=== PATIENT | male | born 1930 | race Caucasian/White ===

== ENCOUNTER 2017-02-24 12:11 | Inpatient (IN) | payer MEDICARE, BC ==
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
--- NOTE | 2017-02-24 13:45 | XR ---
EXAMINATION TYPE: XR chest 2V DATE OF EXAM: 02/24/2017 COMPARISON: 03/30/2013 TECHNIQUE: PA and lateral views submitted. HISTORY: Cough FINDINGS: Subsegmental changes at the right lung base. Arthropathy of the shoulders. No overt failure. Atherosc lerotic change aorta. Degenerative and hypertrophic change of the spine. IMPRESSION: 1. Right basilar atelectasis or early infiltrate. Correlate clinically.
[2017-02-24 14:12] LABS: Basophils % (A) 0 %; CH 28.7; CHCM 31.5; Eosinophils # (A) 0.5 k/uL (0-0.7); Eosinophils % (A) 6 %; HCT 37.8 % (39.0-53.0); HDW 2.55; HGB 12.2 gm/dL (13.0-17.5); Hypochromasia Slight; Luc # (Auto) 0.07; Luc % (Auto) 1; Lymphocytes # (A) 0.9 k/uL (1.0-4.8); Lymphocytes % (A) 13 %; MCH 29.8 pg (25.0-35.0); MCHC 32.4 g/dL (31.0-37.0); MCV 91.8 fL (80.0-100.0); Mean Platelet Volume 7.4; Monocytes # (A) 0.4 k/uL (0-1.0); Monocytes % (A) 6 %; Neutrophils # (A) 5.5 k/uL (1.3-7.7); Neutrophils % (A) 74 %; RBC 4.12 m/uL (4.30-5.90); RDW 15.6 % (11.5-15.5); WBC 7.5 k/uL (3.8-10.6); WBC (Perox) 8.03
[2017-02-24 14:24] LABS: Calcium 9.8 mg/dL (8.4-10.2); Potassium 4.1 mmol/L (3.5-5.1); Total Protein 7.2 g/dL (6.3-8.2)
--- NOTE | 2017-02-24 14:46 | CT ---
EXAMINATION TYPE: CT brain wo con DATE OF EXAM: 02/24/2017 COMPARISON: NONE HISTORY: Syncopal episode CT DLP: 1008.3 mGycm Automated exposure control for dose reduction was used. Helical imaging through the brain FINDINGS: Inflammatory change present in the right maxillary sinus, ethmoid air cells . Cerebral vascular calcifications are present. There is cortical atrophy. No hemorrhage or hydroceph alus. Low dense right frontal area is noted. Periventricular white matter shows patchy low attenuatio n. Calvarium is intact. IMPRESSION: CHRONIC SMALL VESSEL ISCHEMIC CHANGES, AGE RELATED ATROPHY. SINUS DISEASE. PROBABLE REMOTE RIGHT FRON KELSEY CEREBRAL VASCULAR ACCIDENT.
[2017-02-24] MEDS ORDERED: ACETAMINOPHEN TAB 500 MG TAB PO PRN (15:00)
[2017-02-24 17:08] LABS: Glucose,Whole Blood 89 mg/dL (75-99)
[2017-02-24 17:48] LABS: Appearance,Urine Clear (Clear); Bilirubin,Urine Negative (Negative); Glucose,Urine (UA) Negative (Negative); Ketones,Urine Negative (Negative); Leukocyte Esterase,Urine Negative (Negative); Nitrite,Urine Negative (Negative); PH, Urine 6.5 (5.0-8.0); Protein,Urine Negative (Negative); Specific Gravity,Urine 1.014 (1.001-1.035); UA Billing (MACRO vs. MICRO) CHEM; Urobilinogen,Urine <2.0 mg/dL (<2.0)
[2017-02-24] MEDS: SODIUM CHLORIDE 0.9% 1,000 ML IV SCH (18:58)
[2017-02-24] MEDS: INSULIN LISPRO (humaLOG) 300 UNIT/3 ML VIAL SQ SCH ×2 (18:58→21:00)
--- NOTE | 2017-02-24 18:59 | EEG ---
ELECTROENCEPHALOGRAM REPORT DATE OF SERVICE: 02/24/2017. REASON FOR TESTING: Syncope. DESCRIPTION OF THE PROCEDURE: This EEG was performed using a 21-channel digital electroencephalograph, following international 10-20 system. DESCRIPTION OF THE RECORDING: From the beginning of the tracing and with patient's eyes closed, the background rhythm was mostly consisting of 8 Hz alpha frequency in the posterior occipital leads. No obvious asymmetry is seen. Photic stimulation was performed with a minimal driving response seen. No pathological waves were elicited. Frequent muscle artifacts and occasional movement artifacts are seen. Hyperventilation was not performed. The patient remains awake throughout the tracing. No epileptiform discharges were seen. Her EKG lead showed a tachycardic rate with a normal rhythm. INTERPRETATION: This awake EEG can be considered within normal limits. There was no asymmetry seen. No epileptiform discharges were noticed. The absence of epileptiform discharges does not rule out the diagnosis of epilepsy; therefore, clinical correlation is recommended. MMADALBERTOL / IJN: [id number] /
[2017-02-24] MEDS: HEPARIN SODIUM,PORCINE 5,000 UNIT/ML 1 ML VIAL SQ SCH (19:08)
[2017-02-24] MEDS: ASPIRIN 325 MG TAB PO SCH (19:08)
[2017-02-24] MEDS: LOSARTAN-HCTZ 50-12.5 MG 1 EACH TAB PO SCH (19:08)
[2017-02-24] MEDS: METOPROLOL SUCCINATE (ER) 25 MG TAB.ER.24H PO SCH (19:08)
[2017-02-24] MEDS ORDERED: LORazepam 2 MG/ML INJ IV STA (19:36)
--- NOTE | 2017-02-24 20:39 | US ---
EXAMINATION TYPE: US carotid duplex BILAT DATE OF EXAM: 02/24/2017 COMPARISON: NONE CLINICAL HISTORY: Syncope. EXAM MEASUREMENTS: RIGHT: Peak Systolic Velocity (PSV) cm/sec ----- Right CCA: 30.1 ----- Right ICA: 122.6 ----- Right ECA: 125.8 ICA/CCA ratio: 4.1 RIGHT: End Diastole cm/sec ----- Right CCA: 10.9 ----- Right ICA: 32.1 ----- Right ECA: 0 LEFT: Peak Systolic Velocity (PSV) cm/sec ----- Left CCA: 106.2 ----- Left ICA: 123.9 ----- Left ECA: 148.5 ICA/CCA ratio: 1.2 LEFT: End Diastole cm/sec ----- Left CCA: 17.5 ----- Left ICA: 41.2 ----- Left ECA: 11.4 VERTEBRALS (direction of flow): Right Vertebral: Antegrade Left Vertebral: Antegrade Rhythm: Normal Right ratio high due to low velocity in the CCA severe plaque noted bilaterally IMPRESSION: There is antegrade flow in the vertebral arteries. The images and measurements suggest 5 0% stenosis in the common and internal carotid arteries bilaterally. Diffuse plaque formation is pres ent. Criteria for Assigning % of Stenosis / Diameter reduction (Estimation based on the indirect measurements of the internal carotid artery velocities (ICA PSV). 1. Normal (no stenosis)=ICA PSV < 125 cm/s: ratio < 2.0: ICA EDV<40 cm/s. 2. Less than 50% stenosis=ICA PSV < 125 cm/s: ratio < 2.0: ICA EDV<40 cm/s. 3. 50 to 69% stenosis=ICA PSV of 125 to 230 cm/s: ration 2.0 ? 4.0: ICA EDV 40-100 cm/s. 4. Greater than 70% stenosis to near occlusion= ICA PSV > 230 cm/s: ratio > 4.0: ICA EDV > 100 cm/s. 5. Near occlusion= ICA PSV velocities may be low or undetectable: variable ratio and ICA EDV. 6. Total occlusion=unable to detect flow.
[2017-02-24 21:08] LABS: Glucose,Whole Blood 124 mg/dL (75-99)
[2017-02-24] MEDS: ALLOPURINOL 300 MG TAB PO SCH (21:09)
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
[2017-02-24] MEDS: CYCLOBENZAPRINE 10 MG TAB PO SCH (22:11)
[2017-02-25 05:42] LABS: Glucose,Whole Blood 117 mg/dL (75-99)
[2017-02-25] MEDS: INSULIN LISPRO (humaLOG) 300 UNIT/3 ML VIAL SQ SCH ×4 (05:48→20:13)
[2017-02-25 06:19] LABS: Basophils % (A) 1 %; CH 29.4; CHCM 31.6; Eosinophils # (A) 0.6 k/uL (0-0.7); Eosinophils % (A) 10 %; HCT 35.8 % (39.0-53.0); HDW 2.63; HGB 11.3 gm/dL (13.0-17.5); Hypochromasia Slight; Luc % (Auto) 2; Lymphocytes # (A) 1.2 k/uL (1.0-4.8); Lymphocytes % (A) 21 %; MCH 29.6 pg (25.0-35.0); MCHC 31.6 g/dL (31.0-37.0); MCV 93.6 fL (80.0-100.0); Mean Platelet Volume 6.9; Monocytes # (A) 0.4 k/uL (0-1.0); Monocytes % (A) 7 %; Neutrophils # (A) 3.4 k/uL (1.3-7.7); Neutrophils % (A) 59 %; RBC 3.82 m/uL (4.30-5.90); RDW 14.6 % (11.5-15.5); WBC 5.7 k/uL (3.8-10.6); WBC (Perox) 5.91
[2017-02-25 06:32] LABS: Calcium 9.5 mg/dL (8.4-10.2); Potassium 4.6 mmol/L (3.5-5.1); Total Bilirubin 1.1 mg/dL (0.2-1.3); Total Protein 6.6 g/dL (6.3-8.2)
[2017-02-25] MEDS: FAMOTIDINE 20 MG TAB PO SCH (07:35)
[2017-02-25] MEDS: METOPROLOL SUCCINATE (ER) 25 MG TAB.ER.24H PO SCH (07:37)
[2017-02-25] MEDS: ASPIRIN 325 MG TAB PO SCH (07:37)
[2017-02-25] MEDS: CHOLECALCIFEROL 1,000 UNIT TAB PO SCH (07:37)
[2017-02-25] MEDS: LOSARTAN-HCTZ 50-12.5 MG 1 EACH TAB PO SCH (07:37)
[2017-02-25] MEDS: HEPARIN SODIUM,PORCINE 5,000 UNIT/ML 1 ML VIAL SQ SCH ×2 (07:37→20:04)
[2017-02-25] MEDS ORDERED: ASPIRIN 81 MG PO SCH (09:00)
[2017-02-25] MEDS ORDERED: ALLOPURINOL 300 MG TAB PO SCH (09:00)
[2017-02-25 11:45] LABS: Glucose,Whole Blood 129 mg/dL (75-99)
--- NOTE | 2017-02-25 12:33 | ECHOF ---
Referral Reason:syncope MEASUREMENTS -------- HEIGHT: 162.6 cm WEIGHT: 75.7 kg BP: IVSd: 1.5 cm (0.6 - 1.1) LVIDd: 3.0 cm (3.9 - 5.3) LVPWd: 1.6 cm (0.6 - 1.1) IVSs: 1.9 cm LVIDs: 1.5 cm LVPWs: 2.3 cm LAESV Index (A-L): 34.12 ml/m Ao Diam: 3.4 cm (2.0 - 3.7) AV Cusp: 1.6 cm (1.5 - 2.6) LA Diam: 3.7 cm (2.7 - 3.8) EPSS: 0.9 cm MV E [place]: 1.22 m/s MV DecT: 202 ms MV A [place]: 1.94 m/s MV E/A Ratio: 0.63 RAP: 5.00 mmHg RVSP: 27.97 mmHg MV EF SLOPE: 54.71 mm/s (70 - 150) MV EXCURSION: 0.84 cm (> 18.000) FINDINGS -------- Sinus rhythm. Resting tachycardia (HR>100bpm). This was a technically good study. The left ventricular size is normal. There is moderate concentric left ventricular hypertrophy. O verall left ventricular systolic function is normal with, an EF between 55 - 60 %. The right ventricle is normal in size. LA is moderately dilated 34-39 ml/m2 The right atrium is normal in size. Aortic valve is trileaflet and is mildly thickened. Moderate mitral annular calcification present. Mild mitral regurgitation is present. Mild tricuspid regurgitation present. The right ventricular systolic pressure, as measured by Doppl er, is 27.97mmHg. There is no pulmonic regurgitation present. The aortic root size is normal. Normal inferior vena cava with normal inspiratory collapse consistent with estimated right atrial pre ssure of 5 mmHg. There is a trivial pericardial effusion present. CONCLUSIONS -------- 1. Sinus rhythm. 2. This was a technically good study. 3. There is moderate concentric left ventricular hypertrophy. 4. Overall left ventricular systolic function is normal with, an EF between 55 - 60 %. 5. LA is moderately dilated 34-39 ml/m2 6. Aortic valve is trileaflet and is mildly thickened. 7. Moderate mitral annular calcification present. 8. Mild mitral regurgitation is present. 9. Mild tricuspid regurgitation present. 10. The right ventricular systolic pressure, as measured by Doppler, is 27.97mmHg. 11. There is no pulmonic regurgitation present. 12. The aortic root size is normal. 13. Normal inferior vena cava with normal inspiratory collapse consistent with estimated right atrial pressure of 5 mmHg. 14. There is a trivial pericardial effusion present. TRADE ANALYST: Joanna Cui RDCS
[2017-02-25] MEDS: LOSARTAN 50 MG TAB PO SCH (12:35)
[2017-02-25] MEDS: SODIUM CHLORIDE 0.9% 1,000 ML IV SCH (12:40)
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
[2017-02-25] MEDS ORDERED: LORazepam 2 MG/ML INJ ONE (13:48)
--- NOTE | 2017-02-25 14:53 | MR ---
EXAMINATION TYPE: MR angio head wo con DATE OF EXAM: 02/25/2017 COMPARISON: CT brain from yesterday. HISTORY: Syncope, abnormal CT TECHNIQUE: Time of flight images focusing on the [place] were performed without contrast.. 2-D and 3-D postprocessing imaging is performed. FINDINGS: There is codominant vertebral basilar system. There is no significant focal stenosis or ane urysmal change in the posterior circulation. There are patent posterior communicating arteries identi fied bilaterally. Images of the anterior circulation show small caliber but patent anterior communicating artery. There is small caliber but patent right A1 segment with filling of A2 segment due to patent anterior commu nicating artery. No aneurysmal change is identified. IMPRESSION: No significant focal stenosis or aneurysmal change at level of [place].
--- NOTE | 2017-02-25 14:57 | MR ---
EXAMINATION TYPE: MR brain wo con DATE OF EXAM: 02/25/2017 COMPARISON: CT brain from yesterday. HISTORY: Syncope, abnormal CT TECHNIQUE: Multiplanar, multisequence imaging of the brain and brainstem is performed without IV cont rast. FINDINGS: Diffusion weighted images demonstrate no evidence of a recent infarct or other diffusion abnormality. There is no worrisome extra-axial fluid collection. There is diffuse ventricular and sulcal prominenc e consistent with diffuse cerebral atrophy. There are scattered foci of T2 hyperintensity seen throug hout the deep and periventricular white matter. There is area of old infarct right frontal lobe redem onstrated. Midline structures demonstrate normal morphology. The craniocervical junction appears within normal limits. Normal vascular flow voids are present. There is fluid and mucosal thickening within right ma xillary sinus and right ethmoid sinuses redemonstrated. Remainder paranasal sinuses are clear. Globes are intact bilaterally. No suspicious opacification of mastoid air cells is seen. IMPRESSION: 1. No evidence of a recent infarct. 2. Background moderate diffuse cerebral atrophy and chronic small vessel ischemic change with old rig ht frontal lobe infarct all redemonstrated.
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
--- NOTE | 2017-02-25 15:33 | US ---
EXAMINATION TYPE: US kidneys/renal and bladder DATE OF EXAM: 02/25/2017 COMPARISON: NONE CLINICAL HISTORY: renal failure. EXAM MEASUREMENTS: Right Kidney: 10.4 x 4.0 x4.4 cm Left Kidney: 11.6 x 4.4 x 4.4 cm Right Kidney: scattered echogenic foci noted, small stones vs calcified arteries Left Kidney: probable cyst noted measuring 1.1 x 1.1 x 1.2cm Bladder: wnl Bilateral Jets seen: Yes Tiny echogenic foci within the right kidney may represent vascular calcifications or tiny, nonobstruc ting calculi. 1.2 cm lesion in the left kidney does not meet the requirements of simple cyst. Further evaluation with CT or MR would be suggested. IMPRESSION: LESION IN THE LEFT KIDNEY DOES NOT MEET THE REQUIREMENTS OF SIMPLE CYST. FURTHER EVALUATION WITH CT O R MR WOULD BE SUGGESTED.
[2017-02-25 16:56] LABS: Glucose,Whole Blood 113 mg/dL (75-99)
[2017-02-25] MEDS: CYCLOBENZAPRINE 10 MG TAB PO SCH (20:13)
[2017-02-25] MEDS: ALLOPURINOL 300 MG TAB PO SCH (20:13)
[2017-02-25 20:41] LABS: Glucose,Whole Blood 179 mg/dL (75-99)
[2017-02-25] MEDS ORDERED: ATORVASTATIN 10 MG TAB PO SCH (21:00)
[2017-02-26 06:09] LABS: Glucose,Whole Blood 138 mg/dL (75-99)
[2017-02-26] MEDS: INSULIN LISPRO (humaLOG) 300 UNIT/3 ML VIAL SQ SCH ×2 (06:15→12:08)
[2017-02-26 06:42] LABS: Basophils % (A) 0 %; CH 29.2; CHCM 31.1; Eosinophils # (A) 0.6 k/uL (0-0.7); Eosinophils % (A) 9 %; HDW 2.49; HGB 11.7 gm/dL (13.0-17.5); Hypochromasia Slight; Luc % (Auto) 2; Lymphocytes # (A) 1.1 k/uL (1.0-4.8); Lymphocytes % (A) 17 %; MCH 29.1 pg (25.0-35.0); MCHC 30.7 g/dL (31.0-37.0); MCV 94.6 fL (80.0-100.0); Mean Platelet Volume 7.3; Monocytes # (A) 0.5 k/uL (0-1.0); Monocytes % (A) 7 %; Neutrophils # (A) 4.5 k/uL (1.3-7.7); Neutrophils % (A) 66 %; RBC 4.02 m/uL (4.30-5.90); RDW 15.8 % (11.5-15.5); WBC 6.9 k/uL (3.8-10.6)
[2017-02-26 06:53] LABS: ALT 47 U/L (21-72); AST 33 U/L (17-59); Alkaline Phosphatase 64 U/L (38-126); Anion Gap 9 mmol/L; Blood Urea Nitrogen 30 mg/dL (9-20); Calcium 9.7 mg/dL (8.4-10.2); Carbon Dioxide 29 mmol/L (22-30); Chloride 102 mmol/L (98-107); Glucose 145 mg/dL (74-99); Non-African American GFR(MDRD) 53 (>60 ml/min/1.73 sqM); Potassium 4.8 mmol/L (3.5-5.1); Sodium 140 mmol/L (137-145); Total Bilirubin 0.9 mg/dL (0.2-1.3)
[2017-02-26] MEDS: ASPIRIN 325 MG TAB PO SCH (08:54)
[2017-02-26] MEDS: METOPROLOL SUCCINATE (ER) 25 MG TAB.ER.24H PO SCH (08:54)
[2017-02-26] MEDS: LOSARTAN 50 MG TAB PO SCH (08:54)
[2017-02-26] MEDS: HEPARIN SODIUM,PORCINE 5,000 UNIT/ML 1 ML VIAL SQ SCH (08:55)
[2017-02-26] MEDS: FAMOTIDINE 20 MG TAB PO SCH (08:55)
[2017-02-26] MEDS: SODIUM CHLORIDE 0.9% 1,000 ML IV SCH (08:59)
[2017-02-26 09:12] VITALS: RESP 18
[2017-02-26 11:22] VITALS: BP 155/64; PULSE 95; TEMP 98.2
[2017-02-26 11:35] LABS: Glucose,Whole Blood 142 mg/dL (75-99)
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
[2017-02-26] MEDS: CHOLECALCIFEROL 1,000 UNIT TAB PO SCH (12:08)
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
== END 2017-02-26 13:50 | disposition home or self-care (01) | DRG 312 ==
LOC: 3OBS 12:11 → 6SEL 17:14 → OBSVTOIN 02-25 14:13
PROVIDERS: ADMIT Internal Medicine; ATTEND Internal Medicine
DX: R55 Syncope and collapse (principal); E11.22 Type 2 diabetes mellitus with diabetic chronic kidney disease; D64.9 Anemia, unspecified; J98.11 Atelectasis; I12.9 Hypertensive chronic kidney disease with stage 1 through stage 4 chronic kidney disease, or unspecified chronic kidney disease; E78.5 Hyperlipidemia, unspecified; R35.0 Frequency of micturition; N18.9 Chronic kidney disease, unspecified; M10.9 Gout, unspecified; I99.8 Other disorder of circulatory system; M19.90 Unspecified osteoarthritis, unspecified site; M54.5 Low back pain; M54.2 Cervicalgia; G89.29 Other chronic pain; Z79.84 Long term (current) use of oral hypoglycemic drugs; Z86.718 Personal history of other venous thrombosis and embolism; Z98.42 Cataract extraction status, left eye; Z98.41 Cataract extraction status, right eye; Z96.1 Presence of intraocular lens; Z87.891 Personal history of nicotine dependence; Z86.73 Personal history of transient ischemic attack (TIA), and cerebral infarction without residual deficits; Z80.52 Family history of malignant neoplasm of bladder; Z79.899 Other long term (current) drug therapy; Z79.82 Long term (current) use of aspirin
CPT/HCPCS: 70450; 70544; 70551; 71020; 76770; 80053; 80061; 81003; 83036; 83090; 84484; 84550; 85025; 87086; 93306; 93880; 95819

== ENCOUNTER 2017-03-10 06:19 | Day surgery (SDC) | payer MEDICARE, BC ==
[2017-03-08 15:04] VITALS: BMI 27.8
[~2017-03-10 06:19] MED LIST: ALPRAZolam 0.25 MG TAB PO PRN; ALPRAZolam 0.5 MG TAB PO PRN; ASPIRIN 325 MG TAB PO STA; ATORVASTATIN 80 MG TAB PO STA; NITROGLYCERIN SL TABS 0.4 MG TAB SUBLINGUAL PRN; SODIUM CHLORIDE 0.9% 1,000 ML in EMPTY BAG 1 BAG IV ONE
[2017-03-10 06:53] LABS: Glucose,Whole Blood 171 mg/dL (75-99)
[2017-03-10] MEDS ORDERED: LIDOCAINE 2% INJ 20 MG/ML (20 ML MDV) ONE (07:20)
[2017-03-10] MEDS ORDERED: VERAPAMIL 2.5 MG/ML 2 ML AMP ONE (07:20)
[2017-03-10] MEDS ORDERED: diphenhydrAMINE 50 MG/ML 1 ML VIAL ONE (07:28)
[2017-03-10] MEDS ORDERED: fentaNYL (PF) 50 MCG/ML 2 ML AMP ONE (07:28)
[2017-03-10] MEDS ORDERED: diphenhydrAMINE 50 MG/ML 1 ML VIAL IVP ONE (07:30)
[2017-03-10] MEDS ORDERED: fentaNYL (PF) 50 MCG/ML 2 ML AMP IV ONE (07:31)
[2017-03-10] MEDS: LIDOCAINE 2% INJ 20 MG/ML SQ ONE ×2 (07:35→07:48)
[2017-03-10] MEDS ORDERED: MIDAZOLAM 2 MG/2 ML VIAL IV ONE (07:36)
[2017-03-10] MEDS ORDERED: MIDAZOLAM 2 MG/2 ML VIAL ONE (07:36)
[2017-03-10] MEDS ORDERED: VERAPAMIL SYRINGE (5 MG/10 ML) INTRAARTER ONE (07:37)
[2017-03-10 07:43] LABS: Potassium 4.4 mmol/L (3.5-5.1)
[2017-03-10] MEDS ORDERED: CLOPIDOGREL 75 MG TAB ONE (07:58)
[2017-03-10] MEDS ORDERED: BIVALIRUDIN BOLUS 250 MG/50 ML IV ONE (08:00)
[2017-03-10] MEDS ORDERED: BIVALIRUDIN 250 MG in SODIUM CHLORIDE 0.9% 50 ML IV ONE (08:04)
[2017-03-10] MEDS ORDERED: CLOPIDOGREL 75 MG TAB PO ONE (08:04)
[2017-03-10] MEDS ORDERED: NITROGLYCERIN 1000MCG/10ML SYRINGE INTRACORON ONE (08:11)
[2017-03-10] MEDS ORDERED: IOHEXOL 350 MG/ML 125ML BOTTLE INJ ONE (08:20)
[2017-03-10] MEDS ORDERED: ATROPINE SULFATE 0.1 MG/ML 10ML SYRINGE IV PRN (08:37)
[2017-03-10] MEDS ORDERED: NITROGLYCERIN SL TABS 0.4 MG TAB SUBLINGUAL PRN (08:37)
[2017-03-10] MEDS ORDERED: MAG HYDROX/AL HYDROX/SIMETH 30 ML CUP PO PRN (08:37)
[2017-03-10] MEDS ORDERED: RX INFO: IV CONTRAST WAS GIVEN 1 EACH MISC MISCELLANE PRN (08:37)
[2017-03-10] MEDS ORDERED: ACETAMINOPHEN TAB 500 MG TAB PO PRN (08:39)
[2017-03-10] MEDS ORDERED: SODIUM CHLORIDE 0.9% 1,000 ML IV SCH (08:45)
[2017-03-10] MEDS ORDERED: HYDROmorphone 1 MG/ML 1 ML SYRINGE IVP STA ×2 (08:53→10:06)
--- NOTE | 2017-03-10 08:55 | CC ---
CARDIAC CATHETERIZATION REPORT Mr. Degroot is an 86-year-old male with known history of hypertension, hyperlipidemia, diabetes mellitus, who recently had a syncopal episode. At that time, there was no evidence of ischemic event. Subsequently he had an event monitor placed that revealed episode of nonsustained ventricular tachycardia with symptoms with possible dizziness. In view of that, recommendations were made regarding cardiac catheterization. The procedure as well as the risks and complications were discussed with the patient who is in full understanding and agreement. PROCEDURE: Patient was brought to the medical lab scientist in a fasting semi-sedated state after receiving fentanyl and Benadryl and achieving moderate conscious sedated state. Using Xylocaine anesthesia in the Seldinger technique, a 6-Scottish sheath was introduced in the right radial artery. The wire was advanced into the ascending aorta, but because of severe tortuosity there was inability to advance the catheter. At that time, the guidewire and the catheter were removed. Using Xylocaine anesthesia in the Seldinger technique, 6- Scottish sheath was introduced in the right femoral artery. Selective right and left angiography were performed using 6-Scottish 4 bend right and left Mike catheter. Multiple views of the coronary artery including hemiaxial views were obtained. Following that, a 6-Scottish tight pigtail catheter was introduced into the left ventricle and a pressure was calculated. Following that, catheter was removed. Images were reviewed. FINDINGS: FLUOROSCOPY: There was severe calcification involving the coronary arteries. LEFT MAIN: This is a large size vessel trifurcating in the left circumflex, left anterior descending artery and ramus intermedius. Left main coronary artery is without any significant obstructive disease. LEFT ANTERIOR DESCENDING ARTERY: This is a large-sized vessel reaching toward the apex, tapers down the distal third, giving rise to 3 diagonal branches. The first was largest in caliber. In the mid segment prior to the takeoff of the second diagonal branch, there is a 70% eccentric lesion. The rest of the vessel is calcified, but has no evidence of high-grade stenosis. RAMUS INTERMEDIUS: This is a moderately size vessel reaching toward the apical lateral wall that has no evidence of high-grade stenosis. LEFT CIRCUMFLEX: This is a nondominant vessel, large in caliber giving rise to 2 obtuse marginal branches. The left circumflex as well as branches have no evidence of obstructive coronary artery disease. RIGHT CORONARY ARTERY: This is a large dominant vessel bifurcating distally in PDA, posterolateral segment and branches. The right coronary artery proximally has a 20% to 30% plaque. The rest of the vessel has no high-grade stenosis. HEMODYNAMICS: There was no gradient across the aortic valve. The left ventricle end- diastolic pressure was 16-20 mmHg. LEFT VENTRICULOGRAM: Left ventriculogram is not performed. CONCLUSION: 1. 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 2. Mild disease in the right coronary artery. 3. Severely calcified coronary arteries. RECOMMENDATION: In view of finding anatomy, I recommend proceeding with angioplasty and stenting of the LAD. The procedure as well as risks and complications were discussed with the patient who is in full understanding and agreement. MMODL / IJN: [id number] /
[2017-03-10] MEDS: LOSARTAN-HCTZ 50-12.5 MG 1 EACH TAB PO SCH (10:28)
[2017-03-10] MEDS: METOPROLOL SUCCINATE (ER) 50 MG TAB.ER.24H PO SCH (10:28)
--- NOTE | 2017-03-10 10:31 | PTCA ---
PERCUTANEOUSTRANS CORORONARY ANGIOGRAPHY Mr. Degroot is an 86-year-old male with known history of hypertension, hyperlipidemia, diabetes mellitus, who recently had a syncopal episode. He had an event monitor that showed evidence of ventricular tachycardia. In view of that, he underwent cardiac catheterization that revealed significant stenosis involving the mid LAD. In view of that, recommendation was made regarding angioplasty and stenting. The procedure as well as the risks and complications were discussed with the patient who is in full understanding and agreement. PROCEDURE: A 6-Kiswahili FR4 guiding catheter was introduced in the system and after cannulating the left main, a 0.014 balanced medium weight J-wire was advanced across the lesion and positioned distally. Then a 3.0 x 18 mm Xience Alpine stent was deployed postdilated at 16 atmospheres. After the last inflation, after appropriate wait, the balloon and the guidewire were withdrawn back in the guiding catheter. Images were obtained and repeated. Those images reveal stable successful stenting. At that point, the guiding catheter, the balloon and the guide wire were removed. The sheath was removed. Hemostasis was obtained with deployment of an Angio-Seal in the right femoral artery and a TR band in the right radial artery. Of note, the patient had no chest discomfort or EKG changes with the inflation. He received Angiomax per protocol as well as oral loading dose of clopidogrel. RESULTS: Successful stenting of the mid LAD with reduction of stenosis from 70% to 0%. RECOMMENDATION: Patient will be continued on aspirin, Plavix, beta ivon, and statin. The importance of dual antiplatelet treatment was discussed with the patient and his family and are in full understanding and agreement. Duration of the procedure 42 minutes. MMRON / DAYTONN: [id number] /
--- NOTE | 2017-03-10 10:37 | LTR ---
March 10, 2017 Re: Dean Degroot Dear Dr. Salas: I had the opportunity to perform cardiac catheterization on Mr. Degroot at [facility] on the 10 of March and a full copy of the procedure note will be forwarded to you. In brief, he was found to have significant stenosis involving the mid LAD and underwent successful stenting of that vessel using a drug eluting stent. I am hopeful that this procedure will stabilize his status and I thank you again for allowing me the opportunity to participate in his care. Please feel free to call for any questions. Sincerely yours, MD JEANNE NelsonL / DAYTONN: [id number] /
[2017-03-10 12:10] LABS: Glucose,Whole Blood 151 mg/dL (75-99)
[2017-03-10] MEDS: CHOLECALCIFEROL 1,000 UNIT TAB PO SCH (12:25)
[2017-03-10] MEDS: INSULIN ASPART 100 UNIT/ML 1 ML 10 ML VIAL SQ SCH ×3 (12:25→21:13)
[2017-03-10 17:31] LABS: Glucose,Whole Blood 141 mg/dL (75-99)
[2017-03-10 20:57] LABS: Glucose,Whole Blood 191 mg/dL (75-99)
[2017-03-10] MEDS ORDERED: ALLOPURINOL 300 MG TAB PO SCH (21:00)
[2017-03-10] MEDS ORDERED: CYCLOBENZAPRINE 10 MG TAB PO SCH (21:00)
[2017-03-10] MEDS ORDERED: ZOLPIDEM 5 MG TAB PO PRN (21:00)
[2017-03-11 06:06] LABS: Glucose,Whole Blood 148 mg/dL (75-99)
[2017-03-11 06:16] VITALS: TEMP 97.1
[2017-03-11] MEDS: INSULIN ASPART 100 UNIT/ML 1 ML 10 ML VIAL SQ SCH ×2 (06:38→13:00)
--- NOTE | 2017-03-11 08:11 | PN ---
PROGRESS NOTE Mr. Degroot is an 86-year-old male who had a syncopal episode. Subsequently had an episode of ventricular tachycardia on his event monitor, underwent cardiac catheterization, was found to have significant stenosis involving the mid LAD and underwent stenting of that vessel. He is doing well this morning. He is denying any chest pain. His breathing has been stable. He denies any dizziness palpitation. He continued be on aspirin once a day, Plavix 75 mg daily, Lipitor 40 mg daily, Toprol-XL 50 mg daily, losartan HCT 50/12.5 mg daily. PHYSICAL EXAMINATION: Blood pressure 134/60 with the heart rate in 80s. LUNGS: Clear. Regular rate and rhythm. S1, S2. No S3. No rub with a systolic murmur at the base. ABDOMEN: Soft, nontender. RIGHT GROIN: No hematoma. EXTREMITIES: No edema. Right radial pulse intact. EKG revealed no acute changes. Renal function lab data still pending. IMPRESSION: 1. Status post stenting of the left anterior descending artery. 2. History of ventricular tachycardia. 3. Hypertension. 4. Hyperlipidemia. 5. Diabetes mellitus. 6. Chronic kidney disease. RECOMMENDATION: We will review the results of his renal function. If he is stable, he should be able to be discharged home today and followed as an outpatient. Depending on his arrhythmia, further recommendation will be made. MMODL / DAYTONN: [id number] /
[2017-03-11] MEDS ORDERED: CLOPIDOGREL 75 MG TAB PO SCH (09:00)
[2017-03-11] MEDS ORDERED: ATORVASTATIN 40 MG TAB PO SCH (09:00)
[2017-03-11] MEDS ORDERED: ASPIRIN 81 MG PO SCH (09:00)
[2017-03-11 09:17] VITALS: BP 150/72; PULSE 92; RESP 16
[2017-03-11 09:22] LABS: Calcium 9.7 mg/dL (8.4-10.2); Potassium 4.5 mmol/L (3.5-5.1)
[2017-03-11] MEDS: LOSARTAN-HCTZ 50-12.5 MG 1 EACH TAB PO SCH (10:40)
[2017-03-11] MEDS: CHOLECALCIFEROL 1,000 UNIT TAB PO SCH (10:41)
[2017-03-11] MEDS: METOPROLOL SUCCINATE (ER) 50 MG TAB.ER.24H PO SCH (10:41)
[2017-03-11 11:45] LABS: Glucose,Whole Blood 169 mg/dL (75-99)
== END 2017-03-11 14:03 | disposition home or self-care (01) ==
LOC: CATHCVL 06:19 → 6SEL 08:15 → CATHCVL 03-11 14:03
PROVIDERS: ATTEND Internal Medicine Interventional Cardiology
DX: I25.10 Atherosclerotic heart disease of native coronary artery without angina pectoris (principal); I25.84 Coronary atherosclerosis due to calcified coronary lesion; I47.2 Ventricular tachycardia; E78.2 Mixed hyperlipidemia; I65.23 Occlusion and stenosis of bilateral carotid arteries; I12.9 Hypertensive chronic kidney disease with stage 1 through stage 4 chronic kidney disease, or unspecified chronic kidney disease; N18.9 Chronic kidney disease, unspecified; E11.22 Type 2 diabetes mellitus with diabetic chronic kidney disease; Z79.84 Long term (current) use of oral hypoglycemic drugs; M19.90 Unspecified osteoarthritis, unspecified site; Z79.82 Long term (current) use of aspirin; Z79.899 Other long term (current) drug therapy
CPT/HCPCS: 94760; 93458; 85347; 80048 ×2; 83036; C9600; C1769 ×4; C1760; C1887; C1894 ×2; C1874; J2001; J2250; J1200; J3010; J1170; J0583; Q9967

== ENCOUNTER → 2017-07-13 | Outpatient (CLI) | payer MEDICARE, BC ==
[2017-07-13 11:50] LABS: Albumin 4.4 g/dL (3.5-5.0); Calcium 9.9 mg/dL (8.4-10.2); Potassium 4.4 mmol/L (3.5-5.1); Total Bilirubin 1.2 mg/dL (0.2-1.3); Total Protein 7.1 g/dL (6.3-8.2)
== END | disposition home or self-care (01) ==
LOC: LABWHC1 10:46
PROVIDERS: ATTEND Internal Medicine Interventional Cardiology
DX: E78.2 Mixed hyperlipidemia (principal)
CPT/HCPCS: 36415; 80053; 80061

== ENCOUNTER → 2018-01-25 | Outpatient (CLI) | payer MEDICARE, BC ==
[2018-01-25 10:59] LABS: Albumin 4.3 g/dL (3.5-5.0); Calcium 9.8 mg/dL (8.4-10.2); Potassium 4.5 mmol/L (3.5-5.1); Total Bilirubin 1.2 mg/dL (0.2-1.3); Total Protein 7.3 g/dL (6.3-8.2)
== END ==
LOC: LABWHC1 09:02
PROVIDERS: ATTEND Internal Medicine Interventional Cardiology
DX: E78.2 Mixed hyperlipidemia (principal)
CPT/HCPCS: 36415; 80053; 80061

== ENCOUNTER 2018-02-05 10:35 | Inpatient (IN) | payer MEDICARE, BC ==
[~2018-02-05 10:35] MED LIST changes: -ALPRAZolam 0.25 MG TAB PO PRN; -ALPRAZolam 0.5 MG TAB PO PRN; -ASPIRIN 325 MG TAB PO STA; -ATORVASTATIN 80 MG TAB PO STA; +HEPARIN SOD,PORK IN 0.45% NACL PMX 25,000 UNIT/500 ML BAG IV ONE; -NITROGLYCERIN SL TABS 0.4 MG TAB SUBLINGUAL PRN; -SODIUM CHLORIDE 0.9% 1,000 ML in EMPTY BAG 1 BAG IV ONE
[2018-02-05] MEDS ORDERED: SODIUM CHLORIDE 0.9% 500 ML 500 ML IV STA (10:51)
[2018-02-05 11:14] LABS: Basophils % (A) 0 %; Eosinophils # (A) 0.6 k/uL (0-0.7); Eosinophils % (A) 8 %; HCT 32.4 % (39.0-53.0); HGB 10.6 gm/dL (13.0-17.5); Lymphocytes # (A) 0.9 k/uL (1.0-4.8); Lymphocytes % (A) 13 %; MCH 29.3 pg (25.0-35.0); MCHC 32.6 g/dL (31.0-37.0); MCV 89.8 fL (80.0-100.0); Mean Platelet Volume 6.9; Monocytes # (A) 0.5 k/uL (0-1.0); Monocytes % (A) 6 %; Neutrophils # (A) 5.2 k/uL (1.3-7.7); Neutrophils % (A) 71 %; Platelet Count 209 k/uL (150-450); RBC 3.61 m/uL (4.30-5.90); WBC 7.3 k/uL (3.8-10.6)
[2018-02-05 11:24] LABS: Partial Thromboplastin Time 22.8 sec (22.0-30.0); Prothrombin Time 10.3 sec (9.0-12.0)
--- NOTE | 2018-02-05 11:25 | ED ---
General Adult HPI - General Chief complaint: Neuro Symptoms/Deficit Stated complaint: rt eye vision loss Time Seen by Provider: 02/05/18 11:00 Source: patient, family, RN notes reviewed Mode of arrival: wheelchair Limitations: no limitations - History of Present Illness Initial comments: This is an 87-year-old male who presents emergency Department complaining of visual problems with his right eye. Patient states yesterday around noon he started having blurred vision or persisted throughout the afternoon. Patient states when he woke up today HE is shadows out of his right eye. Patient denies any headache but he states is a little pressure in his eye. Patient denies any other neurologic deficits. Patient denies any numbness weakness. Patient denies any slurred speech. Patient denies any recent fever chills. Patient states he is a diabetic. Patient denies any recent injury. Patient has had a history of a previous stroke. Patient denies any chest pain today or palpitations. Patient denies any difficulty breathing or shortness of breath. - Related Data Home Medications Medication Instructions Recorded Confirmed Acetaminophen Tab [Tylenol] 500 mg PO Q6H PRN 02/24/17 02/05/18 Allopurinol [Zyloprim] 300 mg PO HS 02/24/17 02/05/18 Aspirin 81 mg PO QAM 02/24/17 02/05/18 Cholecalciferol [Vitamin D3] 1,000 unit PO BID 02/24/17 02/05/18 Cyclobenzaprine [Flexeril] 10 mg PO HS 02/24/17 02/05/18 Losartan/Hydrochlorothiazide 1 tab PO QAM 02/24/17 02/05/18 [Losartan-Hctz 100-25 mg Tab] metFORMIN HCL [Glucophage] 500 mg PO BID 02/24/17 02/05/18 Atorvastatin [Lipitor] 20 mg PO HS 02/05/18 02/05/18 Previous Rx's Medication Instructions Recorded Clopidogrel [Plavix] 75 mg PO DAILY #90 tab 03/11/17 Metoprolol Succinate (ER) [Toprol 50 mg PO QAM #50 tab.er.24h 03/11/17 XL] Nitroglycerin Sl Tabs [Nitrostat] 0.4 mg SUBLINGUAL Q5M PRN #25 tab 03/11/17 Allergies Allergy/AdvReac Type Severity Reaction Status Date / Time No Known Allergies Allergy Verified 02/05/18 12:36 Review of Systems ROS Statement: Those systems with pertinent positive or pertinent negative responses have been documented in the HPI. ROS Other: All systems not noted in ROS Statement are negative. Past Medical History Past Medical History: Coronary Artery Disease (CAD), Diabetes Mellitus, Deep Vein Thrombosis (DVT), Hyperlipidemia, Hypertension, Osteoarthritis (OA) Additional Past Medical History / Comment(s): hx of gout, DVT of the leg several years ago. Completed Coumadin treatment at that time. chronic back and neck pain History of Any Multi-Drug Resistant Organisms: None Reported Past Surgical History: Heart Catheterization With Stent Additional Past Surgical History / Comment(s): Lipoma removed from back twice, bilateral cataract removal with lens implants. Past Anesthesia/Blood Transfusion Reactions: No Reported Reaction Past Psychological History: No Psychological Hx Reported Smoking Status: Former smoker Past Alcohol Use History: None Reported Past Drug Use History: None Reported - Past Family History Father Additional Family Medical History / Comment(s): Father had heart problems and at the age of 72. Mother Family Medical History: Cancer Additional Family Medical History / Comment(s): Mother of bladder cancer at the age of 64 yrs. General Exam - General Exam Comments Initial Comments: GENERAL: Patient is well-developed and well-nourished. Patient is nontoxic and well- hydrated and is in no acute distress. ENT: Neck is soft and supple. No significant lymphadenopathy is noted. Oropharynx is clear. Moist mucous membranes. Neck has full range of motion without eliciting any pain. There is no thyroid enlargement and no masses were felt. EYES: The sclera were anicteric and conjunctiva were pink and moist. Extraocular movements were intact and pupils were equal round. Patient's right eye does not reactive to light but he has had previous surgery. I looked at and retina within ophthalmoscope and the retina was clearly visualized as well as the optic nerve. I also used the Jm-Pen to measure pressures in his eye in the right eye measured an average of 16 with 6 measurements PULMONARY: Unlabored respirations. Good breath sounds bilaterally. No audible rales rhonchi or wheezing was noted. CARDIOVASCULAR: There is a regular rate and rhythm without any murmurs gallops or rubs. ABDOMEN: Soft and nontender with normal bowel sounds. SKIN: Skin is clear with no lesions or rashes and otherwise unremarkable. NEUROLOGIC: Patient is alert and oriented x3. Cranial nerves II through XII are grossly intact. Motor and sensory are also intact. Normal speech, volume and content. Symmetrical smile. MUSCULOSKELETAL: Normal extremities with adequate strength and full range of motion. LYMPHATICS: No significant lymphadenopathy is noted PSYCHIATRIC: Normal psychiatric evaluation. Limitations: no limitations Course Vital Signs 02/05/18 02/05/18 02/05/18 10:50 10:54 11:00 Temperature 98.7 F Pulse Rate 107 H 100 94 Respiratory 18 14 21 Rate Blood Pressure 143/74 O2 Sat by Pulse 94 L 93 L 93 L Oximetry 02/05/18 02/05/18 02/05/18 11:10 11:13 11:14 Temperature Pulse Rate 93 93 Respiratory 11 L 7 L 24 Rate Blood Pressure 144/68 144/68 O2 Sat by Pulse 96 95 97 Oximetry 02/05/18 02/05/18 02/05/18 11:15 11:16 11:17 Temperature Pulse Rate 94 92 91 Respiratory 16 23 25 H Rate Blood Pressure O2 Sat by Pulse 96 96 97 Oximetry 02/05/18 02/05/18 02/05/18 11:18 11:19 11:50 Temperature Pulse Rate 92 94 90 Respiratory 25 H 13 23 Rate Blood Pressure O2 Sat by Pulse 97 95 Oximetry 02/05/18 02/05/18 02/05/18 11:51 11:52 11:53 Temperature Pulse Rate 93 92 94 Respiratory 11 L 23 10 L Rate Blood Pressure 143/72 143/72 143/72 O2 Sat by Pulse 97 97 97 Oximetry Medical Decision Making - Medical Decision Making EKG shows a normal sinus rhythm at 95 bpm NV interval is on a 46 QRS is 70 QT interval 348 QTC is 437. Patient's EKG shows no ST segment elevation or depression or T wave abnormalities are noted. I spoke with Dr. Daniels he wanted me to start the patient on heparin and aspirin so I started the patient on a car. He gave the patient one aspirin. I spoke with cardiology Dr. Fields about the patient and made him aware of the patient's situation and the fact he is on heparin and his elevated troponin. We paged and called his cellphone of Dr. Smith multiple times and we did not get a response I spoke with Dr. Vang he agreed to admit the patient wrote admitting orders I consult to Dr. Luis Daniels and Dr. Fields. - Lab Data Result diagrams: 02/05/18 11:02 02/05/18 11:02 Lab Results 02/05/18 02/05/18 02/05/18 Range/Units 11:02 11:02 11:02 WBC 7.3 (3.8-10.6) k/uL RBC 3.61 L (4.30-5.90) m/uL Hgb 10.6 L (13.0-17.5) gm/dL Hct 32.4 L (39.0-53.0) % MCV 89.8 (80.0-100.0) fL MCH 29.3 (25.0-35.0) pg MCHC 32.6 (31.0-37.0) g/dL RDW 15.0 (11.5-15.5) % Plt Count 209 (150-450) k/uL Neutrophils % 71 % Lymphocytes % 13 % Monocytes % 6 % Eosinophils % 8 % Basophils % 0 % Neutrophils # 5.2 (1.3-7.7) k/uL Lymphocytes # 0.9 L (1.0-4.8) k/uL Monocytes # 0.5 (0-1.0) k/uL Eosinophils # 0.6 (0-0.7) k/uL Basophils # 0.0 (0-0.2) k/uL PT (9.0-12.0) sec INR (<1.2) APTT (22.0-30.0) sec Sodium 141 (137-145) mmol/L Potassium 4.5 (3.5-5.1) mmol/L Chloride 101 (98-107) mmol/L Carbon Dioxide 27 (22-30) mmol/L Anion Gap 13 mmol/L BUN 33 H (9-20) mg/dL Creatinine 1.40 H (0.66-1.25) mg/dL Est GFR (CKD-EPI)AfAm 53 (>60 ml/min/1.73 sqM) Est GFR (CKD-EPI)NonAf 46 (>60 ml/min/1.73 sqM) Glucose 188 H (74-99) mg/dL Calcium 9.5 (8.4-10.2) mg/dL Total Bilirubin 1.2 (0.2-1.3) mg/dL AST 21 (17-59) U/L ALT 25 (21-72) U/L Alkaline Phosphatase 65 (38-126) U/L Total Creatine Kinase 165 (55-170) U/L CK-MB (CK-2) 4.1 H (0.0-2.4) ng/mL CK-MB (CK-2) Rel Index 2.5 Troponin I 0.153 H* (0.000-0.034) ng/mL Total Protein 6.8 (6.3-8.2) g/dL Albumin 3.9 (3.5-5.0) g/dL 02/05/18 Range/Units 11:02 WBC (3.8-10.6) k/uL RBC (4.30-5.90) m/uL Hgb (13.0-17.5) gm/dL Hct (39.0-53.0) % MCV (80.0-100.0) fL MCH (25.0-35.0) pg MCHC (31.0-37.0) g/dL RDW (11.5-15.5) % Plt Count (150-450) k/uL Neutrophils % % Lymphocytes % % Monocytes % % Eosinophils % % Basophils % % Neutrophils # (1.3-7.7) k/uL Lymphocytes # (1.0-4.8) k/uL Monocytes # (0-1.0) k/uL Eosinophils # (0-0.7) k/uL Basophils # (0-0.2) k/uL PT 10.3 (9.0-12.0) sec INR 1.0 (<1.2) APTT 22.8 (22.0-30.0) sec Sodium (137-145) mmol/L Potassium (3.5-5.1) mmol/L Chloride (98-107) mmol/L Carbon Dioxide (22-30) mmol/L Anion Gap mmol/L BUN (9-20) mg/dL Creatinine (0.66-1.25) mg/dL Est GFR (CKD-EPI)AfAm (>60 ml/min/1.73 sqM) Est GFR (CKD-EPI)NonAf (>60 ml/min/1.73 sqM) Glucose (74-99) mg/dL Calcium (8.4-10.2) mg/dL Total Bilirubin (0.2-1.3) mg/dL AST (17-59) U/L ALT (21-72) U/L Alkaline Phosphatase (38-126) U/L Total Creatine Kinase (55-170) U/L CK-MB (CK-2) (0.0-2.4) ng/mL CK-MB (CK-2) Rel Index Troponin I (0.000-0.034) ng/mL Total Protein (6.3-8.2) g/dL Albumin (3.5-5.0) g/dL Critical Care Time Critical Care Time: Yes Total Critical Care Time: 35 Disposition Clinical Impression: Blindness of right eye, Non-STEMI (non-ST elevated myocardial infarction) Disposition: ADMITTED IP TO THIS HOSP Referrals: Virgil Salas MD [Primary Care Provider] - 1-2 days Time of Disposition: 12:45
[2018-02-05 11:26] LABS: Albumin 3.9 g/dL (3.5-5.0); Calcium 9.5 mg/dL (8.4-10.2); Potassium 4.5 mmol/L (3.5-5.1); Total Bilirubin 1.2 mg/dL (0.2-1.3); Total Protein 6.8 g/dL (6.3-8.2)
--- NOTE | 2018-02-05 11:37 | CT ---
EXAMINATION TYPE: CT brain wo con DATE OF EXAM: 02/05/2018 COMPARISON: Previous study dated 02/24/2017 HISTORY: vision loss Rt eye CT DLP: 1206.4 mGycm Automated exposure control for dose reduction was used. FINDINGS: There has been a previous right frontal infarct. There are generalized changes of sulcal prominence and ventriculomegaly, compatible with atrophic thea nge. There is diffuse periventricular white matter lucency, compatible small vessel ischemic change. There is physiologic calcification of the basal ganglia. No acute focal lesion, mass effect or midlin e shift is seen. I do not see evidence of intracranial blood. The orbits have a normal appearance. There is chronic right maxillary sinus mucosal disease. This was present previously. The remainder th e paranasal sinuses and mastoids are clear. The bony calvarium is intact. IMPRESSION: 1. NO ACUTE INTRACRANIAL ABNORMALITY. 2. OLD RIGHT FRONTAL INFARCT. 3. DEGENERATIVE CHANGE.
--- NOTE | 2018-02-05 11:38 | XR ---
EXAMINATION TYPE: XR chest 2V DATE OF EXAM: 02/05/2018 HISTORY: altered mental status. REFERENCE: Previous study dated 02/24/2017. FINDINGS: There is chronic apparent elevation of the right hemidiaphragm. There is some chronic atele ctatic change at the right lung base. Lungs otherwise clear. Pleural space are clear. The heart is no t enlarged. IMPRESSION: CHRONIC CHANGES WITHOUT ACUTE ABNORMALITY.
[2018-02-05 11:50] LABS: Creatine Kinase MB 4.1 ng/mL (0.0-2.4)
[2018-02-05 12:00] LABS: Troponin I 0.153 ng/mL (0.000-0.034)
[2018-02-05] MEDS ORDERED: ASPIRIN 81 MG PO STA (12:34)
[2018-02-05] MEDS ORDERED: HEPARIN SODIUM,PORCINE 5,000 UNIT/ML 1 ML VIAL IV ONE (12:35)
[2018-02-05] MEDS ORDERED: HEPARIN SOD,PORK IN 0.45% NACL 25,000 UNIT in 0.45% NACL 1 500ML.BAG IV SCH (12:45)
--- NOTE | 2018-02-05 17:16 | US ---
EXAMINATION TYPE: US carotid duplex BILAT DATE OF EXAM: 02/05/2018 COMPARISON: 03/11 US CLINICAL HISTORY: Stenosis. syncope EXAM MEASUREMENTS: RIGHT: Peak Systolic Velocity (PSV) cm/sec ----- Right CCA: 31.0 ----- Right ICA: 342.9 ----- Right ECA: 39.4 ICA/CCA ratio: 11.0 RIGHT: End Diastole cm/sec ----- Right CCA: 9.7 ----- Right ICA: 107.0 ----- Right ECA: 0.0 LEFT: Peak Systolic Velocity (PSV) cm/sec ----- Left CCA: 137.1 ----- Left ICA: 128.6 ----- Left ECA: 187.3 ICA/CCA ratio: 0.9 LEFT: End Diastole cm/sec ----- Left CCA: 24.8 ----- Left ICA: 31.7 ----- Left ECA: 20.0 VERTEBRALS (direction of flow): Right Vertebral: Antegrade Left Vertebral: Antegrade 1. Severe bilateral plaque along all carotid vessels. 2. Bilateral vessel tortuosity. 3. Elevated velocities with the prox TONIO with waveform disturbance seen dst to the stenosis. Blunt ing of the RCCA waveform. IMPRESSION: There is significant irregular plaque formation at the right carotid artery bifurcation. 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 Stenosis is probabl y more than 90%. There is plaque formation on the left side that suggests 50-70% stenosis in the left internal carotid artery. Antegrade flow in the vertebral arteries. Criteria for Assigning % of Stenosis / Diameter reduction (Estimation based on the indirect measurements of the internal carotid artery velocities (ICA PSV). 1. Normal (no stenosis)=ICA PSV < 125 cm/s: ratio < 2.0: ICA EDV<40 cm/s. 2. Less than 50% stenosis=ICA PSV < 125 cm/s: ratio < 2.0: ICA EDV<40 cm/s. 3. 50 to 69% stenosis=ICA PSV of 125 to 230 cm/s: ration 2.0 ? 4.0: ICA EDV 40-100 cm/s. 4. Greater than 70% stenosis to near occlusion= ICA PSV > 230 cm/s: ratio > 4.0: ICA EDV > 100 cm/s. 5. Near occlusion= ICA PSV velocities may be low or undetectable: variable ratio and ICA EDV. 6. Total occlusion=unable to detect flow.
[2018-02-05 17:17] LABS: Glucose,Whole Blood 98 mg/dL (75-99)
[2018-02-05] MEDS ORDERED: NITROGLYCERIN SL TABS 0.4 MG TAB SUBLINGUAL PRN (18:21)
[2018-02-05] MEDS ORDERED: ACETAMINOPHEN TAB 500 MG TAB PO PRN (18:21)
--- NOTE | 2018-02-05 18:35 | P.HPIM ---
History of Present Illness H&P Date: 02/05/18 Chief Complaint: Loss of vision in the right eye Dean Degroot is an 87-year-old male who presented to [facility] emergency room due to loss of vision in the right eye he states that on the day prior to presentation he noticed that he was unable to see well in the right eye he went to sleep and woke up this morning and noticed again that he had no vision in the right eye at that point he decided to come to emergency room he was evaluated by Dr. Silva in the emergency room, ophthalmology on-call was contacted but unfortunately did not return the phone call. Neurology regional vice president life sales Dr. Mcconnell was contacted and he advised to have a computed tomography scan of the brain and in the absence of any evidence of bleeding to proceed with IV heparin. This was started in the emergency room. Also during emergency room evaluation patient had evidence of elevated troponin level at 0.153 patient denies any chest pain or shortness of breath, he was started on IV heparin and admitted to ICU cardiology neurology and ophthalmology consultations were requested. Patient states that he follows regularly with Dr. Castellon he was evaluated in the last month or so and was doing well, he also had an eye exam with Dr. Saleh including retinal exam which was within normal limits. Past Medical History Past Medical History: Coronary Artery Disease (CAD), Diabetes Mellitus, Deep Vein Thrombosis (DVT), Hyperlipidemia, Hypertension, Osteoarthritis (OA) Additional Past Medical History / Comment(s): hx of gout, DVT of the leg several years ago. Completed Coumadin treatment at that time. chronic back and neck pain History of Any Multi-Drug Resistant Organisms: None Reported Past Surgical History: Heart Catheterization With Stent Additional Past Surgical History / Comment(s): Lipoma removed from back twice, bilateral cataract removal with lens implants. Past Anesthesia/Blood Transfusion Reactions: No Reported Reaction Date of Last Stent Placement:: 03/10/2017 Past Psychological History: No Psychological Hx Reported Additional Psychological History / Comment(s): Pt resides with his spouse. 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 Smoking Status: Former smoker Past Alcohol Use History: None Reported Additional Past Alcohol Use History / Comment(s): Pt smoked pipe or cigars on occasion. He has not smoked in greater than 30 yrs. Past Drug Use History: None Reported - Past Family History Father Additional Family Medical History / Comment(s): Father had heart problems and at the age of 72. Mother Family Medical History: Cancer Additional Family Medical History / Comment(s): Mother of bladder cancer at the age of 64 yrs. Medications and Allergies Home Medications Medication Instructions Recorded Confirmed Type Acetaminophen Tab [Tylenol] 500 mg PO Q6H PRN 02/24/17 02/05/18 History Allopurinol [Zyloprim] 300 mg PO HS 02/24/17 02/05/18 History Aspirin 81 mg PO QAM 02/24/17 02/05/18 History Cholecalciferol [Vitamin D3] 1,000 unit PO BID 02/24/17 02/05/18 History Cyclobenzaprine [Flexeril] 10 mg PO HS 02/24/17 02/05/18 History Losartan/Hydrochlorothiazide 1 tab PO QAM 02/24/17 02/05/18 History [Losartan-Hctz 100-25 mg Tab] metFORMIN HCL [Glucophage] 500 mg PO BID 02/24/17 02/05/18 History Clopidogrel [Plavix] 75 mg PO DAILY #90 tab 03/11/17 02/05/18 Rx Metoprolol Succinate (ER) [Toprol 50 mg PO QAM #50 tab.er.24h 03/11/17 02/05/18 Rx XL] Nitroglycerin Sl Tabs [Nitrostat] 0.4 mg SUBLINGUAL Q5M PRN #25 tab 03/11/17 Rx Atorvastatin [Lipitor] 20 mg PO HS 02/05/18 02/05/18 History Allergies Allergy/AdvReac Type Severity Reaction Status Date / Time No Known Allergies Allergy Verified 02/05/18 12:36 Physical Exam Vitals: Vital Signs Temp Pulse Resp BP Pulse Ox 02/05/18 18:00 87 150/68 02/05/18 17:30 82 22 150/68 94 L 02/05/18 17:00 84 15 141/57 96 02/05/18 16:30 98.0 F 98 14 168/71 97 02/05/18 16:00 82 27 H 168/71 95 02/05/18 15:30 84 26 H 168/71 96 02/05/18 15:00 88 12 168/71 92 L 02/05/18 14:45 98.6 F 02/05/18 14:30 90 15 170/77 97 02/05/18 14:00 98.6 F 11 L 159/59 95 02/05/18 13:30 90 26 H 164/78 95 02/05/18 13:00 89 16 154/69 98 02/05/18 12:30 90 9 L 124/87 98 02/05/18 11:53 94 10 L 143/72 97 02/05/18 11:52 92 23 143/72 97 02/05/18 11:51 93 11 L 143/72 97 02/05/18 11:50 90 23 95 02/05/18 11:19 94 13 02/05/18 11:18 92 25 H 97 02/05/18 11:17 91 25 H 97 02/05/18 11:16 92 23 96 02/05/18 11:15 94 16 96 02/05/18 11:14 93 24 97 02/05/18 11:13 7 L 144/68 95 02/05/18 11:10 93 11 L 144/68 96 02/05/18 11:00 94 21 93 L 02/05/18 10:54 100 14 93 L 02/05/18 10:50 98.7 F 107 H 18 143/74 94 L Intake and Output 02/05/18 02/05/18 02/05/18 06:59 14:59 22:59 Intake Total 240 80 Balance 240 80 Intake: IV 80 normal 80 Oral 240 Other: # Voids 1 Weight 68.039 kg 68.039 kg In general patient is alert and oriented 3 in no apparent distress HEENT head normocephalic and atraumatic Neck is supple no JVD no goiter no lymphadenopathy Chest exam reveals a few scattered rhonchi no wheezing Cardiac exam reveals regular heart sounds no gallops no murmurs Abdomen is soft nontender no organomegaly with normal bowel sounds Extremity exam reveals no edema no cyanosis or clubbing Results CBC & Chem 7: 02/05/18 11:02 02/05/18 11:02 Labs: Abnormal Lab Results - Last 24 Hours (Table) 02/05/18 02/05/18 02/05/18 Range/Units 11:02 11:02 11:02 RBC 3.61 L (4.30-5.90) m/uL Hgb 10.6 L (13.0-17.5) gm/dL Hct 32.4 L (39.0-53.0) % Lymphocytes # 0.9 L (1.0-4.8) k/uL BUN 33 H (9-20) mg/dL Creatinine 1.40 H (0.66-1.25) mg/dL Glucose 188 H (74-99) mg/dL CK-MB (CK-2) 4.1 H (0.0-2.4) ng/mL Troponin I 0.153 H* (0.000-0.034) ng/mL 02/05/18 Range/Units 17:00 RBC (4.30-5.90) m/uL Hgb (13.0-17.5) gm/dL Hct (39.0-53.0) % Lymphocytes # (1.0-4.8) k/uL BUN (9-20) mg/dL Creatinine (0.66-1.25) mg/dL Glucose (74-99) mg/dL CK-MB (CK-2) (0.0-2.4) ng/mL Troponin I 0.163 H* (0.000-0.034) ng/mL Thrombosis Risk Factor Assmnt - Choose All That Apply Any of the Below Risk Factors Present?: No Other Risk Factors: Yes Each Risk Factor Represents 3 Points: Age 75 years or older, History of DVT/PE Other congenital or acquired thrombophilia - If yes, enter type in comment: No Thrombosis Risk Factor Assessment Total Risk Factor Score: 6 Thrombosis Risk Factor Assessment Level: High Risk Assessment and Plan Plan: #1 loss of vision in the right, started about 15 hours prior to presentation #2 elevated troponin level without chest pain #3 underlying history of [id number] diabetes mellitus #4 underlying history of hypertension #5 underlying history of hyperlipidemia #6 underlying history of coronary artery disease stable followed by Dr. Castellon, patient has known history of angioplasty with stent placement he is maintained on Plavix #7 previous history of DVT in the lower extremity several years ago completed treatment with Coumadin at that time #8 previous history of bilateral cataract surgery with lens implants At this time continue ICU admission continue IV heparin Consultation for ophthalmology neurology and cardiology were initiated Nurse in ICU instructed to continue calling sketch liner to assess patient as soon as possible
[2018-02-05] MEDS: LOSARTAN-HCTZ 50-12.5 MG 1 EACH TAB PO SCH (18:54)
[2018-02-05] MEDS: metFORMIN 500 MG TAB PO SCH (18:57)
[2018-02-05] MEDS: TROPICAMIDE 1% OPHTH DROPS 2 ML BTL RIGHT EYE SCH ×2 (19:17→19:28)
[2018-02-05] MEDS ORDERED: ALLOPURINOL 300 MG TAB PO SCH (21:00)
[2018-02-05] MEDS ORDERED: CYCLOBENZAPRINE 10 MG TAB PO SCH (21:00)
[2018-02-05] MEDS: CHOLECALCIFEROL 1,000 UNIT TAB PO SCH (23:12)
[2018-02-05] MEDS: ATORVASTATIN 20 MG TAB PO SCH (23:13)
--- NOTE | 2018-02-05 23:59 | P.CNNES ---
History of Present Illness Consult date: 02/05/18 Reason for Consult: Patient admitted with acute loss of vision in the right eye. History of Present Illness: This patient is a 87-year-old right-handed white male was in his usual state of health until yesterday. 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 By the end of the day he was noticing more blurriness and difficulty seeing out of his right eye. He apparently went to bed and when he woke up this morning he noticed he was unable to see out of his right eye totally. Patient was very concerned as this is never occurred to him in the past. He decided to come immediately to the emergency room at [facility] for further evaluation. He was seen in the emergency room by Dr. Silva who noted that he had complete vision loss in his right eye. Laboratory testing also revealed him to have elevated troponin levels. He was sent for a computed tomography scan of the brain to further evaluate for possible stroke. The results of the CAT scan revealed no acute intracranial abnormality. 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 Some degenerative changes were also noted. We did review the results of the CAT scan today with the patient. Patient states he has no previous history of stroke that he is aware of. He was started on IV heparin protocol due to his elevated troponin levels in the emergency room. Cardiology has been consulted. The patient was apparently seen by ophthalmology earlier today. We're waiting they're further recommendations. The patient was sent for carotid Doppler ultrasound for further evaluation of stroke. His Doppler study reveals him to have significant right internal carotid artery occlusion. There is more than 70% stenosis of the right ICA. Final stenotic lesion on the right is estimated to be more likely 90%. We have recommended that patient should be seen by vascular surgery tomorrow morning further further opinion. We have recommended a complete stroke evaluation for this patient. Given his sudden onset of symptoms and is suggestive of possibility of right central retinal artery occlusion. We will need to await further evaluation from Dr. Smith from ophthalmology to see what his recommendations may be. The patient states he does follow closely with his license inspector Dr. Castellon. In fact he was seen there last week and had no major changes in his cardiac status. We will need to await further recommendations from cardiology regarding his elevated troponins. Patient states he underwent a stent placement to the coronary arteries last year and following this he was placed on Plavix. Plans were to slowly get him off of Plavix within the next month or so by his license inspector. We will await further evaluation from ophthalmology in regards to his vision loss at this time. We would recommend the patient undergo an MRI of the brain as well as MRAs [place] or angiogram of the head and neck area. The patient is to continue on IV heparin protocol at this time. We will await further recommendations from cardiology tomorrow. We've discussed these findings in detail today with the patient. All of his questions were answered. We will continue close neurological follow- up with the patient during this admission. Review of Systems Constitutional: Denies chills, Denies fever Eyes: right loss of vision, denies blurred vision, denies pain Ears, nose, mouth and throat: Denies headache, Denies sore throat Cardiovascular: Denies chest pain, Denies shortness of breath Respiratory: Denies cough Gastrointestinal: Denies abdominal pain, Denies diarrhea, Denies nausea, Denies vomiting Musculoskeletal: Denies myalgias Integumentary: Denies pruritus, Denies rash Neurological: Reports loss of vision, Reports paresthesias, Denies numbness, Denies weakness Psychiatric: Denies anxiety, Denies depression Endocrine: Denies fatigue, Denies weight change Past Medical History Past Medical History: Coronary Artery Disease (CAD), Diabetes Mellitus, Deep Vein Thrombosis (DVT), Hyperlipidemia, Hypertension, Osteoarthritis (OA) Additional Past Medical History / Comment(s): hx of gout, DVT of the leg several years ago. Completed Coumadin treatment at that time. chronic back and neck pain History of Any Multi-Drug Resistant Organisms: None Reported Past Surgical History: Heart Catheterization With Stent Additional Past Surgical History / Comment(s): Lipoma removed from back twice, bilateral cataract removal with lens implants. Past Anesthesia/Blood Transfusion Reactions: No Reported Reaction Date of Last Stent Placement:: 03/10/2017 Past Psychological History: No Psychological Hx Reported Additional Psychological History / Comment(s): Pt resides with his spouse. 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 Smoking Status: Former smoker Past Alcohol Use History: None Reported Additional Past Alcohol Use History / Comment(s): Pt smoked pipe or cigars on occasion. He has not smoked in greater than 30 yrs. Past Drug Use History: None Reported - Past Family History Father Additional Family Medical History / Comment(s): Father had heart problems and at the age of 72. Mother Family Medical History: Cancer Additional Family Medical History / Comment(s): Mother of bladder cancer at the age of 64 yrs. Medications and Allergies Home Medications Medication Instructions Recorded Confirmed Type Acetaminophen Tab [Tylenol] 500 mg PO Q6H PRN 02/24/17 02/05/18 History Allopurinol [Zyloprim] 300 mg PO HS 02/24/17 02/05/18 History Aspirin 81 mg PO QAM 02/24/17 02/05/18 History Cholecalciferol [Vitamin D3] 1,000 unit PO BID 02/24/17 02/05/18 History Cyclobenzaprine [Flexeril] 10 mg PO HS 02/24/17 02/05/18 History Losartan/Hydrochlorothiazide 1 tab PO QAM 02/24/17 02/05/18 History [Losartan-Hctz 100-25 mg Tab] metFORMIN HCL [Glucophage] 500 mg PO BID 02/24/17 02/05/18 History Clopidogrel [Plavix] 75 mg PO DAILY #90 tab 03/11/17 02/05/18 Rx Metoprolol Succinate (ER) [Toprol 50 mg PO QAM #50 tab.er.24h 03/11/17 02/05/18 Rx XL] Nitroglycerin Sl Tabs [Nitrostat] 0.4 mg SUBLINGUAL Q5M PRN #25 tab 03/11/17 Rx Atorvastatin [Lipitor] 20 mg PO HS 02/05/18 02/05/18 History Allergies Allergy/AdvReac Type Severity Reaction Status Date / Time No Known Allergies Allergy Verified 02/05/18 12:36 Physical Examination - Vital Signs Vital Signs: Vital Signs Temp Pulse Resp BP Pulse Ox 02/05/18 20:00 98.1 F 89 11 L 150/68 02/05/18 19:00 87 150/68 02/05/18 18:30 92 10 L 150/68 02/05/18 18:00 87 150/68 02/05/18 17:30 82 22 150/68 94 L 02/05/18 17:00 84 15 141/57 96 02/05/18 16:30 98.0 F 98 14 168/71 97 02/05/18 16:00 82 27 H 168/71 95 02/05/18 15:30 84 26 H 168/71 96 02/05/18 15:00 88 12 168/71 92 L 02/05/18 14:45 98.6 F 02/05/18 14:30 90 15 170/77 97 02/05/18 14:00 98.6 F 11 L 159/59 95 02/05/18 13:30 90 26 H 164/78 95 02/05/18 13:00 89 16 154/69 98 02/05/18 12:30 90 9 L 124/87 98 02/05/18 11:53 94 10 L 143/72 97 02/05/18 11:52 92 23 143/72 97 02/05/18 11:51 93 11 L 143/72 97 02/05/18 11:50 90 23 95 02/05/18 11:19 94 13 02/05/18 11:18 92 25 H 97 02/05/18 11:17 91 25 H 97 02/05/18 11:16 92 23 96 02/05/18 11:15 94 16 96 02/05/18 11:14 93 24 97 02/05/18 11:13 7 L 144/68 95 02/05/18 11:10 93 11 L 144/68 96 02/05/18 11:00 94 21 93 L 02/05/18 10:54 100 14 93 L 02/05/18 10:50 98.7 F 107 H 18 143/74 94 L Intake and Output 02/05/18 02/05/18 02/05/18 06:59 14:59 22:59 Intake Total 240 600 Balance 240 600 Intake: IV 120 normal 120 Oral 240 480 Other: # Voids 1 Weight 68.039 kg 68.039 kg - Constitutional General appearance: average body habitus, cooperative - EENT EENT: PERRL, mucous membranes moist - Respiratory Respiratory: lungs clear, normal breath sounds - Cardiovascular Cardiovascular: regular rate, normal S1, normal S2 Extremities: no peripheral edema bilaterally - Gastrointestinal Gastrointestinal: normoactive bowel sounds - Integumentary Integumentary: normal - Neurologic Cranial nerve examination: PERRL, EOMI, V1/V2/V3 grossly intact, face symmetric , tongue midline, intact gag reflex, intact corneal reflex, normal palatal elevation Speech examination: intact Sensorimotor examination: intact Detailed motor examination: grossly full strength in all extremities Motor examination - right side: 4/5: biceps, triceps, wrist flexion, wrist extension, well shooter, hip flexors, knee extensors, dorsiflexion, toe extension (EHL) , plantarflexion Motor examination - left side: 4/5: biceps, triceps, wrist flexion, wrist extension, well shooter, hip flexors, knee extensors, dorsiflexion, toe extension (EHL) , plantarflexion Detailed sensory examination: intact Reflex and gait examination: intact Reflexes: 1+: ankle, bicep, knee, tricep - Musculoskeletal Musculoskeletal: no pain - Psychiatric Psychiatric: mood/affect appropriate, cooperative Results - Laboratory Findings CBC and BMP: 02/05/18 11:02 02/05/18 11:02 Abnormal Lab Findings: Abnormal Labs 02/05/18 02/05/18 02/05/18 11:02 11:02 11:02 RBC 3.61 L Hgb 10.6 L Hct 32.4 L Lymphocytes # 0.9 L BUN 33 H Creatinine 1.40 H Glucose 188 H CK-MB (CK-2) 4.1 H Troponin I 0.153 H* 02/05/18 17:00 RBC Hgb Hct Lymphocytes # BUN Creatinine Glucose CK-MB (CK-2) Troponin I 0.163 H* Assessment and Plan (1) Blindness of right eye Current Visit: Yes Status: Acute Code(s): H54.40 - BLINDNESS, ONE EYE, UNSPECIFIED EYE SNOMED Code(s): 940998373 (2) Non-STEMI (non-ST elevated myocardial infarction) Current Visit: Yes Status: Acute Code(s): I21.4 - NON-ST ELEVATION (NSTEMI) MYOCARDIAL INFARCTION SNOMED Code(s): 313468571 (3) Hyperlipidemia Current Visit: Yes Status: Acute Code(s): E78.5 - HYPERLIPIDEMIA, UNSPECIFIED SNOMED Code(s): 14660627 (4) Diabetes mellitus type 2 in nonobese Current Visit: Yes Status: Acute Code(s): E11.9 - TYPE 2 DIABETES MELLITUS WITHOUT COMPLICATIONS SNOMED Code(s): 187349307 Plan: This patient is a 87-year-old male who was admitted to hospital today for further evaluation of sudden loss of vision involving his right eye. Patient has no previous history of vision loss in the past. He was brought into the emergency room at [facility]. He was seen in the ER by Dr. Silva. His ER laboratory testing revealed him to have elevated troponin levels. For this reason he was started on IV heparin protocol. Cardiology has been consulted for further evaluation. Apparently the patient has been seen by Dr. Castellon in the recent past. The patient was seen by ophthalmology today and we are waiting the final recommendations. We have ordered the MRI and MRA of the brain to be done tomorrow. We will give further recommendations pending the test results. Overall the patient seems to be holding his own fairly well. He comes today for neurology follow-up visit and further recommendations. 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 At this point we will await further test results and we'll discuss this with the patient and his next follow-up. This patient's overall prognosis at this time remains guarded. Time with Patient: Greater than 30
--- NOTE | 2018-02-06 01:20 | CONS ---
CONSULTATION DATE OF ADMISSION: 02/05/2018. DATE OF CONSULT: 02/05/2018 at 8:05 pm. HISTORY: This is an 87-year-old white male who experienced decreased vision in his right eye yesterday afternoon. The patient states that this occurred suddenly and without pain and without any other neurological symptoms such as lightheadedness or loss of consciousness. He presented to the emergency room today after noticing no improvement in the vision of his right eye after sleeping, going to bed and waking up this morning. At the time of his presentation to the emergency room, he stated that no significant improvement or worsening of his vision had occurred. PREVIOUS MEDICAL HISTORY: Was significant for coronary artery disease, diabetes, hypertension and a history of DVT. The patient had previously been a smoker. Previous ocular history was significant for bilateral cataract surgery performed by Dr. Green several years ago. EXAM: Physical exam: Visual acuity measured "light perception" in the right eye and 20/40 in the left eye. The pupils were equal and reactive to light. There was a 2+ afferent pupillary defect present in the left eye. Extraocular movements were full in all gaze positions. On penlight exam, the anterior segments were quiet, clear and quiet bilaterally. Of note, there were bilateral lens implants noted. Dilated fundus exam was performed in the right eye only as the patient was currently on neurological checks. There was pallor of the retina with a bell macula on the right side. In addition, the nerve fiber layer appeared swollen in the posterior pole of the right eye. IMPRESSION: Central retinal artery occlusion, right eye. There is no proven effective treatment for central artery occlusion after 6 hours have occurred. I would not recommend intervention in an attempt to save vision as it would not prove beneficial in this case. The workup, however, should include evaluations for possible etiology, especially evaluation of the carotid arteries with attention to the right side and/or other sources of embolism, which of course would include a cardiac workup. I would be happy to see this patient upon discharge from the hospital and looking forward as necessary to ensure that neovascularization of the retina does not occur and cause further damaged to the tissue. I explained to the patient that his prognosis is guarded for this eye and significant improvement to the previous level is very unlikely. MMODL / IJN: [id number] /
[2018-02-06 02:35] LABS: Cholesterol 102 mg/dL (<200); HDL Cholesterol 38 mg/dL (40-60); LDL Cholesterol,Calculated 40 mg/dL (0-99); Triglycerides 118 mg/dL (<150)
[2018-02-06] MEDS ORDERED: METOPROLOL SUCCINATE (ER) 50 MG TAB.ER.24H PO SCH (09:00)
[2018-02-06] MEDS: metFORMIN 500 MG TAB PO SCH ×2 (10:28→18:12)
[2018-02-06] MEDS: LOSARTAN-HCTZ 50-12.5 MG 1 EACH TAB PO SCH (10:28)
[2018-02-06] MEDS: CLOPIDOGREL 75 MG TAB PO SCH (10:28)
[2018-02-06] MEDS: CHOLECALCIFEROL 1,000 UNIT TAB PO SCH ×2 (10:28→21:21)
[2018-02-06 11:06] LABS: Basophils % (A) 0 %; Eosinophils # (A) 0.5 k/uL (0-0.7); Eosinophils % (A) 7 %; HCT 33.6 % (39.0-53.0); HGB 10.8 gm/dL (13.0-17.5); Hypochromasia Slight; Lymphocytes # (A) 0.8 k/uL (1.0-4.8); Lymphocytes % (A) 12 %; MCH 30.2 pg (25.0-35.0); MCHC 32.1 g/dL (31.0-37.0); MCV 94.1 fL (80.0-100.0); Mean Platelet Volume 6.9; Monocytes # (A) 0.4 k/uL (0-1.0); Monocytes % (A) 7 %; Neutrophils # (A) 4.8 k/uL (1.3-7.7); Neutrophils % (A) 73 %; Platelet Count 232 k/uL (150-450); RBC 3.58 m/uL (4.30-5.90); RDW 14.7 % (11.5-15.5); WBC 6.6 k/uL (3.8-10.6)
--- NOTE | 2018-02-06 11:31 | P.PN ---
Subjective Progress Note Date: 02/06/18 Dean Degroot is an 87-year-old male who presented to [facility] emergency room due to loss of vision in the right eye he states that on the day prior to presentation he noticed that he was unable to see well in the right eye he went to sleep and woke up this morning and noticed again that he had no vision in the right eye at that point he decided to come to emergency room he was evaluated by Dr. Silva in the emergency room, ophthalmology on-call was contacted but unfortunately did not return the phone call. Neurology electronics assembler Dr. Mcconnell was contacted and he advised to have a computed tomography scan of the brain and in the absence of any evidence of bleeding to proceed with IV heparin. This was started in the emergency room. Also during emergency room evaluation patient had evidence of elevated troponin level at 0.153 patient denies any chest pain or shortness of breath, he was started on IV heparin and admitted to ICU cardiology neurology and ophthalmology consultations were requested. Patient states that he follows regularly with Dr. Castellon he was evaluated in the last month or so and was doing well, he also had an eye exam with Dr. Saleh including retinal exam which was within normal limits. On 02/06/2018 patient is currently resting comfortably in chair. Patient is alert and oriented 3. Patient reports that he still is unable to see out of right eye. He is now able to see shadows. At this time patient denies chest pain or shortness breath. Patient denies nausea vomiting or diarrhea. Patient denies any urinary burning or frequency. MRI and MRA has been ordered for today per neurology. Objective - Vital Signs Vital signs: Vital Signs Temp 98.3 F 02/06/18 09:00 Pulse 89 02/06/18 09:00 Resp 18 02/06/18 09:00 BP 148/78 02/06/18 09:00 Pulse Ox 98 02/06/18 09:00 Intake & Output 02/05/18 02/06/18 02/06/18 18:59 06:59 18:59 Intake Total 320 740 20 Balance 320 740 20 Weight 68.039 kg 66.9 kg 66.9 kg Intake: IV 80 260 20 normal 80 260 20 Oral 240 480 Other: # Voids 1 1 1 - Exam In general patient is alert and oriented 3 in no apparent distress HEENT head normocephalic and atraumatic Neck is supple no JVD no goiter no lymphadenopathy Chest exam reveals a few scattered rhonchi no wheezing Cardiac exam reveals regular heart sounds no gallops no murmurs Abdomen is soft nontender no organomegaly with normal bowel sounds Extremity exam reveals no edema no cyanosis or clubbing - Labs CBC & Chem 7: 02/06/18 10:37 02/05/18 11:02 Labs: Abnormal Lab Results - Last 24 Hours (Table) 02/05/18 02/05/18 02/05/18 Range/Units 11:02 11:02 11:02 RBC (4.30-5.90) m/uL Hgb (13.0-17.5) gm/dL Hct (39.0-53.0) % Lymphocytes # (1.0-4.8) k/uL APTT (22.0-30.0) sec BUN 33 H (9-20) mg/dL Creatinine 1.40 H (0.66-1.25) mg/dL Glucose 188 H (74-99) mg/dL CK-MB (CK-2) 4.1 H (0.0-2.4) ng/mL Troponin I 0.153 H* (0.000-0.034) ng/mL HDL Cholesterol 38 L (40-60) mg/dL 02/05/18 02/05/18 02/05/18 Range/Units 17:00 22:52 22:52 RBC (4.30-5.90) m/uL Hgb (13.0-17.5) gm/dL Hct (39.0-53.0) % Lymphocytes # (1.0-4.8) k/uL APTT 34.5 H (22.0-30.0) sec BUN (9-20) mg/dL Creatinine (0.66-1.25) mg/dL Glucose (74-99) mg/dL CK-MB (CK-2) (0.0-2.4) ng/mL Troponin I 0.163 H* 0.152 H* (0.000-0.034) ng/mL HDL Cholesterol (40-60) mg/dL 02/06/18 Range/Units 10:37 RBC 3.58 L (4.30-5.90) m/uL Hgb 10.8 L (13.0-17.5) gm/dL Hct 33.6 L (39.0-53.0) % Lymphocytes # 0.8 L (1.0-4.8) k/uL APTT (22.0-30.0) sec BUN (9-20) mg/dL Creatinine (0.66-1.25) mg/dL Glucose (74-99) mg/dL CK-MB (CK-2) (0.0-2.4) ng/mL Troponin I (0.000-0.034) ng/mL HDL Cholesterol (40-60) mg/dL Assessment and Plan Assessment: #1 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 Dr. Smith consulted for ophthalmology. Per Ophthalmology there is no proven effective treatment for central artery occlusion after 6 hours of ocurrence. MRI and MRA of the brain has been ordered for today per neurology #2 elevated troponin level without chest pain #3 underlying history of [id number] diabetes mellitus #4 underlying history of hypertension #5 underlying history of hyperlipidemia #6 underlying history of coronary artery disease stable followed by Dr. Castellon, patient has known history of angioplasty with stent placement he is maintained on Plavix. 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 Carotid Doppler completed showing significant irregular plaque formation right coronary artery bifurcation. There was excellent diagnosis right internal carotid artery velocity. Stenosis at 1199. There is a left-sided chest 50-70% stenosis in the left internal carotid artery. Dr. Ch consulted for vascular surgery DVT prophylaxis heparin. GI prophylaxis Protonix I performed an examination of the patient and discussed their management with the Nurse Practitioner. I have reviewed the Nurse Practitioner's notes and agree with the documented findings and plan of care
[2018-02-06 11:36] LABS: Albumin 3.9 g/dL (3.5-5.0); Calcium 9.4 mg/dL (8.4-10.2); Potassium 4.7 mmol/L (3.5-5.1); Total Bilirubin 1.4 mg/dL (0.2-1.3); Total Protein 6.9 g/dL (6.3-8.2)
--- NOTE | 2018-02-06 12:30 | P.CRDCN ---
History of Present Illness Consult date: 02/06/18 Chief complaint: Right eye blindness History of present illness: This is a pleasant 87-year-old gentleman who sees Dr. Castellon in the office as an outpatient with a past medical history significant for coronary artery disease and prior stenting of the LAD in 2017, diabetes, hypertension, dyslipidemia, was brought into the emergency room by his family after he lost the vision in the right eye. The patient was in his usual state of health until yesterday when he did some work at home and after that suddenly he lost the vision in the right eye. When he arrived to the emergency room it was noticed that the patient was unable to see well in the right eye. No other neurologic symptoms of weakness or numbness, dizziness or lightheadedness, or syncope. The patient was seen and evaluated by the neurology service and he underwent a computed tomography scan of the brain which did not show any acute abnormalities. Subsequently he underwent a carotid duplex study which showed severe disease involving the right internal carotid artery. Subsequently Dr. Cavazos, the vascular surgeon was consulted to see the patient. We get involved in the care of the patient because his troponin was checked and came in to be slightly abnormal. The patient does not recall having any chest pain or discomfort, difficulty breathing, feeling of heart racing or fluttering , dizziness or lightheadedness or syncope. The EKG did not show any significant ST or T-wave abnormalities concerning for ischemia. Beside that the patient is on dual antiplatelet therapy with aspirin and Plavix as well as he is on statin. In view of the absence of any chest pain or discomfort, I do recommend a conservative medical approach at this point. I would continue dual antiplatelet therapy along with a statin. Obtain an echocardiogram was Doppler. And follow-up with the patient. Past Medical History Past Medical History: Coronary Artery Disease (CAD), Diabetes Mellitus, Deep Vein Thrombosis (DVT), Hyperlipidemia, Hypertension, Osteoarthritis (OA) Additional Past Medical History / Comment(s): hx of gout, DVT of the leg several years ago. Completed Coumadin treatment at that time. chronic back and neck pain History of Any Multi-Drug Resistant Organisms: None Reported Past Surgical History: Heart Catheterization With Stent Additional Past Surgical History / Comment(s): Lipoma removed from back twice, bilateral cataract removal with lens implants. Past Anesthesia/Blood Transfusion Reactions: No Reported Reaction Date of Last Stent Placement:: 03/10/2017 Past Psychological History: No Psychological Hx Reported Additional Psychological History / Comment(s): Pt resides with his spouse. 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 Smoking Status: Former smoker Past Alcohol Use History: None Reported Additional Past Alcohol Use History / Comment(s): Pt smoked pipe or cigars on occasion. He has not smoked in greater than 30 yrs. Past Drug Use History: None Reported - Past Family History Father Additional Family Medical History / Comment(s): Father had heart problems and at the age of 72. Mother Family Medical History: Cancer Additional Family Medical History / Comment(s): Mother of bladder cancer at the age of 64 yrs. Medications and Allergies Home Medications Medication Instructions Recorded Confirmed Type Acetaminophen Tab [Tylenol] 500 mg PO Q6H PRN 02/24/17 02/05/18 History Allopurinol [Zyloprim] 300 mg PO HS 02/24/17 02/05/18 History Aspirin 81 mg PO QAM 02/24/17 02/05/18 History Cholecalciferol [Vitamin D3] 1,000 unit PO BID 02/24/17 02/05/18 History Cyclobenzaprine [Flexeril] 10 mg PO HS 02/24/17 02/05/18 History Losartan/Hydrochlorothiazide 1 tab PO QAM 02/24/17 02/05/18 History [Losartan-Hctz 100-25 mg Tab] metFORMIN HCL [Glucophage] 500 mg PO BID 02/24/17 02/05/18 History Clopidogrel [Plavix] 75 mg PO DAILY #90 tab 03/11/17 02/05/18 Rx Metoprolol Succinate (ER) [Toprol 50 mg PO QAM #50 tab.er.24h 03/11/17 02/05/18 Rx XL] Nitroglycerin Sl Tabs [Nitrostat] 0.4 mg SUBLINGUAL Q5M PRN #25 tab 03/11/17 Rx Atorvastatin [Lipitor] 20 mg PO HS 02/05/18 02/05/18 History Allergies Allergy/AdvReac Type Severity Reaction Status Date / Time No Known Allergies Allergy Verified 02/05/18 12:36 Physical Exam Vitals: Vital Signs Temp Pulse Resp BP Pulse Ox 02/06/18 09:00 98.3 F 89 18 148/78 98 02/06/18 08:00 87 22 143/70 99 02/06/18 06:00 93 31 H 143/70 96 02/06/18 05:00 76 28 H 143/70 94 L 02/06/18 04:00 81 22 110/42 94 L 02/06/18 02:00 78 19 144/87 94 L 02/06/18 00:02 80 18 144/87 90 L 02/06/18 00:00 98.8 F 80 15 141/72 91 L 02/05/18 22:00 92 18 141/72 94 L 02/05/18 20:00 98.1 F 89 11 L 150/68 02/05/18 19:00 87 150/68 02/05/18 18:30 92 10 L 150/68 02/05/18 18:00 87 150/68 02/05/18 17:30 82 22 150/68 94 L 02/05/18 17:00 84 15 141/57 96 02/05/18 16:30 98.0 F 98 14 168/71 97 02/05/18 16:00 82 27 H 168/71 95 02/05/18 15:30 84 26 H 168/71 96 02/05/18 15:00 88 12 168/71 92 L 02/05/18 14:45 98.6 F 02/05/18 14:30 90 15 170/77 97 02/05/18 14:00 98.6 F 11 L 159/59 95 02/05/18 13:30 90 26 H 164/78 95 02/05/18 13:00 89 16 154/69 98 02/05/18 12:30 90 9 L 124/87 98 Intake and Output 02/05/18 02/06/18 02/06/18 22:59 06:59 14:59 Intake Total 640 180 20 Balance 640 180 20 Intake: IV 160 180 20 normal 160 180 20 Oral 480 Other: # Voids 1 1 1 Weight 68.039 kg 66.9 kg 66.9 kg - Constitutional General appearance: no acute distress - Respiratory Respiratory: bilateral: CTA - Cardiovascular Rhythm: regular Heart sounds: normal: S1, S2 Results 02/06/18 10:37 02/06/18 10:37 Cardiac Enzymes 02/05/18 02/05/18 02/06/18 Range/Units 17:00 22:52 10:37 AST 21 (17-59) U/L Troponin I 0.163 H* 0.152 H* (0.000-0.034) ng/mL Coagulation 02/05/18 Range/Units 22:52 APTT 34.5 H (22.0-30.0) sec Lipids 02/05/18 Range/Units 11:02 Triglycerides 118 (<150) mg/dL Cholesterol 102 (<200) mg/dL HDL Cholesterol 38 L (40-60) mg/dL CBC 02/06/18 Range/Units 10:37 WBC 6.6 (3.8-10.6) k/uL RBC 3.58 L (4.30-5.90) m/uL Hgb 10.8 L (13.0-17.5) gm/dL Hct 33.6 L (39.0-53.0) % Plt Count 232 (150-450) k/uL Comprehensive Metabolic Panel 02/06/18 Range/Units 10:37 Sodium 139 (137-145) mmol/L Potassium 4.7 (3.5-5.1) mmol/L Chloride 100 (98-107) mmol/L Carbon Dioxide 27 (22-30) mmol/L BUN 28 H (9-20) mg/dL Creatinine 1.19 (0.66-1.25) mg/dL Glucose 160 H (74-99) mg/dL Calcium 9.4 (8.4-10.2) mg/dL AST 21 (17-59) U/L ALT 17 L (21-72) U/L Alkaline Phosphatase 69 (38-126) U/L Total Protein 6.9 (6.3-8.2) g/dL Albumin 3.9 (3.5-5.0) g/dL Current Medications Generic Name Dose Route Start Last Admin Trade Name Freq PRN Reason Stop Dose Admin Acetaminophen 500 mg 02/05/18 18:21 Tylenol Tab PO Q6H PRN Mild Pain or Fever > 100.5 Allopurinol 300 mg 02/05/18 21:00 02/05/18 23:13 Zyloprim PO 300 mg HS ANTONIETA Administration Aspirin 325 mg 02/06/18 12:00 Aspirin PO DAILY [facility] Atorvastatin Calcium 20 mg 02/05/18 21:00 10/14/18 23:13 Lipitor PO 20 mg HS ANTONIETA Administration Cholecalciferol 1,000 unit 02/05/18 21:00 02/06/18 10:28 Vitamin D3 PO 1,000 unit BID ANTONIETA Administration Clopidogrel Bisulfate 75 mg 02/06/18 09:00 02/06/18 10:28 Plavix PO 75 mg DAILY ANTONIETA Administration Cyclobenzaprine HCl 10 mg 02/05/18 21:00 02/05/18 23:13 Flexeril PO 10 mg HS ANTONIETA Administration HCTZ/Losartan Potassium 2 each 02/05/18 18:30 02/06/18 10:28 Hyzaar 50-12.5 PO 2 each QAM ANTONIETA Administration Heparin Sodium (Porcine) 5,000 unit 02/06/18 21:00 Heparin SQ Q12HR ANTONIETA Metformin HCl 500 mg 02/05/18 19:00 02/06/18 10:28 Glucophage PO 500 mg BID-W/MEALS ANTONIETA Administration Metoprolol Succinate 50 mg 02/06/18 09:00 02/06/18 10:28 Toprol Xl PO 50 mg QAM ANTONIETA Administration Nitroglycerin 0.4 mg 02/05/18 18:21 Nitrostat SUBLINGUAL Q5M PRN Chest Pain Pantoprazole Sodium 40 mg 02/07/18 07:30 Protonix PO AC-BRKFST ANTONIETA Intake and Output 02/05/18 02/06/18 02/06/18 22:59 06:59 14:59 Intake Total 640 180 20 Balance 640 180 20 Intake: IV 160 180 20 normal 160 180 20 Oral 480 Other: # Voids 1 1 1 Weight 68.039 kg 66.9 kg 66.9 kg Patient Weight 02/07/18 06:59 Weight 66.9 kg 02/06/18 10:37 02/06/18 10:37 Assessment and Plan Assessment: Assessment #1 vision loss in the right eye of sudden onset #2 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 Thank you for allowing us participate in his care and we'll continue following up with the patient
--- NOTE | 2018-02-06 12:38 | ECHOF ---
Referral Reason:NSTEMI MEASUREMENTS -------- HEIGHT: 162.6 cm WEIGHT: 68.0 kg BP: 110/42 RVIDd: 2.9 cm (< 3.3) IVSd: 1.2 cm (0.6 - 1.1) LVIDd: 4.4 cm (3.9 - 5.3) LVPWd: 1.3 cm (0.6 - 1.1) IVSs: 1.5 cm LVIDs: 3.4 cm LVPWs: 1.2 cm LA Diam: 4.0 cm (2.7 - 3.8) LAESV Index (A-L): 38.20 ml/m Ao Diam: 3.1 cm (2.0 - 3.7) AV Cusp: 1.3 cm (1.5 - 2.6) LA Diam: 4.4 cm (2.7 - 3.8) MV EXCURSION: 12.495 mm (> 18.000) MV EF SLOPE: 40 mm/s (70 - 150) EPSS: 1.1 cm MV E [place]: 1.30 m/s MV DecT: 206 ms MV A [place]: 1.87 m/s MV E/A Ratio: 0.69 RAP: 5.00 mmHg RVSP: 15.17 mmHg FINDINGS -------- Sinus rhythm. This was a technically adequate study. The left ventricular size is normal. There is mild concentric left ventricular hypertrophy. Overa ll left ventricular systolic function is low-normal with, an EF between 50 - 55 %. The right ventricle is normal in size. The left atrium is mildly dilated. The right atrial size is normal. There is mild aortic valve sclerosis. There is no evidence of aortic regurgitation. Mild mitral annular calcification present. Mild mitral regurgitation is present. The peak and me an MV gradients are 18.80mmHg 7.91mmHg as measured by doppler. [id number]-ofyqwwyg mitral stenosis. Mild tricuspid regurgitation present. There is no evidence of pulmonary hypertension. The right v entricular systolic pressure, as measured by Doppler, is 15.17mmHg. Trace/mild (physiologic) pulmonic regurgitation. The aortic root size is normal. There is no pericardial effusion. CONCLUSIONS -------- 1. The left ventricular size is normal. 2. There is mild concentric left ventricular hypertrophy. 3. Overall left ventricular systolic function is low-normal with, an EF between 50 - 55 %. 4. The right ventricle is normal in size. 5. The left atrium is mildly dilated. 6. The right atrial size is normal. 7. There is mild aortic valve sclerosis. 8. Mild mitral annular calcification present. 9. Mild mitral regurgitation is present. 10. The peak and mean MV gradients are 18.80mmHg 7.91mmHg as measured by doppler. 11. Jnsr-fl-nournzea mitral stenosis. 12. Mild tricuspid regurgitation present. 13. There is no evidence of pulmonary hypertension. 14. The right ventricular systolic pressure, as measured by Doppler, is 15.17mmHg. 15. Trace/mild (physiologic) pulmonic regurgitation. 16. The aortic root size is normal. 17. There is no pericardial effusion. CHEMISTRY QUALITY CONTROL ANALYST: Estefania Olson RDCS
[2018-02-06] MEDS: ASPIRIN 325 MG TAB PO SCH (15:12)
[2018-02-06 17:53] LABS: Glucose,Whole Blood 171 mg/dL (75-99)
[2018-02-06] MEDS: INSULIN ASPART 100 UNIT/ML 1 ML 10 ML VIAL SQ SCH ×2 (18:11→22:31)
[2018-02-06] MEDS ORDERED: DIAZEPAM 5 MG TAB PO PRN (18:16)
--- NOTE | 2018-02-06 18:18 | CONS ---
CONSULTATION This is an 87-year-old gentleman who has been admitted to the intensive care unit. The patient came with loss of vision in the right eye. The patient was seen by Ophthalmology. Diagnosis was right central artery occlusion. Patient also came with chest pain and shortness of breath and had elevated troponin. Patient was seen by Cardiology. The patient had a stroke study done. CT of the brain shows no evidence of acute infarct. There is some old infarct noted in the frontal region. Carotid ultrasound shows left-sided 50% to 79%, right-sided 70% to 90%. PAST MEDICAL HISTORY: 1. History of diabetes. 2. DVT. 3. Hypertension. 4. The patient had a coronary artery stent placed last February. He was recently seen by Dr. Castellon in the office, and according to the patient everything was within normal limits. PHYSICAL EXAMINATION: Patient was seen in his room, lying comfortably in bed. Neck was supple. Patient has loss of vision in the right eye. Left eye is normal. Patient has very strong motor function, upper and lower extremities. Femoral pulses are present. Abdomen is soft. IMPRESSION: 1. Loss of vision, right eye. 2. Elevated troponin with chest pain. 3. History of diabetes mellitus. 4. History of hypertension. The patient is scheduled to have MRA and MR. We will review the report and follow with you. We will discuss with Cardiology and Internal Medicine regarding surgical intervention. MMODL / IJN: [id number] /
[2018-02-06] MEDS: HEPARIN SODIUM,PORCINE 5,000 UNIT/ML 1 ML VIAL SQ SCH (21:21)
[2018-02-06] MEDS: ATORVASTATIN 20 MG TAB PO SCH (21:21)
[2018-02-06 21:53] LABS: Glucose,Whole Blood 142 mg/dL (75-99)
[2018-02-06] MEDS: CYCLOBENZAPRINE 10 MG TAB PO SCH (22:30)
[2018-02-06] MEDS: ALLOPURINOL 300 MG TAB PO SCH (22:31)
--- NOTE | 2018-02-06 23:22 | P.PN ---
Subjective Progress Note Date: 02/06/18 This patient is a 87-year-old right-handed white male who was admitted to [facility] for evaluation of visual loss involving his right eye. Patient notices symptoms initially at home and when they seem to worsen he decided to come into the emergency room for further evaluation. He underwent a computed tomography scan of the brain which failed to reveal any acute changes. His clinical history suggested acute right central retinal artery occlusion given the sudden onset of the symptoms. He was seen in ophthalmology consultation yesterday by Dr. Smith. 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 There was no proven effective treatment for this central artery occlusion after 6 hours of having occurred. Dr. Smith does not recommend any intervention at this time given these findings. Patient is being evaluated for carotid artery disease especially involving the right internal carotid artery. He was seen in vascular surgery consultation today by Dr. Ch. Patient is being scheduled for MRI/MRA of the brain results of which are still pending. Evaluation and recommendations from Dr. burgess are appreciated. The patient should follow- up with Dr. Smith soon after discharge from the hospital. Patient is aware that he may not require verbal very much vision or sight in his right eye given this current findings. We're waiting MRI MRA testing to be done for this patient hopefully tomorrow. We will also await further recommendations from vascular surgery in regards to his carotid artery disease. We will continue close neurological follow-up for the patient during this admission. We will continue to monitor his progress very closely in the intensive care unit. This patient's overall prognosis at this time remains very guarded. Objective - Vital Signs Vital signs: Vital Signs Temp 9838 F H 02/06/18 20:00 Pulse 80 02/06/18 22:00 Resp 23 02/06/18 22:00 BP 114/48 02/06/18 22:00 Pulse Ox 91 L 02/06/18 22:00 Intake & Output 02/06/18 02/06/18 02/07/18 06:59 18:59 06:59 Intake Total 740 180 500 Output Total 100 Balance 740 80 500 Weight 66.9 kg 66.9 kg Intake: IV 260 180 normal 260 180 Oral 480 500 Output: Urine 100 Other: # Voids 1 1 - Exam Physical examination: PHYSICAL EXAMINATION: Patient is resting comfortably in bed. VITAL SIGNS: Blood pressure is [114/48]. Heart rate is [80]. Respiration is [23] . Temperature is [98.3]. HEENT: Head is atraumatic, neck is supple, there were no carotid bruits. CHEST: Lungs are clear to auscultation and percussion. CARDIAC: S1, S2 normal rate and rhythm. There is no murmur. ABDOMEN: Soft and nontender. Bowel sounds are present. EXTREMITIES: There is no pedal edema. Peripheral pulses are present. Neurological examination: Patient's neurological examination is unchanged from yesterday. He continues to demonstrate complete vision loss in his right eye on examination today. - Labs CBC & Chem 7: 02/06/18 10:37 02/06/18 10:37 Labs: Abnormal Lab Results - Last 24 Hours (Table) 02/05/18 02/05/18 02/05/18 Range/Units 11:02 22:52 22:52 RBC (4.30-5.90) m/uL Hgb (13.0-17.5) gm/dL Hct (39.0-53.0) % Lymphocytes # (1.0-4.8) k/uL APTT 34.5 H (22.0-30.0) sec BUN (9-20) mg/dL Glucose (74-99) mg/dL POC Glucose (mg/dL) (75-99) mg/dL Total Bilirubin (0.2-1.3) mg/dL ALT (21-72) U/L Troponin I 0.152 H* (0.000-0.034) ng/mL HDL Cholesterol 38 L (40-60) mg/dL 02/06/18 02/06/18 02/06/18 Range/Units 10:37 10:37 17:41 RBC 3.58 L (4.30-5.90) m/uL Hgb 10.8 L (13.0-17.5) gm/dL Hct 33.6 L (39.0-53.0) % Lymphocytes # 0.8 L (1.0-4.8) k/uL APTT (22.0-30.0) sec BUN 28 H (9-20) mg/dL Glucose 160 H (74-99) mg/dL POC Glucose (mg/dL) 171 H (75-99) mg/dL Total Bilirubin 1.4 H (0.2-1.3) mg/dL ALT 17 L (21-72) U/L Troponin I (0.000-0.034) ng/mL HDL Cholesterol (40-60) mg/dL 02/06/ Range/Units 21:42 RBC (4.30-5.90) m/uL Hgb (13.0-17.5) gm/dL Hct (39.0-53.0) % Lymphocytes # (1.0-4.8) k/uL APTT (22.0-30.0) sec BUN (9-20) mg/dL Glucose (74-99) mg/dL POC Glucose (mg/dL) 142 H (75-99) mg/dL Total Bilirubin (0.2-1.3) mg/dL ALT (21-72) U/L Troponin I (0.000-0.034) ng/mL HDL Cholesterol (40-60) mg/dL Assessment and Plan (1) Blindness of right eye Current Visit: Yes Status: Acute Code(s): H54.40 - BLINDNESS, ONE EYE, UNSPECIFIED EYE SNOMED Code(s): 753569691 (2) Non-STEMI (non-ST elevated myocardial infarction) Current Visit: Yes Status: Acute Code(s): I21.4 - NON-ST ELEVATION (NSTEMI) MYOCARDIAL INFARCTION SNOMED Code(s): 119329510 (3) Hyperlipidemia Current Visit: Yes Status: Acute Code(s): E78.5 - HYPERLIPIDEMIA, UNSPECIFIED SNOMED Code(s): 38148740 (4) Diabetes mellitus type 2 in nonobese Current Visit: Yes Status: Acute Code(s): E11.9 - TYPE 2 DIABETES MELLITUS WITHOUT COMPLICATIONS SNOMED Code(s): 737227109 Plan: This patient is a 87-year-old male who was admitted to hospital today for further evaluation of sudden loss of vision involving his right eye. Patient has no previous history of vision loss in the past. He was brought into the emergency room at [facility]. He was seen in the ER by Dr. Silva. His ER laboratory testing revealed him to have elevated troponin levels. For this reason he was started on IV heparin protocol. Cardiology has been consulted for further evaluation. Apparently the patient has been seen by Dr. Castellon in the recent past. The patient was seen by ophthalmology today and we are waiting the final recommendations. We have ordered the MRI and MRA of the brain to be done tomorrow. We will give further recommendations pending the test results. Overall the patient seems to be holding his own fairly well. He comes today for neurology follow-up visit and further recommendations. The patient was seen in ophthalmology consultation yesterday by Dr. Smith. Dr. Smith's findings and recommendations are appreciated. 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 As noted his carotid Doppler study did reveal severe and significant right internal carotid artery stenosis. This is a likely source of his current stroke findings. We've explained all of the results thus far to the patient in detail. He is aware of his current condition. 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 At this point we will await further test results and we'll discuss this with the patient and his next follow-up. This patient's overall prognosis at this time remains guarded.
[2018-02-07 06:34] LABS: Basophils % (A) 0 %; Eosinophils # (A) 0.6 k/uL (0-0.7); Eosinophils % (A) 8 %; HCT 32.8 % (39.0-53.0); HGB 10.5 gm/dL (13.0-17.5); Lymphocytes % (A) 14 %; MCH 29.2 pg (25.0-35.0); MCHC 31.8 g/dL (31.0-37.0); MCV 91.7 fL (80.0-100.0); Mean Platelet Volume 7.2; Monocytes # (A) 0.6 k/uL (0-1.0); Monocytes % (A) 8 %; Neutrophils # (A) 4.7 k/uL (1.3-7.7); Neutrophils % (A) 68 %; Platelet Count 219 k/uL (150-450); RBC 3.58 m/uL (4.30-5.90); RDW 14.8 % (11.5-15.5); WBC 6.9 k/uL (3.8-10.6)
[2018-02-07 06:45] LABS: Potassium 4.6 mmol/L (3.5-5.1)
[2018-02-07 06:46] LABS: Albumin 3.6 g/dL (3.5-5.0); Calcium 9.2 mg/dL (8.4-10.2); Total Bilirubin 0.9 mg/dL (0.2-1.3); Total Protein 6.4 g/dL (6.3-8.2)
--- NOTE | 2018-02-07 07:29 | P.PN ---
Subjective Progress Note Date: 02/07/18 Principal diagnosis: CVA This is a pleasant 87-year-old gentleman who sees Dr. Castellon in the office as an outpatient with a past medical history significant for coronary artery disease and prior stenting of the LAD in 2017, diabetes, hypertension, dyslipidemia, was brought into the emergency room by his family after he lost the vision in the right eye. The patient was in his usual state of health until yesterday when he did some work at home and after that suddenly he lost the vision in the right eye. When he arrived to the emergency room it was noticed that the patient was unable to see well in the right eye. No other neurologic symptoms of weakness or numbness, dizziness or lightheadedness, or syncope. The patient was seen and evaluated by the neurology service and he underwent a computed tomography scan of the brain which did not show any acute abnormalities. Subsequently he underwent a carotid duplex study which showed severe disease involving the right internal carotid artery. Subsequently Dr. Cavazos, the vascular surgeon was consulted to see the patient. We get involved in the care of the patient because his troponin was checked and came in to be slightly abnormal. The patient does not recall having any chest pain or discomfort, difficulty breathing, feeling of heart racing or fluttering , dizziness or lightheadedness or syncope. The EKG did not show any significant ST or T-wave abnormalities concerning for ischemia. Beside that the patient is on dual antiplatelet therapy with aspirin and Plavix as well as he is on statin. On follow-up with the patient today, 02/07/2018, he denies having any chest pain or discomfort and there is a slight improvement in the vision in the right eye. He was seen by vascular surgeon and the plan is to wait until the MRI/MRA done which is going to happen this morning. Meanwhile I will continue the patient on the current medical regimen including dual antiplatelet therapy. The echocardiogram revealed normal LV function with mild valvular abnormalities. Objective - Vital Signs Vital signs: Vital Signs Temp 98.4 F 02/07/18 04:00 Pulse 77 02/07/18 04:00 Resp 32 H 02/07/18 04:00 BP 123/58 02/07/18 04:00 Pulse Ox 96 02/07/18 04:00 Intake & Output 02/06/18 02/07/18 02/07/18 18:59 06:59 18:59 Intake Total 180 520 Output Total 100 1050 Balance 80 -530 Weight 66.9 kg 64.3 kg Intake: IV 180 20 normal 180 20 Oral 500 Output: Urine 100 1050 Other: # Voids 1 2 - Constitutional General appearance: Present: no acute distress - Respiratory Respiratory: bilateral: CTA - Cardiovascular Rhythm: regular Heart sounds: normal: S1, S2 - Labs CBC & Chem 7: 02/07/18 06:13 02/07/18 06:13 Labs: Abnormal Lab Results - Last 24 Hours (Table) 02/06/18 02/06/18 02/06/18 Range/Units 10:37 10:37 17:41 RBC 3.58 L (4.30-5.90) m/uL Hgb 10.8 L (13.0-17.5) gm/dL Hct 33.6 L (39.0-53.0) % Lymphocytes # 0.8 L (1.0-4.8) k/uL BUN 28 H (9-20) mg/dL Creatinine (0.66-1.25) mg/dL Glucose 160 H (74-99) mg/dL POC Glucose (mg/dL) 171 H (75-99) mg/dL Total Bilirubin 1.4 H (0.2-1.3) mg/dL ALT 17 L (21-72) U/L 02/06/18 02/07/18 02/07/18 Range/Units 21:42 06:13 06:13 RBC 3.58 L (4.30-5.90) m/uL Hgb 10.5 L (13.0-17.5) gm/dL Hct 32.8 L (39.0-53.0) % Lymphocytes # (1.0-4.8) k/uL BUN 34 H (9-20) mg/dL Creatinine 1.40 H (0.66-1.25) mg/dL Glucose 121 H (74-99) mg/dL POC Glucose (mg/dL) 142 H (75-99) mg/dL Total Bilirubin (0.2-1.3) mg/dL ALT (21-72) U/L Assessment and Plan Assessment: Assessment #1 vision loss in the right eye of sudden onset #2 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
[2018-02-07 07:30] LABS: Glucose,Whole Blood 124 mg/dL (75-99)
[2018-02-07] MEDS: INSULIN ASPART 100 UNIT/ML 1 ML 10 ML VIAL SQ SCH ×4 (07:51→20:31)
[2018-02-07] MEDS: metFORMIN 500 MG TAB PO SCH ×2 (07:54→19:50)
[2018-02-07] MEDS: PANTOPRAZOLE 40 MG TABLET PO SCH (07:54)
[2018-02-07] MEDS ORDERED: DIAZEPAM 5 MG TAB PO PRN ×2 (08:09→08:11)
[2018-02-07] MEDS ORDERED: LOSARTAN-HCTZ 50-12.5 MG 1 EACH TAB PO SCH ×2 (09:00)
--- NOTE | 2018-02-07 09:32 | MR ---
MR brain without contrast HISTORY: Acute right eye vision loss Multiplanar multisequence imaging obtained through the brain and correlated to prior exam 02/25/2017 There is restricted diffusion within the left cerebellar hemisphere compatible with subacute infarct, small focal area questions laterally, central left cerebellar focus measures only 8 mm. Small focus of restricted diffusion also present within the thalamus on the right, question juxtacortical focus i n the right occipital lobe on axial image 21. Cortical atrophy is present which is likely age-related . There is no hemorrhage or hydrocephalus. Corpus callosum, pituitary, cervical medullary junction ar e within normal limits. Scattered hyperintensities are present in the subcortical, periventricular, p ericallosal white matter on inversion recovery T2-weighted sequences, corresponding signal abnormalit ies identified at the sites of the restricted diffusion. Encephalomalacia present within the right fr ontal lobe with hyperintensity on inversion recovery T2-weighted sequences in the surrounding brain c ompatible with local gliosis. Similar were noted on prior exam. Inflammatory change present in the ri ght maxillary sinus greater than left. The orbits show symmetric appearance. There are normal vascula r flow voids. IMPRESSION: Subacute infarcts or small in different vascular distribution. Correlate for possible emb olic phenomenon. Age-related atrophy, evidence of chronic small vessel ischemia. Sinus disease.
--- NOTE | 2018-02-07 10:07 | MR ---
EXAMINATION TYPE: MR angio head/neck wo con DATE OF EXAM: 02/07/2018 COMPARISON: Prior MR angiogram of the head 02/25/2017 and carotid Doppler 02/05/2018 HISTORY: Patient with acute right eye vision loss TECHNIQUE: Time of flight images focusing on the [place] and neck were performed without con trast. 2-D and 3-D postprocessing imaging is performed. FINDINGS: [place] MRA: No interval change. Vertebrobasilar system is patent, there is no evident embol us or dissection. No vascular malformation or aneurysm formation. There is some motion on the exam. S uspect some atheromatous change along the internal carotid artery right greater than left along the c avernous portion. IMPRESSION: Stable [place] MRA MRA NECK: External carotid arteries are patent. Atheromatous changes are noted within the common carotid, inter nal and external carotid arteries. Common carotid arteries are patent. 2 super aortic branch vessels are present. The innominate, proximal left and right subclavian arteries are patent. Vertebral stenos is is present on the right proximal to the carotid bifurcation. Some atheromatous plaque is present w ithin the proximal internal carotid artery on the left and at the carotid bulb. There is high-grade s tenosis suspected at the carotid bulb on the right extending into the proximal internal carotid arter y and external carotid artery. IMPRESSION: Findings correlate with carotid Doppler findings. High-grade stenosis involving the commo n carotid, right internal carotid artery. Stenosis not felt likely to be significant within the proxi mal internal carotid artery on the left. Atheromatous changes involving the vertebral artery on the r ight also noted.
[2018-02-07] MEDS: METOPROLOL SUCCINATE (ER) 50 MG TAB.ER.24H PO SCH (10:13)
[2018-02-07] MEDS: ASPIRIN 325 MG TAB PO SCH (10:13)
[2018-02-07] MEDS: CHOLECALCIFEROL 1,000 UNIT TAB PO SCH ×2 (10:13→20:31)
[2018-02-07] MEDS: CLOPIDOGREL 75 MG TAB PO SCH (10:14)
[2018-02-07] MEDS: HEPARIN SODIUM,PORCINE 5,000 UNIT/ML 1 ML VIAL SQ SCH ×2 (10:17→20:31)
--- NOTE | 2018-02-07 11:18 | P.PN ---
Subjective Progress Note Date: 02/07/18 Dean Degroot is an 87-year-old male who presented to [facility] emergency room due to loss of vision in the right eye he states that on the day prior to presentation he noticed that he was unable to see well in the right eye he went to sleep and woke up this morning and noticed again that he had no vision in the right eye at that point he decided to come to emergency room he was evaluated by Dr. Silva in the emergency room, ophthalmology on-call was contacted but unfortunately did not return the phone call. Neurology application development team lead Dr. Mcconnell was contacted and he advised to have a computed tomography scan of the brain and in the absence of any evidence of bleeding to proceed with IV heparin. This was started in the emergency room. Also during emergency room evaluation patient had evidence of elevated troponin level at 0.153 patient denies any chest pain or shortness of breath, he was started on IV heparin and admitted to ICU cardiology neurology and ophthalmology consultations were requested. Patient states that he follows regularly with Dr. Castellon he was evaluated in the last month or so and was doing well, he also had an eye exam with Dr. Saleh including retinal exam which was within normal limits. On 02/06/2018 patient is currently resting comfortably in chair. Patient is alert and oriented 3. Patient reports that he still is unable to see out of right eye. He is now able to see shadows. At this time patient denies chest pain or shortness breath. Patient denies nausea vomiting or diarrhea. Patient denies any urinary burning or frequency. MRI and MRA has been ordered for today per neurology. On 02/07/2018 patient is currently resting comfortably in chair. Patient is alert and oriented 3. Patient had MRA and MRI completed. Patient reports that late is slightly improving with right eye. At this time patient denies chest pain or shortness breath. Patient denies nausea vomiting or diarrhea. Denies any urinary burning or frequency Objective - Vital Signs Vital signs: Vital Signs Temp 98.4 F 02/07/18 04:00 Pulse 77 02/07/18 04:00 Resp 32 H 02/07/18 04:00 BP 123/58 02/07/18 04:00 Pulse Ox 96 02/07/18 04:00 Intake & Output 02/06/18 02/07/18 02/07/18 18:59 06:59 18:59 Intake Total 180 520 Output Total 100 1050 600 Balance 80 -530 -600 Weight 66.9 kg 64.3 kg Intake: IV 180 20 normal 180 20 Oral 500 Output: Urine 100 1050 600 Other: # Voids 1 2 2 - Exam In general patient is alert and oriented 3 in no apparent distress HEENT head normocephalic and atraumatic Neck is supple no JVD no goiter no lymphadenopathy Chest exam reveals a few scattered rhonchi no wheezing Cardiac exam reveals regular heart sounds no gallops no murmurs Abdomen is soft nontender no organomegaly with normal bowel sounds Extremity exam reveals no edema no cyanosis or clubbing - Labs CBC & Chem 7: 02/07/18 06:13 02/07/18 06:13 Labs: Abnormal Lab Results - Last 24 Hours (Table) 02/06/18 02/06/18 02/06/18 Range/Units 10:37 10:37 17:41 RBC 3.58 L (4.30-5.90) m/uL Hgb 10.8 L (13.0-17.5) gm/dL Hct 33.6 L (39.0-53.0) % Lymphocytes # 0.8 L (1.0-4.8) k/uL BUN 28 H (9-20) mg/dL Creatinine (0.66-1.25) mg/dL Glucose 160 H (74-99) mg/dL POC Glucose (mg/dL) 171 H (75-99) mg/dL Total Bilirubin 1.4 H (0.2-1.3) mg/dL ALT 17 L (21-72) U/L 02/06/18 02/07/18 02/07/18 Range/Units 21:42 06:13 06:13 RBC 3.58 L (4.30-5.90) m/uL Hgb 10.5 L (13.0-17.5) gm/dL Hct 32.8 L (39.0-53.0) % Lymphocytes # (1.0-4.8) k/uL BUN 34 H (9-20) mg/dL Creatinine 1.40 H (0.66-1.25) mg/dL Glucose 121 H (74-99) mg/dL POC Glucose (mg/dL) 142 H (75-99) mg/dL Total Bilirubin (0.2-1.3) mg/dL ALT (21-72) U/L 02/07/18 Range/Units 07:18 RBC (4.30-5.90) m/uL Hgb (13.0-17.5) gm/dL Hct (39.0-53.0) % Lymphocytes # (1.0-4.8) k/uL BUN (9-20) mg/dL Creatinine (0.66-1.25) mg/dL Glucose (74-99) mg/dL POC Glucose (mg/dL) 124 H (75-99) mg/dL Total Bilirubin (0.2-1.3) mg/dL ALT (21-72) U/L Assessment and Plan Assessment: #1 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 Dr. Smith consulted for ophthalmology. Per Ophthalmology there is no proven effective treatment for central artery occlusion after 6 hours of ocurrence. MRI completed showing subacute infarcts or small in different vascular distribution. Correlate for possible emboli phenomenon. Age-related atrophy, evidence of chronic small vessel ischemia. MRA completed showing high- grade stenosis involving the common carotid, right internal carotid artery stenosis not felt likely to be significant with the proximal internal carotid artery on the left. Atheromatous changes involving the vertebral artery on the right also noted. Per nursing staff neurology updated. Dr. Ch for vascular surgery and cardiology will be updated on MRI and MRA results. Possible plan for RADHA and/or Arch study. Awaiting vascular surgery and cardiology recommendation. #2 elevated troponin level without chest pain #3 underlying history of [id number] diabetes mellitus #4 underlying history of hypertension #5 underlying history of hyperlipidemia #6 underlying history of coronary artery disease stable followed by Dr. Castellon, patient has known history of angioplasty with stent placement he is maintained on Plavix. 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 Carotid Doppler completed showing significant irregular plaque formation right coronary artery bifurcation. There was excellent diagnosis right internal carotid artery velocity. Stenosis at 1199. There is a left-sided chest 50-70% stenosis in the left internal carotid artery. Dr. Ch consulted for vascular surgery DVT prophylaxis heparin. GI prophylaxis Protonix I performed an examination of the patient and discussed their management with the Nurse Practitioner. I have reviewed the Nurse Practitioner's notes and agree with the documented findings and plan of care
[2018-02-07 12:08] LABS: Glucose,Whole Blood 119 mg/dL (75-99)
[2018-02-07 13:11] LABS: Hemoglobin A1C 7.4 % (4.0-6.0)
--- NOTE | 2018-02-07 13:16 | PN ---
PROGRESS NOTE This is an 87-year-old gentleman who came with amaurosis fugax affecting the right eye and he has right sent central retinal artery occlusion. Patient had a MRI which showed a subacute infarct. The patient has a right carotid moderate stenosis on the right side and some stenosis on the left side noted. His motor functions of upper extremities are normal. Patient was seen by Neurology and recommended RADHA because of multiple emboli to the brain. I have discussed with Dr. Garcia about his cardiac issues and he is planning to do the RADHA tomorrow then we will address about his carotid stenosis. In the meantime, the patient will continue on antiplatelet therapy. MMODL / IJN: [id number] /
[2018-02-07] MEDS ORDERED: ACETAMINOPHEN TAB 325 MG TAB PO PRN (13:23)
[2018-02-07 17:49] LABS: Glucose,Whole Blood 192 mg/dL (75-99)
--- NOTE | 2018-02-07 18:37 | XR ---
EXAMINATION TYPE: XR chest 2V DATE OF EXAM: 02/07/2018 COMPARISON: 02/05/2018 HISTORY: Weakness TECHNIQUE: Frontal and lateral views of the chest are obtained. FINDINGS: There is no heart failure nor confluent pneumonic infiltrate. Thoracic aorta is atheromato us. Costophrenic angles are clear. There are chest leads. IMPRESSION: No active cardiopulmonary disease. Atheromatous aorta. There is clearing of the mild ate lectasis at the right lung base compared to old exam.
[2018-02-07 20:04] LABS: Appearance,Urine Clear (Clear); Bilirubin,Urine Negative (Negative); Blood,Urine Negative (Negative); Color,Urine Yellow; Glucose,Urine (UA) Negative (Negative); Ketones,Urine Negative (Negative); Leukocyte Esterase,Urine Negative (Negative); Nitrite,Urine Negative (Negative); PH, Urine 5.5 (5.0-8.0); Protein,Urine Negative (Negative); Specific Gravity,Urine 1.016 (1.001-1.035); Urobilinogen,Urine <2.0 mg/dL (<2.0)
[2018-02-07 20:31] LABS: Glucose,Whole Blood 157 mg/dL (75-99)
[2018-02-07] MEDS: ALLOPURINOL 300 MG TAB PO SCH (20:31)
[2018-02-07] MEDS: CYCLOBENZAPRINE 10 MG TAB PO SCH (20:31)
[2018-02-07] MEDS: ATORVASTATIN 20 MG TAB PO SCH (20:31)
--- NOTE | 2018-02-08 06:09 | P.PN ---
Subjective Progress Note Date: 02/08/18 Principal diagnosis: CVA This is a pleasant 87-year-old gentleman who sees Dr. Castellon in the office as an outpatient with a past medical history significant for coronary artery disease and prior stenting of the LAD in 2017, diabetes, hypertension, dyslipidemia, was brought into the emergency room by his family after he lost the vision in the right eye. The patient was in his usual state of health until yesterday when he did some work at home and after that suddenly he lost the vision in the right eye. When he arrived to the emergency room it was noticed that the patient was unable to see well in the right eye. No other neurologic symptoms of weakness or numbness, dizziness or lightheadedness, or syncope. The patient was seen and evaluated by the neurology service and he underwent a computed tomography scan of the brain which did not show any acute abnormalities. Subsequently he underwent a carotid duplex study which showed severe disease involving the right internal carotid artery. Subsequently the patient underwent an MRI and MRA. The MRI showed subacute infarct with possible embolic phenomena. The MRA revealed severe disease involving the right common and right internal carotid artery. Subsequently Dr. Cavazos, the vascular surgeon was consulted to see the patient. We get involved in the care of the patient because his troponin was checked and came in to be slightly abnormal. The patient does not recall having any chest pain or discomfort, difficulty breathing, feeling of heart racing or fluttering , dizziness or lightheadedness or syncope. The EKG did not show any significant ST or T-wave abnormalities concerning for ischemia. Beside that the patient is on dual antiplatelet therapy with aspirin and Plavix as well as he is on statin. On follow-up with the patient today, 02/08/2018, he denies having any chest pain or discomfort and there is a slight improvement in the vision in the right eye. The plan is to proceed with a transesophageal echocardiogram today to assess for cardiac source of embolization, which is unlikely. The patient continues to follow-up with Dr. Cavazos and the decision would be made today regarding proceeding with carotid endarterectomy versus carotid stenting. Meanwhile I will keep the patient on the current medical regimen including dual antiplatelet therapy as well as a statin. Objective - Vital Signs Vital signs: Vital Signs Temp 96.7 F L 02/08/18 04:00 Pulse 70 02/08/18 04:00 Resp 21 02/08/18 04:00 BP 128/57 02/08/18 04:00 Pulse Ox 95 02/08/18 04:00 Intake & Output 02/07/18 02/07/18 02/08/18 06:59 18:59 06:59 Intake Total 520 960 Output Total 1050 1125 550 Balance -530 165 -550 Weight 64.3 kg 64.1 kg Intake: IV 20 normal 20 Oral 500 960 Output: Urine 1050 1125 550 Other: Voiding Method Toilet Urinal Incontinent # Voids 2 2 1 # Bowel Movements 1 1 - Constitutional General appearance: Present: no acute distress - Respiratory Respiratory: bilateral: CTA - Cardiovascular Rhythm: regular Heart sounds: normal: S1, S2 - Labs CBC & Chem 7: 02/07/18 06:13 02/07/18 06:13 Labs: Abnormal Lab Results - Last 24 Hours (Table) 02/06/18 02/07/18 02/07/18 Range/Units 10:37 06:13 06:13 RBC 3.58 L (4.30-5.90) m/uL Hgb 10.5 L (13.0-17.5) gm/dL Hct 32.8 L (39.0-53.0) % BUN 34 H (9-20) mg/dL Creatinine 1.40 H (0.66-1.25) mg/dL Glucose 121 H (74-99) mg/dL POC Glucose (mg/dL) (75-99) mg/dL Hemoglobin A1c 7.4 H (4.0-6.0) % 02/07/18 02/07/18 02/07/18 Range/Units 07:18 11:56 17:38 RBC (4.30-5.90) m/uL Hgb (13.0-17.5) gm/dL Hct (39.0-53.0) % BUN (9-20) mg/dL Creatinine (0.66-1.25) mg/dL Glucose (74-99) mg/dL POC Glucose (mg/dL) 124 H 119 H 192 H (75-99) mg/dL Hemoglobin A1c (4.0-6.0) % 02/07/18 Range/Units 20:19 RBC (4.30-5.90) m/uL Hgb (13.0-17.5) gm/dL Hct (39.0-53.0) % BUN (9-20) mg/dL Creatinine (0.66-1.25) mg/dL Glucose (74-99) mg/dL POC Glucose (mg/dL) 157 H (75-99) mg/dL Hemoglobin A1c (4.0-6.0) % Microbiology - Last 24 Hours (Table) 02/07/18 18:52 Urine Culture - Preliminary Urine,Voided Assessment and Plan Assessment: Assessment #1 vision loss in the right eye of sudden onset #2 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
[2018-02-08 06:41] LABS: Basophils % (A) 0 %; Eosinophils # (A) 0.5 k/uL (0-0.7); Eosinophils % (A) 8 %; HCT 31.2 % (39.0-53.0); HGB 10.1 gm/dL (13.0-17.5); Lymphocytes # (A) 0.9 k/uL (1.0-4.8); Lymphocytes % (A) 13 %; MCH 30.3 pg (25.0-35.0); MCHC 32.5 g/dL (31.0-37.0); MCV 93.3 fL (80.0-100.0); Monocytes # (A) 0.5 k/uL (0-1.0); Monocytes % (A) 7 %; Neutrophils # (A) 5.1 k/uL (1.3-7.7); Neutrophils % (A) 71 %; Platelet Count 225 k/uL (150-450); RBC 3.35 m/uL (4.30-5.90); RDW 14.5 % (11.5-15.5); WBC 7.2 k/uL (3.8-10.6)
[2018-02-08 06:45] LABS: Albumin 3.5 g/dL (3.5-5.0); Calcium 9.4 mg/dL (8.4-10.2); Potassium 4.3 mmol/L (3.5-5.1); Total Bilirubin 0.7 mg/dL (0.2-1.3); Total Protein 6.4 g/dL (6.3-8.2)
[2018-02-08 07:20] LABS: Glucose,Whole Blood 133 mg/dL (75-99)
[2018-02-08] MEDS: INSULIN ASPART 100 UNIT/ML 1 ML 10 ML VIAL SQ SCH ×4 (07:56→21:04)
[2018-02-08] MEDS: metFORMIN 500 MG TAB PO SCH ×2 (09:59→17:55)
[2018-02-08] MEDS: HEPARIN SODIUM,PORCINE 5,000 UNIT/ML 1 ML VIAL SQ SCH ×2 (10:04→21:43)
[2018-02-08] MEDS: ASPIRIN 325 MG TAB PO SCH (10:04)
[2018-02-08] MEDS: METOPROLOL SUCCINATE (ER) 50 MG TAB.ER.24H PO SCH (10:04)
[2018-02-08] MEDS: PANTOPRAZOLE 40 MG TABLET PO SCH (10:04)
[2018-02-08] MEDS: CHOLECALCIFEROL 1,000 UNIT TAB PO SCH ×2 (10:04→21:43)
[2018-02-08] MEDS: CLOPIDOGREL 75 MG TAB PO SCH (10:05)
[2018-02-08 11:34] LABS: Iron Saturation 10.15 (15.00-50.00)
[2018-02-08 11:58] LABS: Glucose,Whole Blood 117 mg/dL (75-99)
[2018-02-08] MEDS ORDERED: fentaNYL (PF) 50 MCG/ML 2 ML AMP ONE (12:41)
[2018-02-08] MEDS ORDERED: MIDAZOLAM 2 MG/2 ML VIAL ONE (12:41)
[2018-02-08] MEDS ORDERED: SODIUM CHLORIDE 0.9% 500 ML 500 ML IV ONE (12:50)
[2018-02-08] MEDS ORDERED: BENZOCAINE SPRAY 1 CAN MUCOUS MEM ONE (12:53)
[2018-02-08] MEDS ORDERED: fentaNYL (PF) 50 MCG/ML 2 ML AMP IV ONE (12:55)
[2018-02-08] MEDS ORDERED: MIDAZOLAM 2 MG/2 ML VIAL IV ONE (12:56)
[2018-02-08] MEDS ORDERED: SODIUM CHLORIDE 0.9% 1,000 ML IV SCH (13:15)
--- NOTE | 2018-02-08 13:38 | ECHOT ---
TRANSESOPHAGEAL ECHOCARDIOGRAM INDICATION: Evaluation left atrial appendage. PROCEDURE: After explaining the procedure to the patient, its risks and complications, blood pressure, heart rate, O2 saturation was monitored. The throat was sprayed with Cetacaine. He received 2 mg intravenous Versed, 25 mcg intravenous fentanyl. The probe was introduced into the esophagus without difficulty. Images were obtained. Following that, the probe was removed. There was no immediate complication. FINDINGS: Left atrial size is dilated. Left atrial appendage is normal. Left ventricular size and systolic function normal. The aortic valve is a tricuspid valve with fibrocalcific changes with preserved opening. Moderate mitral anulus calcification was noted. The tricuspid valve appears to be normal. Descending thoracic aorta revealed moderate atherosclerotic changes. No pericardial effusion was noted. Contrast bubble study revealed no evidence of shunting across the interatrial septum. Doppler pulse wave and color Doppler obtained and revealed a moderate mitral with mild to moderate tricuspid regurgitation with mild aortic and pulmonic regurgitation. There was no shunting across the interatrial septum. CONCLUSION: 1. Dilated left atrium with normal appearance of left atrial appendage. 2. Normal left ventricular size and systolic function. 3. Mitral anulus calcification with moderate mitral regurgitation. 4. Mild to moderate tricuspid regurgitation with mild pulmonary hypertension. 5. Aortic sclerosis with no evident stenosis and mild aortic regurgitation. 6. Mild pulmonic regurgitation. 7. No shunting by color Doppler study. MMODL / IJN: [id number] /
--- NOTE | 2018-02-08 14:02 | P.PN ---
Subjective Progress Note Date: 02/08/18 Dean Degroot is an 87-year-old male who presented to [facility] emergency room due to loss of vision in the right eye he states that on the day prior to presentation he noticed that he was unable to see well in the right eye he went to sleep and woke up this morning and noticed again that he had no vision in the right eye at that point he decided to come to emergency room he was evaluated by Dr. Silva in the emergency room, ophthalmology on-call was contacted but unfortunately did not return the phone call. Neurology interior design professional Dr. Mcconnell was contacted and he advised to have a computed tomography scan of the brain and in the absence of any evidence of bleeding to proceed with IV heparin. This was started in the emergency room. Also during emergency room evaluation patient had evidence of elevated troponin level at 0.153 patient denies any chest pain or shortness of breath, he was started on IV heparin and admitted to ICU cardiology neurology and ophthalmology consultations were requested. Patient states that he follows regularly with Dr. Castellon he was evaluated in the last month or so and was doing well, he also had an eye exam with Dr. Saleh including retinal exam which was within normal limits. On 02/06/2018 patient is currently resting comfortably in chair. Patient is alert and oriented 3. Patient reports that he still is unable to see out of right eye. He is now able to see shadows. At this time patient denies chest pain or shortness breath. Patient denies nausea vomiting or diarrhea. Patient denies any urinary burning or frequency. MRI and MRA has been ordered for today per neurology. On 02/07/2018 patient is currently resting comfortably in chair. Patient is alert and oriented 3. Patient had MRA and MRI completed. Patient reports that late is slightly improving with right eye. At this time patient denies chest pain or shortness breath. Patient denies nausea vomiting or diarrhea. Denies any urinary burning or frequency On 02/08/2018 patient is alert and oriented 3. Planning to go to [facility] today. Patient states some improvement to right eye patient. Patient denies chest pain or shortness of breath. Patient denies nausea vomiting or diarrhea. Patient denies any urinary burning or frequency. Objective - Vital Signs Vital signs: Vital Signs Temp 97.9 F 02/08/18 08:00 Pulse 77 02/08/18 13:10 Resp 14 02/08/18 12:45 BP 153/73 02/08/18 13:10 Pulse Ox 96 02/08/18 13:10 Intake & Output 02/07/18 02/08/18 02/08/18 18:59 06:59 18:59 Intake Total 960 100 Output Total 1125 550 250 Balance -165 -550 -150 Weight 64.1 kg Intake: IV 100 normal 0 Oral 960 Output: Urine 1125 550 250 Other: Voiding Method Toilet Urinal Incontinent # Voids 2 1 # Bowel Movements 1 1 - Exam In general patient is alert and oriented 3 in no apparent distress HEENT head normocephalic and atraumatic Neck is supple no JVD no goiter no lymphadenopathy Chest exam reveals a few scattered rhonchi no wheezing Cardiac exam reveals regular heart sounds no gallops no murmurs Abdomen is soft nontender no organomegaly with normal bowel sounds Extremity exam reveals no edema no cyanosis or clubbing - Labs CBC & Chem 7: 02/08/18 05:25 02/08/18 05:25 Labs: Abnormal Lab Results - Last 24 Hours (Table) 02/07/18 02/07/18 02/07/18 Range/Units 06:13 17:38 20:19 RBC (4.30-5.90) m/uL Hgb (13.0-17.5) gm/dL Hct (39.0-53.0) % Lymphocytes # (1.0-4.8) k/uL BUN (9-20) mg/dL Creatinine (0.66-1.25) mg/dL Glucose (74-99) mg/dL POC Glucose (mg/dL) 192 H 157 H (75-99) mg/dL Iron 27 L (65-175) ug/dL Iron Saturation 10.15 L (15.00-50.00) 02/08/18 02/08/18 02/08/18 Range/Units 05:25 05:25 07:08 RBC 3.35 L (4.30-5.90) m/uL Hgb 10.1 L (13.0-17.5) gm/dL Hct 31.2 L (39.0-53.0) % Lymphocytes # 0.9 L (1.0-4.8) k/uL BUN 38 H (9-20) mg/dL Creatinine 1.54 H (0.66-1.25) mg/dL Glucose 117 H (74-99) mg/dL POC Glucose (mg/dL) 133 H (75-99) mg/dL Iron (65-175) ug/dL Iron Saturation (15.00-50.00) 02/08/18 Range/Units 11:47 RBC (4.30-5.90) m/uL Hgb (13.0-17.5) gm/dL Hct (39.0-53.0) % Lymphocytes # (1.0-4.8) k/uL BUN (9-20) mg/dL Creatinine (0.66-1.25) mg/dL Glucose (74-99) mg/dL POC Glucose (mg/dL) 117 H (75-99) mg/dL Iron (65-175) ug/dL Iron Saturation (15.00-50.00) Microbiology - Last 24 Hours (Table) 02/07/18 18:52 Urine Culture - Preliminary Urine,Voided Assessment and Plan Assessment: #1 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 Dr. Smith consulted for ophthalmology. Per Ophthalmology there is no proven effective treatment for central artery occlusion after 6 hours of ocurrence. MRI completed showing subacute infarcts or small in different vascular distribution. Correlate for possible emboli phenomenon. Age-related atrophy, evidence of chronic small vessel ischemia. MRA completed showing high- grade stenosis involving the common carotid, right internal carotid artery stenosis not felt likely to be significant with the proximal internal carotid artery on the left. Atheromatous changes involving the vertebral artery on the right also noted. Per nursing staff neurology updated. Dr. Ch for vascular surgery and cardiology will be updated on MRI and MRA results. Possible plan for [facility] and/or Arch study. [facility] completed, per cardiology [facility] did not display any cardiac cause of emboli phenomenon. Stress case with Dr. Hameed per cardiology planning to do outpatient carotid stenting next week. #2 elevated troponin level without chest pain #3 underlying history of [id number] diabetes mellitus #4 underlying history of hypertension #5 underlying history of hyperlipidemia #6 underlying history of coronary artery disease stable followed by Dr. Castellon, patient has known history of angioplasty with stent placement he is maintained on Plavix. 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 Carotid Doppler completed showing significant irregular plaque formation right coronary artery bifurcation. There was excellent diagnosis right internal carotid artery velocity. Stenosis at 1199. There is a left-sided chest 50-70% stenosis in the left internal carotid artery. Dr. Ch consulted for vascular surgery #10 patient having increased episodes of shakiness. Urine and blood and sputum cultures ordered. Urinalysis negative. Chest x-ray completed showing no active cardiopulmonary disease. Nam 5 minutes a ordered. There is clearing of mild atelectasis at the right lung base compared to old exam. #11 anemia. HemGlobin 10.1. Iron studies have been ordered #12 acute kidney injury. Had increasing to 1.54 and bun 38. Patient's Hyzaar discontinued at this time. Will continue to monitor closely DVT prophylaxis heparin. GI prophylaxis Protonix I performed an examination of the patient and discussed their management with the Nurse Practitioner. I have reviewed the Nurse Practitioner's notes and agree with the documented findings and plan of care
[2018-02-08 17:19] LABS: Glucose,Whole Blood 260 mg/dL (75-99)
[2018-02-08 21:02] LABS: Glucose,Whole Blood 91 mg/dL (75-99)
[2018-02-08] MEDS: ALLOPURINOL 300 MG TAB PO SCH (21:43)
[2018-02-08] MEDS: ATORVASTATIN 20 MG TAB PO SCH (21:43)
[2018-02-08] MEDS: CYCLOBENZAPRINE 10 MG TAB PO SCH (21:43)
[2018-02-08] MEDS: FERROUS SULFATE 325 MG TAB PO SCH (21:43)
[2018-02-09 05:51] LABS: Basophils % (A) 1 %; Eosinophils # (A) 0.6 k/uL (0-0.7); Eosinophils % (A) 9 %; HCT 30.5 % (39.0-53.0); HGB 9.8 gm/dL (13.0-17.5); Lymphocytes # (A) 0.9 k/uL (1.0-4.8); Lymphocytes % (A) 13 %; MCH 29.9 pg (25.0-35.0); MCHC 32.1 g/dL (31.0-37.0); MCV 93.2 fL (80.0-100.0); Mean Platelet Volume 6.8; Monocytes # (A) 0.5 k/uL (0-1.0); Monocytes % (A) 7 %; Neutrophils # (A) 4.5 k/uL (1.3-7.7); Neutrophils % (A) 68 %; Platelet Count 229 k/uL (150-450); RBC 3.27 m/uL (4.30-5.90); RDW 14.6 % (11.5-15.5); WBC 6.5 k/uL (3.8-10.6)
[2018-02-09 06:13] LABS: Albumin 3.5 g/dL (3.5-5.0); Calcium 9.2 mg/dL (8.4-10.2); Potassium 4.4 mmol/L (3.5-5.1); Total Bilirubin 0.7 mg/dL (0.2-1.3); Total Protein 6.3 g/dL (6.3-8.2)
--- NOTE | 2018-02-09 06:45 | P.PN ---
Subjective Progress Note Date: 02/09/18 Principal diagnosis: CVA This is a pleasant 87-year-old gentleman who sees Dr. Castellon in the office as an outpatient with a past medical history significant for coronary artery disease and prior stenting of the LAD in 2017, diabetes, hypertension, dyslipidemia, was brought into the emergency room by his family after he lost the vision in the right eye. The patient was in his usual state of health until yesterday when he did some work at home and after that suddenly he lost the vision in the right eye. When he arrived to the emergency room it was noticed that the patient was unable to see well in the right eye. No other neurologic symptoms of weakness or numbness, dizziness or lightheadedness, or syncope. The patient was seen and evaluated by the neurology service and he underwent a computed tomography scan of the brain which did not show any acute abnormalities. Subsequently he underwent a carotid duplex study which showed severe disease involving the right internal carotid artery. Subsequently the patient underwent an MRI and MRA. The MRI showed subacute infarct with possible embolic phenomena. The MRA revealed severe disease involving the right common and right internal carotid artery. Subsequently Dr. Cavazos, the vascular surgeon was consulted to see the patient. We get involved in the care of the patient because his troponin was checked and came in to be slightly abnormal. The patient does not recall having any chest pain or discomfort, difficulty breathing, feeling of heart racing or fluttering , dizziness or lightheadedness or syncope. The EKG did not show any significant ST or T-wave abnormalities concerning for ischemia. Beside that the patient is on dual antiplatelet therapy with aspirin and Plavix as well as he is on statin. On follow-up with the patient today, 02/09/2018, he denies having any chest pain or discomfort and there is a slight improvement in the vision in the right eye. He underwent transesophageal echocardiogram yesterday and that revealed no evidence of cardiac source of embolization. From a perivascular standpoint overview, the patient can be discharged home. He is on dual antiplatelet therapy along with a statin and we will continue that. Objective - Vital Signs Vital signs: Vital Signs Temp 97.6 F 02/09/18 04:00 Pulse 85 02/09/18 04:00 Resp 12 02/09/18 04:00 BP 136/68 02/09/18 04:00 Pulse Ox 95 02/09/18 04:00 Intake & Output 02/08/18 02/08/18 02/09/18 06:59 18:59 06:59 Intake Total 450 Output Total 550 250 200 Balance -550 200 -200 Weight 64.1 kg 65.4 kg Intake: IV 100 normal 0 Oral 350 Output: Urine 550 250 200 Other: Voiding Method Toilet Toilet Toilet Urinal Urinal Urinal Incontinent Incontinent Incontinent # Voids 1 1 # Bowel Movements 1 1 - Constitutional General appearance: Present: no acute distress - Respiratory Respiratory: bilateral: CTA - Cardiovascular Rhythm: regular Heart sounds: normal: S1, S2 - Labs CBC & Chem 7: 02/09/18 05:18 02/09/18 05:18 Labs: Abnormal Lab Results - Last 24 Hours (Table) 02/07/18 02/08/18 02/08/18 Range/Units 06:13 05:25 05:25 RBC 3.35 L (4.30-5.90) m/uL Hgb 10.1 L (13.0-17.5) gm/dL Hct 31.2 L (39.0-53.0) % Lymphocytes # 0.9 L (1.0-4.8) k/uL BUN 38 H (9-20) mg/dL Creatinine 1.54 H (0.66-1.25) mg/dL Glucose 117 H (74-99) mg/dL POC Glucose (mg/dL) (75-99) mg/dL Iron 27 L (65-175) ug/dL Iron Saturation 10.15 L (15.00-50.00) 02/08/18 02/08/18 02/08/18 Range/Units 07:08 11:47 17:07 RBC (4.30-5.90) m/uL Hgb (13.0-17.5) gm/dL Hct (39.0-53.0) % Lymphocytes # (1.0-4.8) k/uL BUN (9-20) mg/dL Creatinine (0.66-1.25) mg/dL Glucose (74-99) mg/dL POC Glucose (mg/dL) 133 H 117 H 260 H (75-99) mg/dL Iron (65-175) ug/dL Iron Saturation (15.00-50.00) 02/09/18 02/09/18 Range/Units 05:18 05:18 RBC 3.27 L (4.30-5.90) m/uL Hgb 9.8 L (13.0-17.5) gm/dL Hct 30.5 L (39.0-53.0) % Lymphocytes # 0.9 L (1.0-4.8) k/uL BUN 40 H (9-20) mg/dL Creatinine 1.29 H (0.66-1.25) mg/dL Glucose 146 H (74-99) mg/dL POC Glucose (mg/dL) (75-99) mg/dL Iron (65-175) ug/dL Iron Saturation (15.00-50.00) Microbiology - Last 24 Hours (Table) 02/07/18 18:52 Urine Culture - Final Urine,Voided 02/07/18 14:04 Blood Culture - Preliminary Blood No Growth after 24 hours Assessment and Plan Assessment: Assessment #1 vision loss in the right eye of sudden onset #2 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
[2018-02-09 07:34] LABS: Glucose,Whole Blood 131 mg/dL (75-99)
[2018-02-09] MEDS: INSULIN ASPART 100 UNIT/ML 1 ML 10 ML VIAL SQ SCH ×2 (08:14→12:17)
[2018-02-09] MEDS: HEPARIN SODIUM,PORCINE 5,000 UNIT/ML 1 ML VIAL SQ SCH (08:16)
[2018-02-09] MEDS: FERROUS SULFATE 325 MG TAB PO SCH (08:16)
[2018-02-09] MEDS: CLOPIDOGREL 75 MG TAB PO SCH (08:16)
[2018-02-09] MEDS: ASPIRIN 325 MG TAB PO SCH (08:16)
[2018-02-09] MEDS: CHOLECALCIFEROL 1,000 UNIT TAB PO SCH (08:16)
[2018-02-09] MEDS: PANTOPRAZOLE 40 MG TABLET PO SCH (08:17)
[2018-02-09] MEDS: metFORMIN 500 MG TAB PO SCH (08:40)
[2018-02-09] MEDS: METOPROLOL SUCCINATE (ER) 50 MG TAB.ER.24H PO SCH (08:47)
[2018-02-09] MEDS ORDERED: SODIUM FERRIC GLUCONAT-SUCROSE 125 MG in SODIUM CHLORIDE 0.9% 100 ML IVPB ONE (10:39)
[2018-02-09 10:47] VITALS: BMI 24.7
--- NOTE | 2018-02-09 11:59 | P.DS ---
Providers Date of admission: 02/05/18 12:45 Expected date of discharge: 02/09/18 Attending physician: Yoshi Vang Consults: 02/05/18 12:46 Consult Physician Routine Consulting Provider: Juan Miguel Smith Consult Reason/Comments: Right eye blindness Do you want consulting provider notified?: Yes 02/05/18 12:47 Consult Physician Routine Consulting Provider: [facility] Consult Reason/Comments: Non-STEMI Do you want consulting provider notified?: Yes 02/05/18 18:24 Consult Physician Routine Consulting Provider: Vandana Castellon Consult Reason/Comments: elevated troponin Do you want consulting provider notified?: Yes 02/05/18 18:36 Consult Physician Routine Consulting Provider: Shani Mcconnell Consult Reason/Comments: loss of vision right eye Do you want consulting provider notified?: Yes 02/06/18 07:00 Consult Physician Urgent Consulting Provider: Ray [facility] Consult Reason/Comments: Right ICA stenosis with right eye vision loss. 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 Dr. Smith consulted for ophthalmology. Per Ophthalmology there is no proven effective treatment for central artery occlusion after 6 hours of ocurrence. MRI completed showing subacute infarcts or small in different vascular distribution. Correlate for possible emboli phenomenon. Age-related atrophy, evidence of chronic small vessel ischemia. MRA completed showing high- grade stenosis involving the common carotid, right internal carotid artery stenosis not felt likely to be significant with the proximal internal carotid artery on the left. Atheromatous changes involving the vertebral artery on the right also noted. Per nursing staff neurology updated. Dr. Ch for vascular surgery and cardiology will be updated on MRI and MRA results. Possible plan for [facility] and/or Arch study. RADHA completed, per cardiology [facility] did not display any cardiac cause of emboli . Dscussed case with Dr. Hameed per cardiology planning to do outpatient carotid stenting next week. Per cardiology patient can be discharged home. Patient will be discharged home on aspirin 325 and Plavix 75 per cardiology standpoint patient to follow-up outpatient with Dr. Hameed for stenting of carotid artery #2 elevated troponin level without chest pain #3 underlying history of [id number] diabetes mellitus #4 underlying history of hypertension #5 underlying history of hyperlipidemia #6 underlying history of coronary artery disease stable followed by Dr. Castellon, patient has known history of angioplasty with stent placement he is maintained on Plavix. 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 Carotid Doppler completed showing significant irregular plaque formation right coronary artery bifurcation. There was excellent diagnosis right internal carotid artery velocity. Stenosis at 1199. There is a left-sided chest 50-70% stenosis in the left internal carotid artery. Dr. Ch consulted for vascular surgery #10 patient having increased episodes of shakiness. Urine and blood and sputum cultures ordered. Urinalysis negative. Chest x-ray completed showing no active cardiopulmonary disease. . There is clearing of mild atelectasis at the right lung base compared to old exam. Blood and urine cultures negative. White blood cell within normal. Patient has been afebrile #11 anemia. HemGlobin 10.1. And saturation low at 10.15 and iron low at 27. Patient started on by mouth ferrous sulfate. Patient received 1 dose of IV iron prior to discharge. CBC has been ordered for 2 days #12 acute kidney injury. Creatinine increasing to 1.54 and bun 38. Patient's Hyzaar discontinued at this time. Will continue to monitor closely. Creatinine improving to 1.29. Losartan hydrochlorothiazide will be discontinued upon discharge. Repeat CMP ordered for 2 days. Patient to follow- up closely with PCP Hospital course Dean Degroot is an 87-year-old male who presented to [facility] emergency room due to loss of vision in the right eye he states that on the day prior to presentation he noticed that he was unable to see well in the right eye he went to sleep and woke up this morning and noticed again that he had no vision in the right eye at that point he decided to come to emergency room he was evaluated by Dr. Silva in the emergency room, ophthalmology on-call was contacted but unfortunately did not return the phone call. Neurology leather production machine operator Dr. Mcconnell was contacted and he advised to have a computed tomography scan of the brain and in the absence of any evidence of bleeding to proceed with IV heparin. This was started in the emergency room. Also during emergency room evaluation patient had evidence of elevated troponin level at 0.153 patient denies any chest pain or shortness of breath, he was started on IV heparin and admitted to ICU cardiology neurology and ophthalmology consultations were requested. Patient states that he follows regularly with Dr. Csatellon he was evaluated in the last month or so and was doing well, he also had an eye exam with Dr. Saleh including retinal exam which was within normal limits. On 02/06/2018 patient is currently resting comfortably in chair. Patient is alert and oriented 3. Patient reports that he still is unable to see out of right eye. He is now able to see shadows. At this time patient denies chest pain or shortness breath. Patient denies nausea vomiting or diarrhea. Patient denies any urinary burning or frequency. MRI and MRA has been ordered for today per neurology. On 02/07/2018 patient is currently resting comfortably in chair. Patient is alert and oriented 3. Patient had MRA and MRI completed. Patient reports that late is slightly improving with right eye. At this time patient denies chest pain or shortness breath. Patient denies nausea vomiting or diarrhea. Denies any urinary burning or frequency On 02/08/2018 patient is alert and oriented 3. Planning to go to [facility] today. Patient states some improvement to right eye patient. Patient denies chest pain or shortness of breath. Patient denies nausea vomiting or diarrhea. Patient denies any urinary burning or frequency. On 02/09/2018 patient is alert and oriented 3. Patient expresses that he is eager to go home. Discussed case with cardiology services. Patient has been cleared for discharge from cardiology standpoint. Patient to follow-up outpatient with cardiology services for stenting of carotid artery. Patient will be discharged home on full aspirin and Plavix per cardiology. Patient states vision is slightly improving to right eye. At this time patient denies chest pain or shortness breath. Patient denies nausea vomiting or diarrhea. Patient denies any urinary burning or frequency. Patient to follow-up closely with PCP and cardiology services CBC and CMP has been ordered for 2 days I performed an examination of the patient and discussed their management with the Nurse Practitioner. I have reviewed the Nurse Practitioner's notes and agree with the documented findings and plan of care Patient Condition at Discharge: Stable Plan - Discharge Summary New Discharge Prescriptions: New Aspirin 325 mg PO DAILY #30 tab Ferrous Sulfate [Iron (65 MG Elemental)] 325 mg PO BID #60 tab Continue Cholecalciferol [Vitamin D3] 1,000 unit PO BID metFORMIN HCL [Glucophage] 500 mg PO BID Cyclobenzaprine [Flexeril] 10 mg PO HS Acetaminophen Tab [Tylenol] 500 mg PO Q6H PRN PRN Reason: Pain Or Fever > 100.5 Allopurinol [Zyloprim] 300 mg PO HS Clopidogrel [Plavix] 75 mg PO DAILY #90 tab Metoprolol Succinate (ER) [Toprol XL] 50 mg PO QAM #50 tab.er.24h Nitroglycerin Sl Tabs [Nitrostat] 0.4 mg SUBLINGUAL Q5M PRN #25 tab PRN Reason: Chest Pain Atorvastatin [Lipitor] 20 mg PO HS Discontinued Aspirin 81 mg PO QAM Losartan/Hydrochlorothiazide [Losartan-Hctz 100-25 mg Tab] 1 tab PO QAM Discharge Medication List Acetaminophen Tab [Tylenol] 500 mg PO Q6H PRN 02/24/17 [History] Allopurinol [Zyloprim] 300 mg PO HS 02/24/17 [History] Cholecalciferol [Vitamin D3] 1,000 unit PO BID 02/24/17 [History] Cyclobenzaprine [Flexeril] 10 mg PO HS 02/24/17 [History] metFORMIN HCL [Glucophage] 500 mg PO BID 02/24/17 [History] Clopidogrel [Plavix] 75 mg PO DAILY #90 tab 03/11/17 [Rx] Metoprolol Succinate (ER) [Toprol XL] 50 mg PO QAM #50 tab.er.24h 03/11/17 [Rx] Nitroglycerin Sl Tabs [Nitrostat] 0.4 mg SUBLINGUAL Q5M PRN #25 tab 03/11/17 [Rx ] Atorvastatin [Lipitor] 20 mg PO HS 02/05/18 [History] Aspirin 325 mg PO DAILY #30 tab 02/09/18 [Rx] Ferrous Sulfate [Iron (65 MG Elemental)] 325 mg PO BID #60 tab 02/09/18 [Rx] Follow up Appointment(s)/Referral(s): Virgil Salas MD [Primary Care Provider] - 1-2 days Curt Garcia MD [STAFF PHYSICIAN] - 1 Week Ambulatory/Diagnostic Orders: Complete Blood Count w/diff [LAB.AMB] Time Frame: 2 Days, Location: None Selected Comprehensive Metabolic Panel [LAB.AMB] Time Frame: 2 Days, Location: None Selected Activity/Diet/Wound Care/Special Instructions: Diet consistent carb Activity as tolerated Discharge Disposition: HOME SELF-CARE
[2018-02-09 12:03] LABS: Glucose,Whole Blood 144 mg/dL (75-99)
[2018-02-09 14:33] VITALS: BP 133/70; RESP 15; TEMP 98.2
[2018-02-09 14:37] VITALS: PULSE 77
== END 2018-02-09 14:54 | disposition home or self-care (01) | DRG 123 ==
LOC: EC 10:35 → 3SCARD 12:45 → UNDOADMIN 12:45 → 3SCARD 13:46 → 2SICU 13:46
PROVIDERS: ADMIT Internal Medicine; ATTEND Internal Medicine
PROC: B24BZZ4 Ultrasonography of Heart with Aorta, Transesophageal (ICD-10-PCS; principal; 2018-02-08 12:45)
DX: H34.11 Central retinal artery occlusion, right eye (principal); N17.9 Acute kidney failure, unspecified; R77.8 Other specified abnormalities of plasma proteins; E11.9 Type 2 diabetes mellitus without complications; I10 Essential (primary) hypertension; Z96.1 Presence of intraocular lens; I25.10 Atherosclerotic heart disease of native coronary artery without angina pectoris; D64.9 Anemia, unspecified; E78.5 Hyperlipidemia, unspecified; G45.3 Amaurosis fugax; I65.23 Occlusion and stenosis of bilateral carotid arteries; I70.0 Atherosclerosis of aorta; I08.3 Combined rheumatic disorders of mitral, aortic and tricuspid valves; M10.9 Gout, unspecified; M54.9 Dorsalgia, unspecified; M54.2 Cervicalgia; G89.29 Other chronic pain; Z79.02 Long term (current) use of antithrombotics/antiplatelets; Z80.52 Family history of malignant neoplasm of bladder; Z86.73 Personal history of transient ischemic attack (TIA), and cerebral infarction without residual deficits; Z86.718 Personal history of other venous thrombosis and embolism; Z98.42 Cataract extraction status, left eye; Z98.41 Cataract extraction status, right eye; Z95.5 Presence of coronary angioplasty implant and graft; Z87.891 Personal history of nicotine dependence; Z79.82 Long term (current) use of aspirin; Z79.84 Long term (current) use of oral hypoglycemic drugs
CPT/HCPCS: 36415; 70450; 70544; 70547; 70551; 71046; 80053; 80061; 81003; 82550; 82553; 82728; 83036; 83540; 83550; 84484; 85025; 85610; 85730; 87040; 87086; 93005; 93306; 93312; 93320; 93325; 93880; 96361; 96374; 99291

== ENCOUNTER → 2018-02-22 | Day surgery (SDC) | payer MEDICARE, BC ==
[2018-02-17 14:10] VITALS: BMI 26.2
[~2018-02-22] MED LIST changes: +DOCUSATE 100 MG CAP PO PRN; -HEPARIN SOD,PORK IN 0.45% NACL PMX 25,000 UNIT/500 ML BAG IV ONE; +IOPAMIDOL-370 125ML BTL INJ ONE; +LIDOCAINE 1% INJ 10MG/ML (20 ML MDV) SQ ONE; +MAG HYDROX/AL HYDROX/SIMETH 30 ML CUP PO PRN; +MIDAZOLAM 2 MG/2 ML VIAL IV ONE; +SODIUM CHLORIDE 0.9% 1,000 ML IV SCH; +TEMAZEPAM 15 MG CAP PO PRN
[2018-02-22 06:33] VITALS: RESP 18; TEMP 97.4
[2018-02-22 06:56] LABS: Glucose,Whole Blood 160 mg/dL (75-99)
[2018-02-22] MEDS: fentaNYL (PF) 50 MCG/ML 2 ML AMP IVP ONE ×2 (09:11→09:22)
[2018-02-22 15:13] VITALS: BP 167/72; PULSE 60
--- NOTE | 2018-02-22 16:02 | AN ---
ANGIOGRAPHY REPORT DATE OF SERVICE: 02/22/2018 PERFORMING PHYSICIAN: Curt Garcia MD, biometrics consultant. PROCEDURES PERFORMED: 1. Aortic arch angiogram. 2. Selective bilateral carotid angiogram. INDICATION: This is a pleasant 87-year-old gentleman who sees Dr. Vang as an outpatient as well as Dr. Castellon as an outpatient who was admitted to the hospital recently with vision loss involving the right eye. He was diagnosed with a stroke. He underwent a carotid duplex study which revealed severe disease involving the right common and right internal carotid arteries. Subsequently he was seen by Dr. Ch and a decision was made to proceed with an aortic arch and bilateral carotid angiogram. APPROACH: Right common femoral artery. COMPLICATIONS: None. LEVEL OF SEDATION: Moderate, with sedation length of 47 minutes. PROCEDURE DESCRIPTION: After obtaining informed consent, the patient was brought to the cardiac record label internship. The right common femoral artery was cannulated using micropuncture technique. The micropuncture wire passed easily, then I placed a 5-Khmer sheath in the right common carotid artery. Subsequently I did an aortic arch and angiogram using a pigtail catheter. I did also selective bilateral carotid angiogram. Right carotid angiogram was performed using a JOSEFA 2 catheter and the left carotid angiogram was performed using a Ismael right catheter. The procedure was completed without any complication. SELECTIVE PERIPHERAL ANGIOGRAM: 1. The aortic arch is a type 1 arch and it is a true bovine arch. The left carotid takeoff from the innominate artery. 2. The right carotid system: The right common carotid artery appeared to be severely diseased just by the bifurcation into internal and external carotid artery. The lesion appeared to be in the range of 90% to 95% and it is involving the external as well as internal carotid artery. The ostium of the right external carotid artery appeared to be critically diseased and the ostium of the right internal carotid artery appeared to be critically diseased as well. 3. The left carotid system: The left common carotid artery appeared to have mild disease only. The left external carotid artery appeared to be angiographically normal and the left internal carotid artery appeared to have a lesion in the range of 50% and seems to be eccentric and calcified. CONCLUSION: 1. True bovine arch. 2. Critical disease involving the distal right common carotid artery and the lesion is involving the ostium of the right internal and right external carotid artery. 3. Intermediate disease involving the left internal carotid artery. POST-PROCEDURE MANAGEMENT: 1. Maximize medical treatment at this point. 2. The case will be discussed with Dr. Ch and the patient will likely benefit from right carotid endarterectomy. MARICRUZ / DAYTONN: [id number] /
--- NOTE | 2018-02-23 10:28 | IR ---
EXAMINATION TYPE: IR angio aortic arch DATE OF EXAM: 02/22/2018 COMPARISON: NONE HISTORY: Peripheral vascular occlusive disease. Fluoroscopy was provided to the referring clinician. See dictated report from cardiology.
== END | disposition home or self-care (01) ==
LOC: CATHCVL 05:54
PROVIDERS: ATTEND Internal Medicine Interventional Cardiology
DX: I65.23 Occlusion and stenosis of bilateral carotid arteries (principal); I10 Essential (primary) hypertension; I25.10 Atherosclerotic heart disease of native coronary artery without angina pectoris; E78.2 Mixed hyperlipidemia; E11.9 Type 2 diabetes mellitus without complications; Z98.61 Coronary angioplasty status; Z79.82 Long term (current) use of aspirin; Z79.84 Long term (current) use of oral hypoglycemic drugs; Z79.899 Other long term (current) drug therapy
CPT/HCPCS: 36223; C1769 ×4; C1894; J2250; J2001; J3010; Q9967; 36221

== ENCOUNTER → 2018-03-02 | Outpatient (CLI) | payer MEDICARE, BC ==
--- NOTE | 2018-03-02 20:05 | MR ---
EXAMINATION TYPE: MR brain wo con DATE OF EXAM: 03/02/2018 COMPARISON: 02/07/2018 HISTORY: Rt eye loss of vision, mental status change since previous MRI 02/07/2018 Standard multiplanar, multisequence MRI departmental protocol Multiplanar, multisequence images of the brain were acquired. Diffusion weighted imaging was performe d. FINDINGS: There is diffuse cerebral cortical atrophy. There is no mass effect nor midline shift. Ther e is 3.5 cm area of increased signal in the right posterior frontal lobe consistent with old cortical infarct. On the diffusion images there is a 3 x 1.5 cm area of increased signal in the anterior left internal capsule and caudate nucleus consistent with acute infarct. I see no sign of intracranial he morrhage. There is thinning of the corpus callosum. There are small patchy areas of increased signal in the subcortical white matter of both cerebral hemispheres. The brainstem is intact. Cerebellum is intact. There are small white matter foci in subcortical left cerebral hemisphere. There is mucosal thickening in the right maxillary sinus. 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 There is evidence of an acute left internal capsul e and caudate nucleus infarct compared to last exam. Diffuse atrophy. Chronic small vessel ischemia unchanged. Right maxillary sinusitis unchanged.
== END ==
LOC: RADMRIMAIN 19:10
PROVIDERS: ATTEND Psychiatry & Neurology Neurology
DX: I67.82 Cerebral ischemia (principal); G31.9 Degenerative disease of nervous system, unspecified; I63.89 Other cerebral infarction; Z86.73 Personal history of transient ischemic attack (TIA), and cerebral infarction without residual deficits
CPT/HCPCS: 70551

== ENCOUNTER → 2018-04-03 | Outpatient (CLI) | payer MEDICARE, BC | LOC: LABWHC1 10:14 | PROVIDERS: ATTEND Radiology Vascular & Interventional Radiology | DX: E11.9 Type 2 diabetes mellitus without complications (principal) | CPT/HCPCS: 36415; 82565; 84520 ==

== ENCOUNTER 2018-07-27 18:57 | Emergency (ER) | payer MEDICARE, BC ==
[2018-07-27 19:01] VITALS: TEMP 98.1
[2018-07-27] MEDS ORDERED: SODIUM CHLORIDE 0.9% 500 ML 500 ML IV STA ×2 (19:34→20:37)
--- NOTE | 2018-07-27 19:34 | ED ---
Recheck HPI - General Chief Complaint: Recheck/Abnormal Lab/Rx Stated Complaint: High BP Time Seen by Provider: 07/27/18 19:14 Source: patient, family, RN notes reviewed Mode of arrival: ambulatory Limitations: no limitations - History of Present Illness Initial Comments: Elevated blood pressure: Patient presents today with complaints of elevated blood pressure and is beyond what it usually resides at. Today he had pressures of 199/70 09/25/2003 systolic and 209 systolic. Patient has no headache fevers chills nausea vomiting sweats no symptoms of weakness was upper or lower extremities no change in his diet or medication recently. He does admit that he was eating more food than usual tonight and today. 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 He does complain of some right eye visual problems also some wobbly activity when he tries to walk which is normal for him for the last many months. He denies any other complaints this time no other modifying factors he states his urine is the usual color. No i ncrease his salt intake and he has not missed any of his medications - Related Data Home Medications Medication Instructions Recorded Confirmed Acetaminophen Tab [Tylenol] 500 mg PO Q6H PRN 02/24/17 07/27/18 Allopurinol [Zyloprim] 300 mg PO HS 02/24/17 07/27/18 Cholecalciferol [Vitamin D3] 1,000 unit PO BID 02/24/17 07/27/18 Cyclobenzaprine [Flexeril] 10 mg PO HS 02/24/17 07/27/18 Atorvastatin [Lipitor] 20 mg PO HS 02/05/18 07/27/18 Aspirin EC [Ecotrin Low Dose] 81 mg PO DAILY 07/27/18 07/27/18 Metoprolol Succinate (ER) [Toprol 50 mg PO DAILY 07/27/18 07/27/18 XL] metFORMIN HCL [Glucophage] 500 mg PO BID 07/27/18 07/27/18 Previous Rx's Medication Instructions Recorded Clopidogrel [Plavix] 75 mg PO DAILY #90 tab 03/11/17 Nitroglycerin Sl Tabs [Nitrostat] 0.4 mg SUBLINGUAL Q5M PRN #25 tab 03/11/17 Allergies Allergy/AdvReac Type Severity Reaction Status Date / Time No Known Allergies Allergy Verified 04/04/19 19:21 Review of Systems ROS Statement: Those systems with pertinent positive or pertinent negative responses have been documented in the HPI. ROS Other: All systems not noted in ROS Statement are negative. Past Medical History Past Medical History: Coronary Artery Disease (CAD), CVA/TIA, Diabetes Mellitus, Deep Vein Thrombosis (DVT), Hyperlipidemia, Hypertension, Osteoarthritis (OA) Additional Past Medical History / Comment(s): hx of gout, DVT of the leg several years ago. 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 RADHA Past Anesthesia/Blood Transfusion Reactions: No Reported Reaction Date of Last Stent Placement:: 03/10/2017 Past Psychological History: No Psychological Hx Reported Smoking Status: Former smoker Past Alcohol Use History: None Reported Past Drug Use History: None Reported - Past Family History Father Additional Family Medical History / Comment(s): Father had heart problems and at the age of 72. Mother Family Medical History: Cancer Additional Family Medical History / Comment(s): Mother of bladder cancer at the age of 64 yrs. General Exam - General Exam Comments Initial Comments: This is a well-developed well-nourished awake alert oriented times 3 male Limitations: no limitations General appearance: alert, in no apparent distress Head exam: Present: atraumatic, normocephalic, normal inspection Eye exam: Present: normal appearance, PERRL, EOMI. Absent: scleral icterus, conjunctival injection, periorbital swelling ENT exam: Present: normal exam, mucous membranes moist Neck exam: Present: normal inspection. Absent: tenderness, meningismus, lymphadenopathy Respiratory exam: Present: normal lung sounds bilaterally. Absent: respiratory distress, wheezes, rales, rhonchi, stridor Cardiovascular Exam: Present: regular rate, normal rhythm, normal heart sounds. Absent: systolic murmur, diastolic murmur, rubs, gallop, clicks GI/Abdominal exam: Present: soft, normal bowel sounds. Absent: distended, tenderness, guarding, rebound, rigid Extremities exam: Present: normal inspection, full ROM, normal capillary refill. Absent: tenderness, pedal edema, joint swelling, calf tenderness Back exam: Present: normal inspection Neurological exam: Present: alert, oriented X3, CN II-XII intact Psychiatric exam: Present: normal affect, normal mood Skin exam: Present: warm, dry, intact, normal color. Absent: rash Course Vital Signs 07/27/18 07/27/18 07/27/18 18:59 19:57 20:48 Temperature 98.1 F Pulse Rate 68 Respiratory 18 Rate Blood Pressure 204/77 204/94 201/101 O2 Sat by Pulse 98 Oximetry Medical Decision Making - Medical Decision Making The patient blood pressure is improved after IV fluids and medication. Patient will be discharged she is continues be asymptomatic is a follow-up with his doctor increase his oral fluid intake and return when necessary - Lab Data Result diagrams: 07/27/18 19:45 07/27/18 19:45 Lab Results 07/27/18 07/27/18 07/27/18 Range/Units 19:45 19:45 19:45 WBC 6.6 (3.8-10.6) k/uL RBC 4.14 L (4.30-5.90) m/uL Hgb 12.2 L (13.0-17.5) gm/dL Hct 36.0 L (39.0-53.0) % MCV 86.8 (80.0-100.0) fL MCH 29.4 (25.0-35.0) pg MCHC 33.9 (31.0-37.0) g/dL RDW 16.0 H (11.5-15.5) % Plt Count 233 (150-450) k/uL Neutrophils % 54 % Lymphocytes % 21 % Monocytes % 8 % Eosinophils % 14 % Basophils % 1 % Neutrophils # 3.6 (1.3-7.7) k/uL Lymphocytes # 1.4 (1.0-4.8) k/uL Monocytes # 0.5 (0-1.0) k/uL Eosinophils # 1.0 H (0-0.7) k/uL Basophils # 0.1 (0-0.2) k/uL Anisocytosis Slight Sodium 139 (137-145) mmol/L Potassium 4.4 (3.5-5.1) mmol/L Chloride 102 (98-107) mmol/L Carbon Dioxide 27 (22-30) mmol/L Anion Gap 10 mmol/L BUN 24 H (9-20) mg/dL Creatinine 1.12 (0.66-1.25) mg/dL Est GFR (CKD-EPI)AfAm 69 (>60 ml/min/1.73 sqM) Est GFR (CKD-EPI)NonAf 59 (>60 ml/min/1.73 sqM) Glucose 117 H (74-99) mg/dL Calcium 9.8 (8.4-10.2) mg/dL Magnesium 1.7 (1.6-2.3) mg/dL Total Bilirubin 1.1 (0.2-1.3) mg/dL AST 16 L (17-59) U/L ALT 19 L (21-72) U/L Alkaline Phosphatase 81 (38-126) U/L Total Creatine Kinase 82 (55-170) U/L CK-MB (CK-2) 2.7 H (0.0-2.4) ng/mL CK-MB (CK-2) Rel Index 3.3 Troponin I <0.012 (0.000-0.034) ng/mL Total Protein 7.0 (6.3-8.2) g/dL Albumin 4.2 (3.5-5.0) g/dL Urine Color Urine Appearance (Clear) Urine pH (5.0-8.0) Ur Specific Horatio (1.001-1.035) Urine Protein (Negative) Urine Glucose (UA) (Negative) Urine Ketones (Negative) Urine Blood (Negative) Urine Nitrite (Negative) Urine Bilirubin (Negative) Urine Urobilinogen (<2.0) mg/dL Ur Leukocyte Esterase (Negative) Ur Squamous Epith Cells (0-4) /hpf Urine Mucus (None) /hpf 07/27/18 Range/Units 20:35 WBC (3.8-10.6) k/uL RBC (4.30-5.90) m/uL Hgb (13.0-17.5) gm/dL Hct (39.0-53.0) % MCV (80.0-100.0) fL MCH (25.0-35.0) pg MCHC (31.0-37.0) g/dL RDW (11.5-15.5) % Plt Count (150-450) k/uL Neutrophils % % Lymphocytes % % Monocytes % % Eosinophils % % Basophils % % Neutrophils # (1.3-7.7) k/uL Lymphocytes # (1.0-4.8) k/uL Monocytes # (0-1.0) k/uL Eosinophils # (0-0.7) k/uL Basophils # (0-0.2) k/uL Anisocytosis Sodium (137-145) mmol/L Potassium (3.5-5.1) mmol/L Chloride (98-107) mmol/L Carbon Dioxide (22-30) mmol/L Anion Gap mmol/L BUN (9-20) mg/dL Creatinine (0.66-1.25) mg/dL Est GFR (CKD-EPI)AfAm (>60 ml/min/1.73 sqM) Est GFR (CKD-EPI)NonAf (>60 ml/min/1.73 sqM) Glucose (74-99) mg/dL Calcium (8.4-10.2) mg/dL Magnesium (1.6-2.3) mg/dL Total Bilirubin (0.2-1.3) mg/dL AST (17-59) U/L ALT (21-72) U/L Alkaline Phosphatase (38-126) U/L Total Creatine Kinase (55-170) U/L CK-MB (CK-2) (0.0-2.4) ng/mL CK-MB (CK-2) Rel Index Troponin I (0.000-0.034) ng/mL Total Protein (6.3-8.2) g/dL Albumin (3.5-5.0) g/dL Urine Color Yellow Urine Appearance Clear (Clear) Urine pH 5.5 (5.0-8.0) Ur Specific Horatio 1.014 (1.001-1.035) Urine Protein 1+ H (Negative) Urine Glucose (UA) Trace H (Negative) Urine Ketones Negative (Negative) Urine Blood Negative (Negative) Urine Nitrite Negative (Negative) Urine Bilirubin Negative (Negative) Urine Urobilinogen <2.0 (<2.0) mg/dL Ur Leukocyte Esterase Negative (Negative) Ur Squamous Epith Cells 1 (0-4) /hpf Urine Mucus Rare H (None) /hpf - EKG Data -: EKG Interpreted by Nd EKG shows normal: sinus rhythm (EKG shows normal sinus rhythm of 70. Interval 156 QRS duration 78 QT since QTC 460/449 poor R-wave progression no acute ST-T wave changes are seen.) - Radiology Data Radiology results: report reviewed (Review the imaging shows no definite acute findings.), image reviewed Disposition Clinical Impression: Accelerated hypertension, Dehydration Disposition: HOME SELF-CARE Condition: Good Instructions (If sedation given, give patient instructions): Hypertension (ED), Dehydration (ED) Is patient prescribed a controlled substance at d/c from ED?: No Referrals: Virgil Salas MD [Primary Care Provider] - 1-2 days
[2018-07-27 20:02] LABS: Anisocytosis Slight; Basophils # (A) 0.1 k/uL (0-0.2); Basophils % (A) 1 %; Eosinophils % (A) 14 %; HGB 12.2 gm/dL (13.0-17.5); Lymphocytes # (A) 1.4 k/uL (1.0-4.8); Lymphocytes % (A) 21 %; MCH 29.4 pg (25.0-35.0); MCHC 33.9 g/dL (31.0-37.0); MCV 86.8 fL (80.0-100.0); Mean Platelet Volume 7.5; Monocytes # (A) 0.5 k/uL (0-1.0); Monocytes % (A) 8 %; Neutrophils # (A) 3.6 k/uL (1.3-7.7); Neutrophils % (A) 54 %; Platelet Count 233 k/uL (150-450); RBC 4.14 m/uL (4.30-5.90); WBC 6.6 k/uL (3.8-10.6)
[2018-07-27 20:15] LABS: Albumin 4.2 g/dL (3.5-5.0); Calcium 9.8 mg/dL (8.4-10.2); Creatine Kinase 82 U/L (55-170); Magnesium 1.7 mg/dL (1.6-2.3); Potassium 4.4 mmol/L (3.5-5.1); Total Bilirubin 1.1 mg/dL (0.2-1.3)
[2018-07-27 20:27] LABS: Creatine Kinase MB 2.7 ng/mL (0.0-2.4); Troponin I <0.012 ng/mL (0.000-0.034)
--- NOTE | 2018-07-27 20:36 | XR ---
EXAMINATION: XR chest 2V DATE AND TIME: 07/27/2018 8:01 PM CLINICAL INDICATION: PHH; cough TECHNIQUE: Departmental protocol COMPARISON: 02/07/2018 FINDINGS: The hemidiaphragms are elevated, not allowing complete visualization of the lung bases, particularly on the right. The inflated lungs that are visualized are bilaterally clear. The pleural spaces are negative. The cardiac silhouette is moderately enlarged, unchanged. The prominently tortuous thoracic aorta is redemonstrated. The skeletal structures and soft tissues are negative for acute findings. IMPRESSION: NO ACUTE PROCESS.
[2018-07-27] MEDS ORDERED: hydrALAZINE HCL 20 MG/ML 1 ML VIAL IVP STA (20:37)
[2018-07-27 20:59] LABS: Appearance,Urine Clear (Clear); Bilirubin,Urine Negative (Negative); Blood,Urine Negative (Negative); Color,Urine Yellow; Glucose,Urine (UA) Trace (Negative); Ketones,Urine Negative (Negative); Leukocyte Esterase,Urine Negative (Negative); Mucus,Urine Rare /hpf; Nitrite,Urine Negative (Negative); PH, Urine 5.5 (5.0-8.0); Protein,Urine 1+ (Negative); Specific Gravity,Urine 1.014 (1.001-1.035); Squamous Epithelial Cell,Urine 1 /hpf (0-4); Urobilinogen,Urine <2.0 mg/dL (<2.0)
[2018-07-27 21:55] VITALS: BP 145/90; PULSE 78; RESP 16
== END 2018-07-27 21:54 | disposition home or self-care (01) ==
LOC: EC 18:57
DX: I10 Essential (primary) hypertension (principal); E86.0 Dehydration; I25.10 Atherosclerotic heart disease of native coronary artery without angina pectoris; E11.9 Type 2 diabetes mellitus without complications; E78.5 Hyperlipidemia, unspecified; I69.351 Hemiplegia and hemiparesis following cerebral infarction affecting right dominant side; Z79.82 Long term (current) use of aspirin; Z79.84 Long term (current) use of oral hypoglycemic drugs; Z79.899 Other long term (current) drug therapy; Z87.891 Personal history of nicotine dependence; Z95.5 Presence of coronary angioplasty implant and graft; Z86.718 Personal history of other venous thrombosis and embolism
CPT/HCPCS: 36415; 93005; 80053; 82550; 82553; 83735; 84484; 85025; 81001; 71046; 99283; 96374; 96361 ×2; J0360

== ENCOUNTER 2018-07-28 20:39 | Observation (INO) | payer MEDICARE, BC ==
--- NOTE | 2018-07-28 21:17 | ED ---
Recheck HPI - General Chief Complaint: Recheck/Abnormal Lab/Rx Stated Complaint: Hypertension Time Seen by Provider: 07/28/18 21:14 Source: patient, RN notes reviewed, old records reviewed Mode of arrival: ambulatory Limitations: no limitations - History of Present Illness Initial Comments: This is an 88 showed male the ER for evaluation of elevated blood pressure. Family is at bedside. Patient has no history of atherosclerosis and blood pressure disease in ER yesterday for same. Patient does have right carotid artery stenosis at 95% with no intervention available. Patient denies neurological complaint no headache chest pain or shortness of breath. MD Complaint: other (abnormal BP) -: days(s) Returns Today for: Called Because of Abnormal Lab/Test (patient checks BP at home) Symptoms Since Prior Visit: no new symptoms Associated Symptoms: none - Related Data Home Medications Medication Instructions Recorded Confirmed Acetaminophen Tab [Tylenol] 500 mg PO Q6H PRN 02/24/17 07/28/18 Allopurinol [Zyloprim] 300 mg PO HS 02/24/17 07/28/18 Cholecalciferol [Vitamin D3] 1,000 unit PO BID 02/24/17 07/28/18 Cyclobenzaprine [Flexeril] 10 mg PO HS 02/24/17 07/28/18 Atorvastatin [Lipitor] 20 mg PO HS 02/05/18 07/28/18 Aspirin EC [Ecotrin Low Dose] 81 mg PO DAILY 07/27/18 07/28/18 Metoprolol Succinate (ER) [Toprol 50 mg PO DAILY 07/27/18 07/28/18 XL] metFORMIN HCL [Glucophage] 500 mg PO BID 07/27/18 07/28/18 Previous Rx's Medication Instructions Recorded Clopidogrel [Plavix] 75 mg PO DAILY #90 tab 03/11/17 Nitroglycerin Sl Tabs [Nitrostat] 0.4 mg SUBLINGUAL Q5M PRN #25 tab 03/11/17 Allergies Allergy/AdvReac Type Severity Reaction Status Date / Time No Known Allergies Allergy Verified 07/28/18 21:32 Review of Systems ROS Statement: Those systems with pertinent positive or pertinent negative responses have been documented in the HPI. ROS Other: All systems not noted in ROS Statement are negative. Past Medical History Past Medical History: Coronary Artery Disease (CAD), CVA/TIA, Diabetes Mellitus, Deep Vein Thrombosis (DVT), Hyperlipidemia, Hypertension, Osteoarthritis (OA) Additional Past Medical History / Comment(s): hx of gout, DVT of the leg several years ago. 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 RADHA Past Anesthesia/Blood Transfusion Reactions: No Reported Reaction Date of Last Stent Placement:: 03/10/2017 Past Psychological History: No Psychological Hx Reported Smoking Status: Former smoker Past Alcohol Use History: None Reported Past Drug Use History: None Reported - Past Family History Father Additional Family Medical History / Comment(s): Father had heart problems and at the age of 72. Mother Family Medical History: Cancer Additional Family Medical History / Comment(s): Mother of bladder cancer at the age of 64 yrs. General Exam Limitations: no limitations General appearance: alert, in no apparent distress Head exam: Present: atraumatic, normocephalic, normal inspection Eye exam: Present: normal appearance, PERRL, EOMI. Absent: scleral icterus, conjunctival injection, periorbital swelling ENT exam: Present: normal exam, mucous membranes moist Neck exam: Present: normal inspection. Absent: tenderness, meningismus, lymphadenopathy Respiratory exam: Present: normal lung sounds bilaterally. Absent: respiratory distress, wheezes, rales, rhonchi, stridor Cardiovascular Exam: Present: regular rate, normal rhythm, normal heart sounds. Absent: systolic murmur, diastolic murmur, rubs, gallop, clicks GI/Abdominal exam: Present: soft, normal bowel sounds. Absent: distended, tenderness, guarding, rebound, rigid Extremities exam: Present: normal inspection, full ROM, normal capillary refill. Absent: tenderness, pedal edema, joint swelling, calf tenderness Back exam: Present: normal inspection Neurological exam: Present: alert, oriented X3, CN II-XII intact Psychiatric exam: Present: normal affect, normal mood Skin exam: Present: warm, dry, intact, normal color. Absent: rash Course Vital Signs 07/28/18 07/28/18 07/28/18 21:05 21:34 21:59 Temperature 98.0 F Pulse Rate 86 77 78 Respiratory 20 18 18 Rate Blood Pressure 201/82 196/44 196/89 O2 Sat by Pulse 97 95 94 L Oximetry 07/28/18 22:30 Temperature Pulse Rate 80 Respiratory 20 Rate Blood Pressure 198/86 O2 Sat by Pulse 94 L Oximetry - Reevaluation(s) Reevaluation #1: 07/28/18 21:37 medical and ED record is reviewed from yesterday Reevaluation #2: 07/28/18 23:22 BP improved Medical Decision Making - Medical Decision Making 88 male to the ED co elevated BP, no other complains, patient is mildly atlered from baseline per family - Lab Data Result diagrams: 07/28/18 22:10 07/28/18 22:10 Lab Results 07/28/18 07/28/18 07/28/18 Range/Units 22:10 22:10 22:10 WBC 6.2 (3.8-10.6) k/uL RBC 4.04 L (4.30-5.90) m/uL Hgb 11.6 L (13.0-17.5) gm/dL Hct 34.6 L (39.0-53.0) % MCV 85.7 (80.0-100.0) fL MCH 28.6 (25.0-35.0) pg MCHC 33.4 (31.0-37.0) g/dL RDW 16.6 H (11.5-15.5) % Plt Count 193 (150-450) k/uL Neutrophils % 58 % Lymphocytes % 21 % Monocytes % 7 % Eosinophils % 12 % Basophils % 1 % Neutrophils # 3.6 (1.3-7.7) k/uL Lymphocytes # 1.3 (1.0-4.8) k/uL Monocytes # 0.4 (0-1.0) k/uL Eosinophils # 0.8 H (0-0.7) k/uL Basophils # 0.0 (0-0.2) k/uL Anisocytosis Slight PT (9.0-12.0) sec INR (<1.2) APTT (22.0-30.0) sec Sodium 139 (137-145) mmol/L Potassium 4.2 (3.5-5.1) mmol/L Chloride 101 (98-107) mmol/L Carbon Dioxide 28 (22-30) mmol/L Anion Gap 10 mmol/L BUN 25 H (9-20) mg/dL Creatinine 1.26 H (0.66-1.25) mg/dL Est GFR (CKD-EPI)AfAm 59 (>60 ml/min/1.73 sqM) Est GFR (CKD-EPI)NonAf 51 (>60 ml/min/1.73 sqM) Glucose 162 H (74-99) mg/dL Plasma Lactic Acid Nasim 1.5 (0.7-2.0) mmol/L Calcium 9.9 (8.4-10.2) mg/dL Phosphorus 3.0 (2.5-4.5) mg/dL Magnesium 1.7 (1.6-2.3) mg/dL Total Bilirubin 1.0 (0.2-1.3) mg/dL AST 15 L (17-59) U/L ALT 23 (21-72) U/L Alkaline Phosphatase 76 (38-126) U/L Total Protein 6.8 (6.3-8.2) g/dL Albumin 4.1 (3.5-5.0) g/dL 07/28/18 Range/Units 22:10 WBC (3.8-10.6) k/uL RBC (4.30-5.90) m/uL Hgb (13.0-17.5) gm/dL Hct (39.0-53.0) % MCV (80.0-100.0) fL MCH (25.0-35.0) pg MCHC (31.0-37.0) g/dL RDW (11.5-15.5) % Plt Count (150-450) k/uL Neutrophils % % Lymphocytes % % Monocytes % % Eosinophils % % Basophils % % Neutrophils # (1.3-7.7) k/uL Lymphocytes # (1.0-4.8) k/uL Monocytes # (0-1.0) k/uL Eosinophils # (0-0.7) k/uL Basophils # (0-0.2) k/uL Anisocytosis PT 10.4 (9.0-12.0) sec INR 1.0 (<1.2) APTT 23.7 (22.0-30.0) sec Sodium (137-145) mmol/L Potassium (3.5-5.1) mmol/L Chloride (98-107) mmol/L Carbon Dioxide (22-30) mmol/L Anion Gap mmol/L BUN (9-20) mg/dL Creatinine (0.66-1.25) mg/dL Est GFR (CKD-EPI)AfAm (>60 ml/min/1.73 sqM) Est GFR (CKD-EPI)NonAf (>60 ml/min/1.73 sqM) Glucose (74-99) mg/dL Plasma Lactic Acid Nasim (0.7-2.0) mmol/L Calcium (8.4-10.2) mg/dL Phosphorus (2.5-4.5) mg/dL Magnesium (1.6-2.3) mg/dL Total Bilirubin (0.2-1.3) mg/dL AST (17-59) U/L ALT (21-72) U/L Alkaline Phosphatase (38-126) U/L Total Protein (6.3-8.2) g/dL Albumin (3.5-5.0) g/dL - EKG Data -: EKG Interpreted by Me (EKG shows NSR rate of 78 UT 156 QRS 76 QTc 453) - Radiology Data Radiology results: report reviewed (CT brain pending), image reviewed Disposition Clinical Impression: Accelerated hypertension, Hypertensive urgency Disposition: ADMITTED IP TO THIS HOSP Condition: Good Is patient prescribed a controlled substance at d/c from ED?: No Referrals: Virgil Salas MD [Primary Care Provider] - 1-2 days
[2018-07-28] MEDS ORDERED: SODIUM CHLORIDE 0.9% 1,000 ML IV STA (22:13)
[2018-07-28 23:00] LABS: Anisocytosis Slight; Basophils % (A) 1 %; Eosinophils # (A) 0.8 k/uL (0-0.7); Eosinophils % (A) 12 %; HCT 34.6 % (39.0-53.0); HGB 11.6 gm/dL (13.0-17.5); Lymphocytes # (A) 1.3 k/uL (1.0-4.8); Lymphocytes % (A) 21 %; MCH 28.6 pg (25.0-35.0); MCHC 33.4 g/dL (31.0-37.0); MCV 85.7 fL (80.0-100.0); Mean Platelet Volume 9.3; Monocytes # (A) 0.4 k/uL (0-1.0); Monocytes % (A) 7 %; Neutrophils # (A) 3.6 k/uL (1.3-7.7); Neutrophils % (A) 58 %; Platelet Count 193 k/uL (150-450); RBC 4.04 m/uL (4.30-5.90); RDW 16.6 % (11.5-15.5); WBC 6.2 k/uL (3.8-10.6)
[2018-07-28 23:04] LABS: Partial Thromboplastin Time 23.7 sec (22.0-30.0); Prothrombin Time 10.4 sec (9.0-12.0)
[2018-07-28 23:18] LABS: Albumin 4.1 g/dL (3.5-5.0); Calcium 9.9 mg/dL (8.4-10.2); Magnesium 1.7 mg/dL (1.6-2.3); Potassium 4.2 mmol/L (3.5-5.1); Total Protein 6.8 g/dL (6.3-8.2)
[2018-07-28] MEDS ORDERED: LABETALOL SYRINGE 5 MG/ML IVP STA (23:19)
[2018-07-28] MEDS ORDERED: SODIUM CHLORIDE 0.9% 1,000 ML IV ONE (23:20)
[2018-07-28 23:42] LABS: Appearance,Urine Clear (Clear); Bilirubin,Urine Negative (Negative); Blood,Urine Negative (Negative); Color,Urine Light Yellow; Glucose,Urine (UA) Negative (Negative); Ketones,Urine Negative (Negative); Leukocyte Esterase,Urine Negative (Negative); Nitrite,Urine Negative (Negative); PH, Urine 5.5 (5.0-8.0); Protein,Urine Negative (Negative); Specific Gravity,Urine 1.008 (1.001-1.035); Urobilinogen,Urine <2.0 mg/dL (<2.0)
--- NOTE | 2018-07-29 00:26 | CT ---
EXAM: CT Head Without Intravenous Contrast CLINICAL HISTORY: pain TECHNIQUE: Axial computed tomography images of the head/brain without intravenous contrast. DLP is 1162.4 mGy-cm. This CT exam was performed using one or more of the following dose reduction techniques: automated exposure control, adjustment of the mA and/or kV according to patient size, and/or use of iterative reconstruction technique. COMPARISON: 02/05/18 FINDINGS: No intracranial hemorrhage, abnormal intra- or extra-axial collections or parenchymal lesions are seen. There are involutional changes with prominence of the sulci, basal cisterns and ventricles. Scattered white matter hypoattenuations are present, likely from small vessel disease. The stern-white differentiation is preserved. No evidence of mass effect, midline shift, or edema. The osseous structures are unremarkable. The visualized portions of the paranasal sinuses are clear. IMPRESSION: 1. No acute intracranial process. 2. Involutional changes with small vessel disease. No change from prior study
[2018-07-29 06:52] LABS: Glucose,Whole Blood 131 mg/dL (75-99)
[2018-07-29] MEDS: METOPROLOL TARTRATE 50 MG TAB PO SCH ×2 (07:46→20:04)
[2018-07-29] MEDS ORDERED: ACETAMINOPHEN TAB 500 MG TAB PO PRN (09:01)
[2018-07-29] MEDS ORDERED: LOSARTAN 50 MG TAB PO SCH (09:15)
[2018-07-29] MEDS: CLOPIDOGREL 75 MG TAB PO SCH (09:28)
[2018-07-29] MEDS: metFORMIN 500 MG TAB PO SCH (11:16)
[2018-07-29] MEDS: amLODIPine 10 MG TAB PO SCH (11:33)
--- NOTE | 2018-07-29 11:36 | P.CRDCN ---
History of Present Illness History of present illness: Patient admitted with uncontrolled hypertension. He seems to be answering all my questions. Does not appear to have any gross neurologic motor or cranial nerve deficits. He is hard of hearing However his son feels that he's had some mental status changes I would recommend stopping losartan given his renal function and starting amlodipine 10 mg by mouth daily. Metoprolol can be continued Gradual blood pressure control I will past on the message to Dr. MERCER regarding his son's opinion Past Medical History Past Medical History: Coronary Artery Disease (CAD), CVA/TIA, Diabetes Mellitus, Deep Vein Thrombosis (DVT), Hyperlipidemia, Hypertension, Osteoarthritis (OA) Additional Past Medical History / Comment(s): hx of gout, DVT of the leg several years ago. 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 RADHA Past Anesthesia/Blood Transfusion Reactions: No Reported Reaction Date of Last Stent Placement:: 03/10/2017 Past Psychological History: No Psychological Hx Reported Smoking Status: Former smoker Past Alcohol Use History: None Reported Past Drug Use History: None Reported - Past Family History Father Family Medical History: Coronary Artery Disease (CAD) Additional Family Medical History / Comment(s): Father had heart problems and at the age of 72. Mother Family Medical History: Cancer Additional Family Medical History / Comment(s): Mother of bladder cancer at the age of 64 yrs. Medications and Allergies Home Medications Medication Instructions Recorded Confirmed Type Acetaminophen Tab [Tylenol] 500 mg PO Q6H PRN 02/24/17 07/28/18 History Allopurinol [Zyloprim] 300 mg PO HS 02/24/17 07/28/18 History Cholecalciferol [Vitamin D3] 1,000 unit PO BID 02/24/17 07/28/18 History Cyclobenzaprine [Flexeril] 10 mg PO HS 02/24/17 07/28/18 History Clopidogrel [Plavix] 75 mg PO DAILY #90 tab 03/11/17 07/28/18 Rx Nitroglycerin Sl Tabs [Nitrostat] 0.4 mg SUBLINGUAL Q5M PRN #25 tab 03/11/17 07/28/18 Rx Atorvastatin [Lipitor] 20 mg PO HS 02/05/18 07/28/18 History Aspirin EC [Ecotrin Low Dose] 81 mg PO DAILY 07/27/18 07/28/18 History Metoprolol Succinate (ER) [Toprol 50 mg PO DAILY 07/27/18 07/28/18 History XL] metFORMIN HCL [Glucophage] 500 mg PO BID 07/27/18 07/28/18 History Allergies Allergy/AdvReac Type Severity Reaction Status Date / Time No Known Allergies Allergy Verified 07/28/18 21:32 Physical Exam Vitals: Vital Signs Temp Pulse Pulse Resp BP BP Pulse Ox 07/29/18 08:00 97.5 F L 74 18 178/83 92 L 07/29/18 03:54 98.4 F 80 16 171/75 94 L 07/29/18 03:45 74 17 07/29/18 01:46 97.8 F 75 16 182/81 96 07/29/18 01:09 80 18 168/87 93 L 07/29/18 00:50 79 18 178/82 93 L 07/29/18 00:26 80 18 172/84 94 L 07/29/18 00:09 78 18 196/98 94 L 07/29/18 00:00 76 17 07/28/18 23:57 97.6 F 88 18 209/100 95 07/28/18 23:36 17 07/28/18 23:23 77 18 179/82 94 L 07/28/18 22:30 80 20 198/86 94 L 07/28/18 21:59 78 18 196/89 94 L 07/28/18 21:34 77 18 196/44 95 07/28/18 21:05 98.0 F 86 20 201/82 97 Intake and Output 07/28/18 07/29/18 07/29/18 22:59 06:59 14:59 Other: Voiding Method Urinal Urinal Incontinent # Voids 1 Weight 70.307 kg Results 07/28/18 22:10 07/28/18 22:10 Cardiac Enzymes 07/28/18 07/28/18 07/29/18 Range/Units 22:10 22:10 07:46 AST 15 L (17-59) U/L Troponin I 0.016 0.028 (0.000-0.034) ng/mL Coagulation 04/05/19 Range/Units 22:10 PT 10.4 (9.0-12.0) sec APTT 23.7 (22.0-30.0) sec CBC 07/28/18 Range/Units 22:10 WBC 6.2 (3.8-10.6) k/uL RBC 4.04 L (4.30-5.90) m/uL Hgb 11.6 L (13.0-17.5) gm/dL Hct 34.6 L (39.0-53.0) % Plt Count 193 (150-450) k/uL Comprehensive Metabolic Panel 07/28/18 Range/Units 22:10 Sodium 139 (137-145) mmol/L Potassium 4.2 (3.5-5.1) mmol/L Chloride 101 (98-107) mmol/L Carbon Dioxide 28 (22-30) mmol/L BUN 25 H (9-20) mg/dL Creatinine 1.26 H (0.66-1.25) mg/dL Glucose 162 H (74-99) mg/dL Calcium 9.9 (8.4-10.2) mg/dL AST 15 L (17-59) U/L ALT 23 (21-72) U/L Alkaline Phosphatase 76 (38-126) U/L Total Protein 6.8 (6.3-8.2) g/dL Albumin 4.1 (3.5-5.0) g/dL Current Medications Generic Name Dose Route Start Last Admin Trade Name Freq PRN Reason Stop Dose Admin Acetaminophen 500 mg 07/29/18 09:01 Tylenol Tab PO Q6H PRN Pain or Fever > 100.5 Allopurinol 300 mg 07/29/18 21:00 Zyloprim PO HS [facility] Amlodipine Besylate 10 mg 07/29/18 11:30 07/29/18 11:33 Norvasc PO 10 mg DAILY [facility] Administration Aspirin 81 mg 07/30/18 09:00 Aspirin PO DAILY [facility] Atorvastatin Calcium 20 mg 07/29/18 21:00 Lipitor PO HS [facility] Cholecalciferol 1,000 unit 07/29/18 21:00 Vitamin D3 PO BID [facility] Clopidogrel Bisulfate 75 mg 07/29/18 09:15 07/29/18 09:28 Plavix PO 75 mg DAILY [facility] Administration Cyclobenzaprine HCl 10 mg 07/29/18 21:00 Flexeril PO HS [facility] Metformin HCl 500 mg 07/29/18 17:30 07/29/18 11:16 Glucophage PO Not Given BID-W/MEALS [facility] Metoprolol Tartrate 50 mg 07/29/18 09:00 07/29/18 07:46 Lopressor PO 50 mg BID [facility] Administration Intake and Output 07/28/18 07/29/18 07/29/18 22:59 06:59 14:59 Other: Voiding Method Urinal Urinal Incontinent # Voids 1 Weight 70.307 kg 07/28/18 22:10 07/28/18 22:10
[2018-07-29 11:39] LABS: Glucose,Whole Blood 205 mg/dL (75-99)
--- NOTE | 2018-07-29 11:47 | P.CRDCN ---
History of Present Illness Consult date: 07/29/18 Consult reason: hypertension History of present illness: Patient is a 88-year-old male with past medical history of CAD status post stent, hypertension, CVA/TIA, bilateral carotid artery disease, mitral regurgitation, dyslipidemia, and DVT, who presented to the hospital for hypertension urgency. Patient's states she monitors his blood pressure regularly at home and he had systolics in the 200s. Due to his history of TIA, she brought him to the hospital. EKG shows sinus rhythm. Initial troponin normal with subsequent 0.016, and 0.028. Patient is currently lying comfortably in bed with and family at bedside. Initially he did report a headache, however it has since resolved. He denies any chest discomfort, dyspnea, palpitations, dizziness, or vertigo. Per family, he does have some cognitive decline from his previous CVA. The son of pressure behind in the hallway and feels as though his mental status is worse than previously. No unilateral weakness, no aphasia or difficulty with speech. 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 No cough or expectoration. No diaphoresis. Patient denies dizziness, blurred vision, double vision. Patient denies any stomach discomfort. No nausea, vomiting. No hematochezia. No hematemesis. Denies any black stools or blood in his stools. Denies dysuria or hematuria. No muscle weakness or numbness. PHYSICAL EXAMINATION: This is a 88-year-old male in no apparent distress at the time of my examination. HEENT: Head is atraumatic, normocephalic. Pupils are equal, round. Sclerae anicteric. Conjunctivae are clear. Mucous membranes of the mouth are moist. Neck is supple. There is no jugular venous distention. No carotid bruit is heard. CHEST EXAMINATION: Lungs are clear to auscultation. No chest wall tenderness is noted on palpation or with deep breathing. HEART EXAMINATION: Heart regular rate and rhythm. S1, S2 heard. Slight, soft murmur at the apex.No gallops or rub. ABDOMEN: Soft, nontender. Bowel sounds are heard. No organomegaly noted. EXTREMITIES: 2+ peripheral pulses with no evidence of peripheral edema and no calf tenderness noted. NEUROLOGIC EXAMINATION: Patient is awake, alert and oriented x3. LABORATORY DATA: WBC 6.2, hemoglobin 11.6, sodium 139, potassium 4.2, BUN 125, creatinine 1.26, troponin 0.012 0.016 & 0.028, CKMB 3.3 VITAL SIGNS: Systolics in the 170-180's. Heart rate 70 to 80s and pulse ox greater than 93% on room air Past Medical History Past Medical History: Coronary Artery Disease (CAD), CVA/TIA, Diabetes Mellitus, Deep Vein Thrombosis (DVT), Hyperlipidemia, Hypertension, Osteoarthritis (OA) Additional Past Medical History / Comment(s): hx of gout, DVT of the leg several years ago. 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 RADHA Past Anesthesia/Blood Transfusion Reactions: No Reported Reaction Date of Last Stent Placement:: 03/10/2017 Past Psychological History: No Psychological Hx Reported Smoking Status: Former smoker Past Alcohol Use History: None Reported Past Drug Use History: None Reported - Past Family History Father Family Medical History: Coronary Artery Disease (CAD) Additional Family Medical History / Comment(s): Father had heart problems and at the age of 72. Mother Family Medical History: Cancer Additional Family Medical History / Comment(s): Mother of bladder cancer at the age of 64 yrs. Medications and Allergies Home Medications Medication Instructions Recorded Confirmed Type Acetaminophen Tab [Tylenol] 500 mg PO Q6H PRN 02/24/17 07/28/18 History Allopurinol [Zyloprim] 300 mg PO HS 02/24/17 07/28/18 History Cholecalciferol [Vitamin D3] 1,000 unit PO BID 02/24/17 07/28/18 History Cyclobenzaprine [Flexeril] 10 mg PO HS 02/24/17 07/28/18 History Clopidogrel [Plavix] 75 mg PO DAILY #90 tab 03/11/17 07/28/18 Rx Nitroglycerin Sl Tabs [Nitrostat] 0.4 mg SUBLINGUAL Q5M PRN #25 tab 03/11/17 07/28/18 Rx Atorvastatin [Lipitor] 20 mg PO HS 02/05/18 07/28/18 History Aspirin EC [Ecotrin Low Dose] 81 mg PO DAILY 07/27/18 07/28/18 History Metoprolol Succinate (ER) [Toprol 50 mg PO DAILY 07/27/18 07/28/18 History XL] metFORMIN HCL [Glucophage] 500 mg PO BID 07/27/18 07/28/18 History Allergies Allergy/AdvReac Type Severity Reaction Status Date / Time No Known Allergies Allergy Verified 07/28/18 21:32 Physical Exam Vitals: Vital Signs Temp Pulse Pulse Resp BP BP Pulse Ox 07/29/18 08:00 97.5 F L 74 18 178/83 92 L 07/29/18 03:54 98.4 F 80 16 171/75 94 L 07/29/18 03:45 74 17 07/29/18 01:46 97.8 F 75 16 182/81 96 07/29/18 01:09 80 18 168/87 93 L 07/29/18 00:50 79 18 178/82 93 L 07/29/18 00:26 80 18 172/84 94 L 07/29/18 00:09 78 18 196/98 94 L 07/29/18 00:00 76 17 07/28/18 23:57 97.6 F 88 18 209/100 95 07/28/18 23:36 17 07/28/18 23:23 77 18 179/82 94 L 07/28/18 22:30 80 20 198/86 94 L 07/28/18 21:59 78 18 196/89 94 L 07/28/18 21:34 77 18 196/44 95 07/28/18 21:05 98.0 F 86 20 201/82 97 Intake and Output 07/28/18 07/29/18 07/29/18 22:59 06:59 14:59 Other: Voiding Method Urinal Urinal Incontinent # Voids 1 Weight 70.307 kg Results 07/28/18 22:10 07/28/18 22:10 Cardiac Enzymes 07/28/18 07/28/18 07/29/18 Range/Units 22:10 22:10 07:46 AST 15 L (17-59) U/L Troponin I 0.016 0.028 (0.000-0.034) ng/mL Coagulation 07/28/18 Range/Units 22:10 PT 10.4 (9.0-12.0) sec APTT 23.7 (22.0-30.0) sec CBC 07/28/18 Range/Units 22:10 WBC 6.2 (3.8-10.6) k/uL RBC 4.04 L (4.30-5.90) m/uL Hgb 11.6 L (13.0-17.5) gm/dL Hct 34.6 L (39.0-53.0) % Plt Count 193 (150-450) k/uL Comprehensive Metabolic Panel 07/28/18 Range/Units 22:10 Sodium 139 (137-145) mmol/L Potassium 4.2 (3.5-5.1) mmol/L Chloride 101 (98-107) mmol/L Carbon Dioxide 28 (22-30) mmol/L BUN 25 H (9-20) mg/dL Creatinine 1.26 H (0.66-1.25) mg/dL Glucose 162 H (74-99) mg/dL Calcium 9.9 (8.4-10.2) mg/dL AST 15 L (17-59) U/L ALT 23 (21-72) U/L Alkaline Phosphatase 76 (38-126) U/L Total Protein 6.8 (6.3-8.2) g/dL Albumin 4.1 (3.5-5.0) g/dL Current Medications Generic Name Dose Route Start Last Admin Trade Name Freq PRN Reason Stop Dose Admin Acetaminophen 500 mg 07/29/18 09:01 Tylenol Tab PO Q6H PRN Pain or Fever > 100.5 Allopurinol 300 mg 07/29/18 21:00 Zyloprim PO HS [facility] Amlodipine Besylate 10 mg 07/29/18 11:30 Norvasc PO DAILY [facility] Aspirin 81 mg 07/30/18 09:00 Aspirin PO DAILY [facility] Atorvastatin Calcium 20 mg 07/29/18 21:00 Lipitor PO HS [facility] Cholecalciferol 1,000 unit 07/29/18 21:00 Vitamin D3 PO BID [facility] Clopidogrel Bisulfate 75 mg 07/29/18 09:15 07/29/18 09:28 Plavix PO 75 mg DAILY [facility] Administration Cyclobenzaprine HCl 10 mg 07/29/18 21:00 Flexeril PO HS [facility] Metformin HCl 500 mg 07/29/18 17:30 07/29/18 11:16 Glucophage PO Not Given BID-W/MEALS [facility] Metoprolol Tartrate 50 mg 07/29/18 09:00 07/29/18 07:46 Lopressor PO 50 mg BID [facility] Administration Intake and Output 07/28/18 07/29/18 07/29/18 22:59 06:59 14:59 Other: Voiding Method Urinal Urinal Incontinent # Voids 1 Weight 70.307 kg 07/28/18 22:10 07/28/18 22:10 EKG Interpretations (text) Normal sinus rhythm without ST or T-wave changes Assessment and Plan Plan: FINAL ASSESSMENT AND PLAN: 1. Uncontrolled hypertension. 2. Acute renal failure, possibly chronic with creatinine 1.72 3. History of CVA/TIA, son is currently concerned about possible worsening mental status 4. Bilateral carotid artery disease, inoperable, medical management. 5. Dyslipidemia. PLAN: We will discontinue the losartan and start the patient on amlodipine. Consider switching the patient to carvedilol and discontinuing metoprolol succinate. We will increase atorvastatin to 40 mg. Will add lipid profile to AM lab draw. Echocardiogram to assess heart structure and function.
[2018-07-29] MEDS: INSULIN ASPART (NovoLOG) 100 UNIT/ML VIAL SQ SCH ×3 (12:27→21:52)
--- NOTE | 2018-07-29 13:33 | P.HPIM ---
History of Present Illness H&P Date: 07/29/18 Chief Complaint: Elevated blood pressure and headache Dean Degroot is an 88-year-old male patient of Dr. Salas who presented to [facility] emergency room with a chief complaint of headache and elevated blood pressure he was evaluated in the emergency room blood pressure was elevated at 200/109 patient was started on losartan 50 mg daily he was continued on metoprolol 50 mg by mouth twice a day, however blood tests revealed slightly elevated BUN and creatinine at 25 and 1.26 losartan was discontinued and amlodipine 10 mg by mouth daily was added by cardiology. Patient was evaluated in emergency room in regard to headache, computed tomography scan of the brain was done and did not reveal any acute abnormality there was no evidence of any intracranial bleeding. He was admitted to observation unit for further evaluation. Past Medical History Past Medical History: Coronary Artery Disease (CAD), CVA/TIA, Diabetes Mellitus, Deep Vein Thrombosis (DVT), Hyperlipidemia, Hypertension, Osteoarthritis (OA) Additional Past Medical History / Comment(s): hx of gout, DVT of the leg several years ago. 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 RADHA Past Anesthesia/Blood Transfusion Reactions: No Reported Reaction Date of Last Stent Placement:: 03/10/2017 Past Psychological History: No Psychological Hx Reported Smoking Status: Former smoker Past Alcohol Use History: None Reported Past Drug Use History: None Reported - Past Family History Father Family Medical History: Coronary Artery Disease (CAD) Additional Family Medical History / Comment(s): Father had heart problems and at the age of 72. Mother Family Medical History: Cancer Additional Family Medical History / Comment(s): Mother of bladder cancer at the age of 64 yrs. Medications and Allergies Home Medications Medication Instructions Recorded Confirmed Type Acetaminophen Tab [Tylenol] 500 mg PO Q6H PRN 02/24/17 07/28/18 History Allopurinol [Zyloprim] 300 mg PO HS 02/24/17 07/28/18 History Cholecalciferol [Vitamin D3] 1,000 unit PO BID 02/24/17 07/28/18 History Cyclobenzaprine [Flexeril] 10 mg PO HS 02/24/17 07/28/18 History Clopidogrel [Plavix] 75 mg PO DAILY #90 tab 03/11/17 07/28/18 Rx Nitroglycerin Sl Tabs [Nitrostat] 0.4 mg SUBLINGUAL Q5M PRN #25 tab 03/11/17 07/28/18 Rx Atorvastatin [Lipitor] 20 mg PO HS 02/05/18 07/28/18 History Aspirin EC [Ecotrin Low Dose] 81 mg PO DAILY 07/27/18 07/28/18 History Metoprolol Succinate (ER) [Toprol 50 mg PO DAILY 07/27/18 07/28/18 History XL] metFORMIN HCL [Glucophage] 500 mg PO BID 07/27/18 07/28/18 History Allergies Allergy/AdvReac Type Severity Reaction Status Date / Time No Known Allergies Allergy Verified 07/28/18 21:32 Physical Exam Vitals: Vital Signs Temp Pulse Pulse Resp BP BP Pulse Ox 07/29/18 12:00 97.8 F 71 18 183/77 94 L 07/29/18 08:00 97.5 F L 74 18 178/83 92 L 07/29/18 03:54 98.4 F 80 16 171/75 94 L 07/29/18 03:45 74 17 07/29/18 01:46 97.8 F 75 16 182/81 96 07/29/18 01:09 80 18 168/87 93 L 07/29/18 00:50 79 18 178/82 93 L 07/29/18 00:26 80 18 172/84 94 L 07/29/18 00:09 78 18 196/98 94 L 07/29/18 00:00 76 17 07/28/18 23:57 97.6 F 88 18 209/100 95 07/28/18 23:36 17 07/28/18 23:23 77 18 179/82 94 L 07/28/18 22:30 80 20 198/86 94 L 07/28/18 21:59 78 18 196/89 94 L 07/28/18 21:34 77 18 196/44 95 07/28/18 21:05 98.0 F 86 20 201/82 97 Intake and Output 07/28/18 07/29/18 07/29/18 22:59 06:59 14:59 Other: Voiding Method Urinal Urinal Incontinent # Voids 1 Weight 70.307 kg HEENT head normocephalic and atraumatic Neck is supple no JVD no goiter no lymphadenopathy Chest exam reveals a few scattered crackles no wheezing Cardiac exam reveals regular heart sounds S1 and a stool no gallops no murmurs Abdomen is soft nontender no organomegaly with normal bowel sounds Extremity exam reveals no edema no cyanosis or clubbing Neurological examination reveals no gross focal deficit Results CBC & Chem 7: 07/28/18 22:10 07/28/18 22:10 Labs: Abnormal Lab Results - Last 24 Hours (Table) 07/28/18 07/28/18 07/29/18 Range/Units 22:10 22:10 06:51 RBC 4.04 L (4.30-5.90) m/uL Hgb 11.6 L (13.0-17.5) gm/dL Hct 34.6 L (39.0-53.0) % RDW 16.6 H (11.5-15.5) % Eosinophils # 0.8 H (0-0.7) k/uL BUN 25 H (9-20) mg/dL Creatinine 1.26 H (0.66-1.25) mg/dL Glucose 162 H (74-99) mg/dL POC Glucose (mg/dL) 131 H (75-99) mg/dL AST 15 L (17-59) U/L 07/29/18 Range/Units 11:37 RBC (4.30-5.90) m/uL Hgb (13.0-17.5) gm/dL Hct (39.0-53.0) % RDW (11.5-15.5) % Eosinophils # (0-0.7) k/uL BUN (9-20) mg/dL Creatinine (0.66-1.25) mg/dL Glucose (74-99) mg/dL POC Glucose (mg/dL) 205 H (75-99) mg/dL AST (17-59) U/L Microbiology - Last 24 Hours (Table) 07/28/18 23:10 Urine Culture - Preliminary Urine,Clean Catch Thrombosis Risk Factor Assmnt - Choose All That Apply Each Factor Represents 1 point: Obesity (BMI >25) Each Risk Factor Represents 3 Points: Age 75 years or older, History of DVT/PE Thrombosis Risk Factor Assessment Total Risk Factor Score: 7 Thrombosis Risk Factor Assessment Level: High Risk Assessment and Plan Plan: #1 hypertensive emergency #2 acute onset headache #3 underlying history of hypertension #4 underlying history of [id number] diabetes mellitus #5 dehydration was slight elevation of BUN and creatinine #6 underlying history of hyperlipidemia maintained on Lipitor #7 underlying history of gout maintained on Zyloprim At this time patient is admitted to observation unit she is continued on metoprolol 50 mg twice a day amlodipine 10 mg by mouth daily was added to regimen Will continue to monitor blood pressure and adjust medications accordingly. Cardiology consult requested echocardiogram ordered awaiting results Will follow in a.m.
--- NOTE | 2018-07-29 14:36 | ECHOF ---
Referral Reason:hypertension MEASUREMENTS -------- HEIGHT: 165.1 cm WEIGHT: 70.3 kg BP: 178/83 RVIDd: 3.1 cm (< 3.3) IVSd: 1.2 cm (0.6 - 1.1) LVIDd: 3.9 cm (3.9 - 5.3) LVPWd: 1.4 cm (0.6 - 1.1) IVSs: 1.5 cm LVIDs: 2.8 cm LVPWs: 1.8 cm LA Diam: 3.8 cm (2.7 - 3.8) LAESV Index (A-L): 31.68 ml/m Ao Diam: 3.4 cm (2.0 - 3.7) AV Cusp: 1.5 cm (1.5 - 2.6) MV EXCURSION: 11.714 mm (> 18.000) MV EF SLOPE: 39 mm/s (70 - 150) EPSS: 0.5 cm MV E [place]: 1.98 m/s MV DecT: 326 ms MV A [place]: 1.82 m/s MV E/A Ratio: 1.09 AR PHT: 533 ms RAP: 5.00 mmHg RVSP: 56.23 mmHg FINDINGS -------- Sinus rhythm. This was a technically good study. The left ventricular size is normal. There is moderate concentric left ventricular hypertrophy. O verall left ventricular systolic function is normal with, an EF between 60 - 65 %. The right ventricle is normal in size. LA is midly dilated 29-33ml/m2. The right atrium is normal in size. There is mild aortic valve sclerosis. There is mild aortic regurgitation. The mitral valve leaflets are moderately thickened. Severe mitral annular calcification present. Moderate mitral regurgitation is present. [id number] tricuspid regurgitation present. There is severe pulmonary hypertension. The rig ht ventricular systolic pressure, as measured by Doppler, is 56.23mmHg. Trace/mild (physiologic) pulmonic regurgitation. The aortic root size is normal. Normal inferior vena cava with normal inspiratory collapse consistent with estimated right atrial pre ssure of 5 mmHg. There is no pericardial effusion. CONCLUSIONS -------- 1. Sinus rhythm. 2. This was a technically good study. 3. The left ventricular size is normal. 4. There is moderate concentric left ventricular hypertrophy. 5. Overall left ventricular systolic function is normal with, an EF between 60 - 65 %. 6. The right ventricle is normal in size. 7. LA is midly dilated 29-33ml/m2. 8. The right atrium is normal in size. 9. There is mild aortic valve sclerosis. 10. There is mild aortic regurgitation. 11. The mitral valve leaflets are moderately thickened. 12. Severe mitral annular calcification present. 13. Moderate mitral regurgitation is present. 14. [id number] tricuspid regurgitation present. 15. There is severe pulmonary hypertension. 16. The right ventricular systolic pressure, as measured by Doppler, is 56.23mmHg. 17. Trace/mild (physiologic) pulmonic regurgitation. 18. The aortic root size is normal. 19. Normal inferior vena cava with normal inspiratory collapse consistent with estimated right atrial pressure of 5 mmHg. 20. There is no pericardial effusion. ESCROW CLERK: Lata Subramanian RDCS
[2018-07-29 14:38] LABS: Cholesterol 86 mg/dL (<200); HDL Cholesterol 36 mg/dL (40-60); LDL Cholesterol,Calculated 23 mg/dL (0-99); Triglycerides 136 mg/dL (<150)
[2018-07-29 16:25] LABS: Glucose,Whole Blood 162 mg/dL (75-99)
[2018-07-29] MEDS: ALLOPURINOL 300 MG TAB PO SCH (20:04)
[2018-07-29] MEDS: ATORVASTATIN 40 MG TAB PO SCH (20:04)
[2018-07-29] MEDS: CHOLECALCIFEROL 1,000 UNIT TAB PO SCH (20:04)
[2018-07-29] MEDS: CYCLOBENZAPRINE 10 MG TAB PO SCH (20:05)
[2018-07-29 20:53] LABS: Glucose,Whole Blood 159 mg/dL (75-99)
[2018-07-29] MEDS ORDERED: ATORVASTATIN 20 MG TAB PO SCH (21:00)
[2018-07-30 06:52] LABS: Glucose,Whole Blood 156 mg/dL (75-99)
[2018-07-30 08:26] LABS: Anisocytosis Slight; Basophils % (A) 1 %; Eosinophils # (A) 0.6 k/uL (0-0.7); Eosinophils % (A) 8 %; HCT 32.8 % (39.0-53.0); HGB 10.9 gm/dL (13.0-17.5); Lymphocytes # (A) 1.3 k/uL (1.0-4.8); Lymphocytes % (A) 18 %; MCH 28.3 pg (25.0-35.0); MCHC 33.2 g/dL (31.0-37.0); MCV 85.2 fL (80.0-100.0); Mean Platelet Volume 9.6; Monocytes # (A) 0.5 k/uL (0-1.0); Monocytes % (A) 6 %; Neutrophils # (A) 4.9 k/uL (1.3-7.7); Neutrophils % (A) 66 %; Platelet Count 210 k/uL (150-450); RBC 3.85 m/uL (4.30-5.90); RDW 17.3 % (11.5-15.5); WBC 7.4 k/uL (3.8-10.6)
[2018-07-30 08:46] LABS: Albumin 3.7 g/dL (3.5-5.0); Calcium 9.8 mg/dL (8.4-10.2); Potassium 4.4 mmol/L (3.5-5.1); Total Bilirubin 1.2 mg/dL (0.2-1.3); Total Protein 6.3 g/dL (6.3-8.2)
[2018-07-30] MEDS ORDERED: METOPROLOL SUCCINATE (ER) 50 MG TAB.ER.24H PO SCH (09:00)
--- NOTE | 2018-07-30 09:06 | P.CRDCN ---
History of Present Illness History of present illness: Patient is an 88-year-old male who is currently admitted for uncontrolled hypertension. Overnight he continued to have systolics in the 160s to 180s, despite starting amlodipine 10 mg daily. Echocardiogram shows a function 60-65% with moderate LVH, mild AI, moderate MR, moderate TR, and severe pulmonary hypertension. Rhythm strip this morning shows sinus mechanism in the 90s. On exam he is currently lying comfortably in bed. He does report a headache at this time. He is alert and oriented to self and is unsure of where he is at, without family at the bedside currently. He denies any chest discomfort, palpitations, dyspnea, dizziness, or vertigo. REVIEW OF SYSTEMS: No fever or chills. No cough or expectoration. No diaphoresis. Patient denies dizziness, blurred vision, double vision. Patient denies any stomach discomfort. No nausea, vomiting. No hematochezia. No hematemesis. Denies any black stools or blood in his stools. Denies dysuria or hematuria. No muscle weakness or numbness. PHYSICAL EXAMINATION: This is a 88-year-old male in no apparent distress at the time of my examination. HEENT: Head is atraumatic, normocephalic. Pupils are equal, round. Sclerae anicteric. Conjunctivae are clear. Mucous membranes of the mouth are moist. Neck is supple. There is no jugular venous distention. No carotid bruit is heard. CHEST EXAMINATION: Lungs are clear to auscultation. No chest wall tenderness is noted on palpation or with deep breathing. HEART EXAMINATION: Heart regular rate and rhythm. S1, S2 heard. Soft systolic murmur. No gallops or rub. ABDOMEN: Soft, nontender. Bowel sounds are heard. No organomegaly noted. EXTREMITIES: 2+ peripheral pulses with no evidence of peripheral edema and no calf tenderness noted. NEUROLOGIC EXAMINATION: Patient is awake, alert and oriented to self. LABORATORY DATA: WBC 7.4, hemoglobin 10.9, sodium 138, potassium 4.4, BUN 21, creatinine 1.12. FINAL ASSESSMENT AND PLAN: Hypertension, uncontrolled CVA/TIA, no acute changes via head CT Bilateral carotid artery disease, inoperable, medical management Acute renal failure, normalized Valvular heart disease. Moderate MR, moderate TR, mild AI PLAN: We will discontinue metoprolol and start Coreg 6.25 mg twice a day. Continue amlodipine 10mg. Further recommendations to follow Past Medical History Past Medical History: Coronary Artery Disease (CAD), CVA/TIA, Diabetes Mellitus, Deep Vein Thrombosis (DVT), Hyperlipidemia, Hypertension, Osteoarthritis (OA) Additional Past Medical History / Comment(s): hx of gout, DVT of the leg several years ago. 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 RADHA Past Anesthesia/Blood Transfusion Reactions: No Reported Reaction Date of Last Stent Placement:: 03/10/2017 Past Psychological History: No Psychological Hx Reported Smoking Status: Former smoker Past Alcohol Use History: None Reported Past Drug Use History: None Reported - Past Family History Father Family Medical History: Coronary Artery Disease (CAD) Additional Family Medical History / Comment(s): Father had heart problems and at the age of 72. Mother Family Medical History: Cancer Additional Family Medical History / Comment(s): Mother of bladder cancer at the age of 64 yrs. Medications and Allergies Home Medications Medication Instructions Recorded Confirmed Type Acetaminophen Tab [Tylenol] 500 mg PO Q6H PRN 02/24/17 07/28/18 History Allopurinol [Zyloprim] 300 mg PO HS 02/24/17 07/28/18 History Cholecalciferol [Vitamin D3] 1,000 unit PO BID 02/24/17 07/28/18 History Cyclobenzaprine [Flexeril] 10 mg PO HS 02/24/17 07/28/18 History Clopidogrel [Plavix] 75 mg PO DAILY #90 tab 03/11/17 07/28/18 Rx Nitroglycerin Sl Tabs [Nitrostat] 0.4 mg SUBLINGUAL Q5M PRN #25 tab 03/11/17 07/28/18 Rx Atorvastatin [Lipitor] 20 mg PO HS 02/05/18 07/28/18 History Aspirin EC [Ecotrin Low Dose] 81 mg PO DAILY 07/27/18 07/28/18 History Metoprolol Succinate (ER) [Toprol 50 mg PO DAILY 07/27/18 07/28/18 History XL] metFORMIN HCL [Glucophage] 500 mg PO BID 07/27/18 07/28/18 History Allergies Allergy/AdvReac Type Severity Reaction Status Date / Time No Known Allergies Allergy Verified 07/28/18 21:32 Physical Exam Vitals: Vital Signs Temp Pulse Resp BP BP Pulse Ox 07/30/18 08:40 182/92 179/89 07/30/18 07:05 97.9 F 100 18 174/86 94 L 07/30/18 04:35 97.7 F 104 H 18 174/84 93 L 07/30/18 03:14 80 17 07/30/18 01:23 97.5 F L 89 18 185/81 92 L 07/29/18 23:48 71 17 07/29/18 20:00 80 17 07/29/18 19:14 97.7 F 104 H 18 184/72 96 07/29/18 16:00 97.7 F 75 16 171/79 91 L 07/29/18 14:43 77 166/74 93 L 07/29/18 12:00 97.8 F 71 18 183/77 94 L Intake and Output 07/29/18 07/30/18 07/30/18 22:59 06:59 14:59 Other: Voiding Method Urinal Urinal # Voids 1 1 1 Results 07/30/18 07:16 07/30/18 07:16 Cardiac Enzymes 07/29/18 07/30/18 Range/Units 14:14 07:16 AST 14 L (17-59) U/L Troponin I <0.012 (0.000-0.034) ng/mL Lipids 07/29/18 Range/Units 14:14 Triglycerides 136 (<150) mg/dL Cholesterol 86 (<200) mg/dL HDL Cholesterol 36 L (40-60) mg/dL CBC 07/30/18 Range/Units 07:16 WBC 7.4 (3.8-10.6) k/uL RBC 3.85 L (4.30-5.90) m/uL Hgb 10.9 L (13.0-17.5) gm/dL Hct 32.8 L (39.0-53.0) % Plt Count 210 (150-450) k/uL Comprehensive Metabolic Panel 07/30/18 Range/Units 07:16 Sodium 138 (137-145) mmol/L Potassium 4.4 (3.5-5.1) mmol/L Chloride 102 (98-107) mmol/L Carbon Dioxide 27 (22-30) mmol/L BUN 21 H (9-20) mg/dL Creatinine 1.12 (0.66-1.25) mg/dL Glucose 147 H (74-99) mg/dL Calcium 9.8 (8.4-10.2) mg/dL AST 14 L (17-59) U/L ALT 22 (21-72) U/L Alkaline Phosphatase 75 (38-126) U/L Total Protein 6.3 (6.3-8.2) g/dL Albumin 3.7 (3.5-5.0) g/dL Current Medications Generic Name Dose Route Start Last Admin Trade Name Freq PRN Reason Stop Dose Admin Acetaminophen 500 mg 07/29/18 09:01 Tylenol Tab PO Q6H PRN Pain or Fever > 100.5 Allopurinol 300 mg 07/29/18 21:00 07/29/18 20:04 Zyloprim PO 300 mg HS ANTONIETA Administration Amlodipine Besylate 10 mg 07/29/18 11:30 07/29/18 11:33 Norvasc PO 10 mg DAILY ANTONIETA Administration Aspirin 81 mg 07/30/18 09:00 Aspirin PO DAILY ANTONIETA Atorvastatin Calcium 40 mg 07/29/18 21:00 07/29/18 20:04 Lipitor PO 40 mg HS ANTONIETA Administration Carvedilol 6.25 mg 07/30/18 17:30 Coreg PO BID-W/MEALS ANTONIETA Cholecalciferol 1,000 unit 07/29/18 21:00 07/29/18 20:04 Vitamin D3 PO 1,000 unit BID ANTONIETA Administration Clopidogrel Bisulfate 75 mg 07/29/18 09:15 07/29/18 09:28 Plavix PO 75 mg DAILY ANTONIETA Administration Cyclobenzaprine HCl 10 mg 07/29/18 21:00 07/29/18 20:05 Flexeril PO 10 mg HS ANTONIETA Administration Insulin Aspart 0 unit 07/29/18 12:30 07/29/18 21:52 Novolog SQ 1 unit ACHS ANTONIETA Administration Protocol Metformin HCl 500 mg 07/29/18 17:30 07/29/18 11:16 Glucophage PO Not Given BID-W/MEALS ANTONIETA Intake and Output 07/29/18 07/30/18 07/30/18 22:59 06:59 14:59 Other: Voiding Method Urinal Urinal # Voids 1 1 1 07/30/18 07:16 07/30/18 07:16
[2018-07-30] MEDS: INSULIN ASPART (NovoLOG) 100 UNIT/ML VIAL SQ SCH ×4 (09:23→20:28)
[2018-07-30] MEDS: metFORMIN 500 MG TAB PO SCH ×2 (09:28→17:16)
[2018-07-30] MEDS: amLODIPine 10 MG TAB PO SCH (09:28)
[2018-07-30] MEDS: CLOPIDOGREL 75 MG TAB PO SCH (09:28)
[2018-07-30] MEDS: ASPIRIN 81 MG PO SCH (09:28)
[2018-07-30] MEDS: CHOLECALCIFEROL 1,000 UNIT TAB PO SCH ×2 (09:28→20:24)
[2018-07-30] MEDS ORDERED: CARVEDILOL 6.25 MG TAB PO STA (09:31)
[2018-07-30 11:41] LABS: Glucose,Whole Blood 172 mg/dL (75-99)
[2018-07-30 16:48] LABS: Glucose,Whole Blood 134 mg/dL (75-99)
[2018-07-30] MEDS: CARVEDILOL 6.25 MG TAB PO SCH (17:15)
--- NOTE | 2018-07-30 17:28 | P.PN ---
Subjective Progress Note Date: 07/30/18 Dean Degroot is an 88-year-old male patient of Dr. Salas who presented to [facility] emergency room with a chief complaint of headache and elevated blood pressure he was evaluated in the emergency room blood pressure was elevated at 200/109 patient was started on losartan 50 mg daily he was continued on metoprolol 50 mg by mouth twice a day, however blood tests revealed slightly elevated BUN and creatinine at 25 and 1.26 losartan was discontinued and amlodipine 10 mg by mouth daily was added by cardiology. Patient was evaluated in emergency room in regard to headache, computed tomography scan of the brain was done and did not reveal any acute abnormality there was no evidence of any intracranial bleeding. He was admitted to observation unit for further evaluation. On 07/30/2018 patient was seen and examined on the observation unit he is alert and oriented 3 he had an episode of headache this morning otherwise he denies any complaints blood pressure is still elevated at 174/89 medication are still been adjusted by cardiology and they have discontinued metoprolol and start Coreg will continue to monitor blood pressure closely otherwise patient denies any other complaints there is no fever or chills no headache or dizziness no chest pain no shortness of breath no cough no nausea or vomiting no abdominal pain no diarrhea and no urinary symptoms Objective - Vital Signs Vital signs: Vital Signs Temp 98.2 F 07/30/18 15:59 Pulse 94 07/30/18 15:59 Resp 16 07/30/18 15:59 BP 158/73 07/30/18 15:59 Pulse Ox 93 L 07/30/18 15:59 Intake & Output 07/29/18 07/30/18 07/30/18 18:59 06:59 18:59 Other: Voiding Method Urinal Urinal Urinal Incontinent # Voids 1 1 - Exam HEENT head normocephalic and atraumatic Neck is supple no JVD no goiter no lymphadenopathy Chest exam reveals a few scattered crackles no wheezing Cardiac exam reveals regular heart sounds S1 and a stool no gallops no murmurs Abdomen is soft nontender no organomegaly with normal bowel sounds Extremity exam reveals no edema no cyanosis or clubbing Neurological examination reveals no gross focal deficit - Labs CBC & Chem 7: 07/30/18 07:16 07/30/18 07:16 Labs: Abnormal Lab Results - Last 24 Hours (Table) 07/29/18 07/30/18 07/30/18 Range/Units 20:52 06:50 07:16 RBC 3.85 L (4.30-5.90) m/uL Hgb 10.9 L (13.0-17.5) gm/dL Hct 32.8 L (39.0-53.0) % RDW 17.3 H (11.5-15.5) % BUN (9-20) mg/dL Glucose (74-99) mg/dL POC Glucose (mg/dL) 159 H 156 H (75-99) mg/dL AST (17-59) U/L 07/30/18 07/30/18 07/30/18 Range/Units 07:16 11:38 16:46 RBC (4.30-5.90) m/uL Hgb (13.0-17.5) gm/dL Hct (39.0-53.0) % RDW (11.5-15.5) % BUN 21 H (9-20) mg/dL Glucose 147 H (74-99) mg/dL POC Glucose (mg/dL) 172 H 134 H (75-99) mg/dL AST 14 L (17-59) U/L Microbiology - Last 24 Hours (Table) 07/28/18 23:10 Urine Culture - Preliminary Urine,Clean Catch Gram Neg Bacilli Assessment and Plan Plan: #1 hypertensive emergency #2 acute onset headache #3 underlying history of hypertension #4 underlying history of [id number] diabetes mellitus #5 dehydration was slight elevation of BUN and creatinine #6 underlying history of hyperlipidemia maintained on Lipitor #7 underlying history of gout maintained on Zyloprim At this time patient is admitted to observation unit she is continued on metoprolol 50 mg twice a day amlodipine 10 mg by mouth daily was added to regimen Will continue to monitor blood pressure and adjust medications accordingly. Cardiology consult requested echocardiogram ordered awaiting results Continue to adjust blood pressure medications Will follow in a.m.
[2018-07-30] MEDS: TIMOLOL 0.5% OPHTH DROPS 5 ML BTL RIGHT EYE SCH (20:23)
[2018-07-30] MEDS: CYCLOBENZAPRINE 10 MG TAB PO SCH (20:24)
[2018-07-30] MEDS: ALLOPURINOL 300 MG TAB PO SCH (20:24)
[2018-07-30] MEDS: BRIMONIDINE TARTRATE 0.2% DROPS 5 ML BTL RIGHT EYE SCH (20:24)
[2018-07-30] MEDS: ATORVASTATIN 40 MG TAB PO SCH (20:24)
[2018-07-30 20:30] LABS: Glucose,Whole Blood 154 mg/dL (75-99)
[2018-07-30] MEDS ORDERED: LATANOPROST 0.005% OPHTH DROPS 2.5 ML BTL RIGHT EYE SCH (21:00)
[2018-07-31 06:41] LABS: Glucose,Whole Blood 133 mg/dL (75-99)
[2018-07-31 07:39] VITALS: RESP 18
[2018-07-31] MEDS: INSULIN ASPART (NovoLOG) 100 UNIT/ML VIAL SQ SCH ×2 (07:58→12:08)
[2018-07-31] MEDS: amLODIPine 10 MG TAB PO SCH (08:05)
[2018-07-31] MEDS: ASPIRIN 81 MG PO SCH (08:05)
[2018-07-31] MEDS: CHOLECALCIFEROL 1,000 UNIT TAB PO SCH (08:05)
[2018-07-31] MEDS: CLOPIDOGREL 75 MG TAB PO SCH (08:05)
[2018-07-31] MEDS: metFORMIN 500 MG TAB PO SCH (08:05)
[2018-07-31] MEDS: BRIMONIDINE TARTRATE 0.2% DROPS 5 ML BTL RIGHT EYE SCH (08:06)
[2018-07-31] MEDS: TIMOLOL 0.5% OPHTH DROPS 5 ML BTL RIGHT EYE SCH (08:06)
[2018-07-31] MEDS: CARVEDILOL 6.25 MG TAB PO SCH (09:11)
--- NOTE | 2018-07-31 10:09 | P.PN ---
Subjective This is a pleasant 88-year-old male past medical history significant for hypertension, CVA x2, gout, diabetes mellitus, coronary artery disease s/p stent placement, carotid artery disease, valvular heat disease and dyslipidemia. He follows in the office with Dr. Garcia. He is being seen and evaluated for uncontrolled hypertension. Yesterday he was changed from toprol to coreg. Blood pressures this morning are 125/64 and 113/62. He is seen and examined laying flat resting comfortably in bed. He denies chest pain, shortness of breath, d izziness or palpitations. His is at the bedside. He states he has been up and walking around without difficulty. GENERAL: Well-appearing, well-nourished and in no acute distress. NECK: Supple without JVD or thyromegaly. LUNGS: Breath sounds clear to auscultation bilaterally. Respiration equal and unlabored. No wheezes, rales or rhonchi. HEART: Regular rate and rhythm with systolic ejection murmur at the left sternal border, no rubs or gallops. S1 and S2 heard. EXTREMITIES: Normal range of motion, no edema. No clubbing or cyanosis. Peripheral pulses intact. ASSESSMENT Hypertension, uncontrolled CVA in the past Carotid artery disease, medical management Acute renal failure, improved Valvular heart disease Dyslipidemia Diabetes mellitus History of coronary artery disease s/p stent placement PLAN Continue current medical regimen. Increase activity and ambulation. Close monitoring of blood pressure, if remains stable he can be discharged home early this afternoon. Follow up with Dr. Garcia upon discharge. Recommend monitoring of blood pressure at home and keep a log to bring to follow up appointment with Dr. Garcia. Nurse Practitioner note has been reviewed, I agree with a documented findings and plan of care. Patient was seen and examined. Objective - Vital Signs Vital signs: Vital Signs Temp 97.4 F L 07/31/18 07:00 Pulse 93 07/31/18 07:00 Resp 18 07/31/18 07:00 BP 113/62 07/31/18 07:00 Pulse Ox 94 L 07/31/18 07:00 Intake & Output 07/30/18 07/31/18 07/31/18 18:59 06:59 18:59 Intake Total 440 Balance 440 Intake: Oral 240 Other 200 Other: Voiding Method Urinal Urinal Urinal # Voids 1 1 - Labs CBC & Chem 7: 07/30/18 07:16 07/30/18 07:16 Labs: Abnormal Lab Results - Last 24 Hours (Table) 07/30/18 07/30/18 07/30/18 Range/Units 11:38 16:46 20:25 POC Glucose (mg/dL) 172 H 134 H 154 H (75-99) mg/dL 07/31/18 Range/Units 06:39 POC Glucose (mg/dL) 133 H (75-99) mg/dL
[2018-07-31 10:44] LABS: Basophils % (A) 0 %; Eosinophils # (A) 0.6 k/uL (0-0.7); Eosinophils % (A) 11 %; HGB 11.6 gm/dL (13.0-17.5); Lymphocytes # (A) 1.2 k/uL (1.0-4.8); Lymphocytes % (A) 20 %; MCH 28.6 pg (25.0-35.0); MCHC 32.2 g/dL (31.0-37.0); MCV 88.6 fL (80.0-100.0); Mean Platelet Volume 7.7; Monocytes # (A) 0.5 k/uL (0-1.0); Monocytes % (A) 9 %; Neutrophils # (A) 3.4 k/uL (1.3-7.7); Neutrophils % (A) 58 %; Platelet Count 190 k/uL (150-450); RBC 4.06 m/uL (4.30-5.90); RDW 15.7 % (11.5-15.5); WBC 5.8 k/uL (3.8-10.6)
[2018-07-31 10:56] LABS: Calcium 9.5 mg/dL (8.4-10.2); Potassium 4.4 mmol/L (3.5-5.1)
[2018-07-31 11:34] LABS: Glucose,Whole Blood 103 mg/dL (75-99)
[2018-07-31 12:21] VITALS: BP 132/79; PULSE 96; TEMP 97.6
--- NOTE | 2018-07-31 14:33 | P.DS ---
Providers Date of admission: 07/28/18 23:20 Expected date of discharge: 07/31/18 Attending physician: Yoshi Vang Consults: 07/29/18 09:04 Consult Physician Routine Consulting Provider: Fredi Benavides Consult Reason/Comments: hypertensive crisis Do you want consulting provider notified?: Yes Primary care physician: Virgil Salas [facility] Course: Discharge diagnosis #1 hypertensive emergency #2 acute onset headache secondary to elevated blood pressure #3 underlying history of hypertension #4 underlying history of [id number] diabetes mellitus #5 acute on chronic renal failure, stage III. Cozaar discontinued #6 underlying history of hyperlipidemia maintained on Lipitor #7 underlying history of gout maintained on Zyloprim Hospital course Dean Degroot is an 88-year-old male patient of Dr. Salas who presented to [facility] emergency room with a chief complaint of headache and elevated blood pressure he was evaluated in the emergency room blood pressure was elevated at 200/109 patient was started on losartan 50 mg daily he was continued on metoprolol 50 mg by mouth twice a day, however blood tests revealed slightly elevated BUN and creatinine at 25 and 1.26 losartan was discontinued and amlodipine 10 mg by mouth daily was added by cardiology. Patient was evaluated in emergency room in regard to headache, computed tomography scan of the brain was done and did not reveal any acute abnormality there was no evidence of any intracranial bleeding. He was admitted to observation unit for further evaluation. On 07/30/2018 patient was seen and examined on the observation unit he is alert and oriented 3 he had an episode of headache this morning otherwise he denies any complaints blood pressure is still elevated at 174/89 medication are still been adjusted by cardiology and they have discontinued metoprolol and start Coreg will continue to monitor blood pressure closely otherwise patient denies any other complaints there is no fever or chills no headache or dizziness no chest pain no shortness of breath no cough no nausea or vomiting no abdominal pain no diarrhea and no urinary symptoms July 31, 2018 patient is medically stable for discharge. Patient is been cleared by cardiology for discharge. Blood pressures have shown improvement with adjustment of medications. Less blood pressure is 132/79. Cardiology is placed patient on Coreg 6.25 twice a day and Norvasc 10 daily. Patient's metoprolol was discontinued by cardiology. Losartan was discontinued patient had a slight rise in his kidney function. His creatinine at discharge is 1.36 which is close to his baseline. We'll have him have repeat blood work in 1 week in the office to follow-up on kidney functions. His echo had shown an EF of 60- 65% moderate left ventricle hypertrophy moderate mitral regurgitation and severe pulmonary hypertension. Patient follow-up with cardiology in 1 week. Also note computed tomography scan of the brain was negative. Patient was having headaches due to his elevated blood pressures and this has now improved with improvement in his blood pressure. Encouraged patient to drink water and follow a low-salt diet I performed an examination of the patient and discussed their management with the physician Clerical Manager. I have reviewed the Physician Clerical Manager's notes and agree with the documented findings and plan of care Patient Condition at Discharge: Stable Plan - Discharge Summary Discharge Rx Participant: Yes New Discharge Prescriptions: New Carvedilol [Coreg] 6.25 mg PO BID-W/MEALS #60 tab Atorvastatin [Lipitor] 40 mg PO HS #30 tab amLODIPine [Norvasc] 10 mg PO DAILY #30 tab Continue Cholecalciferol [Vitamin D3] 1,000 unit PO BID Cyclobenzaprine [Flexeril] 10 mg PO HS Acetaminophen Tab [Tylenol] 500 mg PO Q6H PRN PRN Reason: Pain Or Fever > 100.5 Allopurinol [Zyloprim] 300 mg PO HS Clopidogrel [Plavix] 75 mg PO DAILY #90 tab Nitroglycerin Sl Tabs [Nitrostat] 0.4 mg SUBLINGUAL Q5M PRN #25 tab PRN Reason: Chest Pain Aspirin EC [Ecotrin Low Dose] 81 mg PO DAILY metFORMIN HCL [Glucophage] 500 mg PO BID Latanoprost [Xalatan 0.005%] 1 drop RIGHT EYE HS Brimonidine Tartrate/Timolol [Combigan 0.2%-0.5% Eye Drops] 1 drop RIGHT EYE BID Discontinued Atorvastatin [Lipitor] 20 mg PO HS Metoprolol Succinate (ER) [Toprol XL] 50 mg PO DAILY Discharge Medication List Acetaminophen Tab [Tylenol] 500 mg PO Q6H PRN 02/24/17 [History] Allopurinol [Zyloprim] 300 mg PO HS 02/24/17 [History] Cholecalciferol [Vitamin D3] 1,000 unit PO BID 02/24/17 [History] Cyclobenzaprine [Flexeril] 10 mg PO HS 02/24/17 [History] Clopidogrel [Plavix] 75 mg PO DAILY #90 tab 03/11/17 [Rx] Nitroglycerin Sl Tabs [Nitrostat] 0.4 mg SUBLINGUAL Q5M PRN #25 tab 03/11/17 [Rx] Aspirin EC [Ecotrin Low Dose] 81 mg PO DAILY 07/27/18 [History] metFORMIN HCL [Glucophage] 500 mg PO BID 07/27/18 [History] Brimonidine Tartrate/Timolol [Combigan 0.2%-0.5% Eye Drops] 1 drop RIGHT EYE BID 07/30/18 [History] Latanoprost [Xalatan 0.005%] 1 drop RIGHT EYE HS 07/30/18 [History] Atorvastatin [Lipitor] 40 mg PO HS #30 tab 07/31/18 [Rx] Carvedilol [Coreg] 6.25 mg PO BID-W/MEALS #60 tab 07/31/18 [Rx] amLODIPine [Norvasc] 10 mg PO DAILY #30 tab 07/31/18 [Rx] Follow up Appointment(s)/Referral(s): Curt Garcia MD [STAFF PHYSICIAN] - 08/11/18 2:45 pm Virgil Salas MD [Primary Care Provider] - 1 Week Ambulatory/Diagnostic Orders: Basic Metabolic Panel [LAB.AMB] Time Frame: 1 Week, Location: None Selected Activity/Diet/Wound Care/Special Instructions: Diet: cardiac, diabetic Activity: as tolerated Discharge Disposition: HOME SELF-CARE
== END 2018-07-31 15:20 | disposition home or self-care (01) ==
LOC: EC 20:39 → 1SOBS 23:20
PROVIDERS: ADMIT Internal Medicine; ATTEND Internal Medicine
DX: I16.1 Hypertensive emergency (principal); I12.9 Hypertensive chronic kidney disease with stage 1 through stage 4 chronic kidney disease, or unspecified chronic kidney disease; E11.22 Type 2 diabetes mellitus with diabetic chronic kidney disease; N18.3 Chronic kidney disease, stage 3 (moderate); N17.9 Acute kidney failure, unspecified; E78.5 Hyperlipidemia, unspecified; M10.9 Gout, unspecified; I34.0 Nonrheumatic mitral (valve) insufficiency; I27.20 Pulmonary hypertension, unspecified; E86.0 Dehydration; I25.10 Atherosclerotic heart disease of native coronary artery without angina pectoris; I65.21 Occlusion and stenosis of right carotid artery; G89.29 Other chronic pain; M54.2 Cervicalgia; M54.9 Dorsalgia, unspecified; M19.90 Unspecified osteoarthritis, unspecified site; H54.61 Unqualified visual loss, right eye, normal vision left eye; E66.9 Obesity, unspecified; Z68.25 Body mass index [BMI] 25.0-25.9, adult; H91.90 Unspecified hearing loss, unspecified ear; I38 Endocarditis, valve unspecified; Z86.73 Personal history of transient ischemic attack (TIA), and cerebral infarction without residual deficits; Z86.718 Personal history of other venous thrombosis and embolism; Z95.5 Presence of coronary angioplasty implant and graft; Z79.899 Other long term (current) drug therapy; Z79.82 Long term (current) use of aspirin; Z79.84 Long term (current) use of oral hypoglycemic drugs; Z79.02 Long term (current) use of antithrombotics/antiplatelets; Z87.891 Personal history of nicotine dependence; Z80.52 Family history of malignant neoplasm of bladder; Z98.42 Cataract extraction status, left eye; Z98.41 Cataract extraction status, right eye; Z96.1 Presence of intraocular lens
CPT/HCPCS: 96361 ×3; 96374; 99285; 36415; 93005; 93306; 80061; 80053 ×2; 80048; 83605; 83735; 84100; 84484 ×2; 85025 ×3; 85610; 85730; 81003; 87086; 87077; 87186; 70450; G0378 ×4

== ENCOUNTER 2020-03-28 13:08 | Inpatient (IN) | payer MEDICARE, BC ==
--- NOTE | 2020-03-28 13:54 | ED ---
General Adult HPI - General Chief complaint: Abdominal Pain Stated complaint: upper abd pain Time Seen by Provider: 03/28/20 13:34 Source: patient Mode of arrival: ambulatory Limitations: no limitations - History of Present Illness Initial comments: Dictation was produced using [employer] dictation software. please excuse any grammatical, word or spelling errors. This patient was cared for during a federal and state declared state of emergency secondary to Covid 19 Chief Complaint: 89-year-old male presents with dyspnea. History of Present Illness: Patient is an 89-year-old male presents today with dyspnea. Patient is accompanied by [id number]. Suspicion of breath for the last 24 hours. Patient has multiple comorbidities. Denies any pain complaints. No abdominal pain. Under also reports that he seemed a little confused over the last couple days. Patient has any fever, chills or night sweats. Denies any cough. He doesn't really know if his symptoms are worse lying flat versus sitting up. She denies any lower extremity swelling. Patient has multiple comorbidities including coronary artery disease, diabetes, DVT dyslipidemia. Does not take any anticoagulation medications. The ROS documented in this emergency department record has been reviewed and confirmed by me. Those systems with pertinent positive or negative responses have been documented in the HPI. All other systems are other negative and/or noncontributory. PHYSICAL EXAM: General Impression: Alert and oriented x3, mildly dyspneic HEENT: Normocephalic atraumatic, extra-ocular movements intact, pupils equal and reactive to light bilaterally, mucous membranes moist. Cardiovascular: Heart regular rate and rhythm Chest: There word senses, no retractions, tachypneic, crackles to the lung bases bilaterally Abdomen: abdomen soft, non-tender, non-distended, no organomegaly Musculoskeletal: Pulses present and equal in all extremities, no peripheral edema Motor: no focal deficits noted Neurological: CN II-XII grossly intact, no focal motor or sensory deficits noted, not aphasic Skin: Intact with no visualized rashes Psych: Normal affect and mood ED course: 89-year-old male presents with chief complaint of dyspnea. There is also concern that he's been altered however he is showing no signs of altered mental status on physical examination. Vital signs upon arrival shows 93% on room air, rest vital signs within acceptable limits. Patient does appear to be having some increased work of breathing. Patient placed on BiPAP. Laboratory evaluation obtained. CBC is unremarkable. Cardiac panel is negative. His blood gas shows a bicarb of 30 with a normal pH and normal pCO2. Metabolic panel shows no obvious processes. Lactic acidosis however is elevated 4.3. There is no anion gap acidosis. Coronavirus rapid test is negative. Chest x-ray shows right-sided pleural effusion. Given that diagnosis is in question CT was ordered for advanced imaging. CT redemonstrates pleural effusion. There does appear to be some smaller infiltrate and atelectasis is to the left posterior lung base. At this point patient's symptoms not obvious for pneumonia or heart failure. There is some concern of infectious processes. Patient given azithromycin and ceftriaxone. Patient be admitted with consultation pulmonology. Patient will be admitted to Dr. Vang. EKG interpretation: Ventricular rate 87, sinus rhythm, IA interval 152, QRS 78, QTC 481. No IA prolongation, no QTC prolongation, no ST or T-wave changes noted. EKG compared to 2019 showing no changes. Overall, this EKG is unremarkable - Related Data Home Medications Medication Instructions Recorded Confirmed Acetaminophen Tab [Tylenol] 500 mg PO Q6H PRN 02/24/17 03/28/20 Cholecalciferol [Vitamin D3 (25 1,000 unit PO BID 02/24/17 03/28/20 Mcg = 1000 Iu)] Cyclobenzaprine [Flexeril] 10 mg PO HS 02/24/17 03/28/20 allopurinoL [Zyloprim] 300 mg PO HS 02/24/17 03/28/20 metFORMIN HCL [Glucophage] 500 mg PO BID 07/27/18 03/28/20 Brimonidine Tartrate/Timolol 1 drop RIGHT EYE BID 07/30/18 03/28/20 [Combigan 0.2%-0.5% Eye Drops] Latanoprost [Xalatan 0.005%] 1 drop RIGHT EYE HS 07/30/18 03/28/20 Aspirin EC [Ecotrin] 325 mg PO DAILY 03/28/20 03/28/20 Glucos Sul 2Kcl/MSM/Chond/C/Mn 1 tab PO HS 03/28/20 03/28/20 [Glucosamine Chondroitin Cap] Hydrochlorothiazide 12.5 mg PO DAILY 03/28/20 03/28/20 [hydroCHLOROthiazide] Previous Rx's Medication Instructions Recorded Clopidogrel [Plavix] 75 mg PO DAILY #90 tab 03/11/17 Nitroglycerin Sl Tabs [Nitrostat] 0.4 mg SUBLINGUAL Q5M PRN #25 tab 03/11/17 Atorvastatin [Lipitor] 40 mg PO HS #30 tab 07/31/18 amLODIPine [Norvasc] 10 mg PO DAILY #30 tab 07/31/18 carvediloL [Coreg] 6.25 mg PO BID-W/MEALS #60 tab 07/31/18 Allergies Allergy/AdvReac Type Severity Reaction Status Date / Time No Known Allergies Allergy Verified 03/28/20 15:05 Review of Systems ROS Statement: Those systems with pertinent positive or pertinent negative responses have been documented in the HPI. ROS Other: All systems not noted in ROS Statement are negative. Past Medical History Past Medical History: Coronary Artery Disease (CAD), CVA/TIA, Diabetes Mellitus, Deep Vein Thrombosis (DVT), Hyperlipidemia, Hypertension, Osteoarthritis (OA) Additional Past Medical History / Comment(s): hx of gout, DVT of the leg several years ago. 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 RADHA Past Anesthesia/Blood Transfusion Reactions: No Reported Reaction Date of Last Stent Placement:: 03/10/2017 Past Psychological History: No Psychological Hx Reported Past Alcohol Use History: None Reported Past Drug Use History: None Reported - Past Family History Father Family Medical History: Coronary Artery Disease (CAD) Additional Family Medical History / Comment(s): Father had heart problems and at the age of 72. Mother Family Medical History: Cancer Additional Family Medical History / Comment(s): Mother of bladder cancer at the age of 64 yrs. General Exam Limitations: no limitations Course Vital Signs 03/28/20 03/28/20 03/28/20 13:15 14:27 15:00 Temperature 97.5 F L Pulse Rate 93 70 82 Respiratory 18 23 21 Rate Blood Pressure 123/66 138/66 143/63 O2 Sat by Pulse 93 L 99 97 Oximetry Medical Decision Making - Lab Data Result diagrams: 03/28/20 14:14 03/28/20 14:14 Lab Results 03/28/20 03/28/20 03/28/20 Range/Units 14:14 14:14 14:14 WBC 8.2 (3.8-10.6) k/uL RBC 3.82 L (4.30-5.90) m/uL Hgb 11.0 L (13.0-17.5) gm/dL Hct 33.9 L (39.0-53.0) % MCV 88.7 (80.0-100.0) fL MCH 28.8 (25.0-35.0) pg MCHC 32.5 (31.0-37.0) g/dL RDW 15.8 H (11.5-15.5) % Plt Count 277 (150-450) k/uL MPV 6.9 Neutrophils % 69 % Lymphocytes % 15 % Monocytes % 7 % Eosinophils % 6 % Basophils % 1 % Neutrophils # 5.7 (1.3-7.7) k/uL Lymphocytes # 1.2 (1.0-4.8) k/uL Monocytes # 0.6 (0-1.0) k/uL Eosinophils # 0.5 (0-0.7) k/uL Basophils # 0.1 (0-0.2) k/uL PT 10.6 (9.0-12.0) sec INR 1.0 (<1.2) APTT 23.6 (22.0-30.0) sec VBG pH (7.31-7.41) VBG pCO2 (37-51) mmHg VBG HCO3 (24-28) mmol/L Sodium 140 (137-145) mmol/L Potassium 3.5 (3.5-5.1) mmol/L Chloride 99 (98-107) mmol/L Carbon Dioxide 31 H (22-30) mmol/L Anion Gap 10 mmol/L BUN 27 H (9-20) mg/dL Creatinine 1.15 (0.66-1.25) mg/dL Est GFR (CKD-EPI)AfAm 66 (>60 ml/min/1.73 sqM) Est GFR (CKD-EPI)NonAf 57 (>60 ml/min/1.73 sqM) Glucose 192 H (74-99) mg/dL Plasma Lactic Acid Nasim (0.7-2.0) mmol/L Calcium 9.6 (8.4-10.2) mg/dL Magnesium 1.8 (1.6-2.3) mg/dL Total Bilirubin 0.9 (0.2-1.3) mg/dL AST 19 (17-59) U/L ALT 15 (4-49) U/L Alkaline Phosphatase 92 (38-126) U/L Troponin I (0.000-0.034) ng/mL NT-Pro-B Natriuret Pep pg/mL Total Protein 7.2 (6.3-8.2) g/dL Albumin 4.1 (3.5-5.0) g/dL Coronavirus (PCR) (Not Detectd) 03/28/20 03/28/20 03/28/20 Range/Units 14:14 14:14 14:14 WBC (3.8-10.6) k/uL RBC (4.30-5.90) m/uL Hgb (13.0-17.5) gm/dL Hct (39.0-53.0) % MCV (80.0-100.0) fL MCH (25.0-35.0) pg MCHC (31.0-37.0) g/dL RDW (11.5-15.5) % Plt Count (150-450) k/uL MPV Neutrophils % % Lymphocytes % % Monocytes % % Eosinophils % % Basophils % % Neutrophils # (1.3-7.7) k/uL Lymphocytes # (1.0-4.8) k/uL Monocytes # (0-1.0) k/uL Eosinophils # (0-0.7) k/uL Basophils # (0-0.2) k/uL PT (9.0-12.0) sec INR (<1.2) APTT (22.0-30.0) sec VBG pH (7.31-7.41) VBG pCO2 (37-51) mmHg VBG HCO3 (24-28) mmol/L Sodium (137-145) mmol/L Potassium (3.5-5.1) mmol/L Chloride (98-107) mmol/L Carbon Dioxide (22-30) mmol/L Anion Gap mmol/L BUN (9-20) mg/dL Creatinine (0.66-1.25) mg/dL Est GFR (CKD-EPI)AfAm (>60 ml/min/1.73 sqM) Est GFR (CKD-EPI)NonAf (>60 ml/min/1.73 sqM) Glucose (74-99) mg/dL Plasma Lactic Acid Nsaim 4.3 H* (0.7-2.0) mmol/L Calcium (8.4-10.2) mg/dL Magnesium (1.6-2.3) mg/dL Total Bilirubin (0.2-1.3) mg/dL AST (17-59) U/L ALT (4-49) U/L Alkaline Phosphatase (38-126) U/L Troponin I 0.014 (0.000-0.034) ng/mL NT-Pro-B Natriuret Pep 583 pg/mL Total Protein (6.3-8.2) g/dL Albumin (3.5-5.0) g/dL Coronavirus (PCR) (Not Detectd) 03/28/20 03/28/20 Range/Units 14:14 14:14 WBC (3.8-10.6) k/uL RBC (4.30-5.90) m/uL Hgb (13.0-17.5) gm/dL Hct (39.0-53.0) % MCV (80.0-100.0) fL MCH (25.0-35.0) pg MCHC (31.0-37.0) g/dL RDW (11.5-15.5) % Plt Count (150-450) k/uL MPV Neutrophils % % Lymphocytes % % Monocytes % % Eosinophils % % Basophils % % Neutrophils # (1.3-7.7) k/uL Lymphocytes # (1.0-4.8) k/uL Monocytes # (0-1.0) k/uL Eosinophils # (0-0.7) k/uL Basophils # (0-0.2) k/uL PT (9.0-12.0) sec INR (<1.2) APTT (22.0-30.0) sec VBG pH 7.41 (7.31-7.41) VBG pCO2 49 (37-51) mmHg VBG HCO3 30 H (24-28) mmol/L Sodium (137-145) mmol/L Potassium (3.5-5.1) mmol/L Chloride (98-107) mmol/L Carbon Dioxide (22-30) mmol/L Anion Gap mmol/L BUN (9-20) mg/dL Creatinine (0.66-1.25) mg/dL Est GFR (CKD-EPI)AfAm (>60 ml/min/1.73 sqM) Est GFR (CKD-EPI)NonAf (>60 ml/min/1.73 sqM) Glucose (74-99) mg/dL Plasma Lactic Acid Nasim (0.7-2.0) mmol/L Calcium (8.4-10.2) mg/dL Magnesium (1.6-2.3) mg/dL Total Bilirubin (0.2-1.3) mg/dL AST (17-59) U/L ALT (4-49) U/L Alkaline Phosphatase (38-126) U/L Troponin I (0.000-0.034) ng/mL NT-Pro-B Natriuret Pep pg/mL Total Protein (6.3-8.2) g/dL Albumin (3.5-5.0) g/dL Coronavirus (PCR) Not Detected (Not Detectd) Disposition Clinical Impression: Pleural effusion Disposition: ADMITTED IP TO THIS HOSP Condition: Fair Referrals: Yoshi Vang MD [Primary Care Provider] - 1-2 days Decision Time: 16:51
[2020-03-28 14:30] LABS: Basophils # (A) 0.1 k/uL (0-0.2); Basophils % (A) 1 %; Eosinophils # (A) 0.5 k/uL (0-0.7); Eosinophils % (A) 6 %; HCT 33.9 % (39.0-53.0); Lymphocytes # (A) 1.2 k/uL (1.0-4.8); Lymphocytes % (A) 15 %; MCH 28.8 pg (25.0-35.0); MCHC 32.5 g/dL (31.0-37.0); MCV 88.7 fL (80.0-100.0); Mean Platelet Volume 6.9; Monocytes # (A) 0.6 k/uL (0-1.0); Monocytes % (A) 7 %; Neutrophils # (A) 5.7 k/uL (1.3-7.7); Neutrophils % (A) 69 %; Platelet Count 277 k/uL (150-450); RBC 3.82 m/uL (4.30-5.90); RDW 15.8 % (11.5-15.5); WBC 8.2 k/uL (3.8-10.6)
[2020-03-28 14:31] LABS: VBG PH 7.41 (7.31-7.41)
--- NOTE | 2020-03-28 14:38 | XR ---
EXAMINATION TYPE: XR chest 1V portable DATE OF EXAM: 03/28/2020 COMPARISON: Prior chest x-ray 07/27/2018 HISTORY: Dyspnea TECHNIQUE: Single frontal view of the chest is obtained. FINDINGS: There is been interval development of increased density at the right lung base, right dianne diaphragm is obscured, patchy bibasilar density is noted. No evident pneumothorax. Heart is likely st able but partially obscured, aorta is dense there are overlying artifacts. IMPRESSION: Pleural effusion, correlate for bilateral pneumonia versus edema, follow-up recommended.
[2020-03-28 14:46] LABS: Albumin 4.1 g/dL (3.5-5.0); Calcium 9.6 mg/dL (8.4-10.2); Magnesium 1.8 mg/dL (1.6-2.3); Total Bilirubin 0.9 mg/dL (0.2-1.3); Total Protein 7.2 g/dL (6.3-8.2)
[2020-03-28 14:49] LABS: Partial Thromboplastin Time 23.6 sec (22.0-30.0); Prothrombin Time 10.6 sec (9.0-12.0)
[2020-03-28 15:01] LABS: Potassium 3.5 mmol/L (3.5-5.1)
[2020-03-28] MEDS ORDERED: SODIUM CHLORIDE 0.9% 1,000 ML IV STA (15:05)
[2020-03-28] MEDS ORDERED: RX INFO: IV CONTRAST WAS GIVEN 1 EACH MISC MISCELLANE PRN (15:06)
[2020-03-28] MEDS ORDERED: cefTRIAXone IN SWFI 1,000 MG/10 ML SYRINGE IVP STA (15:07)
[2020-03-28] MEDS ORDERED: AZITHROMYCIN 500 MG in SODIUM CHLORIDE 0.9% 250 ML IVPB STA (15:07)
--- NOTE | 2020-03-28 16:44 | CT ---
EXAMINATION TYPE: CT chest w con DATE OF EXAM: 03/28/2020 COMPARISON: None HISTORY: Shortness of breath and Abnormal CXR. CT DLP: 408.2 mGycm Automated exposure control for dose reduction was used. CONTRAST: Performed with IV Contrast, patient injected with 100 mL of Isovue 300. Images were obtained from the thoracic inlet to the diaphragm with IV contrast. There is a very large right pleural effusion. There is consolidation and atelectasis in the right upp er lobe and right lower lobe. There is a smaller left pleural effusion. There is no pericardial effus ion. Heart is borderline enlarged. Thoracic aorta is atheromatous. There is no mediastinal adenopathy . There is spurring in the thoracic spine. I see no compression fracture. Sternum is intact. Upper abdo vinny soft tissues are intact. I see no filling defect in the pulmonary arteries. The ascending aorta measures 3.5 cm. There is no aneurysm or dissection. IMPRESSION: Pleural effusions much larger on the right side. Right pulmonary consolidation and atelectasis. There is also some smaller infiltrate and atelectasis left posterior lung base.
[2020-03-28] MEDS ORDERED: NALOXONE 0.4 MG/ML 1 ML VIAL IV PRN (16:48)
[2020-03-28] MEDS: SODIUM CHLORIDE 0.9% 1,000 ML IV SCH (17:27)
--- NOTE | 2020-03-29 08:37 | US ---
EXAMINATION TYPE: US chest DATE OF EXAM: 03/29/2020 COMPARISON: CT 03/28/2020 CLINICAL HISTORY: 89-year-old male Right pleural effusion. TECHNIQUE: Targeted ultrasound of the posterior lower right hemithorax FINDINGS: EXAM MEASUREMENTS: Right Pleural Effusion pocket size: 11.8 cm Right skin surface to fluid distance: 2.3 cm Lung seen at 3.2 cm from top of fluid pocket. Right side marked for possible thoracentesis outside the dept. Pulmonologists are able to review the images in the patient?s EMR. IMPRESSIONS: Moderate to large right pleural effusion. Note some atelectatic, interposed along within the fluid.
[2020-03-29] MEDS ORDERED: ACETAMINOPHEN TAB 500 MG TAB PO PRN (09:25)
--- NOTE | 2020-03-29 10:24 | P.HPIM ---
History of Present Illness H&P Date: 03/29/20 Chief Complaint: Shortness of breath This is an 89-year-old male patient. Patient presented to the ER with complaints of shortness of breath for 24 hours. Patient's [id number] currently at bedside. Patient does have known dementia with short-term memory loss and is a poor historian. Per family at bedside shortness of breath started approximately 24 hours ago in which she became very short of breath with standing and activity. Family also noted wheezing. Patient did report have some cough. Denies any fevers. Patient does have a past medical history of coronary artery disease, CVA, diabetes mellitus, DVT, hyperlipidemia, hypertension, osteoarthritis, back pain, heart cath with stents and dementia. Patient currently resides with . Coronavirus was negative. Patient's lactic acid on admission 4.3. Repeat lactic acid 1.9. Chest CT was completed showing pleural effusions much larger on the right side by pulmonary consolidation and atelectasis there is some small infiltrate and atelectasis left posterior lung base. Patient was given IV antibiotics in ER. Pulmonary services have been consulted. Ultrasound of chest has been ordered for possible paracentesis. Patient is currently on BiPAP and requiring high flow oxygen while off BiPAP. Patient is currently resting comfortably in bed. Lung sounds are greatly diminished on the right compared to left. Patient denies any chest pain. Patient does reports shortness of breath. Patient denies nausea vomiting or diarrhea. Patient denies any urinary burning or frequency. Review of Systems Please refer to HPI otherwise unremarkable Past Medical History Past Medical History: Coronary Artery Disease (CAD), CVA/TIA, Diabetes Mellitus, Deep Vein Thrombosis (DVT), Hyperlipidemia, Hypertension, Osteoarthritis (OA) Additional Past Medical History / Comment(s): hx of gout, DVT of the leg several years ago. 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 RADHA Past Anesthesia/Blood Transfusion Reactions: No Reported Reaction Date of Last Stent Placement:: 03/10/2017 Past Psychological History: No Psychological Hx Reported Additional Psychological History / Comment(s): Pt resides with his spouse. Use wakler with wheels to ambulate. Smoking Status: Former smoker Past Alcohol Use History: None Reported Additional Past Alcohol Use History / Comment(s): Pt smoked pipe or cigars on occasion. STARTED SMOKING PIPE AND CIGAR AT AGE 22 He QUIT SMOKING AT AGE 57 Past Drug Use History: None Reported - Past Family History Father Family Medical History: Coronary Artery Disease (CAD) Additional Family Medical History / Comment(s): Father had heart problems and at the age of 72. Mother Family Medical History: Cancer Additional Family Medical History / Comment(s): Mother of bladder cancer at the age of 64 yrs. Medications and Allergies Home Medications Medication Instructions Recorded Confirmed Type Acetaminophen Tab [Tylenol] 500 mg PO Q6H PRN 02/24/17 03/28/20 History Cholecalciferol [Vitamin D3 (25 1,000 unit PO BID 02/24/17 03/28/20 History Mcg = 1000 Iu)] Cyclobenzaprine [Flexeril] 10 mg PO HS 02/24/17 03/28/20 History allopurinoL [Zyloprim] 300 mg PO HS 02/24/17 03/28/20 History Clopidogrel [Plavix] 75 mg PO DAILY #90 tab 03/11/17 03/28/20 Rx Nitroglycerin Sl Tabs [Nitrostat] 0.4 mg SUBLINGUAL Q5M PRN #25 tab 03/11/17 03/28/20 Rx metFORMIN HCL [Glucophage] 500 mg PO BID 07/27/18 03/28/20 History Brimonidine Tartrate/Timolol 1 drop RIGHT EYE BID 07/30/18 03/28/20 History [Combigan 0.2%-0.5% Eye Drops] Latanoprost [Xalatan 0.005%] 1 drop RIGHT EYE HS 07/30/18 03/28/20 History Atorvastatin [Lipitor] 40 mg PO HS #30 tab 07/31/18 03/28/20 Rx amLODIPine [Norvasc] 10 mg PO DAILY #30 tab 07/31/18 03/28/20 Rx carvediloL [Coreg] 6.25 mg PO BID-W/MEALS #60 tab 07/31/18 03/28/20 Rx Aspirin EC [Ecotrin] 325 mg PO DAILY 03/28/20 03/28/20 History Glucos Sul 2Kcl/MSM/Chond/C/Mn 1 tab PO HS 03/28/20 03/28/20 History [Glucosamine Chondroitin Cap] Hydrochlorothiazide 12.5 mg PO DAILY 03/28/20 03/28/20 History [hydroCHLOROthiazide] Allergies Allergy/AdvReac Type Severity Reaction Status Date / Time No Known Allergies Allergy Verified 03/28/20 15:05 Physical Exam Vitals: Vital Signs Temp Pulse Pulse Resp BP BP Pulse Ox 03/29/20 08:20 86 19 03/29/20 08:00 98.3 F 86 19 147/66 93 L 03/29/20 00:04 98.7 F 88 134/65 94 L 03/28/20 21:30 98.9 F 89 21 155/73 94 L 03/28/20 20:00 99.9 F H 89 88 19 153/78 95 03/28/20 19:00 93 26 H 159/82 91 L 03/28/20 18:00 94 23 147/77 90 L 03/28/20 17:00 93 28 H 136/75 91 L 03/28/20 15:00 82 21 143/63 97 03/28/20 14:27 70 23 138/66 99 03/28/20 13:15 97.5 F L 93 18 123/66 93 L Intake and Output 03/28/20 03/29/20 03/29/20 22:59 06:59 14:59 Other: Voiding Method Urinal Urinal # Voids 2 Weight 65.771 kg Head normocephalic Neck supple Lungs diminished bilaterally greater on right than left Heart regular rate and rhythm S1-S2, no rub or gallop Abdomen is soft nontender nondistended positive bowel sounds no he patosplenomegaly Extremities no edema Neuro alert and orientated to 3. Intermittent episodes of confusion. Dementia. Results CBC & Chem 7: 03/28/20 14:14 03/28/20 14:14 Labs: Abnormal Lab Results - Last 24 Hours (Table) 03/28/20 03/28/20 03/28/20 Range/Units 14:14 14:14 14:14 RBC 3.82 L (4.30-5.90) m/uL Hgb 11.0 L (13.0-17.5) gm/dL Hct 33.9 L (39.0-53.0) % RDW 15.8 H (11.5-15.5) % VBG HCO3 (24-28) mmol/L Carbon Dioxide 31 H (22-30) mmol/L BUN 27 H (9-20) mg/dL Glucose 192 H (74-99) mg/dL Plasma Lactic Acid Nasim 4.3 H* (0.7-2.0) mmol/L 03/28/20 Range/Units 14:14 RBC (4.30-5.90) m/uL Hgb (13.0-17.5) gm/dL Hct (39.0-53.0) % RDW (11.5-15.5) % VBG HCO3 30 H (24-28) mmol/L Carbon Dioxide (22-30) mmol/L BUN (9-20) mg/dL Glucose (74-99) mg/dL Plasma Lactic Acid Nasim (0.7-2.0) mmol/L Thrombosis Risk Factor Assmnt - Choose All That Apply Any of the Below Risk Factors Present?: Yes Each Factor Represents 1 point: Serious lung disease incl. pneumonia (< 1month) Each Risk Factor Represents 3 Points: History of DVT/PE Thrombosis Risk Factor Assessment Total Risk Factor Score: 4 Thrombosis Risk Factor Assessment Level: Moderate Risk Assessment and Plan Assessment: 1. Dyspnea secondary to pleural effusion and possible pneumonia. 2. Pleural effusion. CT of abdomen completed showing pleural effusions much larger on the right side by pulmonary consolidation and atelectasis there is a lso some smaller infiltrate and atelectasis left posterior lung base. Pulmonary services have been consulted. Patient currently maintained on BiPAP. Ultrasound of chest has been ordered 3. Possible pneumonia. Chest x-ray was complaining showing pleural effusion correlate for bilateral pneumonia versus edema, follow-up recommended. Pulmonary services have been consulted patient was given Rocephin and azithromycin. lactic acid elevated on admit 4. 3 repeat 1.9 4. History of coronary artery disease 5. 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 Chronic back pain 7. History of gout 8. Hyperlipidemia. Maintained on statin 9. History of essential hypertension 10. Diabetes mellitus type 2. Metformin currently on hold during hospitalization. Sliding scale insulin ordered DVT prophylaxis Lovenox. GI prophylaxis Pepcid Pulmonary services have been consulted Ultrasound of chest ordered for possible thoracentesis Time with Patient: Greater than 30 (Greater than 60% of the total time spent in counseling and coordination of care)
[2020-03-29 11:20] LABS: Basophils % (A) 0 %; Eosinophils # (A) 0.3 k/uL (0-0.7); Eosinophils % (A) 5 %; HCT 31.2 % (39.0-53.0); HGB 10.3 gm/dL (13.0-17.5); Lymphocytes # (A) 0.8 k/uL (1.0-4.8); Lymphocytes % (A) 13 %; MCH 29.7 pg (25.0-35.0); MCHC 33.2 g/dL (31.0-37.0); MCV 89.4 fL (80.0-100.0); Mean Platelet Volume 7.4; Monocytes # (A) 0.4 k/uL (0-1.0); Monocytes % (A) 7 %; Neutrophils # (A) 4.6 k/uL (1.3-7.7); Neutrophils % (A) 73 %; Platelet Count 245 k/uL (150-450); RBC 3.49 m/uL (4.30-5.90); RDW 15.7 % (11.5-15.5); WBC 6.3 k/uL (3.8-10.6)
[2020-03-29 12:28] LABS: Glucose,Whole Blood 237 mg/dL (75-99)
--- NOTE | 2020-03-29 12:30 | XR ---
EXAMINATION TYPE: XR chest 1V portable DATE OF EXAM: 03/29/2020 Comparison: 03/28/2020 Clinical History: 89-year-old male status post Right thoracentesis Findings: Somewhat low lung volumes. Right margin remains incompletely visualized. There is a residual small ri ght pleural effusion, decreased in size from 03/28/2020. No appreciable pneumothorax. Mild patchy opac ity, probably atelectasis at the left base. Impression: Interval decrease in size after thoracentesis, now small right pleural effusion with adjacent atelect asis and/or consolidation. No appreciable pneumothorax.
[2020-03-29] MEDS: INSULIN ASPART (NovoLOG) 100 UNIT/ML VIAL SQ SCH ×3 (12:56→20:59)
--- NOTE | 2020-03-29 12:56 | OP ---
OPERATIVE REPORT PROCEDURE: Right-sided thoracentesis. PREOP DIAGNOSIS: Right pleural effusion. POSTOP DIAGNOSIS: Right Pleural effusion. AUDIT SPEC: Dr. Gomez and Dr. Ramirez. A time-out was completed verifying correct patient, procedure, site, positioning , and implant (s) or special equipment if applicable. Ultrasound guidance was used and appropriate fluid pocket was identified and marked. Patient was positioned, prepped and draped in usual sterile fashion. Lidocaine was used to anesthetize the area. A Thoracentesis catheter was introduced into the pleural space and fluid was removed. Blood loss was none. We removed 1.8 liters of yellow fluid from the right pleural space. The patient did very well, he tolerated this procedure well. A chest x-ray was ordered to evaluate for pneumothorax. The fluid will be sent for analysis including cytology, chemistry, and microbiology. There were no immediate complications. Again the patient tolerated the procedure very well. MMODL / IJN: [id number] /
--- NOTE | 2020-03-29 15:28 | P.CNPUL ---
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 He presented to the emergency room yesterday with complaints of increasing shortness of breath over the past several days worse than the last 24 hours. He had developed a bit of confusion as well. Asked x-ray revealed bilateral patchy densities with significant right-sided pleural effusion. Computed tomography scan of the chest confirmed pleural effusions right greater than left. Right pulmonary consolidation and atelectasis. Small infiltrate of the left posterior base. We're consulted for the same. He is seen today in consultation on the regular medical floor. Currently on BiPAP 12/5 and 50% FiO2. White count 6.3. Hemoglobin 10.3. Sodium 140. Potassium 3.5. Creatinine 1.15. Hollins virus not detected. ProBNP 583. Troponin 0.014. Review of Systems REVIEW OF SYSTEMS: CONSTITUTIONAL: Denies any recent significant weight loss or weight gain. EYES: Denies change in vision. EARS, NOSE, MOUTH, THROAT: Denies headaches, denies sore throat. CARDIOVASCULAR: Denies chest pain, palpitations or syncopal episodes. RESPIRATORY: Positive for shortness of breath, cough, congestion no hemoptysis. GASTROINTESTINAL: Denies change in appetite, denies abdominal pain GENITOURINARY: Denies hematuria, denies infections. MUSKULOSKELETAL: Denies pain, denies swelling. INTEGUMENTARY: Denies rash, denies eczema. NEUROLOGICAL: Denies recent memory loss, no recent seizure activity. PSYCHIATRIC: Denies anxiety, denies depression. HEMATOLOGIC/LYMPHATIC: Denies anemia, denies enlarged lymph nodes. Past Medical History Past Medical History: Coronary Artery Disease (CAD), CVA/TIA, Diabetes Mellitus, Deep Vein Thrombosis (DVT), Hyperlipidemia, Hypertension, Osteoarthritis (OA) Additional Past Medical History / Comment(s): hx of gout, DVT of the leg several years ago. 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 RADHA Past Anesthesia/Blood Transfusion Reactions: No Reported Reaction Date of Last Stent Placement:: 03/10/2017 Past Psychological History: No Psychological Hx Reported Additional Psychological History / Comment(s): Pt resides with his spouse. Use wakler with wheels to ambulate. Smoking Status: Former smoker Past Alcohol Use History: None Reported Additional Past Alcohol Use History / Comment(s): Pt smoked pipe or cigars on occasion. STARTED SMOKING PIPE AND CIGAR AT AGE 22 He QUIT SMOKING AT AGE 57 Past Drug Use History: None Reported - Past Family History Father Family Medical History: Coronary Artery Disease (CAD) Additional Family Medical History / Comment(s): Father had heart problems and at the age of 72. Mother Family Medical History: Cancer Additional Family Medical History / Comment(s): Mother of bladder cancer at the age of 64 yrs. Medications and Allergies Home Medications Medication Instructions Recorded Confirmed Type Acetaminophen Tab [Tylenol] 500 mg PO Q6H PRN 02/24/17 03/28/20 History Cholecalciferol [Vitamin D3 (25 1,000 unit PO BID 02/24/17 03/28/20 History Mcg = 1000 Iu)] Cyclobenzaprine [Flexeril] 10 mg PO HS 02/24/17 03/28/20 History allopurinoL [Zyloprim] 300 mg PO HS 02/24/17 03/28/20 History Clopidogrel [Plavix] 75 mg PO DAILY #90 tab 03/11/17 03/28/20 Rx Nitroglycerin Sl Tabs [Nitrostat] 0.4 mg SUBLINGUAL Q5M PRN #25 tab 03/11/17 03/28/20 Rx metFORMIN HCL [Glucophage] 500 mg PO BID 07/27/18 03/28/20 History Brimonidine Tartrate/Timolol 1 drop RIGHT EYE BID 07/30/18 03/28/20 History [Combigan 0.2%-0.5% Eye Drops] Latanoprost [Xalatan 0.005%] 1 drop RIGHT EYE HS 07/30/18 03/28/20 History Atorvastatin [Lipitor] 40 mg PO HS #30 tab 07/31/18 03/28/20 Rx amLODIPine [Norvasc] 10 mg PO DAILY #30 tab 07/31/18 03/28/20 Rx carvediloL [Coreg] 6.25 mg PO BID-W/MEALS #60 tab 07/31/18 03/28/20 Rx Aspirin EC [Ecotrin] 325 mg PO DAILY 03/28/20 03/28/20 History Glucos Sul 2Kcl/MSM/Chond/C/Mn 1 tab PO HS 03/28/20 03/28/20 History [Glucosamine Chondroitin Cap] Hydrochlorothiazide 12.5 mg PO DAILY 03/28/20 03/28/20 History [hydroCHLOROthiazide] Allergies Allergy/AdvReac Type Severity Reaction Status Date / Time No Known Allergies Allergy Verified 03/28/20 15:05 Physical Exam Vitals: Vital Signs Temp Pulse Pulse Resp BP BP Pulse Ox 03/29/20 08:20 86 19 03/29/20 08:00 98.3 F 86 19 147/66 93 L 03/29/20 00:04 98.7 F 88 134/65 94 L 03/28/20 21:30 98.9 F 89 21 155/73 94 L 03/28/20 20:00 99.9 F H 89 88 19 153/78 95 03/28/20 19:00 93 26 H 159/82 91 L 03/28/20 18:00 94 23 147/77 90 L 03/28/20 17:00 93 28 H 136/75 91 L Intake and Output 03/29/20 03/29/20 03/29/20 06:59 14:59 22:59 Other: Voiding Method Urinal # Voids 2 GENERAL EXAM: Alert, pleasant 89-year-old gentleman, on BiPAP 12/5 and 50% FiO2, fairly comfortable in no apparent distress. HEAD: Normocephalic. EYES: Normal reaction of pupils, equal size. NOSE: Clear with pink turbinates. THROAT: No erythema or exudates. NECK: No masses, no JVD. CHEST: No chest wall deformity. LUNGS: Equal air entry with crackles right greater than left, diminished CVS: S1 and S2 normal with no audible murmur, regular rhythm. ABDOMEN: No hepatosplenomegaly, normal bowel sounds, no guarding or rigidity. SPINE: No scoliosis or deformity SKIN: No rashes CENTRAL NERVOUS SYSTEM: No focal deficits, tone is normal in all 4 extremities. EXTREMITIES: There is no peripheral edema. No clubbing, no cyanosis. Peripheral pulses are intact. Results - Laboratory Findings CBC and BMP: 03/29/20 10:52 03/28/20 14:14 PT/INR, D-dimer PT 10.6 sec (9.0-12.0) 03/28/20 14:14 INR 1.0 (<1.2) 03/28/20 14:14 Abnormal lab findings: Abnormal Labs 03/28/20 03/28/20 03/28/20 14:14 14:14 14:14 RBC 3.82 L Hgb 11.0 L Hct 33.9 L RDW 15.8 H Lymphocytes # VBG HCO3 Carbon Dioxide 31 H BUN 27 H Glucose 192 H POC Glucose (mg/dL) Plasma Lactic Acid Nasim 4.3 H* 03/28/20 03/29/20 03/29/20 14:14 10:52 12:26 RBC 3.49 L Hgb 10.3 L Hct 31.2 L RDW 15.7 H Lymphocytes # 0.8 L VBG HCO3 30 H Carbon Dioxide BUN Glucose POC Glucose (mg/dL) 237 H Plasma Lactic Acid Nasim - Diagnostic Findings Chest x-ray: image reviewed CT scan - chest: image reviewed Assessment and Plan Assessment: 1 Acute hypoxic respiratory failure secondary to a large right pleural effusion and consolidationatelectasis 2 acute exacerbation of her suspected diastolic congestive heart failure 3 History of valvular heart disease 4 History of severe pulmonary hypertension 5 Coronary disease with previous stent placement 6 Pretension 7 Hyperlipidemia 8 Diabetes mellitus 9 History of DVT 10 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 Gomez Ultrasound of the chest revealed significant right pleural effusion Status post right-sided thoracentesis with 1.8 L of yellow fluid removed Fluid sent for analysis and cytology Follow-up chest x-ray shows improved aeration and no pneumothorax Titrate down the FiO2 as tolerated Add Lasix 40 mg IV daily Continue antibiotics for now We will continue to follow and make further recommendations based on his clinical status I, the cosigning physician, performed a history & physical examination of the patient. Lungs sounds with crackles in the bilateral posterior bases right greater than left. Maintaining good O2 saturations in the 90s on BiPAP 12/5 and 50% FiO2. I discussed the assessment and plan of care with my nurse practitioner, Destiny Ramirez. I attest to the above consultation as dictated by her. Time with Patient: Greater than 30
[2020-03-29 15:31] LABS: Appearance,BF Clear; Color,BF Yellow; Nucleated Cells, Body Fluid 700 /uL; RBC, Body Fluid 270 /uL
[2020-03-29 16:27] LABS: Mononuclear WBC,Body Fluid 98 %; Polynuclear WBC,Body Fluid 2 %; Total Cells Counted,Body Fluid 100
[2020-03-29 16:43] LABS: Glucose,Whole Blood 130 mg/dL (75-99)
[2020-03-29] MEDS: carvediloL 6.25 MG TAB PO SCH (17:26)
[2020-03-29] MEDS: FUROSEMIDE 10 MG/ML 4 ML VIAL IV SCH (17:26)
[2020-03-29] MEDS: AZITHROMYCIN 500 MG in SODIUM CHLORIDE 0.9% 250 ML IVPB SCH (17:27)
[2020-03-29 18:18] LABS: African American GFR (CKD) 62.6 (60.0-200.0); Albumin 3.7 g/dL (3.80-4.90); Albumin/Globulin Ratio 1.95 (1.60-3.17); Anion Gap 7.9 mmol/L (4.00-12.00); Carbon Dioxide 31.1 mmol/L (21.6-31.8); Globulin 1.9 g/dL (1.6-3.3); Potassium 3.3 mmol/L (3.5-5.5); Total Bilirubin 0.7 mg/dL (0.2-1.2); Total Protein 5.6 g/dL (6.2-8.2)
[2020-03-29 20:25] LABS: Glucose,Whole Blood 194 mg/dL (75-99)
[2020-03-29] MEDS: allopurinoL 300 MG TAB PO SCH (20:58)
[2020-03-29] MEDS: LATANOPROST 0.005% OPHTH DROPS 2.5 ML BTL RIGHT EYE SCH (20:59)
[2020-03-29] MEDS: CHOLECALCIFEROL 1,000 UNIT TAB PO SCH (20:59)
[2020-03-29] MEDS: TIMOLOL 0.5% OPHTH DROPS 5 ML BTL RIGHT EYE SCH (20:59)
[2020-03-29] MEDS: BRIMONIDINE TARTRATE 0.2% DROPS 5 ML BTL RIGHT EYE SCH (20:59)
[2020-03-29] MEDS: ATORVASTATIN 40 MG TAB PO SCH (20:59)
[2020-03-29] MEDS: SODIUM CHLORIDE 0.9% 1,000 ML IV SCH (21:00)
[2020-03-30 00:07] LABS: Glucose, BF Source Pleural Fluid; Glucose, Body Fluid 190 mg/dL; LDH, Body Fluid Source Pleural Fluid; Total Protein, Body Fluid 3500 mg/dL
[2020-03-30 06:54] LABS: Basophils % (A) 0 %; Eosinophils # (A) 0.5 k/uL (0-0.7); Eosinophils % (A) 5 %; HCT 37.2 % (39.0-53.0); HGB 11.6 gm/dL (13.0-17.5); Lymphocytes # (A) 1.1 k/uL (1.0-4.8); Lymphocytes % (A) 13 %; MCH 27.9 pg (25.0-35.0); MCHC 31.3 g/dL (31.0-37.0); MCV 89.3 fL (80.0-100.0); Mean Platelet Volume 6.9; Monocytes # (A) 0.5 k/uL (0-1.0); Monocytes % (A) 6 %; Neutrophils # (A) 6.4 k/uL (1.3-7.7); Neutrophils % (A) 74 %; Platelet Count 276 k/uL (150-450); RBC 4.17 m/uL (4.30-5.90); RDW 15.9 % (11.5-15.5); WBC 8.6 k/uL (3.8-10.6)
[2020-03-30 07:13] LABS: Glucose,Whole Blood 158 mg/dL (75-99)
[2020-03-30] MEDS: INSULIN ASPART (NovoLOG) 100 UNIT/ML VIAL SQ SCH ×4 (08:02→21:43)
[2020-03-30] MEDS: hydroCHLOROthiazide 12.5 MG CAP PO SCH (08:02)
[2020-03-30] MEDS: CLOPIDOGREL 75 MG TAB PO SCH (08:02)
[2020-03-30] MEDS: BRIMONIDINE TARTRATE 0.2% DROPS 5 ML BTL RIGHT EYE SCH ×2 (08:02→21:28)
[2020-03-30] MEDS: FUROSEMIDE 10 MG/ML 4 ML VIAL IV SCH (08:02)
[2020-03-30] MEDS: CHOLECALCIFEROL 1,000 UNIT TAB PO SCH ×2 (08:02→21:30)
[2020-03-30] MEDS: carvediloL 6.25 MG TAB PO SCH ×2 (08:02→16:58)
[2020-03-30] MEDS: FAMOTIDINE 20 MG TAB PO SCH (08:02)
[2020-03-30] MEDS: amLODIPine 10 MG TAB PO SCH (08:02)
[2020-03-30] MEDS: TIMOLOL 0.5% OPHTH DROPS 5 ML BTL RIGHT EYE SCH ×2 (08:02→21:27)
[2020-03-30] MEDS: ASPIRIN 325 MG TAB PO SCH (08:02)
[2020-03-30] MEDS: ENOXAPARIN 40 MG/0.4 ML SYRINGE SQ SCH (08:03)
[2020-03-30 10:33] LABS: African American GFR (CKD) 78.1 (60.0-200.0); Albumin 3.9 g/dL (3.80-4.90); Albumin/Globulin Ratio 1.86 (1.60-3.17); Anion Gap 9.6 mmol/L (4.00-12.00); Calcium 9.2 mg/dL (8.7-10.3); Carbon Dioxide 34.4 mmol/L (21.6-31.8); Globulin 2.1 g/dL (1.6-3.3); Non-African American GFR(CKD) 67.4 (60.0-200.0); Potassium 3.2 mmol/L (3.5-5.5)
[2020-03-30 11:19] LABS: Glucose,Whole Blood 200 mg/dL (75-99)
[2020-03-30] MEDS ORDERED: Potassium Replacement Protocol 1 EACH MISC MISCELLANE PRN (12:09)
--- NOTE | 2020-03-30 12:12 | P.PN ---
Subjective Progress Note Date: 03/30/20 This is an 89-year-old male patient. Patient presented to the ER with complaints of shortness of breath for 24 hours. Patient's [id number] currently at bedside. Patient does have known dementia with short-term memory loss and is a poor historian. Per family at bedside shortness of breath started approximately 24 hours ago in which she became very short of breath with standing and activity. Family also noted wheezing. Patient did report have some cough. Denies any fevers. Patient does have a past medical history of coronary artery disease, CVA, diabetes mellitus, DVT, hyperlipidemia, hyp ertension, osteoarthritis, back pain, heart cath with stents and dementia. Patient currently resides with . Coronavirus was negative. Patient's lactic acid on admission 4.3. Repeat lactic acid 1.9. Chest CT was completed showing pleural effusions much larger on the right side by pulmonary c onsolidation and atelectasis there is some small infiltrate and atelectasis left posterior lung base. Patient was given IV antibiotics in ER. Pulmonary services have been consulted. Ultrasound of chest has been ordered for possible paracentesis. Patient is currently on BiPAP and requiring high flow oxygen while off BiPAP. Patient is currently resting comfortably in bed. Lung sounds are greatly diminished on the right compared to left. Patient denies any chest pain. Patient does reports shortness of breath. Patient denies nausea vomiting or diarrhea. Patient denies any urinary burning or frequency. On 03/30/2020 patient lying comfortably in bed is having intermittent episodes of confusion patient does have known past medical history of dementia. Patient's respiratory status has significantly improved currently on 4-5 L nasal cannula. Patient did undergo thoracentesis per pulmonary yesterday 1.8 L removed sent for cytology. Patient reports he does feel better. Patient denies chest pain. Patient denies nausea vomiting or diarrhea. Patient denies any urinary burning or frequency. Patient remains on IV antibiotics for possible pneumonia Objective - Vital Signs Vital signs: Vital Signs Temp 99.4 F 03/30/20 07:26 Pulse 109 H 03/30/20 07:26 Resp 19 03/30/20 12:01 BP 158/92 03/30/20 07:26 Pulse Ox 91 L 03/30/20 12:01 Intake & Output 03/29/20 03/30/20 03/30/20 18:59 06:59 18:59 Intake Total 1080 Balance 1080 Intake: Oral 1080 Other: Voiding Method Urinal Urinal # Voids 3 4 # Bowel Movements 1 - Exam Head normocephalic Neck supple Lungs diminished bilaterally greater on right than left Heart regular rate and rhythm S1-S2, no rub or gallop Abdomen is soft nontender nondistended positive bowel sounds no hepatosplenomegaly Extremities no edema Neuro Intermittent episodes of confusion. Dementia. - Labs CBC & Chem 7: 03/30/20 06:11 03/30/20 06:11 Labs: Abnormal Lab Results - Last 24 Hours (Table) 03/29/20 03/29/20 03/29/20 Range/Units 10:52 12:26 16:41 RBC (4.30-5.90) m/uL Hgb (13.0-17.5) gm/dL Hct (39.0-53.0) % RDW (11.5-15.5) % Potassium 3.3 L (3.5-5.5) mmol/L Carbon Dioxide (21.6-31.8) mmol/L Est GFR (CKD-EPI)NonAf 54.0 L (60.0-200.0) BUN/Creatinine Ratio (12.00-20.00) Ratio Glucose 234 H (70-110) mg/dL POC Glucose (mg/dL) 237 H 130 H (75-99) mg/dL AST 12 L (14-35) U/L ALT 9 L (10-49) U/L Total Protein 5.6 L (6.2-8.2) g/dL Albumin 3.70 L (3.80-4.90) g/dL 03/29/20 03/30/20 03/30/20 Range/Units 20:23 06:11 06:11 RBC 4.17 L (4.30-5.90) m/uL Hgb 11.6 L (13.0-17.5) gm/dL Hct 37.2 L (39.0-53.0) % RDW 15.9 H (11.5-15.5) % Potassium 3.2 L (3.5-5.5) mmol/L Carbon Dioxide 34.4 H (21.6-31.8) mmol/L Est GFR (CKD-EPI)NonAf (60.0-200.0) BUN/Creatinine Ratio 22.00 H (12.00-20.00) Ratio Glucose 137 H (70-110) mg/dL POC Glucose (mg/dL) 194 H (75-99) mg/dL AST (14-35) U/L ALT (10-49) U/L Total Protein 6.0 L (6.2-8.2) g/dL Albumin (3.80-4.90) g/dL 03/30/20 03/30/20 Range/Units 07:11 11:18 RBC (4.30-5.90) m/uL Hgb (13.0-17.5) gm/dL Hct (39.0-53.0) % RDW (11.5-15.5) % Potassium (3.5-5.5) mmol/L Carbon Dioxide (21.6-31.8) mmol/L Est GFR (CKD-EPI)NonAf (60.0-200.0) BUN/Creatinine Ratio (12.00-20.00) Ratio Glucose (70-110) mg/dL POC Glucose (mg/dL) 158 H 200 H (75-99) mg/dL AST (14-35) U/L ALT (10-49) U/L Total Protein (6.2-8.2) g/dL Albumin (3.80-4.90) g/dL Microbiology - Last 24 Hours (Table) 03/29/20 11:00 Gram Stain - Preliminary Pleural Fluid Body Fluid Culture - Preliminary 03/29/20 11:00 Fungal Culture - Preliminary Pleural Fluid 03/29/20 11:00 Acid Fast Bacilli Culture - Preliminary Pleural Fluid 03/28/20 15:52 Blood Culture - Preliminary Blood No Growth after 24 hours Assessment and Plan Assessment: 1. Dyspnea secondary to pleural effusion and possible pneumonia. 2. Pleural effusion status post thoracentesis. CT of abdomen completed showing pleural effusions much larger on the right side by pulmonary consolidation and atelectasis there is also some smaller infiltrate and atelectasis left posterior lung base. She did undergo thoracentesis 1.8 L removed on 03/29/2020. Cy tology pending pulmonary services following 3. Possible pneumonia. Chest x-ray was complaining showing pleural effusion correlate for bilateral pneumonia versus edema, follow-up recommended. Pulmo nary services have been consulted patient was given Rocephin and azithromycin. lactic acid elevated on admit 4. 3 repeat 1.9. Patient remains on Rocephin and azithromycin per pulmonary 4. History of coronary artery disease 5. 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 Chronic back pain 7. History of gout 8. Hyperlipidemia. Maintained on statin 9. History of essential hypertension 10. Diabetes mellitus type 2. Metformin currently on hold during hospitalization. Sliding scale insulin ordered DVT prophylaxis Lovenox. GI prophylaxis Pepcid Pulmonary service is following azithromycin and Rocephin for IV antibiotics Cytology from thoracentesis pending
[2020-03-30] MEDS: POTASSIUM CHLORIDE ER 20 MEQ TAB.ER PO SCH ×2 (12:37→14:08)
[2020-03-30] MEDS: SODIUM CHLORIDE 0.9% 1,000 ML IV SCH (14:09)
--- NOTE | 2020-03-30 15:21 | P.PN ---
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 He presented to the emergency room yesterday with complaints of increasing shortness of breath over the past several days worse than the last 24 hours. He had developed a bit of confusion as well. Asked x-ray revealed bilateral patchy densities with significant right-sided pleural effusion. Computed tomography scan of the chest confirmed pleural effusions right greater than left. Right pulmonary consolidation and atelectasis. Small infiltrate of the left posterior base. We're consulted for the same. He is seen today in consultation on the regular medical floor. Currently on BiPAP 12/5 and 50% FiO2. White count 6.3. H emoglobin 10.3. Sodium 140. Potassium 3.5. Creatinine 1.15. Hollins virus not detected. ProBNP 583. Troponin 0.014. The patient is seen today 03/30/2020 in follow-up on the regular medical floor. He is awake and alert in no acute distress. Resting comfortably in bed. Taking O2 saturations in the low 90s on 4 L/m per nasal cannula. He's been afebrile. He did undergo a right-sided thoracentesis yesterday at which 1.8 L of yellow fluid was removed. LDH 90, protein 3.5. White count 8.6. Hemoglobin 11.6. Sodium 142. Potassium 3.2. Creatinine 1.0. He remains on IV Lasix 40 mg daily . Antibiotics in the form of ceftriaxone and azithromycin. Objective - Vital Signs Vital signs: Vital Signs Temp 99.4 F 03/30/20 07:26 Pulse 109 H 03/30/20 07:26 Resp 19 03/30/20 12:01 BP 158/92 03/30/20 07:26 Pulse Ox 91 L 03/30/20 12:01 Intake & Output 03/29/20 03/30/20 03/30/20 18:59 06:59 18:59 Intake Total 1080 Output Total 1000 Balance 1080 -1000 Intake: Oral 1080 Output: Urine 1000 Other: Voiding Method Urinal Urinal # Voids 3 4 1 # Bowel Movements 1 - Exam GENERAL EXAM: Alert, pleasant 89-year-old gentleman, on 4 L nasal cannula O2 saturation 91%, fairly comfortable in no apparent distress. HEAD: Normocephalic. EYES: Normal reaction of pupils, equal size. NOSE: Clear with pink turbinates. THROAT: No erythema or exudates. NECK: No masses, no JVD. CHEST: No chest wall deformity. LUNGS: Equal air entry with crackles right greater than left, diminished CVS: S1 and S2 normal with no audible murmur, regular rhythm. ABDOMEN: No hepatosplenomegaly, normal bowel sounds, no guarding or rigidity. SPINE: No scoliosis or deformity SKIN: No rashes CENTRAL NERVOUS SYSTEM: No focal deficits, tone is normal in all 4 extremities. EXTREMITIES: There is no peripheral edema. No clubbing, no cyanosis. Periph eral pulses are intact. - Labs CBC & Chem 7: 03/30/20 06:11 03/30/20 06:11 Labs: Abnormal Lab Results - Last 24 Hours (Table) 03/29/20 03/29/20 03/29/20 Range/Units 10:52 16:41 20:23 RBC (4.30-5.90) m/uL Hgb (13.0-17.5) gm/dL Hct (39.0-53.0) % RDW (11.5-15.5) % Potassium 3.3 L (3.5-5.5) mmol/L Carbon Dioxide (21.6-31.8) mmol/L Est GFR (CKD-EPI)NonAf 54.0 L (60.0-200.0) BUN/Creatinine Ratio (12.00-20.00) Ratio Glucose 234 H (70-110) mg/dL POC Glucose (mg/dL) 130 H 194 H (75-99) mg/dL AST 12 L (14-35) U/L ALT 9 L (10-49) U/L Total Protein 5.6 L (6.2-8.2) g/dL Albumin 3.70 L (3.80-4.90) g/dL 03/30/20 03/30/20 03/30/20 Range/Units 06:11 06:11 07:11 RBC 4.17 L (4.30-5.90) m/uL Hgb 11.6 L (13.0-17.5) gm/dL Hct 37.2 L (39.0-53.0) % RDW 15.9 H (11.5-15.5) % Potassium 3.2 L (3.5-5.5) mmol/L Carbon Dioxide 34.4 H (21.6-31.8) mmol/L Est GFR (CKD-EPI)NonAf (60.0-200.0) BUN/Creatinine Ratio 22.00 H (12.00-20.00) Ratio Glucose 137 H (70-110) mg/dL POC Glucose (mg/dL) 158 H (75-99) mg/dL AST (14-35) U/L ALT (10-49) U/L Total Protein 6.0 L (6.2-8.2) g/dL Albumin (3.80-4.90) g/dL 03/30/20 Range/Units 11:18 RBC (4.30-5.90) m/uL Hgb (13.0-17.5) gm/dL Hct (39.0-53.0) % RDW (11.5-15.5) % Potassium (3.5-5.5) mmol/L Carbon Dioxide (21.6-31.8) mmol/L Est GFR (CKD-EPI)NonAf (60.0-200.0) BUN/Creatinine Ratio (12.00-20.00) Ratio Glucose (70-110) mg/dL POC Glucose (mg/dL) 200 H (75-99) mg/dL AST (14-35) U/L ALT (10-49) U/L Total Protein (6.2-8.2) g/dL Albumin (3.80-4.90) g/dL Microbiology - Last 24 Hours (Table) 03/29/20 11:00 Gram Stain - Preliminary Pleural Fluid Body Fluid Culture - Preliminary 03/29/20 11:00 Fungal Culture - Preliminary Pleural Fluid 03/29/20 11:00 Acid Fast Bacilli Culture - Preliminary Pleural Fluid 03/28/20 15:52 Blood Culture - Preliminary Blood No Growth after 24 hours Assessment and Plan Assessment: 1 Acute hypoxic respiratory failure secondary to a large right pleural effusion and consolidationatelectasis, status post thoracentesis 03/29/2020 with 1.8 L of yellow fluid removed. 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 Gomez Titrate down the FiO2 as tolerated Continue Lasix 40 mg IV daily Continue antibiotics for now We will continue to follow and make further recommendations based on his clinical status I, the cosigning physician, performed a history & physical examination of the patient. Lungs sounds with crackles in the bilateral posterior bases right greater than left. Maintaining good O2 saturations in the 90s on 4 L/m per nasal cannula. I discussed the assessment and plan of care with my nurse practitioner, Destiny Ramirez. I attest to the above note as dictated by her.
[2020-03-30 16:48] LABS: Glucose,Whole Blood 219 mg/dL (75-99)
[2020-03-30] MEDS: AZITHROMYCIN 500 MG in SODIUM CHLORIDE 0.9% 250 ML IVPB SCH (17:01)
[2020-03-30] MEDS: LATANOPROST 0.005% OPHTH DROPS 2.5 ML BTL RIGHT EYE SCH (21:28)
[2020-03-30] MEDS: allopurinoL 300 MG TAB PO SCH (21:30)
[2020-03-30] MEDS: ATORVASTATIN 40 MG TAB PO SCH (21:30)
[2020-03-30 21:42] LABS: Glucose,Whole Blood 191 mg/dL (75-99)
[2020-03-31 06:46] LABS: Basophils % (A) 0 %; Eosinophils # (A) 0.4 k/uL (0-0.7); Eosinophils % (A) 5 %; HCT 35.5 % (39.0-53.0); HGB 11.6 gm/dL (13.0-17.5); Lymphocytes # (A) 1.1 k/uL (1.0-4.8); Lymphocytes % (A) 12 %; MCH 28.6 pg (25.0-35.0); MCHC 32.6 g/dL (31.0-37.0); MCV 87.7 fL (80.0-100.0); Mean Platelet Volume 6.9; Monocytes # (A) 0.5 k/uL (0-1.0); Monocytes % (A) 6 %; Neutrophils # (A) 6.4 k/uL (1.3-7.7); Neutrophils % (A) 75 %; Platelet Count 277 k/uL (150-450); RBC 4.04 m/uL (4.30-5.90); RDW 15.6 % (11.5-15.5); WBC 8.6 k/uL (3.8-10.6)
[2020-03-31 07:23] LABS: Glucose,Whole Blood 144 mg/dL (75-99)
[2020-03-31] MEDS: INSULIN ASPART (NovoLOG) 100 UNIT/ML VIAL SQ SCH ×4 (07:32→21:48)
[2020-03-31] MEDS: FUROSEMIDE 10 MG/ML 4 ML VIAL IV SCH (08:37)
[2020-03-31] MEDS: CHOLECALCIFEROL 1,000 UNIT TAB PO SCH ×2 (08:37→20:39)
[2020-03-31] MEDS: ENOXAPARIN 40 MG/0.4 ML SYRINGE SQ SCH (08:38)
[2020-03-31] MEDS: carvediloL 6.25 MG TAB PO SCH ×2 (08:38→17:07)
[2020-03-31] MEDS: hydroCHLOROthiazide 12.5 MG CAP PO SCH (08:38)
[2020-03-31] MEDS: FAMOTIDINE 20 MG TAB PO SCH (08:38)
[2020-03-31] MEDS: ASPIRIN 325 MG TAB PO SCH (08:38)
[2020-03-31] MEDS: CLOPIDOGREL 75 MG TAB PO SCH (08:38)
[2020-03-31] MEDS: amLODIPine 10 MG TAB PO SCH (08:38)
[2020-03-31] MEDS: TIMOLOL 0.5% OPHTH DROPS 5 ML BTL RIGHT EYE SCH ×2 (08:39→20:38)
[2020-03-31] MEDS: BRIMONIDINE TARTRATE 0.2% DROPS 5 ML BTL RIGHT EYE SCH ×2 (08:39→20:38)
[2020-03-31 09:22] LABS: African American GFR (CKD) 69.6 (60.0-200.0); Albumin 3.9 g/dL (3.80-4.90); Albumin/Globulin Ratio 1.77 (1.60-3.17); Anion Gap 11.7 mmol/L (4.00-12.00); BUN/Creat Ratio 19.09 Ratio (12.00-20.00); Calcium 9.4 mg/dL (8.7-10.3); Carbon Dioxide 34.3 mmol/L (21.6-31.8); Globulin 2.2 g/dL (1.6-3.3); Potassium 3.2 mmol/L (3.5-5.5); Total Bilirubin 1.3 mg/dL (0.2-1.2); Total Protein 6.1 g/dL (6.2-8.2)
[2020-03-31] MEDS ORDERED: LORazepam 2 MG/ML INJ IV PRN (10:12)
[2020-03-31] MEDS: POTASSIUM CHLORIDE ER 20 MEQ TAB.ER PO SCH ×2 (10:22→11:27)
[2020-03-31 11:28] LABS: Glucose,Whole Blood 149 mg/dL (75-99)
--- NOTE | 2020-03-31 12:09 | P.PN ---
Subjective Progress Note Date: 03/31/20 89-year-old male patient who came in with acute hypoxic respiratory failure and a large right-sided pleural effusion. The patient is known to have diabetes and hypertension hyperlipidemia and sister rule out ischemic coronary artery disease. The patient had a significant right-sided pleural effusion. A total of 100 mL of fluid was removed. The fluid was exudate based on protein criteria with the fluids protein was around 3.5 with an LDH of 90 Nevertheless, they possible. Transudate cannot be completely excluded. The patient is currently on IV Lasix 40 mg on a daily basis. He is also being treated with accommodation Rocephin and Zithromax.the patient is currently on 4 L of oxygen by nasal c annula with a pulse ox of 91%. His breathing is nonlabored at this point.. overnight, the patient was admitted confused and restless aand had some delirium..The patient does have some underlying short-term memory loss because of a previous history of a CVA. He was given Ativan overnight.according to the [id number], the patient has also some difficulties with swallowing on outpatient basis. Objective - Vital Signs Vital signs: Vital Signs Temp 98.2 F 03/30/20 19:40 Pulse 111 H 03/31/20 09:58 Resp 18 03/31/20 07:00 BP 128/63 03/31/20 07:00 Pulse Ox 90 L 03/31/20 07:00 Intake & Output 03/30/20 03/31/20 03/31/20 18:59 06:59 18:59 Output Total 3100 Balance -3100 Output: Urine 3100 Other: Voiding Method Urinal Urinal # Voids 2 5 2 # Bowel Movements 1 - Exam GENERAL EXAM: Alert, pleasant 89-year-old gentleman, on 4 L nasal cannula O2 saturation 91%, fairly comfortable in no apparent distress. HEAD: Normocephalic. EYES: Normal reaction of pupils, equal size. NOSE: Clear with pink turbinates. THROAT: No erythema or exudates. NECK: No masses, no JVD. CHEST: No chest wall deformity. LUNGS: Equal air entry with crackles right greater than left, diminished CVS: S1 and S2 normal with no audible murmur, regular rhythm. ABDOMEN: No hepatosplenomegaly, normal bowel sounds, no guarding or rigidity. SPINE: No scoliosis or deformity SKIN: No rashes CENTRAL NERVOUS SYSTEM: No focal deficits, tone is normal in all 4 extremities. EXTREMITIES: There is no peripheral edema. No clubbing, no cyanosis. Peripheral pulses are intact. - Labs CBC & Chem 7: 03/31/20 05:51 03/31/20 05:51 Labs: Abnormal Lab Results - Last 24 Hours (Table) 03/30/20 03/30/20 03/31/20 Range/Units 16:46 21:41 05:51 RBC 4.04 L (4.30-5.90) m/uL Hgb 11.6 L (13.0-17.5) gm/dL Hct 35.5 L (39.0-53.0) % RDW 15.6 H (11.5-15.5) % Potassium (3.5-5.5) mmol/L Chloride (96-109) mmol/L Carbon Dioxide (21.6-31.8) mmol/L Glucose (70-110) mg/dL POC Glucose (mg/dL) 219 H 191 H (75-99) mg/dL Total Bilirubin (0.2-1.2) mg/dL Total Protein (6.2-8.2) g/dL 03/31/20 03/31/20 03/31/20 Range/Units 05:51 07:22 11:27 RBC (4.30-5.90) m/uL Hgb (13.0-17.5) gm/dL Hct (39.0-53.0) % RDW (11.5-15.5) % Potassium 3.2 L (3.5-5.5) mmol/L Chloride 95 L (96-109) mmol/L Carbon Dioxide 34.3 H (21.6-31.8) mmol/L Glucose 136 H (70-110) mg/dL POC Glucose (mg/dL) 144 H 149 H (75-99) mg/dL Total Bilirubin 1.3 H (0.2-1.2) mg/dL Total Protein 6.1 L (6.2-8.2) g/dL Microbiology - Last 24 Hours (Table) 03/29/20 11:00 Acid Fast Bacilli Smear - Final Pleural Fluid Acid Fast Bacilli Culture - Preliminary 03/28/20 15:52 Blood Culture - Preliminary Blood No Growth after 48 hours 03/29/20 11:00 Gram Stain - Preliminary Pleural Fluid Body Fluid Culture - Preliminary Assessment and Plan Plan: 1 Acute hypoxic respiratory failure secondary to a large right pleural effusion and consolidationatelectasis, status post thoracentesis 03/29/2020 with 1.8 L of yellow fluid removed. 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 Plan: the fluid is an exudate based on the protein criteria. The patient's fluid cytology still pending for now. Consider parapneumonic effusion. Consider malignancy. Repeat chest x-ray. Obtain an echocardiogram to assess LV function. The patient has some underlying edema this point in time and family i s at the bedside. Titrate down the FiO2 as tolerated Continue Lasix 40 mg IV daily Continue antibiotics for now the patient has a DNR/DNI Code Status.
--- NOTE | 2020-03-31 14:08 | XR ---
EXAMINATION TYPE: XR chest 1V DATE OF EXAM: 03/31/2020 COMPARISON: 03/29/2020 HISTORY: Follow-up pleural effusion TECHNIQUE: Single frontal view of the chest is obtained. FINDINGS: Bibasilar infiltrate and small bilateral effusions. Interstitial pattern. Limited inspirat ion. Arthropathy of the shoulders. No pneumonia IMPRESSION: Stable bilateral infiltrate and small right effusion.
[2020-03-31] MEDS: LORazepam 2 MG/ML INJ IV PRN (14:25)
[2020-03-31] MEDS: SODIUM CHLORIDE 0.9% 1,000 ML IV SCH (14:25)
[2020-03-31] MEDS: AZITHROMYCIN 500 MG in SODIUM CHLORIDE 0.9% 250 ML IVPB SCH (15:10)
--- NOTE | 2020-03-31 15:57 | CT ---
EXAMINATION TYPE: CT brain wo con DATE OF EXAM: 03/31/2020 HISTORY: Mental status changes CT DLP: 1201.4 mGycm. Automated Exposure Control for Dose Reduction was Utilized. TECHNIQUE: CT scan of the head is performed without contrast. COMPARISON: CT brain July 28, 2018. MRI brain January 30, 2018 FINDINGS: There is no acute intracranial hemorrhage or midline shift identified. There is diffuse v entricular and sulcal prominence consistent with diffuse age-related cerebral atrophy. There is low- attenuation in the periventricular white matter consistent with chronic small vessel ischemic change. Old infarct right frontal lobe anterior watershed region redemonstrated. Old infarct left basal john paul glia region again seen. Persistent mucosal thickening and mucous retention cyst and/or polyp in the r ight maxillary sinus. IMPRESSION: No acute intracranial hemorrhage or midline shift. There is moderate diffuse cerebral a trophy and chronic small vessel ischemic change redemonstrated along with old bilateral infarcts agai n seen.
[2020-03-31 16:34] LABS: Glucose,Whole Blood 153 mg/dL (75-99)
--- NOTE | 2020-03-31 17:27 | P.PN ---
Subjective Progress Note Date: 03/31/20 This is an 89-year-old male patient. Patient presented to the ER with complaints of shortness of breath for 24 hours. Patient's [id number] currently at bedside. Patient does have known dementia with short-term memory loss and is a poor historian. Per family at bedside shortness of breath started approximately 24 hours ago in which she became very short of breath with standing and activity. Family also noted wheezing. Patient did report have some cough. Denies any fevers. Patient does have a past medical history of coronary artery disease, CVA, diabetes mellitus, DVT, hyperlipidemia, hyp ertension, osteoarthritis, back pain, heart cath with stents and dementia. Patient currently resides with . Coronavirus was negative. Patient's lactic acid on admission 4.3. Repeat lactic acid 1.9. Chest CT was completed showing pleural effusions much larger on the right side by pulmonary c onsolidation and atelectasis there is some small infiltrate and atelectasis left posterior lung base. Patient was given IV antibiotics in ER. Pulmonary services have been consulted. Ultrasound of chest has been ordered for possible paracentesis. Patient is currently on BiPAP and requiring high flow oxygen while off BiPAP. Patient is currently resting comfortably in bed. Lung sounds are greatly diminished on the right compared to left. Patient denies any chest pain. Patient does reports shortness of breath. Patient denies nausea vomiting or diarrhea. Patient denies any urinary burning or frequency. On 03/30/2020 patient lying comfortably in bed is having intermittent episodes of confusion patient does have known past medical history of dementia. Patient's respiratory status has significantly improved currently on 4-5 L nasal cannula. Patient did undergo thoracentesis per pulmonary yesterday 1.8 L removed sent for cytology. Patient reports he does feel better. Patient denies chest pain. Patient denies nausea vomiting or diarrhea. Patient denies any urinary burning or frequency. Patient remains on IV antibiotics for possible pneumonia. On 03/31/2020 patient was seen and examined on the medical floor he had significant worsening of his condition since yesterday patient developed agitation and confusion requiring use of IV Ativan, patient was significantly agitated, there is evidence of left sided facial drooping, at this time will obtain computed tomography scan of the brain without contrast, will consult neurology, otherwise continue current antibiotics Objective - Vital Signs Vital signs: Vital Signs Temp 99.2 F 12/07/20 15:00 Pulse 85 03/31/20 15:00 Resp 16 03/31/20 15:00 BP 148/76 03/31/20 15:00 Pulse Ox 94 L 03/31/20 15:00 Intake & Output 03/30/20 03/31/20 03/31/20 18:59 06:59 18:59 Output Total 3100 Balance -3100 Output: Urine 3100 Other: Voiding Method Urinal Urinal # Voids 2 5 2 # Bowel Movements 1 - Exam Head normocephalic Neck supple Lungs diminished bilaterally greater on right than left Heart regular rate and rhythm S1-S2, no rub or gallop Abdomen is soft nontender nondistended positive bowel sounds no hepatosplenomegaly Extremities no edema Neuro Intermittent episodes of confusion. Dementia. - Labs CBC & Chem 7: 03/31/20 05:51 03/31/20 05:51 Labs: Abnormal Lab Results - Last 24 Hours (Table) 03/30/20 03/31/20 03/31/20 Range/Units 21:41 05:51 05:51 RBC 4.04 L (4.30-5.90) m/uL Hgb 11.6 L (13.0-17.5) gm/dL Hct 35.5 L (39.0-53.0) % RDW 15.6 H (11.5-15.5) % Potassium 3.2 L (3.5-5.5) mmol/L Chloride 95 L (96-109) mmol/L Carbon Dioxide 34.3 H (21.6-31.8) mmol/L Glucose 136 H (70-110) mg/dL POC Glucose (mg/dL) 191 H (75-99) mg/dL Total Bilirubin 1.3 H (0.2-1.2) mg/dL Total Protein 6.1 L (6.2-8.2) g/dL 03/31/20 03/31/20 03/31/20 Range/Units 07:22 11:27 16:33 RBC (4.30-5.90) m/uL Hgb (13.0-17.5) gm/dL Hct (39.0-53.0) % RDW (11.5-15.5) % Potassium (3.5-5.5) mmol/L Chloride (96-109) mmol/L Carbon Dioxide (21.6-31.8) mmol/L Glucose (70-110) mg/dL POC Glucose (mg/dL) 144 H 149 H 153 H (75-99) mg/dL Total Bilirubin (0.2-1.2) mg/dL Total Protein (6.2-8.2) g/dL Microbiology - Last 24 Hours (Table) 03/29/20 11:00 Acid Fast Bacilli Smear - Final Pleural Fluid Acid Fast Bacilli Culture - Preliminary 03/28/20 15:52 Blood Culture - Preliminary Blood No Growth after 48 hours 03/29/20 11:00 Gram Stain - Preliminary Pleural Fluid Body Fluid Culture - Preliminary Assessment and Plan Assessment: 1. Dyspnea secondary to pleural effusion and possible pneumonia. 2. Pleural effusion status post thoracentesis. CT of abdomen completed showing pleural effusions much larger on the right side by pulmonary consolidation and atelectasis there is also some smaller infiltrate and atelectasis left posterior lung base. She did undergo thoracentesis 1.8 L removed on 03/29/2020. Cytology pending pulmonary services following 3. Possible pneumonia. Chest x-ray was complaining showing pleural effusion correlate for bilateral pneumonia versus edema, follow-up recommended. Pulmonary services have been consulted patient was given Rocephin and azithromycin. lactic acid elevated on admit 4. 3 repeat 1.9. Patient remains on Rocephin and azithromycin per pulmonary 4. History of coronary artery disease 5. 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 Chronic back pain 7. History of gout 8. Hyperlipidemia. Maintained on statin 9. History of essential hypertension 10. Diabetes mellitus type 2. Metformin currently on hold during hospitalization. Sliding scale insulin ordered DVT prophylaxis Lovenox. GI prophylaxis Pepcid Pulmonary service is following azithromycin and Rocephin for IV antibiotics Cytology from thoracentesis pending
--- NOTE | 2020-03-31 19:51 | P.CNNES ---
History of Present Illness Consult date: 03/31/20 Requesting physician: Yoshi Vang Reason for Consult: Mental status change History of Present Illness: Patient is a 89-year-old male came to the hospital on 03/28/2020 for difficulty breathing for 24 hours prior to arrival. Patient has multiple comorbidities. Patient was slightly confused over couple days prior to arrival. No fever chills or night sweats or cough. Patient not able to provide any history. Patient's [id number] was present, who informed me that on Tuesday, patient came to ER and was found to have fluid on the lungs. He was also noted to be confused and his confusion has been getting worse. Today he was not able to recognize his primary physician which he knows for long time. His daught er-in-law also noticed that he was missing his mouth while eating. She also noticed that he was also jerking. This prompted neurology consultation. No new focal symptoms have been reported. Patient's vitals on arrival blood pressure was 123/66 pulse 73 temperature 97.5. Chest x-ray showed pleural effusion, correlate for bilateral pneumonia versus edema. CT of the chest showed pleural effusion much larger on the right side. Right pulmonary consolidation and atelectasis. There is also some smaller infiltrate and atelectasis left posterior lung base. Patient underwent thoracentesis and 1.8 later. No fluid was removed. Patient's chest x-ray showed stable bilateral infiltrate and small right effusion. Patient's blood test shows WBC 8.6 hemoglobin 11.6, platelets 277, sodium is normal potassium 3.2, normal renal functions. Hepatic panel is normal. Patient's hemoglobin A1c 7.1 on 12/12/2019. TSH normal at 2.34 on 12/12/2019. Hollins virus PCR negative. Patient has been started on Zithromax 500 mg every 24 hours and Rocephin 1 mg every 24 hours. Patient is also on aspirin 325 mg, Lipitor 40 mg, Plavix 75 mg and Lovenox 40 mg daily. Patient's [id number] states that patient has history of stroke once in 2017 and twice in 2018. He did not have any residual deficits like facial droop, or focal weakness, although he did have some shuffle while walking and short-term memory loss and loss of vision in the right eye. On reviewing his records, his MRI of the brain was positive for subacute infarcts, small in different vascular distribution, on 02/07/2018. Patient's MRA of the neck from 02/07/2018 showed high-grade stenosis involving the common carotid, right internal carotid artery. Stenosis not felt likely to be significantly within the proximal ICA on the le ft. Atheromatous changes involving the vertebral artery on the right also noted. MRA of the brain was normal. Review of Systems ROS unobtainable: due to mental status Past Medical History Past Medical History: Coronary Artery Disease (CAD), CVA/TIA, Diabetes Mellitus, Deep Vein Thrombosis (DVT), Hyperlipidemia, Hypertension, Osteoarthritis (OA) Additional Past Medical History / Comment(s): hx of gout, DVT of the leg several years ago. 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 RADHA Past Anesthesia/Blood Transfusion Reactions: No Reported Reaction Date of Last Stent Placement:: 03/10/2017 Past Psychological History: No Psychological Hx Reported Additional Psychological History / Comment(s): Pt resides with his spouse. Use wakler with wheels to ambulate. Smoking Status: Former smoker Past Alcohol Use History: None Reported Additional Past Alcohol Use History / Comment(s): Pt smoked pipe or cigars on occasion. STARTED SMOKING PIPE AND CIGAR AT AGE 22 He QUIT SMOKING AT AGE 57 Past Drug Use History: None Reported - Past Family History Father Family Medical History: Coronary Artery Disease (CAD) Additional Family Medical History / Comment(s): Father had heart problems and at the age of 72. Mother Family Medical History: Cancer Additional Family Medical History / Comment(s): Mother of bladder cancer at the age of 64 yrs. Medications and Allergies Home Medications Medication Instructions Recorded Confirmed Type Acetaminophen Tab [Tylenol] 500 mg PO Q6H PRN 02/24/17 03/28/20 History Cholecalciferol [Vitamin D3 (25 1,000 unit PO BID 02/24/17 03/28/20 History Mcg = 1000 Iu)] Cyclobenzaprine [Flexeril] 10 mg PO HS 02/24/17 03/28/20 History allopurinoL [Zyloprim] 300 mg PO HS 02/24/17 03/28/20 History Clopidogrel [Plavix] 75 mg PO DAILY #90 tab 03/11/17 03/28/20 Rx Nitroglycerin Sl Tabs [Nitrostat] 0.4 mg SUBLINGUAL Q5M PRN #25 tab 03/11/17 03/28/20 Rx metFORMIN HCL [Glucophage] 500 mg PO BID 07/27/18 03/28/20 History Brimonidine Tartrate/Timolol 1 drop RIGHT EYE BID 07/30/18 03/28/20 History [Combigan 0.2%-0.5% Eye Drops] Latanoprost [Xalatan 0.005%] 1 drop RIGHT EYE HS 07/30/18 03/28/20 History Atorvastatin [Lipitor] 40 mg PO HS #30 tab 07/31/18 03/28/20 Rx amLODIPine [Norvasc] 10 mg PO DAILY #30 tab 07/31/18 03/28/20 Rx carvediloL [Coreg] 6.25 mg PO BID-W/MEALS #60 tab 07/31/18 03/28/20 Rx Aspirin EC [Ecotrin] 325 mg PO DAILY 03/28/20 03/28/20 History Glucos Sul 2Kcl/MSM/Chond/C/Mn 1 tab PO HS 03/28/20 03/28/20 History [Glucosamine Chondroitin Cap] Hydrochlorothiazide 12.5 mg PO DAILY 03/28/20 03/28/20 History [hydroCHLOROthiazide] Allergies Allergy/AdvReac Type Severity Reaction Status Date / Time No Known Allergies Allergy Verified 03/28/20 15:05 Physical Examination - Vital Signs Vital Signs: Vital Signs Temp Pulse Resp BP BP Pulse Ox 03/31/20 09:58 111 H 03/31/20 08:15 91 L 03/31/20 07:00 111 H 18 128/63 90 L 03/30/20 20:00 17 03/30/20 19:40 98.2 F 100 20 175/81 91 L Intake and Output 03/31/20 03/31/20 03/31/20 06:59 14:59 22:59 Other: Voiding Method Urinal # Voids 5 2 # Bowel Movements 1 On examination patient is an elderly male, who appears obviously encephalopathic, in mild respiratory distress. He does not open his eyes, or follows commands. Speech and language functions could not be assessed. He is slightly mumbles. 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 He appears to have slight myoclonic jerks. Face is symmetric. Tone was increased in the right arm at first but then appeared equal bilaterally. Patient withdraws to painful stimuli bilaterally. Patient does not cooperate with the exam. He withdraws to plantar stimulation equally. Sensory, cerebellar functions could not be tested. Patient has some crackles. Abdomen is soft. Mild peripheral edema. Results - Laboratory Findings CBC and BMP: 03/31/20 05:51 03/31/20 05:51 Abnormal Lab Findings: Abnormal Labs 03/28/20 03/28/20 03/28/20 14:14 14:14 14:14 RBC 3.82 L Hgb 11.0 L Hct 33.9 L RDW 15.8 H Lymphocytes # VBG HCO3 Potassium Chloride Carbon Dioxide 31 H BUN 27 H Est GFR (CKD-EPI)NonAf BUN/Creatinine Ratio Glucose 192 H POC Glucose (mg/dL) Plasma Lactic Acid Nasim 4.3 H* Total Bilirubin AST ALT Total Protein Albumin 03/28/20 03/29/20 03/29/20 14:14 10:52 10:52 RBC 3.49 L Hgb 10.3 L Hct 31.2 L RDW 15.7 H Lymphocytes # 0.8 L VBG HCO3 30 H Potassium 3.3 L Chloride Carbon Dioxide BUN Est GFR (CKD-EPI)NonAf 54.0 L BUN/Creatinine Ratio Glucose 234 H POC Glucose (mg/dL) Plasma Lactic Acid Nasim Total Bilirubin AST 12 L ALT 9 L Total Protein 5.6 L Albumin 3.70 L 03/29/20 03/29/20 03/29/20 12:26 16:41 20:23 RBC Hgb Hct RDW Lymphocytes # VBG HCO3 Potassium Chloride Carbon Dioxide BUN Est GFR (CKD-EPI)NonAf BUN/Creatinine Ratio Glucose POC Glucose (mg/dL) 237 H 130 H 194 H Plasma Lactic Acid Nasim Total Bilirubin AST ALT Total Protein Albumin 03/30/20 03/30/20 03/30/20 06:11 06:11 07:11 RBC 4.17 L Hgb 11.6 L Hct 37.2 L RDW 15.9 H Lymphocytes # VBG HCO3 Potassium 3.2 L Chloride Carbon Dioxide 34.4 H BUN Est GFR (CKD-EPI)NonAf BUN/Creatinine Ratio 22.00 H Glucose 137 H POC Glucose (mg/dL) 158 H Plasma Lactic Acid Nasim Total Bilirubin AST ALT Total Protein 6.0 L Albumin 03/30/20 03/30/20 03/30/20 11:18 16:46 21:41 RBC Hgb Hct RDW Lymphocytes # VBG HCO3 Potassium Chloride Carbon Dioxide BUN Est GFR (CKD-EPI)NonAf BUN/Creatinine Ratio Glucose POC Glucose (mg/dL) 200 H 219 H 191 H Plasma Lactic Acid Nasim Total Bilirubin AST ALT Total Protein Albumin 03/31/20 03/31/20 03/31/20 05:51 05:51 07:22 RBC 4.04 L Hgb 11.6 L Hct 35.5 L RDW 15.6 H Lymphocytes # VBG HCO3 Potassium 3.2 L Chloride 95 L Carbon Dioxide 34.3 H BUN Est GFR (CKD-EPI)NonAf BUN/Creatinine Ratio Glucose 136 H POC Glucose (mg/dL) 144 H Plasma Lactic Acid Nasim Total Bilirubin 1.3 H AST ALT Total Protein 6.1 L Albumin 03/31/20 11:27 RBC Hgb Hct RDW Lymphocytes # VBG HCO3 Potassium Chloride Carbon Dioxide BUN Est GFR (CKD-EPI)NonAf BUN/Creatinine Ratio Glucose POC Glucose (mg/dL) 149 H Plasma Lactic Acid Nasim Total Bilirubin AST ALT Total Protein Albumin Assessment and Plan Assessment: * Altered mental status, likely due to toxic metabolic encephalopathy. * Dyspnea, secondary to pleural effusion and possible pneumonia. Status post thoracentesis. 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 * Severe right ICA stenosis as per MRA from 02/07/2018. * Chronic back pain * Hypertension, diabetes Plan: * Patient probably has toxic metabolic encephalopathy. He has myoclonic jerks, which also can be seen with TME. We will check EEG to evaluate for encephalopathy rule out any seizure activity. * Medical management as per IM/pulmonary. * Patient has history of severe right ICA stenosis. I spoke to patient's daughter, who informed me that patient's case investigator Dr. Garcia, as well as another surgeon at [facility] tried to put a stent in the right ICA, and each time it was unsuccessful. At present patient is on medical management. * Continue dual antiplatelet medications and statins. * We will check B12, folate. TSH is normal. * Neurology will follow
[2020-03-31] MEDS: LATANOPROST 0.005% OPHTH DROPS 2.5 ML BTL RIGHT EYE SCH (20:38)
[2020-03-31] MEDS: allopurinoL 300 MG TAB PO SCH (20:39)
[2020-03-31] MEDS: ATORVASTATIN 40 MG TAB PO SCH (20:39)
[2020-03-31 21:42] LABS: Glucose,Whole Blood 126 mg/dL (75-99)
[2020-04-01 06:54] LABS: Glucose,Whole Blood 107 mg/dL (75-99)
[2020-04-01 06:58] LABS: Basophils # (A) 0.1 k/uL (0-0.2); Basophils % (A) 1 %; Eosinophils # (A) 0.6 k/uL (0-0.7); Eosinophils % (A) 8 %; HCT 38.2 % (39.0-53.0); HGB 12.4 gm/dL (13.0-17.5); Lymphocytes # (A) 0.9 k/uL (1.0-4.8); Lymphocytes % (A) 12 %; MCH 28.9 pg (25.0-35.0); MCHC 32.5 g/dL (31.0-37.0); MCV 88.8 fL (80.0-100.0); Monocytes # (A) 0.5 k/uL (0-1.0); Monocytes % (A) 7 %; Neutrophils # (A) 5.2 k/uL (1.3-7.7); Neutrophils % (A) 70 %; Platelet Count 281 k/uL (150-450); RDW 15.5 % (11.5-15.5); WBC 7.4 k/uL (3.8-10.6)
[2020-04-01 07:21] LABS: Folate, Serum 11.9 ng/mL
[2020-04-01] MEDS: INSULIN ASPART (NovoLOG) 100 UNIT/ML VIAL SQ SCH ×4 (07:45→21:06)
[2020-04-01] MEDS: CHOLECALCIFEROL 1,000 UNIT TAB PO SCH ×2 (07:51→20:28)
[2020-04-01] MEDS: CLOPIDOGREL 75 MG TAB PO SCH (07:51)
[2020-04-01] MEDS: hydroCHLOROthiazide 12.5 MG CAP PO SCH (07:51)
[2020-04-01] MEDS: ASPIRIN 325 MG TAB PO SCH (07:52)
[2020-04-01] MEDS: carvediloL 6.25 MG TAB PO SCH ×2 (07:52→17:07)
[2020-04-01] MEDS: FUROSEMIDE 10 MG/ML 4 ML VIAL IV SCH (07:52)
[2020-04-01] MEDS: amLODIPine 10 MG TAB PO SCH (07:52)
[2020-04-01] MEDS: ENOXAPARIN 40 MG/0.4 ML SYRINGE SQ SCH (07:52)
[2020-04-01] MEDS: FAMOTIDINE 20 MG TAB PO SCH (07:52)
[2020-04-01] MEDS: BRIMONIDINE TARTRATE 0.2% DROPS 5 ML BTL RIGHT EYE SCH ×2 (07:53→20:28)
[2020-04-01] MEDS: TIMOLOL 0.5% OPHTH DROPS 5 ML BTL RIGHT EYE SCH ×2 (08:00→20:29)
[2020-04-01 09:46] LABS: African American GFR (CKD) 62.6 (60.0-200.0); Albumin 4.1 g/dL (3.80-4.90); Albumin/Globulin Ratio 1.86 (1.60-3.17); Anion Gap 10.6 mmol/L (4.00-12.00); BUN/Creat Ratio 21.67 Ratio (12.00-20.00); Calcium 9.9 mg/dL (8.7-10.3); Carbon Dioxide 37.4 mmol/L (21.6-31.8); Globulin 2.2 g/dL (1.6-3.3); Potassium 3.8 mmol/L (3.5-5.5); Total Bilirubin 1.2 mg/dL (0.2-1.2); Total Protein 6.3 g/dL (6.2-8.2)
--- NOTE | 2020-04-01 11:37 | P.PN ---
Subjective Progress Note Date: 04/01/20 89-year-old male patient who came in with acute hypoxic respiratory failure and a large right-sided pleural effusion. The patient is known to have diabetes and hypertension hyperlipidemia and sister rule out ischemic coronary artery disease. The patient had a significant right-sided pleural effusion. A total of 100 mL of fluid was removed. The fluid was exudate based on protein criteria with the fluids protein was around 3.5 with an LDH of 90 Nevertheless, they possible. Transudate cannot be completely excluded. The patient is currently on IV Lasix 40 mg on a daily basis. He is also being treated with accommodation Rocephin and Zithromax.the patient is currently on 4 L of oxygen by nasal c annula with a pulse ox of 91%. His breathing is nonlabored at this point.. overnight, the patient was admitted confused and restless aand had some delirium..The patient does have some underlying short-term memory loss because of a previous history of a CVA. He was given Ativan overnight.according to the xirarnyl-nr-udg, the patient has also some difficulties with swallowing on outpatient basis. On today's evaluation of 04/01/2020, the patient remains on 4 L of oxygen by nasal cannula. I repeated her chest x-ray and the patient is small right-sided pleural effusion which is stable along with some volume loss in the right lower lobe area. The patient's has pleural fluid cytology results of which are still pending for now. The patient does not have any signs of respiratory distress. He was having some difficulty with agitation and confusion overnight. He was given IV Ativan. CAT scan of the brain showed old ischemic changes along with old infarcts and brain atrophy. No other new complaints otherwise for now. He is sitting up on a recliner. Erythematous my evaluation this morning, the patient was not aware of his location.he was also not aware of the year and the place of the time. Objective - Vital Signs Vital signs: Vital Signs Temp 97.8 F 04/01/20 07:33 Pulse 83 04/01/20 07:33 Resp 16 04/01/20 08:04 BP 157/78 04/01/20 07:33 Pulse Ox 95 04/01/20 07:33 Intake & Output 03/31/20 04/01/20 04/01/20 18:59 06:59 18:59 Other: Voiding Method Urinal # Voids 1 # Bowel Movements 1 - Exam GENERAL EXAM: Alert, pleasant 89-year-old gentleman, on 4 L nasal cannula O2 saturation 91%, fairly comfortable in no apparent distress. HEAD: Normocephalic. EYES: Normal reaction of pupils, equal size. NOSE: Clear with pink turbinates. THROAT: No erythema or exudates. NECK: No masses, no JVD. CHEST: No chest wall deformity. LUNGS: Equal air entry with crackles right greater than left, diminished CVS: S1 and S2 normal with no audible murmur, regular rhythm. ABDOMEN: No hepatosplenomegaly, normal bowel sounds, no guarding or rigidity. SPINE: No scoliosis or deformity SKIN: No rashes CENTRAL NERVOUS SYSTEM: No focal deficits, tone is normal in all 4 extremities. EXTREMITIES: There is no peripheral edema. No clubbing, no cyanosis. Peripheral pulses are intact. - Labs CBC & Chem 7: 04/01/20 06:18 04/01/20 06:18 Labs: Abnormal Lab Results - Last 24 Hours (Table) 03/31/20 03/31/20 04/01/20 Range/Units 16:33 21:40 06:18 Hgb 12.4 L (13.0-17.5) gm/dL Hct 38.2 L (39.0-53.0) % Lymphocytes # 0.9 L (1.0-4.8) k/uL Chloride (96-109) mmol/L Carbon Dioxide (21.6-31.8) mmol/L Est GFR (CKD-EPI)NonAf (60.0-200.0) BUN/Creatinine Ratio (12.00-20.00) Ratio POC Glucose (mg/dL) 153 H 126 H (75-99) mg/dL 04/01/20 04/01/20 Range/Units 06:18 06:52 Hgb (13.0-17.5) gm/dL Hct (39.0-53.0) % Lymphocytes # (1.0-4.8) k/uL Chloride 95 L (96-109) mmol/L Carbon Dioxide 37.4 H (21.6-31.8) mmol/L Est GFR (CKD-EPI)NonAf 54.0 L (60.0-200.0) BUN/Creatinine Ratio 21.67 H (12.00-20.00) Ratio POC Glucose (mg/dL) 107 H (75-99) mg/dL Microbiology - Last 24 Hours (Table) 03/28/20 15:52 Blood Culture - Preliminary Blood No Growth after 72 hours Assessment and Plan Plan: 1 Acute hypoxic respiratory failure secondary to a large right pleural effusion and consolidationatelectasis, status post thoracentesis 03/29/2020 with 1.8 L of yellow fluid removed. Cultures, cytology pending, the repeat chest x-ray from yesterday shows stable findings. 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 CAT scan of the brain was not showing any acute abnormalities and showed old infarcts and brain atrophy. 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 Severe right ICA stenosis as per MRA from 02/07/2018. Plan: the fluid is an exudate based on the protein criteria. The patient's fluid cytology still pending for now. Consider parapneumonic effusion. Consider malignancy. Repeat chest x-ray showed a stable small right-sided pleural effusion awaiting the results of the echocardiogram Continue Lasix 40 mg IV daily Continue antibiotics for now neurology evaluation regarding his Delirium. He may have a component of dementia. the patient has a DNR/DNI Code Status.
--- NOTE | 2020-04-01 11:37 | EEG ---
ELECTROENCEPHALOGRAM REPORT DATE OF SERVICE: 04/01/2020 PREAMBLE: This is an 89-year-old male with altered mental status. This study is performed to evaluate for any epileptiform activity. EEG FINDINGS: This is a 21 channel routine EEG recording in a patient utilizing 10-20 international system with referential and bipolar montages. The background consists of well- developed, moderately well-regulated, mixed frequencies of low-voltage mixed 6-7 hertz theta with some delta activity. Some myogenic activity was also seen frequently throughout the study. Different stages of sleep were not seen. Photic driving response was not seen. No focal or generalized epileptiform activity was seen. IMPRESSION: This is an abnormal EEG due to background slowing of mild to moderate degree. This is suggestive of generalized cerebral dysfunction as can be seen with toxic metabolic encephalopathy or due to diffuse structural brain abnormality. No epileptiform activity was seen. MMODL / IJN: [id number] /
[2020-04-01 11:41] LABS: Glucose,Whole Blood 139 mg/dL (75-99)
--- NOTE | 2020-04-01 13:36 | ECHOF ---
Referral Reason:consider CHF MEASUREMENTS -------- HEIGHT: 165.1 cm WEIGHT: 65.8 kg BP: 128/63 RVIDd: 3.2 cm (< 3.3) IVSd: 1.3 cm (0.6 - 1.1) LVIDd: 3.2 cm (3.9 - 5.3) LVPWd: 1.3 cm (0.6 - 1.1) IVSs: 1.8 cm LVIDs: 2.7 cm LVPWs: 1.7 cm LA Diam: 3.9 cm (2.7 - 3.8) LAESV Index (A-L): 30.62 ml/m Ao Diam: 3.5 cm (2.0 - 3.7) MV EXCURSION: 9.718 mm (> 18.000) MV EF SLOPE: 22 mm/s (70 - 150) EPSS: 1.4 cm MV E [place]: 1.36 m/s MV DecT: 313 ms MV A [place]: 2.09 m/s MV E/A Ratio: 0.65 RAP: 5.00 mmHg RVSP: 40.81 mmHg FINDINGS -------- Resting tachycardia (HR>100bpm). This was a technically adequate study. The left ventricular size is normal. There is moderate concentric left ventricular hypertrophy. O verall left ventricular systolic function is normal with, an EF between 65 - 70 %. The right ventricle is normal in size. The left atrium is mildly dilated. The right atrium is normal in size. Interatrial and interventricular septum intact. There is mild aortic valve sclerosis. Trace amount of aortic regurgitation. The mitral valve leaflets are moderately thickened. Severe mitral annular calcification present. Cbjl-uq-wkaudblz mitral regurgitation is present. The peak and mean MV gradients are 20.59mmHg 7.58 mmHg as measured by doppler with a heart rate of 101 bpm. Wvca-wd-qtbolzbb mitral stenosis. Mild tricuspid regurgitation present. There is mild pulmonary hypertension. The right ventricular systolic pressure, as measured by Doppler, is 40.81mmHg. Trace/mild (physiologic) pulmonic regurgitation. The aortic root size is normal. Normal inferior vena cava with normal inspiratory collapse consistent with estimated right atrial pre ssure of 5 mmHg. There is no pericardial effusion. CONCLUSIONS -------- 1. Resting tachycardia (HR>100bpm). 2. The left ventricular size is normal. 3. There is moderate concentric left ventricular hypertrophy. 4. Overall left ventricular systolic function is normal with, an EF between 65 - 70 %. 5. The left atrium is mildly dilated. 6. There is mild aortic valve sclerosis. 7. Trace amount of aortic regurgitation. 8. The mitral valve leaflets are moderately thickened. 9. Severe mitral annular calcification present. 10. Uumk-ln-upjuuqmd mitral regurgitation is present. 11. The peak and mean MV gradients are 20.59mmHg 7.58mmHg as measured by doppler. 12. Bxyd-gd-vxkzsdeh mitral stenosis. 13. Mild tricuspid regurgitation present. 14. There is mild pulmonary hypertension. 15. The right ventricular systolic pressure, as measured by Doppler, is 40.81mmHg. 16. Trace/mild (physiologic) pulmonic regurgitation. 17. There is no pericardial effusion. SOCIAL SERVICES DESIGNEE: Lata Subramanian RDCS
[2020-04-01] MEDS: LORazepam 2 MG/ML INJ IV PRN ×2 (16:16→20:28)
[2020-04-01] MEDS: SODIUM CHLORIDE 0.9% 1,000 ML IV SCH (16:20)
[2020-04-01] MEDS: AZITHROMYCIN 500 MG in SODIUM CHLORIDE 0.9% 250 ML IVPB SCH (16:22)
[2020-04-01 16:49] LABS: Glucose,Whole Blood 182 mg/dL (75-99)
--- NOTE | 2020-04-01 18:04 | P.PN ---
Subjective Progress Note Date: 04/01/20 This is an 89-year-old male patient. Patient presented to the ER with complaints of shortness of breath for 24 hours. Patient's vsjvcvhh-gm-ded currently at bedside. Patient does have known dementia with short-term memory loss and is a poor historian. Per family at bedside shortness of breath started approximately 24 hours ago in which she became very short of breath with standing and activity. Family also noted wheezing. Patient did report have some cough. Denies any fevers. Patient does have a past medical history of coronary artery disease, CVA, diabetes mellitus, DVT, hyperlipidemia, hyp ertension, osteoarthritis, back pain, heart cath with stents and dementia. Patient currently resides with . Coronavirus was negative. Patient's lactic acid on admission 4.3. Repeat lactic acid 1.9. Chest CT was completed showing pleural effusions much larger on the right side by pulmonary c onsolidation and atelectasis there is some small infiltrate and atelectasis left posterior lung base. Patient was given IV antibiotics in ER. Pulmonary services have been consulted. Ultrasound of chest has been ordered for possible paracentesis. Patient is currently on BiPAP and requiring high flow oxygen while off BiPAP. Patient is currently resting comfortably in bed. Lung sounds are greatly diminished on the right compared to left. Patient denies any chest pain. Patient does reports shortness of breath. Patient denies nausea vomiting or diarrhea. Patient denies any urinary burning or frequency. On 03/30/2020 patient lying comfortably in bed is having intermittent episodes of confusion patient does have known past medical history of dementia. Patient's respiratory status has significantly improved currently on 4-5 L nasal cannula. Patient did undergo thoracentesis per pulmonary yesterday 1.8 L removed sent for cytology. Patient reports he does feel better. Patient denies chest pain. Patient denies nausea vomiting or diarrhea. Patient denies any urinary burning or frequency. Patient remains on IV antibiotics for possible pneumonia. On 03/31/2020 patient was seen and examined on the medical floor he had significant worsening of his condition since yesterday patient developed agitation and confusion requiring use of IV Ativan, patient was significantly agitated, there is evidence of left sided facial drooping, at this time will obtain computed tomography scan of the brain without contrast, will consult neurology, otherwise continue current antibiotics. On 04/01/2020 patient was seen and examined on the medical floor he is alert slightly confused in no apparent distress he is more calm and comfortable today there is no fever or chills no headache or dizziness no chest pain no shortness of breath no cough no nausea or vomiting no abdominal pain no diarrhea no blood in the stools no burning with urination no frequency or urgency and no hematuria Objective - Vital Signs Vital signs: Vital Signs Temp 97.8 F 04/01/20 07:33 Pulse 83 04/01/20 07:33 Resp 16 04/01/20 08:04 BP 157/78 04/01/20 07:33 Pulse Ox 95 04/01/20 07:33 Intake & Output 03/31/20 04/01/20 04/01/20 18:59 06:59 18:59 Other: Voiding Method Urinal # Voids 1 # Bowel Movements 1 - Exam Head normocephalic Neck supple Lungs diminished bilaterally greater on right than left Heart regular rate and rhythm S1-S2, no rub or gallop Abdomen is soft nontender nondistended positive bowel sounds no hepatosplenomegaly Extremities no edema Neuro Intermittent episodes of confusion. Dementia. - Labs CBC & Chem 7: 04/01/20 06:18 04/01/20 06:18 Labs: Abnormal Lab Results - Last 24 Hours (Table) 03/31/20 03/31/20 03/31/20 Range/Units 05:51 11:27 16:33 Hgb (13.0-17.5) gm/dL Hct (39.0-53.0) % Lymphocytes # (1.0-4.8) k/uL Potassium 3.2 L (3.5-5.5) mmol/L Chloride 95 L (96-109) mmol/L Carbon Dioxide 34.3 H (21.6-31.8) mmol/L Glucose 136 H (70-110) mg/dL POC Glucose (mg/dL) 149 H 153 H (75-99) mg/dL Total Bilirubin 1.3 H (0.2-1.2) mg/dL Total Protein 6.1 L (6.2-8.2) g/dL 03/31/20 04/01/20 04/01/20 Range/Units 21:40 06:18 06:52 Hgb 12.4 L (13.0-17.5) gm/dL Hct 38.2 L (39.0-53.0) % Lymphocytes # 0.9 L (1.0-4.8) k/uL Potassium (3.5-5.5) mmol/L Chloride (96-109) mmol/L Carbon Dioxide (21.6-31.8) mmol/L Glucose (70-110) mg/dL POC Glucose (mg/dL) 126 H 107 H (75-99) mg/dL Total Bilirubin (0.2-1.2) mg/dL Total Protein (6.2-8.2) g/dL Microbiology - Last 24 Hours (Table) 03/28/20 15:52 Blood Culture - Preliminary Blood No Growth after 72 hours Assessment and Plan Assessment: 1. Dyspnea secondary to pleural effusion and possible pneumonia. 2. Pleural effusion status post thoracentesis. CT of abdomen completed showing pleural effusions much larger on the right side by pulmonary consolidation and atelectasis there is also some smaller infiltrate and atelectasis left posterior lung base. She did undergo thoracentesis 1.8 L removed on 03/29/2020. Cytology pending pulmonary services following 3. Possible pneumonia. Chest x-ray was complaining showing pleural effusion correlate for bilateral pneumonia versus edema, follow-up recommended. Pulmonary services have been consulted patient was given Rocephin and azithromycin. lactic acid elevated on admit 4. 3 repeat 1.9. Patient remains on Rocephin and azithromycin per pulmonary 4. History of coronary artery disease 5. 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 Chronic back pain 7. History of gout 8. Hyperlipidemia. Maintained on statin 9. History of essential hypertension 10. Diabetes mellitus type 2. Metformin currently on hold during hospitalization. Sliding scale insulin ordered DVT prophylaxis Lovenox. GI prophylaxis Pepcid Pulmonary service is following azithromycin and Rocephin for IV antibiotics Cytology from thoracentesis pending
--- NOTE | 2020-04-01 18:11 | P.PN ---
Subjective Progress Note Date: 04/01/20 Patient was seen for a follow-up. Patient is much more alert and awake. In no distress. Denies headache denies any focal symptoms. Objective - Vital Signs Vital signs: Vital Signs Temp 97.5 F L 04/01/20 14:00 Pulse 90 04/01/20 14:00 Resp 18 04/01/20 14:00 BP 143/79 04/01/20 14:00 Pulse Ox 96 04/01/20 14:00 Intake & Output 03/31/20 04/01/20 04/01/20 18:59 06:59 18:59 Intake Total 300 Balance 300 Intake: Intake, IV Titration 300 Amount Azithromycin 500 mg In 250 Sodium Chloride 0.9% 250 ml @ 250 mls/hr IVPB Q24H ANTONIETA Rx#:[id number] cefTRIAXone 1 gm In 50 Sodium Chloride 0.9% 50 ml @ 100 mls/hr IVPB Q24H ANTONIETA Rx#:[id number] Other: Voiding Method Urinal # Voids 1 3 # Bowel Movements 1 - Exam On examination patient is much more alert and awake. He knows it is March although states was 1999 but then said 2000. Patient states he is in [facility]. He knows name of the current president. Patient very hard of hearing. Patient pupils are round and reacting, visual pro are full, face is symmetric. Muscle strength appears normal in the biceps, triceps in the paraprofessional interpreter. Deltoids are 4+. Strength is normal in the legs. No obvious ataxia. Tone and bulk of muscles normal. No myoclonic jerks noted. - Labs CBC & Chem 7: 04/01/20 06:18 04/01/20 06:18 Labs: Abnormal Lab Results - Last 24 Hours (Table) 03/31/20 04/01/20 04/01/20 Range/Units 21:40 06:18 06:18 Hgb 12.4 L (13.0-17.5) gm/dL Hct 38.2 L (39.0-53.0) % Lymphocytes # 0.9 L (1.0-4.8) k/uL Chloride 95 L (96-109) mmol/L Carbon Dioxide 37.4 H (21.6-31.8) mmol/L Est GFR (CKD-EPI)NonAf 54.0 L (60.0-200.0) BUN/Creatinine Ratio 21.67 H (12.00-20.00) Ratio POC Glucose (mg/dL) 126 H (75-99) mg/dL 04/01/20 04/01/20 04/01/20 Range/Units 06:52 11:39 16:46 Hgb (13.0-17.5) gm/dL Hct (39.0-53.0) % Lymphocytes # (1.0-4.8) k/uL Chloride (96-109) mmol/L Carbon Dioxide (21.6-31.8) mmol/L Est GFR (CKD-EPI)NonAf (60.0-200.0) BUN/Creatinine Ratio (12.00-20.00) Ratio POC Glucose (mg/dL) 107 H 139 H 182 H (75-99) mg/dL Microbiology - Last 24 Hours (Table) 03/28/20 15:52 Blood Culture - Preliminary Blood No Growth after 72 hours Assessment and Plan Assessment: * Altered mental status, likely due to toxic metabolic encephalopathy. * Dyspnea, secondary to pleural effusion and possible pneumonia. Status post t horacentesis. 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 * Severe right ICA stenosis as per MRA from 02/07/2018. * Chronic back pain * Hypertension, diabetes Plan: * Patient's mentation due to metabolic encephalopathy has much improved. He is fairly well oriented. Patient is interacting very well. * EEG was performed, which revealed mild to moderate background slowing consistent with encephalopathy. No epileptiform activity was seen. * Medical management as per IM/pulmonary. * Patient has history of severe right ICA stenosis. I spoke to patient's daughter, who informed me that patient's sucker machine operator Dr. Garcia, as well as another surgeon at [facility] tried to put a stent in the right ICA, and each time it was unsuccessful. At present patient is on medical management. * Continue dual antiplatelet medications and statins. * B12 327, folate 11.9. TSH is normal. * Neurology will sign off. His call neurology if any other concerns.
[2020-04-01] MEDS: allopurinoL 300 MG TAB PO SCH (20:28)
[2020-04-01] MEDS: ATORVASTATIN 40 MG TAB PO SCH (20:28)
[2020-04-01] MEDS: LATANOPROST 0.005% OPHTH DROPS 2.5 ML BTL RIGHT EYE SCH (20:29)
[2020-04-01 20:56] LABS: Glucose,Whole Blood 151 mg/dL (75-99)
[2020-04-02] MEDS: LORazepam 2 MG/ML INJ IV PRN ×2 (00:03→18:07)
[2020-04-02 06:43] LABS: Glucose,Whole Blood 158 mg/dL (75-99)
[2020-04-02] MEDS: INSULIN ASPART (NovoLOG) 100 UNIT/ML VIAL SQ SCH ×4 (08:39→21:29)
[2020-04-02] MEDS: FUROSEMIDE 10 MG/ML 4 ML VIAL IV SCH (08:47)
[2020-04-02] MEDS: ENOXAPARIN 40 MG/0.4 ML SYRINGE SQ SCH (08:48)
[2020-04-02] MEDS: ASPIRIN 325 MG TAB PO SCH (10:14)
[2020-04-02] MEDS: carvediloL 6.25 MG TAB PO SCH ×2 (10:14→17:38)
[2020-04-02] MEDS: FAMOTIDINE 20 MG TAB PO SCH (10:14)
[2020-04-02] MEDS: amLODIPine 10 MG TAB PO SCH (10:14)
[2020-04-02] MEDS: CLOPIDOGREL 75 MG TAB PO SCH (10:14)
[2020-04-02] MEDS: CHOLECALCIFEROL 1,000 UNIT TAB PO SCH ×2 (10:14→21:29)
[2020-04-02] MEDS: hydroCHLOROthiazide 12.5 MG CAP PO SCH (10:14)
--- NOTE | 2020-04-02 11:15 | P.PN ---
Subjective Progress Note Date: 04/02/20 89-year-old male patient who came in with acute hypoxic respiratory failure and a large right-sided pleural effusion. The patient is known to have diabetes and hypertension hyperlipidemia and sister rule out ischemic coronary artery disease. The patient had a significant right-sided pleural effusion. A total of 100 mL of fluid was removed. The fluid was exudate based on protein criteria with the fluids protein was around 3.5 with an LDH of 90 Nevertheless, they possible. Transudate cannot be completely excluded. The patient is currently on IV Lasix 40 mg on a daily basis. He is also being treated with accommodation Rocephin and Zithromax.the patient is currently on 4 L of oxygen by nasal ca nnula with a pulse ox of 91%. His breathing is nonlabored at this point.. overnight, the patient was admitted confused and restless aand had some delirium..The patient does have some underlying short-term memory loss because of a previous history of a CVA. He was given Ativan overnight.according to the [id number], the patient has also some difficulties with swallowing on outpatient basis. On today's evaluation of 04/01/2020, the patient remains on 4 L of oxygen by nasal cannula. I repeated her chest x-ray and the patient is small right-sided pleural effusion which is stable along with some volume loss in the right lower lobe area. The patient's has pleural fluid cytology results of which are still pending for now. The patient does not have any signs of respiratory distress. He was having some difficulty with agitation and confusion overnight. He was given IV Ativan. CAT scan of the brain showed old ischemic changes along with old infarcts and brain atrophy. No other new complaints otherwise for now. He is sitting up on a recliner. Erythematous my evaluation this morning, the patient was not aware of his location.he was also not aware of the year and the place of the time. On 04/12/2020 patient seen in follow-up on selective care unit, we can, in no acute distress, he is currently on 4 L of oxygen with a pulse ox of 95%, FiO2 was dropped down to 3 L, currently drowsy, easily arousable, and he answers simple questions, he is disoriented to place, and the month, he knew the year. No agitation. The cooperative, denies any respiratory distress, lung sounds are diminished, no crackles, no wheezing, no complaints of chest pain. Pleural fluid analysis revealed exudative fluid, and cytology was negative for any malignancy, pleural fluid cultures have revealed no growth. Remains on azithromycin and Rocephin for antibiotic coverage, no fever or chills, he is on once daily dose of IV Lasix, today's lab work is pending, he is on Lovenox for anticoagulation, no acute events overnight, he has no specific complaints, appetite is poor. Appears weak, but no acute distress noted Objective - Vital Signs Vital signs: Vital Signs Temp 96.9 F L 04/02/20 08:00 Pulse 87 04/02/20 08:00 Resp 16 04/02/20 08:00 BP 140/72 04/02/20 08:00 Pulse Ox 95 04/02/20 08:00 Intake & Output 04/01/20 04/02/20 04/02/20 18:59 06:59 18:59 Intake Total 300 Balance 300 Intake: Intake, IV Titration 300 Amount Azithromycin 500 mg In 250 Sodium Chloride 0.9% 250 ml @ 250 mls/hr IVPB Q24H [facility] Rx#:[id number] cefTRIAXone 1 gm In 50 Sodium Chloride 0.9% 50 ml @ 100 mls/hr IVPB Q24H [facility] Rx#:[id number] Other: Voiding Method Urinal Diaper Diaper Incontinent # Voids 3 1 - Exam GENERAL EXAM: Alert, Very pleasant, 89-year-old white male, on 4 L of oxygen the pulse ox of 95-97%, resting comfortably in the recliner,, comfortable in no apparent distress. HEAD: Normocephalic/atraumatic. EYES: Normal reaction of pupils, equal size. Conjunctiva pink, sclera white. NOSE: Clear with pink turbinates. THROAT: No erythema or exudates. NECK: No masses, no JVD, no thyroid enlargement, no adenopathy. CHEST: No chest wall deformity. Symmetrical expansion. LUNGS: Equal air entry with no crackles, wheeze, rhonchi or dullness. CVS: Regular rate and rhythm, normal S1 and S2, no gallops, no murmurs, no rubs ABDOMEN: Soft, nontender. No hepatosplenomegaly, normal bowel sounds, no guarding or rigidity. EXTREMITIES: No clubbing, no edema, no cyanosis, 2+ pulses and upper and lower extremities. MUSCULOSKELETAL: Muscle strength and tone normal. SPINE: No scoliosis or deformity SKIN: No rashes CENTRAL NERVOUS SYSTEM: Alert and oriented -2. No focal deficits, tone is normal in all 4 extremities. PSYCHIATRIC: Alert and oriented -2. Appropriate affect. Intact judgment and insight. - Labs CBC & Chem 7: 04/01/20 06:18 04/01/20 06:18 Labs: Abnormal Lab Results - Last 24 Hours (Table) 04/01/20 04/01/20 04/01/20 Range/Units 11:39 16:46 20:55 POC Glucose (mg/dL) 139 H 182 H 151 H (75-99) mg/dL 04/02/20 Range/Units 06:42 POC Glucose (mg/dL) 158 H (75-99) mg/dL Microbiology - Last 24 Hours (Table) 03/28/20 15:52 Blood Culture - Preliminary Blood No Growth after 96 hours 03/29/20 11:00 Gram Stain - Preliminary Pleural Fluid Body Fluid Culture - Preliminary Assessment and Plan Plan: Assessment: 1 Acute hypoxic respiratory failure secondary to a large right pleural effusion and consolidationatelectasis, status post thoracentesis 03/29/2020 with 1.8 L o f yellow fluid removed. Cultures, cytology pending, the repeat chest x-ray from yesterday shows stable findings. 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 CAT scan of the brain was not showing any acute abnormalities and showed old infarcts and brain atrophy. 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 Severe right ICA stenosis as per MRA from 02/07/2018. Plan: Continue antibiotics, culture data is negative thus far, vital signs are stable, patient is afebrile, cytology of the pleural fluid was negative, no worsening shortness of breath, wean FiO2, continue with Lasix, follow-up chest x-ray today Continue to follow I performed a history & physical examination of the patient and discussed their management with my nurse practitioner, Mikaela Tate. I reviewed the nurse practitioner's note and agree with the documented findings and plan of care. Lung sounds are positive for Diminished breath sounds. The findings and the impression was discussed with the patient. I attest to the documentation by the nurse practitioner. Time with Patient: Less than 30
[2020-04-02 11:31] LABS: Glucose,Whole Blood 152 mg/dL (75-99)
[2020-04-02] MEDS: BRIMONIDINE TARTRATE 0.2% DROPS 5 ML BTL RIGHT EYE SCH ×2 (12:16→21:30)
[2020-04-02] MEDS: TIMOLOL 0.5% OPHTH DROPS 5 ML BTL RIGHT EYE SCH ×2 (12:16→21:30)
[2020-04-02 12:26] LABS: African American GFR (CKD) 71 (>60 ml/min/1.73 sqM); Anion Gap 8 mmol/L; Blood Urea Nitrogen 33 mg/dL (9-20); Calcium 9.9 mg/dL (8.4-10.2); Carbon Dioxide 36 mmol/L (22-30); Chloride 93 mmol/L (98-107); Glucose 157 mg/dL (74-99); Non-African American GFR(CKD) 61 (>60 ml/min/1.73 sqM); Potassium 3.5 mmol/L (3.5-5.1); Sodium 137 mmol/L (137-145)
--- NOTE | 2020-04-02 12:51 | XR ---
EXAMINATION TYPE: XR chest 2V DATE OF EXAM: 04/02/2020 COMPARISON: 03/31/2020 TECHNIQUE: PA and lateral views submitted. HISTORY: Cough, pneumonia FINDINGS: Bilateral consolidation and pleural effusion are similar appearance to prior exam. Heart size is stab le. Atherosclerotic change aorta. No pneumothorax. Arthropathy of the shoulders. Sclerosis involving the head of the left humerus nonspecific. IMPRESSION: 1. Bilateral infiltrate and pleural effusion correlate for pneumonia otherwise consider CHF.
[2020-04-02] MEDS: AZITHROMYCIN 500 MG TAB PO SCH (16:13)
[2020-04-02 16:42] LABS: Glucose,Whole Blood 190 mg/dL (75-99)
[2020-04-02] MEDS: SODIUM CHLORIDE 0.9% 1,000 ML IV SCH (17:45)
--- NOTE | 2020-04-02 17:48 | P.PN ---
Subjective Progress Note Date: 04/02/20 This is an 89-year-old male patient. Patient presented to the ER with complaints of shortness of breath for 24 hours. Patient's [id number] currently at bedside. Patient does have known dementia with short-term memory loss and is a poor historian. Per family at bedside shortness of breath started approximately 24 hours ago in which she became very short of breath with standing and activity. Family also noted wheezing. Patient did report have some cough. Denies any fevers. Patient does have a past medical history of coronary artery disease, CVA, diabetes mellitus, DVT, hyperlipidemia, hyp ertension, osteoarthritis, back pain, heart cath with stents and dementia. Patient currently resides with . Coronavirus was negative. Patient's lactic acid on admission 4.3. Repeat lactic acid 1.9. Chest CT was completed showing pleural effusions much larger on the right side by pulmonary c onsolidation and atelectasis there is some small infiltrate and atelectasis left posterior lung base. Patient was given IV antibiotics in ER. Pulmonary services have been consulted. Ultrasound of chest has been ordered for possible paracentesis. Patient is currently on BiPAP and requiring high flow oxygen while off BiPAP. Patient is currently resting comfortably in bed. Lung sounds are greatly diminished on the right compared to left. Patient denies any chest pain. Patient does reports shortness of breath. Patient denies nausea vomiting or diarrhea. Patient denies any urinary burning or frequency. On 03/30/2020 patient lying comfortably in bed is having intermittent episodes of confusion patient does have known past medical history of dementia. Patient's respiratory status has significantly improved currently on 4-5 L nasal cannula. Patient did undergo thoracentesis per pulmonary yesterday 1.8 L removed sent for cytology. Patient reports he does feel better. Patient denies chest pain. Patient denies nausea vomiting or diarrhea. Patient denies any urinary burning or frequency. Patient remains on IV antibiotics for possible pneumonia. On 03/31/2020 patient was seen and examined on the medical floor he had significant worsening of his condition since yesterday patient developed agitation and confusion requiring use of IV Ativan, patient was significantly agitated, there is evidence of left sided facial drooping, at this time will obtain computed tomography scan of the brain without contrast, will consult neurology, otherwise continue current antibiotics. On 04/01/2020 patient was seen and examined on the medical floor he is alert slightly confused in no apparent distress he is more calm and comfortable today there is no fever or chills no headache or dizziness no chest pain no shortness of breath no cough no nausea or vomiting no abdominal pain no diarrhea no blood in the stools no burning with urination no frequency or urgency and no hematuria. On 04/02/2020 patient was seen and examined on the medical floor he is alert confused slightly agitated in no apparent distress there is no fever or chills no headache or dizziness no chest pain no shortness of breath no cough no nausea or vomiting no abdominal pain no diarrhea no blood in the stools no burning with urination no frequency or urgency and no hematuria, repeat chest x-ray done today reveals bilateral infiltrates and pleural effusions, patient remains on IV antibiotic Rocephin and Zithromax pulmonary are following, patient is also being followed by neurology in regard to episodes of agitation possibly related to his previous CVA Objective - Vital Signs Vital signs: Vital Signs Temp 96.9 F L 04/02/20 08:00 Pulse 86 04/02/20 14:40 Resp 16 04/02/20 14:40 BP 157/75 04/02/20 14:40 Pulse Ox 94 L 04/02/20 14:40 Intake & Output 04/01/20 04/02/20 04/02/20 18:59 06:59 18:59 Intake Total 300 Balance 300 Intake: Intake, IV Titration 300 Amount Azithromycin 500 mg In 250 Sodium Chloride 0.9% 250 ml @ 250 mls/hr IVPB Q24H [facility] Rx#:[id number] cefTRIAXone 1 gm In 50 Sodium Chloride 0.9% 50 ml @ 100 mls/hr IVPB Q24H [facility] Rx#:[id number] Other: Voiding Method Urinal Diaper Diaper Incontinent # Voids 3 1 2 - Exam Head normocephalic Neck supple Lungs diminished bilaterally greater on right than left Heart regular rate and rhythm S1-S2, no rub or gallop Abdomen is soft nontender nondistended positive bowel sounds no hepatosplenomegaly Extremities no edema Neuro Intermittent episodes of confusion. Dementia. - Labs CBC & Chem 7: 04/01/20 06:18 04/02/20 11:28 Labs: Abnormal Lab Results - Last 24 Hours (Table) 04/01/20 04/02/20 04/02/20 Range/Units 20:55 06:42 11:28 Chloride 93 L (98-107) mmol/L Carbon Dioxide 36 H (22-30) mmol/L BUN 33 H (9-20) mg/dL Glucose 157 H (74-99) mg/dL POC Glucose (mg/dL) 151 H 158 H (75-99) mg/dL 04/02/20 04/02/20 Range/Units 11:30 16:41 Chloride (98-107) mmol/L Carbon Dioxide (22-30) mmol/L BUN (9-20) mg/dL Glucose (74-99) mg/dL POC Glucose (mg/dL) 152 H 190 H (75-99) mg/dL Microbiology - Last 24 Hours (Table) 03/29/20 11:00 Gram Stain - Final Pleural Fluid Body Fluid Culture - Final 03/28/20 15:52 Blood Culture - Preliminary Blood No Growth after 96 hours Assessment and Plan Assessment: 1. Dyspnea secondary to pleural effusion and possible pneumonia. 2. Pleural effusion status post thoracentesis. CT of abdomen completed showing pleural effusions much larger on the right side by pulmonary consolidation and atelectasis there is also some smaller infiltrate and atelectasis left posterior lung base. She did undergo thoracentesis 1.8 L removed on 03/29/2020. Cytology pending pulmonary services following 3. Possible pneumonia. Chest x-ray was complaining showing pleural effusion correlate for bilateral pneumonia versus edema, follow-up recommended. Pu lmonary services have been consulted patient was given Rocephin and azithromycin. lactic acid elevated on admit 4. 3 repeat 1.9. Patient remains on Rocephin and azithromycin per pulmonary 4. History of coronary artery disease 5. 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 Chronic back pain 7. History of gout 8. Hyperlipidemia. Maintained on statin 9. History of essential hypertension 10. Diabetes mellitus type 2. Metformin currently on hold during hospitalization. Sliding scale insulin ordered DVT prophylaxis Lovenox. GI prophylaxis Pepcid Pulmonary service is following azithromycin and Rocephin for IV antibiotics Cytology from thoracentesis pending
--- NOTE | 2020-04-02 17:58 | P.PN ---
Subjective Progress Note Date: 04/02/20 Patient was seen for a follow-up. Patient is much more alert and awake. In no distress. Patient does admit to having some frontal headache. Otherwise offers no complaints. Wants to go home. Objective - Vital Signs Vital signs: Vital Signs Temp 96.9 F L 04/02/20 08:00 Pulse 86 04/02/20 14:40 Resp 16 04/02/20 14:40 BP 157/75 04/02/20 14:40 Pulse Ox 94 L 04/02/20 14:40 Intake & Output 04/01/20 04/02/20 04/02/20 18:59 06:59 18:59 Intake Total 300 Balance 300 Intake: Intake, IV Titration 300 Amount Azithromycin 500 mg In 250 Sodium Chloride 0.9% 250 ml @ 250 mls/hr IVPB Q24H [facility] Rx#:[id number] cefTRIAXone 1 gm In 50 Sodium Chloride 0.9% 50 ml @ 100 mls/hr IVPB Q24H [facility] Rx#:[id number] Other: Voiding Method Urinal Diaper Diaper Incontinent # Voids 3 1 2 - Exam On examination patient is much more alert and awake. Patient could not tell the current month or the year. He knows his name and his age 89. He also knows name of current president Bart Oshea. He thinks he is in a restaurant. Patient's right pupil is oblong, irregular, nonreactive with no vision. No myoclonic jerks. 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 Deltoids are 4+. Normal strength in the legs. No ataxia for [id number]. Tone and bulk of muscles normal. No myoclonic jerks. - Labs CBC & Chem 7: 04/01/20 06:18 04/02/20 11:28 Labs: Abnormal Lab Results - Last 24 Hours (Table) 04/01/20 04/02/20 04/02/20 Range/Units 20:55 06:42 11:28 Chloride 93 L (98-107) mmol/L Carbon Dioxide 36 H (22-30) mmol/L BUN 33 H (9-20) mg/dL Glucose 157 H (74-99) mg/dL POC Glucose (mg/dL) 151 H 158 H (75-99) mg/dL 04/02/20 04/02/20 Range/Units 11:30 16:41 Chloride (98-107) mmol/L Carbon Dioxide (22-30) mmol/L BUN (9-20) mg/dL Glucose (74-99) mg/dL POC Glucose (mg/dL) 152 H 190 H (75-99) mg/dL Microbiology - Last 24 Hours (Table) 03/29/20 11:00 Gram Stain - Final Pleural Fluid Body Fluid Culture - Final 03/28/20 15:52 Blood Culture - Preliminary Blood No Growth after 96 hours Assessment and Plan Assessment: * Altered mental status, likely due to toxic metabolic encephalopathy. * Dyspnea, secondary to pleural effusion and possible pneumonia. Status post thoracentesis. 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 * Severe right ICA stenosis as per MRA from 02/07/2018. * Chronic back pain * Hypertension, diabetes Plan: * Patient's mentation appears to be stable. His metabolic encephalopathy has much improved. Patient probably has underlying cognitive impairment. Suggest follow-up with neurologist as an outpatient. * EEG was performed, which revealed mild to moderate background slowing consistent with encephalopathy. No epileptiform activity was seen. * Medical management as per IM/pulmonary. * Patient has history of severe right ICA stenosis. I spoke to patient's daughter, who informed me that patient's beamster Dr. Garcia, as well as another surgeon at tried to put a stent in the right ICA, and each time it was unsuccessful. At present patient is on medical management. * Continue dual antiplatelet medications and statins. * B12 327, folate 11.9. TSH is normal. * Neurology will sign off. His call neurology if any other concerns.
[2020-04-02 20:46] LABS: Glucose,Whole Blood 199 mg/dL (75-99)
[2020-04-02] MEDS: ATORVASTATIN 40 MG TAB PO SCH (21:29)
[2020-04-02] MEDS: allopurinoL 300 MG TAB PO SCH (21:29)
[2020-04-02] MEDS: LATANOPROST 0.005% OPHTH DROPS 2.5 ML BTL RIGHT EYE SCH (21:30)
[2020-04-03 06:29] LABS: Basophils # (A) 0.1 k/uL (0-0.2); Basophils % (A) 1 %; Eosinophils # (A) 0.4 k/uL (0-0.7); Eosinophils % (A) 5 %; HCT 38.8 % (39.0-53.0); HGB 12.8 gm/dL (13.0-17.5); Lymphocytes # (A) 1.1 k/uL (1.0-4.8); Lymphocytes % (A) 13 %; MCHC 32.9 g/dL (31.0-37.0); Mean Platelet Volume 6.9; Monocytes # (A) 0.6 k/uL (0-1.0); Monocytes % (A) 7 %; Neutrophils # (A) 6.4 k/uL (1.3-7.7); Neutrophils % (A) 73 %; Platelet Count 330 k/uL (150-450); RBC 4.41 m/uL (4.30-5.90); RDW 15.3 % (11.5-15.5); WBC 8.7 k/uL (3.8-10.6)
[2020-04-03 07:20] LABS: Glucose,Whole Blood 158 mg/dL (75-99)
[2020-04-03] MEDS: ENOXAPARIN 40 MG/0.4 ML SYRINGE SQ SCH (08:30)
[2020-04-03] MEDS: hydroCHLOROthiazide 12.5 MG CAP PO SCH (08:33)
[2020-04-03] MEDS: CHOLECALCIFEROL 1,000 UNIT TAB PO SCH (08:33)
[2020-04-03] MEDS: CLOPIDOGREL 75 MG TAB PO SCH (08:33)
[2020-04-03] MEDS: ASPIRIN 325 MG TAB PO SCH (08:33)
[2020-04-03] MEDS: FAMOTIDINE 20 MG TAB PO SCH (08:33)
[2020-04-03] MEDS: amLODIPine 10 MG TAB PO SCH (08:33)
[2020-04-03] MEDS: carvediloL 6.25 MG TAB PO SCH (08:33)
[2020-04-03] MEDS: FUROSEMIDE 10 MG/ML 4 ML VIAL IV SCH (08:34)
[2020-04-03] MEDS: INSULIN ASPART (NovoLOG) 100 UNIT/ML VIAL SQ SCH ×2 (08:34→12:06)
[2020-04-03 10:05] LABS: African American GFR (CKD) 56.9 (60.0-200.0); Albumin 4.3 g/dL (3.80-4.90); Albumin/Globulin Ratio 1.87 (1.60-3.17); BUN/Creat Ratio 25.38 Ratio (12.00-20.00); Calcium 10.1 mg/dL (8.7-10.3); Globulin 2.3 g/dL (1.6-3.3); Non-African American GFR(CKD) 49.1 (60.0-200.0); Potassium 3.1 mmol/L (3.5-5.5); Total Bilirubin 1.1 mg/dL (0.3-1.2); Total Protein 6.6 g/dL (6.2-8.2)
[2020-04-03] MEDS: POTASSIUM CHLORIDE ER 20 MEQ TAB.ER PO SCH ×2 (10:27→11:20)
[2020-04-03] MEDS: BRIMONIDINE TARTRATE 0.2% DROPS 5 ML BTL RIGHT EYE SCH (10:28)
[2020-04-03] MEDS: TIMOLOL 0.5% OPHTH DROPS 5 ML BTL RIGHT EYE SCH (10:28)
[2020-04-03 11:23] LABS: Glucose,Whole Blood 247 mg/dL (75-99)
[2020-04-03 13:36] VITALS: BMI 24.1
[2020-04-03] MEDS: AZITHROMYCIN 500 MG TAB PO SCH (13:58)
[2020-04-03 14:23] VITALS: BP 111/67; PULSE 82; RESP 17; TEMP 97.4
[2020-04-03 16:18] LABS: Glucose,Whole Blood 183 mg/dL (75-99)
[2020-04-03] MEDS: SODIUM CHLORIDE 0.9% 1,000 ML IV SCH (16:29)
== END 2020-04-03 18:10 | disposition home health service (06) | DRG 193 ==
LOC: EC 13:08 → 4SSUR 16:48
PROVIDERS: ADMIT Internal Medicine; ATTEND Internal Medicine
PROC: 5A09357 Assistance with Respiratory Ventilation, Less than 24 Consecutive Hours, Continuous Positive Airway Pressure (ICD-10-PCS; principal; 2020-03-28)
PROC: 0W993ZX Drainage of Right Pleural Cavity, Percutaneous Approach, Diagnostic (ICD-10-PCS; 2020-03-29)
DX: J18.9 Pneumonia, unspecified organism (principal); J96.01 Acute respiratory failure with hypoxia; G92 Toxic encephalopathy; E87.2 Acidosis; J90 Pleural effusion, not elsewhere classified; J98.11 Atelectasis; Z87.891 Personal history of nicotine dependence; Z20.828 Contact with and (suspected) exposure to other viral communicable diseases; Z66 Do not resuscitate; E11.9 Type 2 diabetes mellitus without complications; E78.5 Hyperlipidemia, unspecified; F03.90 Unspecified dementia, unspecified severity, without behavioral disturbance, psychotic disturbance, mood disturbance, and anxiety; G89.29 Other chronic pain; H54.61 Unqualified visual loss, right eye, normal vision left eye; I69.398 Other sequelae of cerebral infarction; I10 Essential (primary) hypertension; I25.10 Atherosclerotic heart disease of native coronary artery without angina pectoris; I27.20 Pulmonary hypertension, unspecified; I65.21 Occlusion and stenosis of right carotid artery; R29.810 Facial weakness; R45.1 Restlessness and agitation; M54.9 Dorsalgia, unspecified; M54.2 Cervicalgia; M10.9 Gout, unspecified; Z79.02 Long term (current) use of antithrombotics/antiplatelets; Z79.82 Long term (current) use of aspirin; Z79.84 Long term (current) use of oral hypoglycemic drugs; Z79.899 Other long term (current) drug therapy; Z80.52 Family history of malignant neoplasm of bladder; Z82.49 Family history of ischemic heart disease and other diseases of the circulatory system; Z86.718 Personal history of other venous thrombosis and embolism; Z95.5 Presence of coronary angioplasty implant and graft; Z96.1 Presence of intraocular lens; Z98.41 Cataract extraction status, right eye; Z98.42 Cataract extraction status, left eye
CPT/HCPCS: 36415; 70450; 71045; 71046; 71260; 76604; 80048; 80053; 82607; 82746; 82803; 82945; 83605; 83615; 83735; 83880; 84132; 84157; 84484; 85025; 85610; 85730; 87040; 87070; 87102; 87116; 87205; 87206; 87252; 87496; 87498; 87502; 87529; 87634; 87635; 87798; 88108; 88305; 89050; 93005; 93306; 94660; 95816; 96365; 96375; 99285

== ENCOUNTER → 2020-05-28 | Day surgery (SDC) | payer MEDICARE, BC ==
[~2020-05-28] MED LIST changes: +ATROPINE SULFATE 0.4 MG/ML 1 ML VIAL IM STA; -DOCUSATE 100 MG CAP PO PRN; -IOPAMIDOL-370 125ML BTL INJ ONE; -LIDOCAINE 1% INJ 10MG/ML (20 ML MDV) SQ ONE; -MAG HYDROX/AL HYDROX/SIMETH 30 ML CUP PO PRN; -MIDAZOLAM 2 MG/2 ML VIAL IV ONE; -SODIUM CHLORIDE 0.9% 1,000 ML IV SCH; +SODIUM CHLORIDE 0.9% 500 ML 500 ML in EMPTY BAG 1 BAG IV PRN; -TEMAZEPAM 15 MG CAP PO PRN
[2020-05-28 10:39] VITALS: BP 157/74; RESP 18; TEMP 97.6
[2020-05-28 10:44] VITALS: PULSE 64
--- NOTE | 2020-05-28 13:00 | XR ---
EXAMINATION TYPE: XR chest 1V portable DATE OF EXAM: 05/28/2020 HISTORY: Shortness of breath. COMPARISON: 04/02/2020 TECHNIQUE: Single view of the chest is submitted. FINDINGS: Demonstrated are scattered senescent parenchymal change. Right basilar atelectasis and/or small effusion. Improved aeration relative to the prior study. The r emainder of the lungs are clear. The heart is stable. Hilar and mediastinal structures are within normal limits. Degenerative changes are seen of the dorsal spine. IMPRESSION: 1. Right basilar atelectasis and/or small effusion. Improved aeration relative to the prior study. T he remainder of the lungs are clear.
--- NOTE | 2020-05-28 13:24 | PCN ---
PROCEDURE NOTE PROCEDURE: Right-sided thoracentesis. PREOPERATIVE DIAGNOSIS: Right pleural effusion. POSTOPERATIVE DIAGNOSIS: Right pleural effusion. OPERATORS: 1. Dr. Gomez. 2. Dr. Tate. Indication Pleural effusion. A time-out was completed verifying correct patient, procedure, site, positioning , and implant (s) or special equipment if applicable. Ultrasound guidance was used and appropriate fluid pocket was identified and marked. Patient was positioned, prepped and draped in usual sterile fashion. Lidocaine was used to anesthetize the area. A Thoracentesis catheter was introduced into the pleural space and fluid was removed. Blood loss was none. A chest x-ray was ordered to evaluate for pneumothorax. Total Fluid Removed: 1500 mL Color of Fluid: Yellow fluid. Fluid will be sent for appropriate laboratory tests. Patient tolerated the procedure well and there were no complications. There was informed consent and universal timeout. The posterior right chest was marked by ultrasound and 1500 mL of yellow fluid was removed from the right pleural space. There was no immediate complication. The fluid will be sent for analysis including cytology, microbiology, and chemistry. A followup chest x-ray was ordered. There was no immediate complication. If there is no complication after that, the patient can be discharged. MMODL / IJN: [id number] /
[2020-05-28 15:21] LABS: Appearance,BF Hazy; Nucleated Cells, Body Fluid 675 /uL; RBC, Body Fluid 148 /uL
[2020-05-28 15:22] LABS: Mononuclear WBC,Body Fluid 98 %; Polynuclear WBC,Body Fluid 2 %; Total Cells Counted,Body Fluid 100
[2020-05-28 22:12] LABS: Glucose, BF Source Thoracentesis Fluid; Glucose, Body Fluid 162 mg/dL; LDH, Body Fluid Source Thoracentesis Fluid; Total Protein, Body Fluid 4200 mg/dL
== END ==
LOC: PROCWHC3 10:19
PROVIDERS: ATTEND Internal Medicine Critical Care Medicine
DX: J90 Pleural effusion, not elsewhere classified (principal); I10 Essential (primary) hypertension; I25.10 Atherosclerotic heart disease of native coronary artery without angina pectoris; E78.5 Hyperlipidemia, unspecified; E11.9 Type 2 diabetes mellitus without complications; M10.9 Gout, unspecified; Z79.899 Other long term (current) drug therapy; Z79.82 Long term (current) use of aspirin; Z79.84 Long term (current) use of oral hypoglycemic drugs; Z79.02 Long term (current) use of antithrombotics/antiplatelets; Z86.73 Personal history of transient ischemic attack (TIA), and cerebral infarction without residual deficits; Z87.891 Personal history of nicotine dependence; Z98.890 Other specified postprocedural states; Z82.49 Family history of ischemic heart disease and other diseases of the circulatory system; Z80.9 Family history of malignant neoplasm, unspecified
CPT/HCPCS: 87798 ×3; 87496; 87498; 87529; 88108; 88305; 89050; 87252; 87502; 87634; 87070; 87205; 87075; 87116; 87102; 87206; 82945; 83615; 84157; 71045; 96372; 32554; J0461; 76604

== ENCOUNTER → 2020-05-28 | Outpatient (CLI) | payer MEDICARE, BC ==
--- NOTE | 2020-05-28 13:20 | US ---
EXAMINATION TYPE: US chest DATE OF EXAM: 05/28/2020 COMPARISON: NONE CLINICAL HISTORY: J90 Pleural Effusion. TECHNIQUE: Targeted ultrasound of the posterior lower right hemithorax EXAM MEASUREMENTS: Right Pleural Effusion pocket size: 11.6 cm Right skin surface to fluid distance: 2.3 cm Right side marked for possible thoracentesis outside the dept. Pulmonologists are able to review the images in the patient?s EMR. IMPRESSIONS: 1. Right pleural effusion
== END | disposition home or self-care (01) ==
LOC: RADUSWWP 10:02
PROVIDERS: ATTEND Internal Medicine Critical Care Medicine
DX: J90 Pleural effusion, not elsewhere classified (principal)
CPT/HCPCS: 76604

== ENCOUNTER 2020-08-08 10:32 | Day surgery (SDC) | payer MEDICARE, BC ==
[~2020-08-08 10:32] MED LIST changes: -ATROPINE SULFATE 0.4 MG/ML 1 ML VIAL IM STA
[2020-08-08 11:56] VITALS: RESP 16
[2020-08-08 11:59] VITALS: TEMP 97.7
[2020-08-08 12:24] VITALS: BP 152/78; PULSE 76
--- NOTE | 2020-08-08 13:00 | XR ---
EXAMINATION TYPE: XR chest 1V portable DATE OF EXAM: 08/08/2020 Comparison: 05/28/2020 Clinical History: 89-year-old male post right thoracentesis Findings: Low lung volumes. Heart borderline in size. There is a trace to small right effusion. No appreciable pneumothorax. Some additional patchy density at the right base. Degenerative changes right shoulder. Loss of the right subacromial space compatible with a full-thickness chronic rotator cuff tear. Impression: 1. Trace to small right effusion with adjacent atelectasis and/or consolidation. 2. No appreciable pneumothorax.
--- NOTE | 2020-08-08 13:19 | PCN ---
PROCEDURE NOTE PROCEDURE: Right thoracentesis. PREOP DIAGNOSIS: Right pleural effusion. POSTOP DIAGNOSIS: Right pleural effusion. ROUTEMAN: Dr. Gomez. A time-out was completed verifying correct patient, procedure, site, positioning , and implant (s) or special equipment if applicable. Ultrasound guidance was used on the posterior chest and appropriate fluid pocket was identified and marked. Patient was positioned, prepped and draped in usual sterile fashion. Lidocaine was used to anesthetize the area. A Thoracentesis catheter was introduced into the pleural space and fluid was removed from the right pleural space. Blood loss was none. A chest x-ray was ordered to evaluate for pneumothorax. Total Fluid Removed was roughly 1.4 liters. Color of Fluid Yellow. Fluid was sent for appropriate laboratory tests. Patient tolerated the procedure well and there were no immediate complications. The fluid will be sent for analysis including cytology, microbiology and chemistry. Again, no immediate complication. There was informed consent and universal time-out. The nurse was Whitney Ramirez and she helped me with the procedure. MMODL / DAYTONN: [id number] /
[2020-08-08 17:32] LABS: Appearance,BF Hazy; Color,BF Yellow; Nucleated Cells, Body Fluid 380 /uL
[2020-08-08 17:33] LABS: RBC, Body Fluid 330 /uL
[2020-08-08 17:49] LABS: Mononuclear WBC,Body Fluid 93 %; Polynuclear WBC,Body Fluid 4 %; Total Cells Counted,Body Fluid 100
[2020-08-09 04:35] LABS: Total Protein, Body Fluid 4380 mg/dL
[2020-08-09 04:50] LABS: Glucose, BF Source Pleural Fluid; Glucose, Body Fluid 148 mg/dL; LDH, Body Fluid Source Pleural Fluid
== END 2020-08-08 13:47 ==
LOC: PROCWHC3 10:32 → EDSTATUS 12:00 → PROCWHC3 13:47
PROVIDERS: ATTEND Internal Medicine Critical Care Medicine
DX: J90 Pleural effusion, not elsewhere classified (principal)
CPT/HCPCS: 32554; 71045; 76604; 82945; 83615; 84157; 87070; 87116; 87205; 87206; 88108; 88305; 89050

== ENCOUNTER → 2020-08-08 | Outpatient (CLI) | payer MEDICARE, BC ==
--- NOTE | 2020-08-10 16:54 | US ---
EXAMINATION TYPE: US chest DATE OF EXAM: 08/08/2020 COMPARISON: Radiograph 08/04/2020 CLINICAL HISTORY: 89-year-old male J90 Pleural Effusion. TECHNIQUE: Targeted ultrasound of the posterior lower right hemithorax FINDINGS: EXAM MEASUREMENTS: Right Pleural Effusion pocket size: 8.5 cm Right skin surface to fluid distance: 2.0 cm Right side marked for possible thoracentesis outside the dept. Pulmonologists are able to review the images in the patient?s EMR. IMPRESSIONS: Moderate right-sided pleural effusion.
== END | disposition home or self-care (01) ==
LOC: RADUSWWP 10:17
PROVIDERS: ATTEND Internal Medicine Critical Care Medicine
DX: J90 Pleural effusion, not elsewhere classified (principal)
CPT/HCPCS: 76604

== ENCOUNTER → 2020-09-26 | Outpatient (CLI) | payer MEDICARE, BC ==
--- NOTE | 2020-09-26 20:39 | XR ---
EXAMINATION TYPE: XR chest 2V DATE OF EXAM: 09/26/2020 COMPARISON: 08/08/2020 TECHNIQUE: PA and lateral views submitted. HISTORY: Shortness of breath FINDINGS: There is right lower lobe infiltrate and small effusion. Mild coarsened interstitium. Heart size stab le. Left lung clear. No pneumothorax. Arthropathy of the shoulders. The lungs are clear and there is no pneumothorax, pleural effusion, or focal pneumonia. IMPRESSION: 1. Left lower lobe infiltrate and small effusion correlate for mild venous congestion or interstitial pneumonitis..
== END | disposition home or self-care (01) ==
LOC: RADXRMAIN 14:58
PROVIDERS: ATTEND Internal Medicine Interventional Cardiology
DX: R91.8 Other nonspecific abnormal finding of lung field (principal)
CPT/HCPCS: 71046

== ENCOUNTER 2021-08-29 12:29 | Emergency (ER) | payer MEDICARE, BC ==
[2021-08-29 12:35] VITALS: PULSE 91; RESP 20; TEMP 97.8
--- NOTE | 2021-08-29 13:25 | CT ---
EXAMINATION TYPE: CT brain juliocesar wo con DATE OF EXAM: 08/29/2021 COMPARISON: 03/31/2020 HISTORY: Fall CT DLP: 1341.7 mGycm Automated exposure control for dose reduction was used. TECHNIQUE: CT scan of the head and cervical spine are performed without contrast. FINDINGS: Head CT: The ventricles, basal cisterns and sulci over convexities are markedly enlarged consistent with marke d generalized atrophy. There is a remote cortical and subcortical white matter infarct in the right frontal lobe.There is a remote infarct involving the left basal ganglia There is no mass affect or shift of midline structures. There are mild basal ganglial calcifications. There is no acute intra or extra-axial hemorrhage. . Cervical spine is visualized in its entirety from C1 through upper thoracic levels and demonstrates satisfactory alignment without evidence of acute fracture or dislocation. Prevertebral soft tissue appears within normal limits. The C1-C2 articulation is unremarkable. There are advanced degenerati ve changes at the C1/2 articulation. There is advanced degenerative disc disease at the C5-6 level an d mild degenerative disc disease throughout the remainder the cervical spine. There is advanced osteo phytic change of the facet joints throughout the cervical region. IMPRESSION: 1. There is no acute fracture or dislocation evident in the cervical spine. 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 2. No acute intracranial hemorrhage, mass effect, or midline shift is seen. Remote infarcts involving the right frontal lobe and left basal ganglia. Marked generalized atrophy.
[2021-08-29] MEDS ORDERED: SODIUM CHLORIDE 0.9% 500 ML 500 ML IV ONE (14:07)
--- NOTE | 2021-08-29 14:09 | ED ---
General Adult HPI - General Chief complaint: Head Injury Stated complaint: Fall Time Seen by Provider: 08/29/21 13:58 Source: patient, family, RN notes reviewed, old records reviewed Mode of arrival: ambulatory Limitations: no limitations - History of Present Illness Initial comments: 89-year-old male presenting status post fall. Fall occurred at approximately 4 AM this morning. Patient fell while trying to go to the bathroom, striking the left side of his head. He did not lose consciousness. He is on Plavix. 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 Patient has had generalized weakness and elevated blood pressure. He has not been eating well. - Related Data Home Medications Medication Instructions Recorded Confirmed Cyclobenzaprine [Flexeril] 10 mg PO HS 02/24/17 08/29/21 allopurinoL [Zyloprim] 300 mg PO HS 02/24/17 08/29/21 metFORMIN HCL [Glucophage] 500 mg PO BID 07/27/18 08/29/21 Latanoprost [Xalatan 0.005%] 1 drop RIGHT EYE HS 07/30/18 08/29/21 Aspirin EC [Ecotrin Low Dose] 81 mg PO DAILY 08/29/21 08/29/21 Atorvastatin Calcium [Lipitor] 20 mg PO HS 08/29/21 08/29/21 Cholecalciferol [Vitamin D3 (25 50 mcg PO DAILY 08/29/21 08/29/21 Mcg = 1000 Iu)] Dorzolamide HCl/Pf [Dorzolamide 2% 1 drop RIGHT EYE BID 08/29/21 08/29/21 Eye Drop] Ferrous Sulfate [Feosol] 325 mg PO DAILY 08/29/21 08/29/21 Polyethylene Glycol 3350 [Miralax] 17 gm PO DAILY PRN 08/29/21 08/29/21 Triamterene-Hctz 37.5-25Mg 1 cap PO DAILY 08/29/21 08/29/21 [Dyazide 37.5-25 Capsule] allopurinoL [Zyloprim] 300 mg PO HS 08/29/21 08/29/21 Previous Rx's Medication Instructions Recorded Clopidogrel [Plavix] 75 mg PO DAILY #90 tab 03/11/17 Nitroglycerin Sl Tabs [Nitrostat] 0.4 mg SUBLINGUAL Q5M PRN #25 tab 03/11/17 carvediloL [Coreg] 6.25 mg PO BID-W/MEALS #60 tab 07/31/18 Allergies Allergy/AdvReac Type Severity Reaction Status Date / Time No Known Allergies Allergy Verified 08/29/21 15:45 Review of Systems ROS Statement: Those systems with pertinent positive or pertinent negative responses have been documented in the HPI. ROS Other: All systems not noted in ROS Statement are negative. Past Medical History Past Medical History: Coronary Artery Disease (CAD), CVA/TIA, Diabetes Mellitus, Deep Vein Thrombosis (DVT), Hyperlipidemia, Hypertension, Osteoarthritis (OA) Additional Past Medical History / Comment(s): hx of gout, DVT of the leg several years ago. 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 RIGHT PLEURAL EFFUSIONS.-THORACENTESIS History of Any Multi-Drug Resistant Organisms: None Reported Past Surgical History: Heart Catheterization With Stent Additional Past Surgical History / Comment(s): Lipoma removed from back twice, bilateral cataract removal with lens implants. RADHA. RIGHT THORACENTESIS X2. Past Anesthesia/Blood Transfusion Reactions: No Reported Reaction Date of Last Stent Placement:: 03/10/2017 Past Psychological History: No Psychological Hx Reported Smoking Status: Never smoker Past Alcohol Use History: None Reported Past Drug Use History: None Reported - Past Family History Father Family Medical History: Coronary Artery Disease (CAD) Additional Family Medical History / Comment(s): Father had heart problems and at the age of 72. Mother Family Medical History: Cancer Additional Family Medical History / Comment(s): Mother of bladder cancer at the age of 64 yrs. General Exam Limitations: no limitations General appearance: alert, in no apparent distress Head exam: Present: normocephalic, other (Superficial abrasion, left parietal scalp) ENT exam: Present: mucous membranes dry Neck exam: Present: normal inspection. Absent: tenderness, meningismus Respiratory exam: Present: normal lung sounds bilaterally. Absent: respiratory distress, wheezes Cardiovascular Exam: Present: regular rate, normal rhythm GI/Abdominal exam: Present: soft. Absent: distended, tenderness Extremities exam: Present: normal inspection, normal capillary refill Neurological exam: Present: alert, CN II-XII intact. Absent: motor sensory deficit Skin exam: Present: warm, dry, intact Course Vital Signs 08/29/21 08/29/21 12:33 15:18 Temperature 97.8 F Pulse Rate 91 Respiratory 20 Rate Blood Pressure 230/116 175/97 O2 Sat by Pulse 97 Oximetry Medical Decision Making - Medical Decision Making 89-year-old male status post fall with head injury. Patient did undergo CT imaging of both the C-spine and the brain. There is no acute traumatic injury. Additionally had had some increased generalized weakness. Basic laboratory testing and urinalysis were performed. He had some ketones and red cells in his urine without bacteria. Culture pending, essentially unremarkable CBC and CMP. He is very eager for discharge is accompanied by his son. - Lab Data Result diagrams: 08/29/21 14:37 08/29/21 14:37 Lab Results 08/29/21 08/29/21 08/29/21 Range/Units 14:37 14:37 15:34 WBC 8.6 (3.8-10.6) k/uL RBC 4.22 L (4.30-5.90) m/uL Hgb 12.2 L (13.0-17.5) gm/dL Hct 39.5 (39.0-53.0) % MCV 93.5 (80.0-100.0) fL MCH 28.8 (25.0-35.0) pg MCHC 30.8 L (31.0-37.0) g/dL RDW 15.7 H (11.5-15.5) % Plt Count 280 (150-450) k/uL MPV 7.2 Neutrophils % 88 % Lymphocytes % 9 % Monocytes % 2 % Eosinophils % 0 % Basophils % 0 % Neutrophils # 7.6 (1.3-7.7) k/uL Lymphocytes # 0.8 L (1.0-4.8) k/uL Monocytes # 0.2 (0-1.0) k/uL Eosinophils # 0.0 (0-0.7) k/uL Basophils # 0.0 (0-0.2) k/uL Sodium 137 (137-145) mmol/L Potassium 4.7 (3.5-5.1) mmol/L Chloride 95 L (98-107) mmol/L Carbon Dioxide 25 (22-30) mmol/L Anion Gap 17 mmol/L BUN 29 H (9-20) mg/dL Creatinine 1.24 (0.66-1.25) mg/dL Est GFR (CKD-EPI)AfAm 60 (>60 ml/min/1.73 sqM) Est GFR (CKD-EPI)NonAf 52 (>60 ml/min/1.73 sqM) Glucose 230 H (74-99) mg/dL Calcium 10.0 (8.4-10.2) mg/dL Magnesium 1.8 (1.6-2.3) mg/dL Total Bilirubin 1.4 H (0.2-1.3) mg/dL AST 21 (17-59) U/L ALT 12 (4-49) U/L Alkaline Phosphatase 132 H (38-126) U/L Total Protein 8.5 H (6.3-8.2) g/dL Albumin 4.9 (3.5-5.0) g/dL Urine Color Light Yellow Urine Appearance Clear (Clear) Urine pH 6.5 (5.0-8.0) Ur Specific [place] 1.012 (1.001-1.035) Urine Protein 2+ H (Negative) Urine Glucose (UA) 3+ H (Negative) Urine Ketones 1+ H (Negative) Urine Blood Moderate H (Negative) Urine Nitrite Negative (Negative) Urine Bilirubin Negative (Negative) Urine Urobilinogen <2.0 (<2.0) mg/dL Ur Leukocyte Esterase Negative (Negative) Urine RBC 45 H (0-5) /hpf Urine WBC 3 (0-5) /hpf Disposition Clinical Impression: Concussion without loss of consciousness Disposition: HOME SELF-CARE Condition: Fair Instructions (If sedation given, give patient instructions): Concussion (ED) Is patient prescribed a controlled substance at d/c from ED?: No Referrals: Yoshi Vang MD [Primary Care Provider] - 1-2 days Time of Disposition: 15:59
[2021-08-29 14:50] LABS: Basophils % (A) 0 %; Eosinophils % (A) 0 %; HCT 39.5 % (39.0-53.0); HGB 12.2 gm/dL (13.0-17.5); Lymphocytes # (A) 0.8 k/uL (1.0-4.8); Lymphocytes % (A) 9 %; MCH 28.8 pg (25.0-35.0); MCHC 30.8 g/dL (31.0-37.0); MCV 93.5 fL (80.0-100.0); Mean Platelet Volume 7.2; Monocytes # (A) 0.2 k/uL (0-1.0); Monocytes % (A) 2 %; Neutrophils # (A) 7.6 k/uL (1.3-7.7); Neutrophils % (A) 88 %; Platelet Count 280 k/uL (150-450); RBC 4.22 m/uL (4.30-5.90); RDW 15.7 % (11.5-15.5); WBC 8.6 k/uL (3.8-10.6)
[2021-08-29 14:57] LABS: Albumin 4.9 g/dL (3.5-5.0); Magnesium 1.8 mg/dL (1.6-2.3); Potassium 4.7 mmol/L (3.5-5.1); Total Bilirubin 1.4 mg/dL (0.2-1.3); Total Protein 8.5 g/dL (6.3-8.2)
[2021-08-29 15:18] VITALS: BP 175/97
[2021-08-29 15:46] LABS: Appearance,Urine Clear (Clear); Bilirubin,Urine Negative (Negative); Blood,Urine Moderate (Negative); Color,Urine Light Yellow; Glucose,Urine (UA) 3+ (Negative); Ketones,Urine 1+ (Negative); Leukocyte Esterase,Urine Negative (Negative); Nitrite,Urine Negative (Negative); PH, Urine 6.5 (5.0-8.0); Protein,Urine 2+ (Negative); RBC,Urine 45 /hpf (0-5); Specific Gravity,Urine 1.012 (1.001-1.035); Urobilinogen,Urine <2.0 mg/dL (<2.0); WBC,Urine 3 /hpf (0-5)
[2021-08-29] MEDS ORDERED: ACETAMINOPHEN TAB 500 MG TAB PO PRN (15:46)
[2021-08-29] MEDS ORDERED: carvediloL 6.25 MG TAB PO STA (16:27)
== END 2021-08-29 16:35 | disposition home or self-care (01) ==
LOC: EC 12:29
DX: S06.0X0A Concussion without loss of consciousness, initial encounter (principal); E11.9 Type 2 diabetes mellitus without complications; I10 Essential (primary) hypertension; I25.10 Atherosclerotic heart disease of native coronary artery without angina pectoris; E78.5 Hyperlipidemia, unspecified; M19.90 Unspecified osteoarthritis, unspecified site; M10.9 Gout, unspecified; Z79.02 Long term (current) use of antithrombotics/antiplatelets; Z79.82 Long term (current) use of aspirin; Z79.84 Long term (current) use of oral hypoglycemic drugs; Z79.899 Other long term (current) drug therapy; Z86.718 Personal history of other venous thrombosis and embolism; Z86.73 Personal history of transient ischemic attack (TIA), and cerebral infarction without residual deficits; W19.XXXA Unspecified fall, initial encounter
CPT/HCPCS: 36415; 70450; 72125; 80053; 81001; 83735; 85025; 96360; 99284